=== PATIENT | female | born 1955 | race Asian ===

== ENCOUNTER → 2024-10-23 15:01 | Outpatient (REF) | payer MEDICARE, MEDICAID, SELFPAY ==
--- NOTE | 2024-10-23 15:14 | CA_ITS ---
Transthoracic Echocardiogram Patient (Last, First, Middle): Shreya Christian, Gender: Female Date of : 1955 Age: 69 Procedure Date: 10/23/2024 Procedure Type: Transthoracic Echocardiogram Location: OP Height: 144.78 cm Weight: 59.88 kg BSA: 1.51 m2 Heart Rate: bpm BP: 106 / 70 mmHg Windows Vmware Administrator: TO Referring MD: Vangie Perales Configuration Engineer: Zenon Lara MD Symptoms: I48.91 AFIB WITHOUR RVR Study Quality: Adequate ECG Rhythm: Atrial Fibrillation Conclusions: - 1. Normal LV ejection fraction 55-60% 2. Moderately dilated left atrium 3. Calcific aortic and mitral valve changes noted with mild mitral regurgitation 4. Normal RV systolic pressure 5. No pericardial effusion Findings Left Ventricle Normal left ventricular size, thickness, and systolic function. The visually estimated ejection fraction is between 55-60%. Diastolic function is indeterminate on the basis of available data. Right Ventricle Normal right ventricular cavity size and systolic function. Atria The left atrium is moderately dilated. There is no evidence of interatrial shunt. The right atrium is mildly dilated. Aortic Valve There is mild calcification of the aortic valve. There is no aortic valve stenosis. There is no aortic valve regurgitation. Mitral Valve There is mild anterior and posterior mitral leaflet thickening. There is mild mitral annular calcification. There is mild mitral valve regurgitation. There is no mitral valve stenosis. Pulmonic Valve The pulmonic valve was not well visualized. Tricuspid Valve Likely normal tricuspid valve structure and function. There is mild tricuspid valve regurgitation. The right ventricular systolic pressure is normal. The right ventricular systolic pressure is 20 mmHg. Normal right atrial pressure. There is no evidence of pulmonary hypertension. Great Vessels All visible segments of the aorta are normal in size. The pulmonary artery was not well visualized. There is no dilatation of the ascending aorta measuring 3.40 cm. Venous The inferior vena cava is normal in size and collapses greater than 50% with inspiration. Pericardium/Pleural There is no evidence of pericardial effusion. Prior Study Comparison No prior study available for comparison. Measurements 2D Linear Measurements IVSd: 0.95 0.6-0.9/0.6-1.0 cm LVIDd: 3.67 3.9-5.3/4.2-5.9 cm LVIDd Index: 2.43 2.4-3.2/2.2-3.1 cm/m2 LVIDs: 2.26 2.0-3.6 cm LVPWd: 0.86 0.7-1.1 cm LA Diam: 4.20 2.7-3.8/3.0-4.0 cm LAIDs Index: 2.78 1.5-2.3 cm/m2 LV Mass: 120.21 67-162/88-224 g LV Mass Index: 79.61 43-95/49-115 g/m2 LVOT Diam: 1.80 3.0+(-)1.3 cm 2D Systolic Function EF 4C: 57.80 >55% EF 2C: 59.40 >55% EF BiP: 57.20 >55% Mitral Valve MV Pk E: 0.72 MV Decel Time: 167.00 E'Lateral: 12.10 E'Medial: 7.22 E/E' Med: 9.90 E/E' Lat: 5.90 PHT: 49.00 MVA PHT: 4.49 Decel Meigs: 4.29 Aortic Valve AoV Pk Andrew: 1.53 AoV Mn Andrew: 0.97 AoV VTI: 0.30 AoV Pk Grad: 9.00 Aov Mn Grad: 4.00 DEMARCUS Cont.VTI: 1.53 LVOT LVOT Pk Andrew: 0.88 LVOT Mn Andrew: 0.59 LVOT VTI: 0.18 LVOT Pk Grad: 3.00 LVOT Mn Grad: 2.00 LVOT Diam: 1.80 LVOT Area: 2.54 Diastolic Function MV Pk E: 0.72 E'Medial: 7.22 E/E' Med: 9.90 E' Laterial: 12.10 E/E' Lat: 5.90 Right Ventricle TAPSE (mm): 15.10 TVS' Andrew: 9.21 Tricuspid Valve TR Pk Andrew: 2.06 TR Pk Grad: 17.00 RA Press: 3.00 RVSP: 20.00 Great Vessels Aorta Sinus of Valsalva: 2.57 2.0-3.5 cm Ao Asc: 3.40 2.1-3.4 cm Ao Arch: 2.60 Updated in Other Vendor System with Status of Final Zenon Lara MD electronically signed on 10/23/2024 5:20:23 PM with status of Final
--- OUTSIDE RECORDS SUMMARY | 2024-10-23 16:11 | XMS_ITS | Continuity of Care Document ---
Author Organization [facility], , [facility] [place] Address [address] [place] [address] [place] [address] Care Team Providers Care Hydrocrane Operator Name Role Phone OG MAXWELL Primary Care Provider Assessment Encounter Date Assessment Date Assessment LastModified by Organization Details LastModified Time 10/23/2024 10/23/2024 Attestation: Greater than 30 minutes was dedicated to the preparation of this clinical note, including review of medical records, patient interaction, and analysis of relevant data After a discussion of treatment options, which included consideration of best practices and patient preferences, the following treatment plan and objectives were adopted [email or web address] Not available 10/23/2024 10:25:40 Plan of Treatment Reminders Order Date Submit Date Provider Last Modified By Organization Details Last Modified Time Details Appointments Same Day Appt, 30 2024 09:30A M OG MAXWELL DNP Not available Not available Not available LAB Follow-Up 2024 10:40A M [facility] Not available Not available Not available LAB Follow-Up 2024 12:00P M [facility] Not available Not available Not available Wellness Visit 2024 02:30P M OG MAXWELL DNP Not available Not available Not available Lab TSH, serum or plasma 2024 025 [facility], [address] [place] [address], [address], 10/23/2024 10:19:15 T4, free, serum 2024 025 [facility], [address] [place], [address], 10/23/2024 16:07:28 fecal occult blood, immunoass ay, stool - Lab- Create annual order through QM-IFOBT order set. 2024 025 [email or web address] [facility], [address] [place] [address], [address], 10/23/2024 10:19:11 CBC 2024 025 [facility], [address] [place] [address], [address], 10/23/2024 12:15:54 BMP, serum or plasma 2024 025 [facility], [address] [place] [address], [address], 10/23/2024 10:19:14 Referral cardiolog ist referral - New afib without RVR, please eval 2024 025 [email or web address] [facility], [facility], [place], [address], 10/23/2024 11:53:11 Procedures None recorded. Surgeries None recorded. Imaging electroca rdiogram 2024 025 [email or web address] [facility], [address] [place] [address], [address], 10/23/2024 11:11:41 US, echocardi ogram - Afib without RVR 2024 025 [email or web address] [facility], [address] [place], [address], 10/23/2024 13:59:21 Medication Orders Eliquis 5 mg tablet 2024 025 [facility], [address] [place], [address], 10/23/2024 10:06:50 Patient TargetsNo targets recorded. Patient InstructionsNo instructions recorded. Reason for Referral Catheterization Laboratory Technician Referral for At rial fibrillation New afib without RVR, please eval Referring Physician: Og Maxwell, Family Medicine, Encounter Date: 10/23/2024 Results Created Date Observation Date Name Description Value Unit Range Abnormal Flag Note LastModifiedBy Organization Detail LastModifiedTime 10/23/1910/23/2024 elect rocar diogr am No observ ation record ed. [address], [place], [address], 10/23/2024 10:22:39 10/23/19 elect rocar diogr am No observ ation record ed. [email or web address] Not Available 2024 11:01:44 10/23/19 25 10/23/2024 elect rocar diogr am No observ ation record ed. BARCODE Not Available 2024 12:09:09 10/23/19 25 10/23/2024 elect rocar diogr am No observ ation record ed. BARCODE Not Available 2024 12:11:01 Result Notes None recorded. Problems Name Problem SNOMED Code Status Onset Date Resolution Date Notes Provider Name and Address Organization Details Recorded Time Benign essential hypertensio n 5171528 Active Mina Orantes MD [address] [place], [place] [address], [address], [facility] 6 13:57:39 Atheroscler osis of aorta 91909739 Active Laurie valleoj MD [address] [place], [place] [address], [address], [facility] 3 15:44:25 Anemia 470381407 Completed 201607/26/2019 MARQUES Espinoza [address] [place], [place] [address] [place], [address], [facility] 9 13:49:05 History of anemia 785159778 Completed 201807/20/2020 Laurie vallejo MD [address] [place], [place] [address] [place], [address], [facility] 0 15:50:41 Chronic anemia 110985568 Active 2020 Laurie vallejo MD [address] [place] [address] [place], [address], [facility] 1 12:42:08 Hypothyroid ism 60259624 Active 2021 Laurie vallejo MD [address] [place] [address] [place], [address], [facility] 2 13:12:02 Urinary incontinenc e 025113526 Active 2023 Laurie vallejo MD [address] [place] [address] [place], [address], [facility] 4 15:11:02 Problem Notes None recorded. Procedures Surgical History Date Name Laterality Status Provider Name and Address Organization Details Recorded Time 02/09/20 19 32977: Manual Therapy completed Nakul Sin, PT, DPT, CSCS [address] [place] [address], [address], [facility] 02/08/2019 12:21:51 02/09/20 19 05888: Ultrasound (1:1) completed Nakul Sin, PT, DPT, CSCS [address] [place] [address], [address], [facility] 02/08/2019 11:52:37 02/09/20 19 Neuromuscular re-education completed Nakul Sin, PT, DPT, CSCS [address] [place] [address], [address], [facility] 02/08/2019 12:21:52 02/02/20 19 96287: Manual Therapy completed Nakul Sin, PT, DPT, CSCS [address] [place] [address], [address], [facility] 02/01/2019 12:27:52 02/02/20 19 28546: Ultrasound (1:1) completed Nakul Sin, PT, DPT, CSCS [address] [place] [address], [address], [facility] 02/01/2019 12:28:03 01/26/20 19 Physical Activity Counselling completed Nakul Sin, PT, DPT, [address], [address], [facility] 01/25/2019 11:51:30 01/26/20 09357: PT Darren, Moderate Complexity completed Nakul Sin PT, DPT, CSC[facility] [address] [place] [address], [address], [facility] 01/25/2019 12:30:52 01/08/20 US Guided Knee Joint Injection completed Mina Orantes MD [address] [place] [address], [address], [facility] 01/07/2019 15:42:17 01/05/20 43557: Therapeutic Exercise completed Nakul Sin PT, DPT, [address], [address], [facility] 01/04/2019 12:27:04 01/05/20 64007: Manual Therapy completed Nakul Sin PT, DPT, [address], [address], [facility] 01/04/2019 12:26:55 01/05/20 17391: Ultrasound (1:1) completed Nakul Sin, PT, DPT, [address], [address], [facility] 01/04/2019 12:26:51 12/29/19 77577: Manual Therapy completed Nakul Sin PT, DPT, [address], [address], [facility] 12/28/2018 12:30:25 12/29/19 39529: Therapeutic Activities - Direct 1:1 completed Nakul Sin, PT, DPT, CSCS [address] [place] [address], [address], [facility] 12/28/2018 12:30:31 12/21/19 65913: Manual Therapy completed Nakul Sin, PT, DPT, [address], [address], [facility] 12/20/2018 12:46:05 12/21/19 25486: Therapeutic Activities - Direct 1:1 completed Nakul Sin, PT, DPT, CSC[facility] [address] [place] [address], [address], [facility] 12/20/2018 12:46:31 12/15/19 19 99782: Manual Therapy completed Nakul Sin, PT, DPT, CSCS [address] [place] [address], [address], [facility] 12/14/2018 11:49:54 12/15/19 19 Neuromuscular re-education completed Nakul Sin, PT, DPT, CSC[facility] [address] [place], [address], [facility] 12/14/2018 13:46:02 12/08/19 19 58507: Therapeutic Exercise completed Nakul Sin, PT, DPT, CSCS [address] [place] [address], [address], [facility] 12/07/2018 12:38:26 12/08/19 19 43657: Manual Therapy completed Nakul Sin, PT, DPT, CSCS [address] [place] [address], [address], [facility] 12/07/2018 12:38:09 12/01/19 19 00035: Manual Therapy completed Nakul Sin, PT, DPT, CSCS [address] [place] [address], [address], [facility] 11/30/2018 12:37:17 12/01/19 19 17127: Ultrasound (1:1) completed Nakul Sin, PT, DPT, CSCS [address] [place] [address], [address], [facility] 11/30/2018 11:50:13 12/01/19 19 73865: Therapeutic Activities - Direct 1:1 completed Nakul Sin, PT, DPT, CSCS [address] [place] [address], [address], [facility] 11/30/2018 13:14:39 11/23/19 19 42319: Manual Therapy completed Nakul Sin, PT, DPT, CSCS [address] [place] [address], [address], [facility] 11/22/2018 15:22:45 11/23/19 19 86286: Ultrasound (1:1) completed Nakul Sin, PT, DPT, CSCS [address] [place] [address], [address], [facility] 11/22/2018 15:18:21 11/17/19 19 62680: Manual Therapy completed Nakul Sin, PT, DPT, CSCS [address] [place] [address], [address], [facility] 11/16/2018 11:08:12 11/17/19 19 48655: Ultrasound (1:1) completed Nakul Sin, PT, DPT, [address], [address], [facility] 11/16/2018 11:08:03 11/17/19 19 Neuromuscular re-education completed Nakul Sin, PT, DPT, [address], [address], [facility] 11/16/2018 11:08:15 11/05/19 19 Physical Activity Counselling completed Nakul Sin, PT, DPT, [address], [address], [facility] 11/05/2018 11:19:01 11/05/19 19 69996: PT Eval, Moderate Complexity completed Nakul Sin, PT, DPT, [address], [address], [facility] 11/05/2018 11:45:14 07/25/20 18 POC Urinalysis Testing completed Duane Aguayo CMA [facility] 07/25/2018 16:27:44 Imaging Results Imaging Date Name Status LastModified by Organization Details LastModified Time 10/23/2024 electrocardiogram completed [address], [address], 10/23/2024 10:22:39 Procedure Notes None recorded. Medical Equipment None Reported. Allergies Allergen ID Allergen Name Allergen Category Reaction Reaction Severity Criticality Documentation Date Start Date Code Code System Note Provider Name and Address Organization Details Recorded Time 765022 lisinopri l medicatio n Not available Not available Not available 04/15/2015 59058 RxNorm Cough ing Honey Thee [facility] 8 15:08:16 Medications Name Sig Start Date Stop Date Status Note LastModified by Organization Details LastModified Time losartan 50 mg tablet TAKE 2 TABLETS BY MOUTH ONCE DAILY active Not Available Not Available No t Available celecoxib 200 mg capsule TAKE 1 CAPSULE BY MOUTH ONCE DAILY WITH SUPPER FOR 14 DAYS 01/29 completed pt sttaes finished this med 01/29/21L C Not Available Not Available Not Available amoxicill in 500 mg capsule TAKE 1 CAPSULE BY MOUTH EVERY 8 HOURS FOR 10 DAYS active Not Available Not Available No t Available prednison e 10 mg tablet 1 tablet daily with food or as directed . 05/10 completed Not Available Not Available Not Available cetirizin e 10 mg tablet Take 1 tablet every day by oral route for 30 days. 2023 active Not Available Not Available Not Avai lable azithromy maritza 250 mg tablet TAKE 2 TABLETS (500 MG) BY ORAL ROUTE ONCE DAILY FOR 1 DAY THEN 1 TABLET (250 MG) BY ORAL ROUTE ONCE DAILY FOR 4 DAYS 08/26 completed Not Available Not Available Not Available Lidocaine Viscous 2 % mucosal solution TAKE 15 ML BY MOUTH EVERY 3 HOURS 07/20 completed PRN Not Available Not Available Not Available Claritin 10 mg tablet Take 1 tablet every day by oral route for 7 days. 09/16 completed not taken 09/16/22tt Not Available Not Available Not Available prednison e 20 mg tablet TAKE 1 TABLET BY MOUTH TWICE DAILY WITH MEALS FOR 10 DAYS 08/09 completed Not Available Not Available Not Available prednison e 5 mg tablet TAKE 12 TABLETS BY MOUTH TODAY, 11 TABLETS TOMORROW AND 1 TABLET LESS EACH DAY active Not Available Not Available No t Available amlodipin e 2.5 mg tablet Take 1 tablet by mouth once daily active Not Available Not Available No t Available melatonin 3 mg tablet Take 1 tablet by oral route. 12/22 completed Not Available Not Available Not Available ciproflox acin 250 mg tablet TAKE 1 TABLET BY MOUTH TWICE DAILY FOR 3 DAYS 12/21 completed Not Available Not Available Not Available valacyclo vir 500 mg tablet TAKE 2 TABLETS BY MOUTH TWICE DAILY FOR 10 DAYS 07/20 completed Not Available Not Available Not Available aspirin 81 mg tablet,de layed release TAKE 1 TABLET BY MOUTH ONCE DAILY 10/23 completed Not Available Not Available Not Available triamcino lone acetonide 0.1 % topical cream APPLY A THIN LAYER TO THE AFFECTED AREA(S) BY TOPICAL ROUTE 2 TIMES PER DAY 09/16 completed not using 09/16/22 Not Available Not Available Not Available levothyro xine 25 mcg tablet Take 1 tablet every day by oral route. 2021 active Not Available Not Available Not Avai lable ketorolac 0.5 % eye drops INSTILL 1 DROP INTO RIGHT EYE THREE TIMES DAILY FOR 3 WEEKS FOLLOWIN G SURGERY 09/16 completed not using 09/16/22 Not Available Not Available Not Available cephalexi n 500 mg capsule TAKE 1 CAPSULE BY MOUTH EVERY 12 HOURS FOR 7 DAYS 09/21 completed Not Available Not Available Not Available oseltamiv ir 75 mg capsule TAKE 1 CAPSULE BY MOUTH TWICE DAILY FOR 5 DAYS 03/12 completed Not Available Not Available Not Available losartan 25 mg tablet Take 1 tablet every day by oral route for 90 days. 11/09 completed Not Available Not Available Not Available ibuprofen 400 mg tablet 1 tab 2-3 times a day as needed for pain. take with food 07/20 completed PRN Not Available Not Available Not Available hydrochlo rothiazid e 12.5 mg capsule Take 1 capsule by mouth once daily active Not Available Not Available No t Available omeprazol e 20 mg capsule,d elayed release take 1 cap po qam on an empty stomach with water 30 mins before eating 2014 active Not Available Not Available Not Avai lable Pepcid 20 mg tablet Take 1 tablet every day by oral route for 7 days. 09/16 completed not taken 09/16/22 Not Available Not Available Not Available celecoxib 100 mg capsule TAKE 1 CAPSULE BY MOUTH TWICE DAILY WITH MEALS FOR 14 DAYS 05/10 completed Not Available Not Available Not Available losartan 100 mg tablet Take 1 tablet by mouth once daily 02/01 completed Not Available Not Available Not Available fluticaso ne propionat e 50 mcg/actua tion nasal spray,[place] 1 spray every day by intranas al route. active Not Available Not Available No t Available Pneumovax -23 25 mcg/0.5 mL injection syringe PHARMACI ST ADMINIST ERED IMMUNIZA TION ADMINIST ERED AT TIME OF DISPENSI NG 12/21 completed Not Available Not Available Not Available azithromy maritza 500 mg tablet active Not Available Not Available No t Available nitrofura ntoin monohydra te/macroc rystals 100 mg capsule TAKE 1 CAPSULE BY MOUTH EVERY 12 HOURS FOR 7 DAYS 07/20 completed Not Available Not Available Not Available chlorhexi dine gluconate 0.12 % mouthwash RINSE WITH 15 ML BY MOUTH TWICE A DAY FOR 12 DAYS 07/20 completed not taking Not Available Not Available Not Available lysine 09/16 completed otc prn 01/29/21L C. not taken 09/16/22tt Not Available Not Available Not Available multivita min active Not Available Not Available Not Available diclofena c 1 % topical gel APPLY 2 GRAMS TO THE AFFECTED AREA(S) BY TOPICAL ROUTE 4 TIMES DAILY 2022 active Not Available Not Available Not Avai lable Eliquis 5 mg tablet Take 1 tablet twice a day by oral route. active Not Available Not Available No t Available BinaxNOW COVID-19 Ag Self Test kit Use as Directed on the Package 10/23 completed Not Available Not Available Not Available Vitals Date Recorded Body height Body mass index (BMI) Body weight Heart rate Oxygen saturation Oxygen saturation in Arterial blood by Pulse oximetry Systolic blood pressure Diastolic blood pressure Provider Name and Address Organization Details Last Updated DateTime 5 144.78 cm 28.6 kg/m2 06107.1 9 g 77 /min 100 % 100 % 116 mm[Hg] 64 mm[Hg] Janice Cuevas MA [facility] 09:46:00 Social History Question Answer Notes LastModified by Organizat ion Details LastModified Time Tobacco Smoking Status Never Smoker 10/23/24 KAYLYN Leiva [facility] 10/23/2024 09:36:59 What Is Your Level Of Alcohol Consumption? None [email or web address] Information not available 02/01/2022 Do You Wear A Helmet When Biking? Yes Information not available 11/16/2015 What Is Your Level Of Caffeine Consumption? Occasional Tea [email or web address] Information not available 02/01/2022 How Much Tobacco Do You Chew? None Information not available 11/16/2015 Are You Currently Employed? No [email or web address] Information not available 11/23/2015 What Type Of Diet Are You Following? REGULAR [email or web address] Information not available 10/01/2014 Do You Or Have You Ever Used E-cigarettes Or Vape? Never Used Electronic Cigarettes [email or web address] Information not available 02/01/2022 Education Less Than 8th Grade No Formal Schooling Information not available 09/16/2022 What Is The Highest Grade Or Level Of School You Have Completed Or The Highest Degree You Have Received? [id number] [email or web address] Information not available 02/01/2022 What Is Your Occupation? Unemployed [employer] [facility] [email or web address] Information not available 01/18/2017 Have There Been Any Changes To Your Family Or Social Situation? No [email or web address] Information not available 02/01/2022 How Many Days In The Past Year Have You Had A Heavy Drinking Consumption (4+ Female, 5+ Male)? 0 [email or web address] Information not available 10/01/2014 Are There Any Guns Present In Your Home? No Information not available 11/16/2015 Do You Use Insect Repellent Routinely? Yes Information not available 02/01/2022 Live Alone Or With Others? With Others [email or web address] Daughter's Family In Daughter's House Information not available 03/09/2023 Patient Has Health Care Proxy Signed And In Chart Yes Daughter- Rosette Cordero [email or web address] Information not available 03/10/2023 CCM Consent Discussion 03/12/2024 [email or web address] Information not available 03/13/2024 Marital Status Came Here Late 2012 From [facility] Information not available 03/09/2023 Mosquito Repellent Used Routinely No Information not available 09/16/2022 What Was The Date Of Your Most Recent Tobacco Screening? 10/23/2024 [email or web address] Information not available 10/23/2024 How Many Children Do You Have? 6 Daughters [email or web address] Information not available 10/01/2014 What Is Your Relationship Status? Male Spouse Information not available 02/01/2022 Do You Use Your Seat Belt Or Car Seat Routinely? Yes [email or web address] Information not available 02/01/2022 Seat Belts Used Routinely Yes Information not available 09/16/2022 Smoke Alarm In Home Yes Information not available 09/16/2022 Do You Have Smoke And Carbon Monoxide Detectors In Your Home? Yes [email or web address] Information not available 02/01/2022 Are You Passively Exposed To Smoke? No [email or web address] Information not available 02/01/2022 Do You Or Have You Ever Used Smokeless Tobacco? Never Used Smokeless Tobacco [email or web address] Information not available 02/01/2022 How Much Tobacco Do You Smoke? No [email or web address] Information not available 02/01/2022 General Stress Level Low Information not available 09/16/2022 Do You Use Sunscreen Routinely? Yes Information not available 11/16/2015 How Many Years Have You Smoked Tobacco? 0 [email or web address] Information not available 08/11/2020 Sex: Female Functional Status Question Answer Note LastModified by Organizat ion Details LastModified Time What is your exercise level? Occasional walking daily x 5-10 minutes Information not available 02/01/2022 Mental Status None recorded. Family History Nothing Reported Notes:brother -healthy, pare nts- when she was young Medical History No medical history recorded. Gynecological HistoryNo gynecological history recorded. Obstetrics History GPAL:G 0 P 0 0 0 0 Immunizations Vaccine Type Date Status Note Provider Nam e and Address Organization Details Recorded Time Influenza, split virus, quadrivalent, PF 5 completed Not Available [facility] 09/28/2019 02:19:21 Td (adult), 5 Lf tetanus toxoid, preservative free, adsorbed 5 completed Not Available [facility] 09/28/2019 02:19:45 zoster live 6 completed Not Available [facility] 09/28/2019 02:20:17 Influenza, split virus, quadrivalent, PF 6 completed Not Available [facility] 09/28/2019 02:20:16 Influenza, split virus, quadrivalent, PF 7 completed Not Available [facility] 09/28/2019 02:22:08 Influenza, split virus, quadrivalent, PF 9 completed Not Available [facility] 09/28/2019 02:31:12 Influenza, high-dose, quadrivalent, PF 0 completed Roxy Cisneros [place] null, [facility] 07/11/2020 12:32:10 Pneumococcal conjugate PCV 13 1 completed Duane Aguayo [facility] null, [facility] 01/29/2021 11:20:16 COVID-19, mRNA, LNP-S, PF, 100 mcg/0.5mL dose or 50 mcg/0.25mL dose 1 completed Marian Button null, [facility] 09/16/2022 14:04:06 Influenza, high-dose, quadrivalent, PF 2 completed RAFAT WILSON PA-C [address] [place] [address], [address], [facility] 07/18/2022 15:12:33 COVID-19, mRNA, LNP-S, PF, 100 mcg/0.5mL dose or 50 mcg/0.25mL dose 1 completed Marian Button null, [facility] 09/16/2022 14:04:07 COVID-19, mRNA, LNP-S, PF, 100 mcg/0.5mL dose or 50 mcg/0.25mL dose 1 completed Marian Button null, [facility] 09/16/2022 14:04:06 Influenza, split virus, quadrivalent, preservative 1 completed Marian Button null, [facility] 09/16/2022 14:04:06 pneumococcal polysaccharide PPV23 0 completed Marian Button null, [facility] 09/16/2022 14:04:06 COVID-19, mRNA, LNP-S, PF, 100 mcg/0.5mL dose or 50 mcg/0.25mL dose 2 completed Marian Button null, [facility] 09/16/2022 14:04:06 Influenza, high-dose, quadrivalent, PF 3 completed Nilmari, RMA Toribio null, [facility] 06/04/2023 15:47:53 RSV, recombinant, protein subunit RSVpreF, adjuvant reconstituted, 0.5 mL, PF 3 completed Nilmari, RMA Toribio null, [facility] 06/04/2023 15:48:23 COVID-19, mRNA, LNP-S, PF, 50 mcg/0.5 mL 3 completed Nilmari, RMA Toribio null, [facility] 06/27/2023 14:38:15 Influenza, high-dose, trivalent, PF 4 completed Nilmari, RMA Toribio null, [facility] 07/04/2024 07:58:35 zoster recombinant 4 completed Nilmari, RMA Toribio null, [facility] 07/04/2024 07:59:05 Past Encounters Encounter ID Performer Location Encounter Start Date Encounter Closed Date Diagnosis/Indication Diagnosis SNOMED-CT Code Diagnosis ICD10 Code Diagnosis Note [id number] OG MAXWELL DNP , [facility] [address] [place] [address] 10/23/2024 09:30:50 10/23/2024 11:11:41 Palpitations 91583169 R00.2 Atrial fibrillation 4943 6004 I48.91 Rate controlled atrial fibrillati on is likely due to dehydratio n and stress from diarrhea, with hx chronic anemia possibly contributi ng. Aspirin 81 mg daily is ineffectiv e for thromboemb olism prevention , so Eliquis 5 mg BID is chosen for anticoagul ation after discussion w/ pt and family. The necessity of anticoagul ation and clot risk was discussed based on CHADVASc score of 3. Holter monitor assessment is planned. Order a comprehens tabitha metabolic panel for electrolyt es, CBC to check for worsening anemia and refer to cardiology for an echocardio gram. Recommend PO intake (fluids and food) and rest once patient returns home. We discussed to monitor for worsening s/s and to seek immediate care if they develop. Screening for malignant neoplasm of colon [id number] Z12.11 You were given a stool kit today for Colorectal Cancer screening. Please review the instructio ns and return the kit to our office within 7 days. The kits so check the date before submitting the sample. Contact our office with any questions or concerns. Benign ess ential hypertension [id number] I10 BP 116/64, at goal. Continue current meds. Health Concerns Section Related Observation LastModified by Organization Detai ls LastModified Time None Recorded Concern Status LastModified by Organization Details LastModified Time None Recorded Payers Encounter Date Sequence Insurance Name Policy Number Policy Bradley Covered Member ID Bradley Member ID Guarantor Name 10/23/2024 1 [place] [employer] Shreya Gino [id number] Shreya Gino 10/23/2024 2 [place] [facility] Shreya Gino [id number] Shreya Gino Notes Date Note Type Note Provider Name and Address Organization Details Recorded Time 10/23/2024 text/html 69 year old german martin accompanied by her HCP/dtr presents for eval of afib. Pt was at [facility] for endoscopy at which point they performed a EKG. Reading showed 70 bpm w/ afib rhythm. Pt reports she has not eaten since breakfast yesterday morning as she was fasting for her colonoscopy. Reports the prep resulted in loose stools and it interfered with her ability to sleep. Currently she feels a band like headache and slight lightheadness. No palpitations, no dizziness, no chest pain, no SOB, no chest tightness. Pt is currently on 81 mg aspirin daily, HCTZ 12.5 mg cap daily, losartan 50 mg 2 tabs daily and amlodipine 2.5 mg one tab daily. OG MAXWELL, AYDIN [address] [place] [address], [id number], [facility] [place] 10/23/2024 10:39:22 OBGyn Episode No OBEpisode recorded.
--- OUTSIDE RECORDS SUMMARY | 2024-10-23 16:11 | XMS_ITS | Data Portability ---
Author Organization [facility], , [facility] Address [address] [place] [address] Care Team Providers Care Analysis Engineer Name Role Phone ALISSA OG Primary Care Provider Assessment Encounter Date Assessment Date Assessment LastModified by Organization Details LastModified Time 07/06/2023 07/06/2023 After a discussion of treatment and medication options, which included consideration of the best practices in medicine, a medical plan was provided. The patient's opinions and concerns were included in this treatment plan and goal. [email or web address] Not available 07/06/2023 15:24:01 03/12/2024 03/12/2024 We completed your Medicare Wellness exam today. This was an opportunity to assess your overall well being including your ability to care for yourself, your mobility, memory, mental health, as well as your safety. With advancing age, it is important to assign someone in your life as your Health Care Proxy (HCP). This person should know what is important to you and what your wishes are for medical procedures if you cannot communicate your wishes yourself (severe illness, unconsciousness ). We discussed having a completed Health Care Proxy form today. This is in place. Vision and Hearing are senses that are critically important as we age. When impaired, they can contribute to memory loss, falls, and make it harder to drive, talk to family and friends, and engage in the world. Please get your vision checked yearly and your hearing checked when you start to notice hearing loss. We discussed approaches to lowering your risk of heart disease and stroke . Your blood pressure is at goal. Your cholesterol is at goal. We discussed cancer screening you may need as well as vaccines to prevent infections. Colon Cancer : Your risk of colon cancer is average. Due for colorectal screenin. If you are not planning to have a colonoscopy please screen with stool cards yearly. Breast Cancer : Breast Cancer Screening (mammography). Next mammogram due: 2023. Cervical Cancer Screening (pap test). Next pap due: not needed. Influenza Vaccine : Flu shot yearly. Tetanus Vaccine : Every 10 years. Due: 2024. The following vaccines are available from your pharmacy: Pneumonia Vaccine : PCV20/13: once after age 65. Shingles Vaccine : 2 shots after age 50. Covid Vaccine : Make sure you have received the most up to date covid vaccine. Your personal health goal for the year is: stay active. [email or web address] Not available 03/12/2024 15:28:20 Plan of Treatment Reminders Order Date Submit Date Provider Last Modified By Organization Details Last Modified Time Details Appointments Same Day Appt, 30 2024 09:30A M OG MAXWELL DNP Not available Not available Not available LAB Follow -Up 2024 12:00P M [facility] Lab Not available Not available Not available [facility] Visit 2024 02:30P M OG MAXWELL DNP Not available Not available Not available Lab cultur e, urine 2022 023 [facility], [address] [place] [address], [id number], 07/08/2023 14:18:35 urinal ysis, dipsti ck 2022 023 [email or web address] [facility], [address] [place] [address], [id number], 07/06/2023 17:15:54 rapid flu (A+B) 2023 024 [facility], [address] [place] [address], [address], 09/21/2023 10:08:07 CBC 2023 024 [facility], [address] [place] [address], 180[address], 09/21/2023 12:57:54 TSH, serum or plasma 2023 024 [facility], [address] [place] [address], [id number], 09/22/2023 10:47:37 T4, free, serum 2023 024 [facility], [address] [place] [address], 11307, 09/22/2023 10:22:05 BMP, serum or plasma 2023 024 [facility], [address] [place] [address], 00605, 09/22/2023 12:21:32 CBC 2023 024 [facility], [address] [place] [address], 34870, 08/19/2024 14:33:15 BMP, serum or plasma 2023 024 [facility], [address] [place] [address], 56025, 08/20/2024 12:28:24 lipid panel, serum 2023 024 [facility], [address] [place] [address], [address]14, 08/20/2024 12:28:25 TSH, serum or plasma 2023 024 [facility], [address] [place] [address], 66326, 08/22/2024 16:25:03 T4, free, serum 2023 024 [facility], [address] [place] [address], 42055, 08/22/2024 15:53:20 CBC [email or web address] [address] [place] [address], [address], 08/27/2024 08:57:02 BMP, serum or plasma 2023 025 [facility], [address] [place] [address], 757[address], 08/27/2024 08:57:02 TSH, serum or plasma 2023 025 [facility], [address] [place] [address], 99061, 08/27/2024 08:57:02 T4, free, serum 2023 025 [facility], [address] [place] [address], [address], 08/27/2024 08:57:02 Referral orthop edic surgeo n referr al 2023 024 [email or web address] [facility], [address] [place] [address], [address], 03/18/2024 15:27:58 otolar yngolo gist referr mar ye 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 Please evalua te. Thank you 2023 024 [email or web address] [facility], [address], [place], [address], 08/02/2024 12:31:53 Procedures colono scopy proced ure (PROC) [email or web address] [place] [address] Gastroenterol ogy, [address] [place], [address], 08/27/2024 11:10:13 Surgeries None record ed. Imaging MAMMO, screen ing, tomosy nthesi s, bilate ral - 2nd Look Consul t/Diag Mammo/ US Breast /Guide d Asp/Br east Bx/Cli p Placem ent, as clinic kip waller. 2023 024 [facility]), [address], [place], [address], 04/01/2024 18:17:17 XR, chest 2023 024 [facility] [address], [place], [address], 07/31/2024 16:27:53 Medication Orders cephal exin 500 mg capsul e 2022 023 [email or web address] [facility], [address] [place] [address], [address], 09/21/2023 09:40:04 Tamifl u 75 mg capsul e 2023 024 [facility], [address] [place] [address], [address], 03/12/2024 15:08:33 flutic asone propio sae 50 mcg/ac tuatio n nasal spray, suspen alfred 2023 024 [facility], [address] [place], [address], 07/31/2024 15:19:52 cetiri zine 10 mg tablet 2023 024 [facility], [address] [place] [address], [address], 07/31/2024 15:19:52 azithr omycin 250 mg tablet 2023 024 [facility], [address] [place] [address], [address], 08/26/2024 17:30:26 Patient TargetsNo targets recorded. Patient Instructions Encounter Date Encounter Id Patient Instructions Last Modified By Organization Details Last Modified Time 03/12/2024 [id number] advance directives: care instructions [email or web address] Not available 03/12/2024 15:30:18 preventing falls: care instructions [email or web address] Not available 03/12/2024 15:30:18 hearing loss: care instructions [email or web address] Not available 03/12/2024 15:30:18 well visit, over 65: care instructions [email or web address] Not available 03/12/2024 15:30:18 CCM: The provider and patient discussed the Chronic Care Management program, including the services provided, and any fees associated with them. Not available 03/12/2024 10:51:14 Reason for Referral Orthopedic Surgeon Referral for Degenerative joint disease involving multiple joints Referring Physician: [facility], Encounter Date: 03/12/2024 Extrusion Engineer Referral fo r Erythema of skin of nose Patient has recurrent erythema of nose and external throat with URI symptoms. Please evaluate. Thank you Referring Physician: Og [facility], Encounter Date: 07/31/2024 Results Created Date Observation Date Name Description Value Unit Range Abnormal Flag Note LastModifiedBy Organization Detail LastModifiedTime 07/06/2007/06/2023 POC UA glu UA NEGATI VE Not Available [facility] [address] [place] [address], [address], 07/06/2023 14:46:52 07/06/2007/06/2023 POC UA clarity UA CLEAR Not Available [address], [address], 07/06/2023 14:46:52 07/06/2007/06/2023 POC UA uro UA 1.0000 Not Available [facility] [address] [place] [address], [address], 07/06/2023 14:46:52 07/06/2007/06/2023 POC UA ket UA NEGATI VE Not Available [address], [address], 07/06/2023 14:46:52 07/06/2007/06/2023 POC UA pro UA >=300. 0000 abnormal Not Available [address], [address], 07/06/2023 14:46:52 07/06/2007/06/2023 POC UA nit UA NEGATI VE Not Available [facility] [address] [place] [address], [address], 07/06/2023 14:46:52 07/06/2007/06/2023 POC UA frances UA LARGE abnormal Not Available [facility] [address] [place] [address], [address], 07/06/2023 14:46:52 07/06/2007/06/2023 POC UA pH UA 7.5000 Not Available [facility] [address] [place] [address], [address], 07/06/2023 14:46:52 07/06/2007/06/2023 POC UA SG UA 1.0200 Not Available [facility] [address] [place] [address], 94[address], 07/06/2023 14:46:52 07/06/2007/06/2023 POC UA color UA YELLOW Not Available [facility] [address] [place] [address], [address], 07/06/2023 14:46:52 07/06/2007/06/2023 POC UA blo UA LARGE abnormal Not Available [facility] [address] [place] [address], 98[address], 07/06/2023 14:46:52 07/06/2007/06/2023 POC UA thomas UA NEGATI VE Not Available [facility] [address] [place] [address], 828[address], 07/06/2023 14:46:52 07/06/2007/08/2023 CULTU RE, URINE , ROUTI NE culture, urine, routine abnormal CULTU RE, URINE , ROUTI NE Micro Numbe r: [id number] Test Statu s: Final Speci men Sourc e: Urine Speci men Quali ty: Adequ ate Resul t: 1,000 -9,00 0 CFU/M L of Group B Strep tococ cus isola sridhar Beta- hemol ytic strep tococ ci are predi ctabl y susce ptibl e to Penic illin and other beta- lacta ms. Theresece ptibi lity testi ng not routi edwige perfo rmed. Pleas e conta ct the labor atory withi n 3 days if susce ptibi lity testi ng is nafisa ed. Comme nt: Eryth romyc in and clind amyci n are not recom guilherme d for treat ment of urina ry tract infec tions , but clind amyci n may be usefu l for treat ment of recto vagin al colon izati on or infec tion. COMME NT: Addit ional non-p redom inati ng organ ism(s ) isola sridhar. These organ isms, commo nly found on exter nal and inter nal genit moon, are consi dered colon izers . No furth er testi ng perfo rmed. Not Available [facility] [address], [place], [address], 07/08/2023 14:18:35 09/21/19 24 09/21/2023 POC FLU flu A POC NEGATI VE Not Available [facility] [address] [place] [address], 12[address], 09/21/2023 10:08:07 09/21/19 24 09/21/2023 POC FLU flu B POC POSITI VE positive Not Available [facility] [address] [place] [address], 24543, 09/21/2023 10:08:07 09/21/19 24 09/21/2023 CBC WBC 6.17 K/? ? ?L 3.98-1 0.04 Not Available [address], [address], 09/21/2023 12:57:54 09/21/19 24 09/21/2023 CBC RBC 3.40 M/? ? ?L 3.93-5 .22 low Not Available [address], [address], 09/21/2023 12:57:54 09/21/19 24 09/21/2023 CBC HGB 10.5 g/dL 11.2-1 5.7 low Not Available [address], [address], 09/21/2023 12:57:54 09/21/19 24 09/21/2023 CBC HCT 31.2 % 34.1-4 4.9 low Not Available [address], [address], 09/21/2023 12:57:54 09/21/19 24 09/21/2023 CBC MCV 91.8 fL 79.4-9 4.8 Not Available [address], [address], 09/21/2023 12:57:54 09/21/19 24 09/21/2023 CBC MCH 30.9 pg 25.6-3 2.2 Not Available [address], [address]758, 09/21/2023 12:57:54 09/21/19 24 09/21/2023 CBC MCHC 33.7 g/dL 32.2-3 5.5 Not Available [address], [address], 09/21/2023 12:57:54 09/21/19 24 09/21/2023 CBC plt 231 K/? ? ?L 182-36 9 Not Available [address], [address], 09/21/2023 12:57:54 09/21/19 24 09/21/2023 CBC MPV 10.3 fL 9.4-12 .3 Not Available [address], 9[address], 09/21/2023 12:57:54 09/21/19 24 09/21/2023 CBC neut% 55.6 % 34.0-7 1.1 Not Available [address], [address], 09/21/2023 12:57:54 09/21/19 24 09/21/2023 CBC neut# 3.43 1.56-6 .13 Not Available [address], 4[address], 09/21/2023 12:57:54 09/21/19 24 09/21/2023 CBC lymph % 20.1 % 19.3-5 1.7 Not Available [address], [address], 09/21/2023 12:57:54 09/21/19 24 09/21/2023 CBC lymph # 1.24 K/? ? ?L 1.18-3 .74 Not Available [address], 10805, 09/21/2023 12:57:54 09/21/19 24 09/21/2023 CBC mono% 12.6 % 4.7-12 .5 high Not Available [address], 25[address], 09/21/2023 12:57:54 09/21/19 24 09/21/2023 CBC mono# 0.78 0.24-0 .56 high Not Available [address], [address], 09/21/2023 12:57:54 09/21/19 24 09/21/2023 CBC eo% 10.4 % 0.7-5. 8 high Not Available [address], [address], 09/21/2023 12:57:54 09/21/19 24 09/21/2023 CBC eo# 0.64 0.04-0 .36 high Not Available [address], [address], 09/21/2023 12:57:54 01/11/09/21/2023 CBC baso% 1.1 % 0.1-1. 2 Not Available [address], [address], 09/21/2023 12:57:54 09/21/19 24 09/21/2023 CBC baso# 0.07 0.00-0 .08 Not Available [address], 15607, 09/21/2023 12:57:54 09/21/19 24 09/21/2023 CBC RDW-CV 13.4 % 11.7-1 4.4 Not Available [address], [address]52, 09/21/2023 12:57:54 09/21/19 24 09/21/2023 CBC Ig% 0.200 % 0.000- 1.500 Ig % >0.5 Indic ates possi ble Left Shift Not Available [address], [address], 09/21/2023 12:57:54 09/21/19 24 09/21/2023 CBC Ig# 0.010 0.000- 0.093 Not Available [address], [address], 09/21/2023 12:57:54 09/21/19 24 09/21/2023 CBC NRBC% 0.0 % 0.0-0. 2 Not Available [address], [address], 09/21/2023 12:57:54 09/21/19 24 09/21/2023 CBC NRBC# 0.000 0.000- 0.012 Not Available [address], [address], 09/21/2023 12:57:54 09/21/19 24 09/22/2023 FREE T4 free T4 0.90 NG/dL 0.75-1 .54 Not Available [address], [address], 09/22/2023 10:22:05 09/21/19 24 09/22/2023 TSH TSH 4.33 uIU/m L 0.50-6 .00 The Ameri can Colle ge of Endoc rinol ogy and Ameri can Thyro id Assoc iatio n recom mend goal TSH value s betwe en 0.4-4 .0 mIU/m L. Not Available [address], [address], 09/22/2023 10:47:37 09/21/19 24 09/22/2023 BASIC METAB OLIC PANEL glucose 80 mg/dL 70-100 Not Available [address], 57[address], 09/22/2023 12:21:32 09/21/19 24 09/22/2023 BASIC METAB OLIC PANEL BUN 14 mg/dL 7-18 Not Available [address], [address]96, 09/22/2023 12:21:32 09/21/19 24 09/22/2023 BASIC METAB OLIC PANEL creatinine 0.7 mg/dL 0.8-1. 3 low Not Available [address], [address], 09/22/2023 12:21:32 09/21/19 24 09/22/2023 BASIC METAB OLIC PANEL B/C 20.0 ratio Not Available [address], [address], 09/22/2023 12:21:32 09/21/19 24 09/22/2023 BASIC METAB OLIC PANEL GFR >=60ML /MIN mL/mi n normal >=60m L/min - Deborah l or midly reduc ed <60mL /min- Decre ased kidne y funct ion <15mL /min - Kidne y failu re Mireles y [facility] al Group calcu lates estim ated Glome rular Filtr ation Rate (eGFR ) using the Chron ic Kidne y Disea se Epide miolo gy Colla borat ion (CKD- EPI) Equat ion (Abiele r et. al 2020) as recom guilherme d by the Oliver tang . eGFR is based on age, serum creat inine , and sex. CKD-E PI does not calcu late eGFR by race, does not apply to child braydon (age <18 years ), and shoul d not be used in pregn shannon. Not Available [address], [address], 09/22/2023 12:21:32 09/21/19 24 09/22/2023 BASIC METAB OLIC PANEL sodium 139 mmol/ L 136-14 5 Not Available [address], [address], 09/22/2023 12:21:32 09/21/19 24 09/22/2023 BASIC METAB OLIC PANEL potassium 3.8 mmol/ L 3.5-5. 1 Not Available [address], [address], 09/22/2023 12:21:32 09/21/19 24 09/22/2023 BASIC METAB OLIC PANEL chloride 101 mmol/ L 96-107 Not Available [address], [address]56, 09/22/2023 12:21:32 09/21/19 24 09/22/2023 BASIC METAB OLIC PANEL anion gap 11.0 5.0-15 .0 Not Available [address], [address]15, 09/22/2023 12:21:32 09/21/19 24 09/22/2023 BASIC METAB OLIC PANEL CO2 27 mmol/ L 21-32 Not Available [address], 80672, 09/22/2023 12:21:32 09/21/19 24 09/22/2023 BASIC METAB OLIC PANEL calcium 8.9 mg/dL 8.5-10 .3 Not Available [address], [address], 09/22/2023 12:21:32 08/19/20 24 08/19/2024 CBC WBC 4.16 K/? ? ?L 3.98-1 0.04 Not Available [address], [address]120, 08/19/2024 14:33:15 08/19/20 24 08/19/2024 CBC RBC 3.12 M/? ? ?L 3.93-5 .22 low Not Available [address], [address], 08/19/2024 14:33:15 08/19/2008/19/2024 CBC HGB 10.0 g/dL 11.2-1 5.7 low Not Available [address], 8[address], 08/19/2024 14:33:15 08/19/20 24 08/19/2024 CBC HCT 29.4 % 34.1-4 4.9 low Not Available [address], [address], 08/19/2024 14:33:15 08/19/20 24 08/19/2024 CBC MCV 94.2 fL 79.4-9 4.8 Not Available [address], [address]604, 08/19/2024 14:33:15 08/19/20 24 08/19/2024 CBC MCH 32.1 pg 25.6-3 2.2 Not Available [address], [address]69, 08/19/2024 14:33:15 08/19/20 24 08/19/2024 CBC MCHC 34.0 g/dL 32.2-3 5.5 Not Available [address], [address], 08/19/2024 14:33:15 08/19/20 24 08/19/2024 CBC plt 211 K/? ? ?L 182-36 9 Not Available [address], [address], 08/19/2024 14:33:15 08/19/20 24 08/19/2024 CBC MPV 10.6 fL 9.4-12 .3 Not Available [address], [address], 08/19/2024 14:33:15 08/19/20 24 08/19/2024 CBC neut% 27.7 % 34.0-7 1.1 low SREV= Slide revie wed by [facility]. Not Available [address], [address], 08/19/2024 14:33:15 08/19/20 24 08/19/2024 CBC neut# 1.15 1.56-6 .13 low Not Available [address], [address], 08/19/2024 14:33:15 08/19/20 24 08/19/2024 CBC lymph % 52.4 % 19.3-5 1.7 high Not Available [address], [address]20, 08/19/2024 14:33:15 08/19/20 24 08/19/2024 CBC lymph # 2.18 K/? ? ?L 1.18-3 .74 Not Available [address], [address], 08/19/2024 14:33:15 08/19/20 24 08/19/2024 CBC mono% 9.1 % 4.7-12 .5 Not Available [address], [address], 08/19/2024 14:33:15 08/19/20 24 08/19/2024 CBC mono# 0.38 0.24-0 .56 Not Available [address], [address], 08/19/2024 14:33:15 08/19/20 24 08/19/2024 CBC eo% 9.6 % 0.7-5. 8 high Not Available [address], 9[address], 08/19/2024 14:33:15 08/19/20 24 08/19/2024 CBC eo# 0.40 0.04-0 .36 high Not Available [address], 35708, 08/19/2024 14:33:15 08/19/20 24 08/19/2024 CBC baso% 1.2 % 0.1-1. 2 Not Available [address], [address]9997, 08/19/2024 14:33:15 08/19/20 24 08/19/2024 CBC baso# 0.05 0.00-0 .08 Not Available [address], [address], 08/19/2024 14:33:15 08/19/20 24 08/19/2024 CBC RDW-CV 13.8 % 11.7-1 4.4 Not Available [address], [address], 08/19/2024 14:33:15 08/19/20 24 08/19/2024 CBC Ig% 0.000 % 0.000- 1.500 Ig % >0.5 Indic ates possi ble Left Shift Not Available [address], [address]69, 08/19/2024 14:33:15 08/19/20 24 08/19/2024 CBC Ig# 0.000 0.000- 0.093 Not Available [address], [address], 08/19/2024 14:33:15 08/19/20 24 08/19/2024 CBC NRBC% 0.0 % 0.0-0. 2 Not Available [address], [address], 08/19/2024 14:33:15 08/19/20 24 08/19/2024 CBC NRBC# 0.000 0.000- 0.012 Not Available [address], [address], 08/19/2024 14:33:15 08/19/20 24 08/20/2024 BASIC METAB OLIC PANEL glucose 77 mg/dL 70-100 Not Available [address], [address], 08/20/2024 12:28:24 08/19/20 24 08/20/2024 BASIC METAB OLIC PANEL BUN 20 mg/dL 7-18 high Not Available [address], [address], 08/20/2024 12:28:24 08/19/20 24 08/20/2024 BASIC METAB OLIC PANEL creatinine 0.7 mg/dL 0.8-1. 3 low Not Available [address], [address], 08/20/2024 12:28:24 08/19/20 24 08/20/2024 BASIC METAB OLIC PANEL B/C 28.6 ratio Not Available [address], [address], 08/20/2024 12:28:24 08/19/20 24 08/20/2024 BASIC METAB OLIC PANEL GFR >=60ML /MIN mL/mi n normal >=60m L/min - Deborah l or midly reduc ed <60mL /min- Decre ased kidne y funct ion <15mL /min - Kidne y failu re [facility] y [employer] al [employer] calcu lates estim ated Glome rular Filtr ation Rate (eGFR ) using the Chron ic Kidne y Disea se Epide miolo gy Colla borat ion (CKD- EPI) Equat ion (Estela r et. al 2020) as recom guilherme d by the Oliver tang . eGFR is based on age, serum creat inine , and sex. CKD-E PI does not calcu late eGFR by race, does not apply to child braydon (age <18 years ), and shoul d not be used in pregn shannon. Not Available [address], [address], 08/20/2024 12:28:24 08/19/20 24 08/20/2024 BASIC METAB OLIC PANEL sodium 143 mmol/ L 136-14 5 Not Available [address], [address], 08/20/2024 12:28:24 08/19/20 24 08/20/2024 BASIC METAB OLIC PANEL potassium 3.9 mmol/ L 3.5-5. 1 Not Available [address], [address], 08/20/2024 12:28:24 08/19/20 24 08/20/2024 BASIC METAB OLIC PANEL chloride 105 mmol/ L 96-107 Not Available [address], 15[address], 08/20/2024 12:28:24 08/19/20 24 08/20/2024 BASIC METAB OLIC PANEL anion gap 11.6 5.0-15 .0 Not Available [address], [address], 08/20/2024 12:28:24 08/19/20 24 08/20/2024 BASIC METAB OLIC PANEL CO2 26 mmol/ L 21-32 Not Available [address], [address], 08/20/2024 12:28:24 08/19/20 24 08/20/2024 BASIC METAB OLIC PANEL calcium 9.1 mg/dL 8.5-10 .3 Not Available [address], [address], 08/20/2024 12:28:24 08/19/20 24 08/20/2024 LIPID PANEL cholesterol 172 mg/dL <200 mg/dl Nafisa able 200-2 39 mg/dl Borde rline High >240 mg/dl High Not Available [address], [address], 08/20/2024 12:28:25 08/19/20 24 08/20/2024 LIPID PANEL triglyceride s 60 mg/dL <150 mg/dL Deborah l 150-1 99 mg/dL Borde rline High 200-4 99 mg/dL High >500 mg/dL Very High Not Available [address], [address], 08/20/2024 12:28:25 08/19/20 24 08/20/2024 LIPID PANEL direct HDL 71 mg/dL <40 mg/dl - Major Risk for CHD >60 mg/dl - Negat tabitha Risk for CHD Not Available [address], [address], 08/20/2024 12:28:25 08/19/2008/20/2024 LDL - CALCU LATED LDL - calculated 89 RISK CATEG ORY LDL GOAL _ CHD or CHD Risk Equiv alent s <100 mg/dl (10-y ear risk >20%) 2+ Risk Facto rs <130 mg/dl (10-y ear risk <= 20%) 0-1 Risk Facto r? <160 mg/dl ? Almos t all peopl e with 0-1 risk facto r have a 10 year risk <10%, thus 10 year risk asses ment in peopl e with 0-1 risk facto r is not neckamar adelia. Not Available [address], [address], 08/20/2024 12:28:26 08/19/20 24 08/22/2024 FREE T4 free T4 0.90 NG/dL 0.75-1 .54 Not Available [address], [address], 08/22/2024 15:53:20 08/19/20 24 08/22/2024 TSH TSH 4.30 uIU/m L 0.50-6 .00 The Ameri can Colle ge of Endoc rinol ogy and Ameri can Thyro id Assoc iatio n recom mend goal TSH value s betwe en 0.4-4 .0 mIU/m L. Not Available [address], [address], 08/22/2024 16:25:03 04/01/20 24 04/01/2024 MAMMO , scree jessica, tomos ynthe sis, bilat eral MAMMO, SCREEN , RENATE, BILAT: 024. BI-RAD S: 1 CLINIC AL: 68-yea r old Female for Bilate ral Screen ing Mammog leslye. [facility] lifeti me risk of 2.4%. No person al or first- degree family histor y of breast cancer . PRIOR EXAMS: Multip le prior studie s back throug h 2015. MAMMOG ELIEL TECHNI QUE: 3D mammog eliel (tomos ynthes is) and 2D mammog eliel (C-vie w) images are genera sridhar. Images review ed with a CAD system . DENSIT Y B. There are scatte red areas of fibrog landul ar densit y. MAMMOG ELIEL FINDIN GS Bilate ral: No suspic ious mass, asymme try, microc alcifi cation , or other abnorm ality seen. CONCLU SIONNo eviden ce of malign shannon. RECOMM ENDATI ONS Bilate ralAnn ual screen ing mammog eliel. ADMINI STRATI VE: A lay summar y was mailed to your patien cassi angel the result s and recomm endati ons for follow -up. OVERAL L ASSESS MENT CATEGO RY BI-RAD S-1: Negati ve. The [employer] recomm ends annual screen ing mammog eliel beginn ing at age 40 for women with averag e risk of breast cancer . ELECTR ONICAL LY SIGNED : Giancarlo al Huy vigil M.D. on 2023 at 06:16: 59 PM Shaun alvarado Physic kaylie: Giancarlo Son ms [facility] [place] (Imaging) [address] [place], [address], 04/01/2024 21:55:43 07/31/20 24 07/31/2024 XR, chest CLINIC AL HISTOR Y: Cough. Short of breath TECHNI QUE: Fronta l view and latera l view of the chest obtain ed. COMPAR MOISÉS: March 12, 2021 FINDIN GS: The heart is normal in size and config uratio n.Ther e is no hilar or medias tinal enlarg ement. There is no focal lung consol idatio n or infilt rate. The bony thorax is intact . IMPRES ALFRED: No acute diseas e. Shaun alvarado Physic kaylie: [facility] (Imaging) [address] [place], [address], 07/31/2024 20:23:19 Result Notes None recorded. Problems Name Problem SNOMED Code Status Onset Date Resolution Date Notes Provider Name and Address Organization Details Recorded Time Benign essential hypertensio n 8206495 Active Mina Orantes MD [address] [place] [address] [place], [address], [facility] 6 13:57:39 Atheroscler osis of aorta 49520052 Active Laurie vallejo MD [address] [place] [address] [place], [address], [facility] 3 15:44:25 Anemia 775790513 Completed 201607/26/2019 MARQUES Espinoza [address] [place] [address] [place], [address], [facility] 9 13:49:05 History of anemia 870496741 Completed 201807/20/2020 Laurie vallejo MD [address] [place] [address] [place], [address], [facility] 0 15:50:41 Chronic anemia 805723647 Active 2020 Laurie vallejo MD [address] [place] [address] [place], [address], [facility] 1 12:42:08 Hypothyroid ism 03341388 Active 2021 Laurie vallejo MD [address] [place] [address] [place], [address], [facility] 2 13:12:02 Urinary incontinenc e 923824411 Active 2023 Laurie vallejo MD [address] [place] [address] [place], [address], [facility] 4 15:11:02 Problem Notes None recorded. Procedures Surgical History Date Name Laterality Status Provider Name and Address Organization Details Recorded Time 02/09/20 19 24398: Manual Therapy completed Nakul Sin, PT, DPT, CSCS [address] [place] [address], [address], [facility] 02/08/2019 12:21:51 02/09/20 19 19562: Ultrasound (1:1) completed Nakul Sin, PT, DPT, CSCS [address] [place] [address], [address], [facility] 02/08/2019 11:52:37 02/09/20 19 Neuromuscular re-education completed Nakul Sin, PT, DPT, CSCS [address] [place] [address], [address], [facility] 02/08/2019 12:21:52 02/02/20 19 72253: Manual Therapy completed Nakul Sin PT, DPT, CSCS [address] [place] [address], [address], [facility] 02/01/2019 12:27:52 02/02/20 19 48376: Ultrasound (1:1) completed Nakul Sni PT, DPT, CSCS [address] [place] [address], [address], [facility] 02/01/2019 12:28:03 01/26/20 Physical Activity Counselling completed Nakul Sin, PT, DPT, CSCS [address] [place], [address], [facility] 01/25/2019 11:51:30 01/26/20 87276: PT Darren, Moderate Complexity completed Nakul Sin, PT, DPT, CSCS [address] [place], [address], [facility] 01/25/2019 12:30:52 01/08/20 US Guided Knee Joint Injection completed Mina Orantes MD [address] [place] [address], [address], [facility] 01/07/2019 15:42:17 01/05/20 28366: Therapeutic Exercise completed Nakul Sin PT, DPT, CSCS [address] [place] [address], [address], [facility] 01/04/2019 12:27:04 01/05/20 06432: Manual Therapy completed Nakul Sin PT, DPT, CSCS [address] [place] [address], [address], [facility] 01/04/2019 12:26:55 01/05/20 12579: Ultrasound (1:1) completed Nakul Sin, PT, DPT, CSCS [address] [place] [address], [address], [facility] 01/04/2019 12:26:51 12/29/19 18022: Manual Therapy completed Nakul Sin, PT, DPT, CSCS [address] [place], [address], [facility] 12/28/2018 12:30:25 12/29/19 74291: Therapeutic Activities - Direct 1:1 completed Nakul Sin, PT, DPT, CSCS [address] [place] [address], [address], [facility] 12/28/2018 12:30:31 12/21/19 19 30146: Manual Therapy completed Nakul Sin, PT, DPT, CSCS [address] [place], [address], [facility] 12/20/2018 12:46:05 12/21/19 19 91873: Therapeutic Activities - Direct 1:1 completed Nakul Sin, PT, DPT, CSCS [address] [place] [address], [address], [facility] 12/20/2018 12:46:31 12/15/19 19 82586: Manual Therapy completed Nakul Sin, PT, DPT, CSCS [address] [place] [address], [address], [facility] 12/14/2018 11:49:54 12/15/19 19 Neuromuscular re-education completed Nakul Sin, PT, DPT, CSCS [address] [place] [address], [address], [facility] 12/14/2018 13:46:02 12/08/19 19 83991: Therapeutic Exercise completed Nakul Sin, PT, DPT, CSCS [address] [place] [address], [address], [facility] 12/07/2018 12:38:26 12/08/19 19 74084: Manual Therapy completed Nakul Sin, PT, DPT, CSCS [address] [place] [address], [address], [facility] 12/07/2018 12:38:09 12/01/19 19 14116: Manual Therapy completed Nakul Sin, PT, DPT, CSCS [address] [place] [address], [address], [facility] 11/30/2018 12:37:17 12/01/19 19 81277: Ultrasound (1:1) completed Nakul Sin, PT, DPT, CSCS [address] [place] [address], [address], [facility] 11/30/2018 11:50:13 12/01/19 19 88329: Therapeutic Activities - Direct 1:1 completed Nakul Sin, PT, DPT, [address], [address], [facility] 11/30/2018 13:14:39 11/23/19 19 57421: Manual Therapy completed Nakul Sin PT, DPT, [address], [address], [facility] 11/22/2018 15:22:45 11/23/19 19 63428: Ultrasound (1:1) completed Nakul Sin PT, DPT, [address], [address], [facility] 11/22/2018 15:18:21 11/17/19 19 23196: Manual Therapy completed Nakul Sin PT, DPT, [address], [address], [facility] 11/16/2018 11:08:12 11/17/19 19 82573: Ultrasound (1:1) completed Nakul Sin PT, DPT, [address], [address], [facility] 11/16/2018 11:08:03 11/17/19 19 Neuromuscular re-education completed Nakul Sin PT, DPT, [address], [address], [facility] 11/16/2018 11:08:15 11/05/19 19 Physical Activity Counselling completed Nakul Sin PT, DPT, [address], [address] [place] [address] 11/05/2018 11:19:01 11/05/19 19 55207: PT Eval, Moderate Complexity completed Nakul Sin PT, DPT, [address], [address] [place] [address] 11/05/2018 11:45:14 07/25/20 18 POC Urinalysis Testing completed Duane Aguayo CMA [facility] 07/25/2018 16:27:44 Imaging Results Imaging Date Name Status LastModified by Organ [facility] Details LastModified Time 04/01/2024 MAMMO, screening, tomosynthesis, bilateral completed [facility] ([facility]) [address], [place], [address], 04/01/2024 21:55:43 07/31/2024 XR, chest completed [facility] ([facility]) [address] [place], [address], 07/31/2024 20:23:19 Procedure Notes None recorded. Medical Equipment None Reported. Allergies Allergen ID Allergen Name Allergen Category Reaction Reaction Severity Criticality Documentation Date Start Date Code Code System Note Provider Name and Address Organization Details Recorded Time 227894 lisinopri l medicatio n Not available Not available Not available 04/15/2015 74226 RxNorm Cough ing Honey Thee veliz [facility] 8 15:08:16 Medications Name Sig Start Date [...] C Not Available Not Available Not Available prednison e 10 mg tablet 1 [...] TAKE 1 TABLET BY MOUTH ONCE DAILY active Not Available Not Available No t Available triamcino lone acetonide 0.1 % topical [...] 09/16/22tt Not Available Not Available Not Available celecoxib 100 mg capsule TAKE 1 CAPSULE BY MOUTH TWICE DAILY WITH MEALS FOR 14 DAYS 05/10 completed Not Available Not Available Not Available losartan 100 mg tablet Take 1 tablet by mouth once daily 02/01 completed Not Available Not Available Not Available fluticaso ne propionat e 50 mcg/actua tion nasal spray,therese pension Star 1 spray every day by intranas al [...] Not Available Not Available Not Avai lable BinaxNOW COVID-19 Ag Self Test kit Use as Directed on the Package active Not Available Not Available No t Available Vitals Date Recorded Body height Body mass index (BMI) Body weight Heart rate Oxygen saturation Oxygen saturation in Arterial blood by Pulse oximetry Systolic blood pressure Diastolic blood pressure Provider Name and Address Organization Details Last Updated DateTime 3 144.78 cm 29 kg/m2 84993.3 8 g 95 /min 100 % 100 % 110 mm[Hg] 70 mm[Hg] Nilmari, RMA Toribio [facility] 3 14:41:09 Date Recorded Body height Body mass index (BMI) Body weight Oxygen saturation Oxygen saturation in Arterial blood by Pulse oximetry Heart rate Systolic blood pressure Diastolic blood pressure Provider Name and Address Organization Details Last Updated DateTime 4 144.78 cm 29.2 kg/m2 26663.9 7 g 98 % 98 % 71 /min 110 mm[Hg] 60 mm[Hg] DOMENIC Hughes [facility] 4 09:44:40 Date Recorded Body height Body mass index (BMI) Body weight Heart rate Oxygen saturation Oxygen saturation in Arterial blood by Pulse oximetry Systolic blood pressure Diastolic blood pressure Provider Name and Address Organization Details Last Updated DateTime 4 144.78 cm 29.2 kg/m2 28461.9 7 g 70 /min 99 % 99 % 120 mm[Hg] 70 mm[Hg] DOMENIC Hughes [facility] 4 15:12:20 Date Recorded Body height Body mass index (BMI) Body weight Heart rate Oxygen saturation Oxygen saturation in Arterial blood by Pulse oximetry Body temperature Systolic blood pressure Diastolic blood pressure Provider Name and Address Organization Details Last Updated DateTime 4 144.78 cm 29.2 kg/m2 38863.9 7 g 88 /min 99 % 99 % 98.2 [degF] 105 mm[Hg] 62 mm[Hg] Rika Kasper [facility] 4 14:47:14 Date Recorded Body height Body mass index (BMI) Body weight Heart rate Oxygen saturation Oxygen saturation in Arterial blood by Pulse oximetry Systolic blood pressure Diastolic blood pressure Provider Name and Address Organization Details Last Updated DateTime 4 144.78 cm 28.3 kg/m2 17479.6 g 79 /min 99 % 99 % 100 mm[Hg] 60 mm[Hg] DOMENIC Hughes [facility] 4 08:42:56 Social History Question Answer Notes LastModified by Organizat ion Details LastModified Time Tobacco Smoking Status Never Smoker DOMENIC Hughes [facility] 02/01/2022 14:12:53 What Is Your Level Of Alcohol Consumption? None [email or web address] Information not available 02/01/2022 Do You Wear A Helmet When Biking? Yes Information not available 11/16/2015 What Is Your Level Of Caffeine Consumption? Occasional Tea [email or web address] Information not available 02/01/2022 How Much Tobacco Do You Chew? None Information not available 11/16/2015 Are You Currently Employed? No [email or web address] Information not available 11/23/2015 What Type Of Diet Are You Following? REGULAR [email or web address] Information not available 10/01/2014 Do You Or Have You Ever Used E-cigarettes Or Vape? Never Used Electronic Cigarettes [email or web address] Information not available 02/01/2022 Education Less Than 8th Grade No Formal Schooling Information not available 09/16/2022 What Is The Highest Grade Or Level Of School You Have Completed Or The Highest Degree You Have Received? 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 No [email or web address] Information not available 02/01/2022 How Many Days In The Past Year Have You Had A Heavy Drinking Consumption (4+ Female, 5+ Male)? 0 [email or web address] Information not available 10/01/2014 Are There Any Guns Present In Your Home? No Information not available 11/16/2015 Do You Use Insect Repellent Routinely? Yes [email or web address] Information not available 02/01/2022 Live Alone Or With Others? With Others [email or web address] Daughter's Family In Daughter's House Information not available 03/09/2023 Patient Has Health Care Proxy Signed And In Chart Yes Daughter- Rosette Cordero [email or web address] Information not available 03/10/2023 CCM Consent Discussion 03/12/2024 [email or web address] Information not available 03/13/2024 Marital Status Came Here Late 2012 From [facility] [employer] Information not available 03/09/2023 Mosquito Repellent Used Routinely No Information not available 09/16/2022 What Was The Date Of Your Most Recent Tobacco Screening? 08/27/2024 [email or web address] Information not available 08/27/2024 How Many Children Do You Have? 6 Daughters [email or web address] Information not available 10/01/2014 What Is Your Relationship Status? Male Spouse Information not available 02/01/2022 Do You Use Your Seat Belt Or Car Seat Routinely? Yes [email or web address] Information not available 02/01/2022 Seat Belts Used Routinely Yes Information not available 09/16/2022 Smoke Alarm In Home Yes Information not available 09/16/2022 Do You Have Smoke And Carbon Monoxide Detectors In Your Home? Yes [email or web address] Information not available 02/01/2022 Are You Passively Exposed To Smoke? No [email or web address] Information not available 02/01/2022 Do You Or Have You Ever Used Smokeless Tobacco? Never Used Smokeless Tobacco [email or web address] Information not available 02/01/2022 How Much Tobacco Do You Smoke? No [email or web address] Information not available 02/01/2022 General Stress Level [...] virus, quadrivalent, PF 5 completed Not Available [facility] 09/28/2019 02:19:21 Td (adult), 5 Lf tetanus toxoid, preservative free, adsorbed 5 completed Not Available [facility] 09/28/2019 02:19:45 zoster live 6 completed Not Available [facility] 09/28/2019 02:20:17 Influenza, split virus, quadrivalent, PF 6 completed Not Available [facility] 09/28/2019 02:20:16 Influenza, split virus, quadrivalent, PF 7 completed Not Available [facility] 09/28/2019 02:22:08 Influenza, split virus, quadrivalent, PF 9 completed Not Available [facility] 09/28/2019 02:31:12 Influenza, high-dose, quadrivalent, PF 0 completed Roxy Cisneros MA null, [facility] 07/11/2020 12:32:10 Pneumococcal conjugate PCV 13 1 completed Duane Aguayo [facility] null, [facility] 01/29/2021 11:20:16 COVID-19, mRNA, LNP-S, PF, 100 mcg/0.5mL dose or 50 mcg/0.25mL dose 1 completed Marian Button null, [facility] 09/16/2022 14:04:06 Influenza, high-dose, quadrivalent, PF 2 completed RAFAT WILSON PA-C [address] [place] [address], [address], [facility] 07/18/2022 15:12:33 COVID-19, mRNA, LNP-S, PF, 100 mcg/0.5mL dose or 50 mcg/0.25mL dose 1 completed Marian Button null, [facility] 09/16/2022 14:04:07 COVID-19, mRNA, LNP-S, PF, 100 mcg/0.5mL dose or 50 mcg/0.25mL dose 1 completed Marian Button null, [facility] 09/16/2022 14:04:06 Influenza, split virus, quadrivalent, preservative 1 completed Marian Button null, [facility] 09/16/2022 14:04:06 pneumococcal polysaccharide PPV23 0 completed Marian Button null, [facility] 09/16/2022 14:04:06 COVID-19, mRNA, LNP-S, PF, 100 mcg/0.5mL dose or 50 mcg/0.25mL dose 2 completed Marian Button null, [facility] 09/16/2022 14:04:06 Influenza, high-dose, quadrivalent, PF 3 completed Nilmari, RMA Toribio null, [facility] 06/04/2023 15:47:53 RSV, recombinant, protein subunit RSVpreF, adjuvant reconstituted, 0.5 mL, PF 3 completed Nilmari, RMA Toribio null, [facility] 06/04/2023 15:48:23 COVID-19, mRNA, LNP-S, PF, 50 mcg/0.5 mL 3 completed Nilmari, RMA Toribio null, [facility] 06/27/2023 14:38:15 Influenza, high-dose, trivalent, PF 4 completed Nilmari, RMA Toribio null, [facility] 07/04/2024 07:58:35 zoster recombinant 4 completed [facility] 07:59:05 Past Encounters Encounter ID Performer Location Encounter Start Date Encounter Closed Date Diagnosis/Indication Diagnosis SNOMED-CT Code Diagnosis ICD10 Code Diagnosis Note [id number] Sylvia Cooney , [facility] [place], OFFICE [address] [place] [address] 10/01/2014 13:54:52 10/01/2014 14:59:36 Adult health examination 394129868 see Risk Assessment and Lifestyle Change Counseling section above colo and mammo up to date pap unclear- daughter will check to see if she had a pap -- if not, she will call for a pap Influenza vaccine needed 7280139112 106 Shoulder pain 48177601 s he prefers not to see PT. she has handouts on PT exercises to do at home. she has some ROM limitation . Benign ess ential hypertension 7081871 lipids and labs up to date 04/24. Continue current medication . Gastritis 9562490 has br eath test follow up pending after recent treatment for h. pylori. dietary precaution s reviewed. will restart a PPI for further treatment. only had PPI treatment for 10 days [id number] [facility], OFFICE [address] [place] [address] 11/26/2014 10:24:47 11/26/2014 11:09:41 Gynecologic examination 09672436 possibly her first pap today. Hip pain 01440065 she wi ll consider PT after x-ray. she will stick with tylenol for now but might consider nsaids for improved relief. Screening for malignant neoplasm of cervix 828416894 [id number] [facility], OFFICE [address] [place] [address] 01/05/2015 11:41:10 01/05/2015 12:42:08 Pre-surgery evaluation 137186277 Pt is an appropriat e candidate for proposed procedure. EKG and labs will be faxed. Bradycardia 96176080 a l ook back through her previous records reveals this is a stable finding Systolic e jection sound 63069307 no previous documentat ion. will explore further with echo. likely associated with longstandi ng HTN. not a harsh murmur or with red flag characteri stics. Benign ess ential hypertension 7069880 well controlled on current meds. she is on herbals but cannot tell me what--and was advised to DC those at least 5 days prior to surgery. [id number] [facility], OFFICE [address] [place] [address] 04/03/2015 15:05:29 04/06/2015 09:13:40 Benign essential hypertension 1400171 Blood pressure at goal Today is an outlier. she stopped her herbal which she questions might contribute . ? pain as contributo r. will follow needs lipid panel done. Administra tion of diphtheria and tetanus vaccine 05327922 Hip pain 43912955 she wi ll consider PT after x-ray. she will stick with tylenol for now but might consider nsaids for improved relief. Atheroscle rosis of aorta 39934629 needs lipid panel done. order in [id number] Louise Ervin PA-C [facility], OFFICE [address] [place] [address] 11/16/2015 10:23:44 11/16/2015 11:28:34 Adult health examination 822862940 Z00.00 see Risk Assessment and Lifestyle Change Counseling section above Benign ess ential hypertension 9112020 I10 Blood pressure at goal Active or passive immunization 471594015 Z23 Varicella vaccination 68 146218 Z23 Screening for disorder 726332169 Z11.59 Screening mammography 24 888679 Z12.31 Hip pain 32367058 M25.55 9 x-ray left hip. has imaged right. both hips are painful. affecting her ability to mabulate. using nsaids and tylenol for pain. will refer to physical medicine and PT Gastritis 4212248 K29.70 she is not interested in medicine. she has had treatment for h pylori. [id number] Bereket Ortiz [facility], [facility] [place] [address] [place] [id number] 11/23/2015 13:24:29 11/24/2015 13:19:41 Backache 596111313 M54.9 Shreya is a 60-year-ol d female with left back pain most probably along her posterior iliac crest that is worse with movement and has been present for a number of years. At this time I see no evidence of intra-claritza cular hip pathology or trochanter ic bursitis or tendinitis as the cause of her pain. It appears to be intermitte nt and at times present in both sides and I feel most likely consistent with a muscular strain of her low back. I have advised that she can use NSAID medication as needed for discomfort which she does say works well. I also advised that she start physical therapy concentrat ing on improving her hip and core strength which will hopefully decrease her pain. She will plan to follow up in 8 weeks for reevaluati on. [id number] Karen Zarate NP , [facility] [place], OFFICE [address] [place] [address] 04/08/2016 09:25:32 04/08/2016 09:45:10 Contact dermatitis caused by urushiol from [facility] mynor 313546577 L25.5 PI rash on face, armsmild outbreak but given face involvemen t will tx with prednsione 40 mg 12 day taperGiven triamcinol one cream toodiscuss ed how transmitti ng and expected course of rash Benign ess ential hypertension 1883493 I10 Bp just a bit elevated todayhas been taking some (vidal) ARB from [facility].will switch to losartan 25 mgwill have neices (nurses) check her bp to make sure stay <140/90. [id number] SALVADOR Love, [facility] [place], OFFICE [address] [place] [address] 01/18/2017 13:54:11 01/18/2017 14:43:50 Benign essential hypertension 0558593 I10 Blood pressure at goal Continue meds Adult heal th examination 071054198 Z00.00 Exam done Atheroscle rosis of aorta 90540618 I70.0 noted incidental ly on echo Screening mammography 24 023179 Z12.31 Anemia 575098084 D64.9 check labs [id number] SALVADOR Love, [facility] [place], OFFICE [address] [place] [address] 07/24/2017 10:28:06 07/24/2017 11:15:13 Benign essential hypertension 8617867 I10 Blood pressure at goal Blood pressure NOT at goal. Active or passive immunization 023196109 Z23 Headache 09689912 R51 Exposure t o Hepatitis B virus 952158495 Z20.5 Family members w/ hep B. Check vaccinatio n status and core antigen. [id number] RAYMOND Childs, [facility] [place], OFFICE [address] [place] [address] 10/04/2017 16:54:28 10/04/2017 17:43:37 Benign essential hypertension 6371528 I10 Anemia 210737029 D64.9 Sleep disorder 81491401 G47.9 [id number] SALVADOR Love, [facility] [place], OFFICE [address] [place] [address] 10/19/2017 15:43:34 10/19/2017 16:17:28 Benign essential hypertension 4314625 I10 Still elevated on her ARB. Doesn't remember the 50mg she was on in the past. Will increase dose 25 to 50 and fu 3 wks, [id number] SALVADOR Love, [facility] [place], OFFICE [address] [place] [address] 11/09/2017 14:55:57 11/09/2017 15:32:06 Benign essential hypertension 7432178 I10 Still elevated on her losarten 50. Will increase again an fu next month. With rapid increase, will check US to r/o RANDY [id number] SALVADOR Love, [facility] [place], OFFICE [address] [place] [address] 11/30/2017 15:58:51 11/30/2017 16:33:00 Benign essential hypertension 1712981 I10 Not at goal (150 systollic for her pmh) with mostly 150s-160s at home. Would need a dift med if we chose to tx more aggressive ly. [place] [address]. Fu 2 mos and bring BP cuff with them to calibrate. If needs another med, consider low dose chlorthala done [id number] Nate Cabrera PA-C , [facility] [place], OFFICE [address] [place] [address] 01/22/2018 15:06:26 01/22/2018 16:14:20 Adult health examination 406946455 Z00.00 Exam done. Depression screening 171 459722 Z13.89 depression screening tool administer ed, entered into emr, scored and discussed, time greater than 7.5 minutes Benign ess ential hypertension 4760357 I10 Blood pressure at goal. Continue meds. Seems labile at home Screening mammography 24 337431 Z12.31 Atheroscle rosis of aorta 30493139 I70.0 noted incidental ly on echo Anemia 124035584 D64.9 stable [id number] Damon Guerra MD , [facility] [place], OFFICE [address] [place] [address] 07/25/2018 16:01:29 07/25/2018 16:34:07 Benign essential hypertension 0369404 I10 Blood pressure NOT at goal. Based on JNC 8 guidelines , BP should be below 140/90 for age 65 and younger. BP is elevated today. Added low dose HCTZ. Advised Pt to return in 1 week with PCP for BP check. All questions were addressed. Pt understand s and agrees with treatment plan Increased frequency of urination [id number] R35.0 Informed Pt that there is no urinary tract infection. Urinary frequency is most likely incontinen kendra (urgency). Educated Pt on kegel exercises. Pt repeated back to Provider on how to do kegel exercise. Will follow-up with Pt in 1 week. All questions were addressed. Pt understand s and agrees with treatment plan [id number] Damon Guerra MD , [facility] [place], OFFICE [address] [place] [address] 08/01/2018 14:55:12 08/01/2018 15:25:03 Benign essential hypertension 7943006 I10 Blood pressure at goalBased on JNC 8 guidelines , BP should be below 140/90 for age 65 and younger. BP is controlled today. Continue with HCTZ. Will follow-up with Pt in 3 months. All questions were addressed. Pt understand s and agrees with treatment plan [id number] Damon Guerra MD , [facility] [place], OFFICE [address] [place] [address] 10/25/2018 13:40:05 10/25/2018 17:40:51 Benign essential hypertension 8879478 I10 Blood pressure at goalBased on JNC 8 guidelines , BP should be below 140/90 for age 65 and younger. BP is controlled today. Continue with medication . Will follow-up with Pt in January for annual wellness visit. Provided Pt and her son in law a list of losartan recall from [employer]. Informed Pt that to contact the pharmacy if Pt's losartan at home matches the list from FDA. All questions were addressed. Pt understand s and agrees with treatment plan Shoulder joint pain 2679 69578 M25.512 Left shoulder pain most likely due to tendonitis /muscle strain since pain with neer's impingemen t and postive infraspina tus amy. Advised Pt to take ibuprofen as needed, apply ice to area of discomfort , and to take muscle relaxant as needed. Pt agreed to physical therapy. A referral is sent. All questions were addressed. Pt understand s and agrees with treatment plan [id number] Nakul Sin, PT, DPT, [facility], [address] [place] [address] 11/05/2018 11:17:49 11/05/2018 11:54:39 Shoulder pain 59937527 M25.512 M25.511 Pt is a 63 y.o female who reports to PT with ? L>R shoulder pain that appears mechanical in nature most consistent with impingemen t syndrome. Contributi ng to this is poor posturing combined with weakness of scapular/p ostural stabilizat ion muscles leading to poor scapulohum eral dynamics. Patient requires skilled physical therapy in order to safely and effectivel y progress their rehabilita tion to gain maximal functional outcome with as much symptom resolution as possible. 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 Treatment to Include: therapeuti c exercises/ activities , neuromuscu lar re-educati on, HEP prescripti on, modalities PRN, edema massage, manual therapy, ROM, patient education. [id number] Nakul Sin, PT, DPT, [facility], [address] [address] 11/16/2018 10:17:46 11/16/2018 11:29:03 Shoulder pain 94557310 M25.512 M25.511 Pt tolerated initiation of manual techniques well and with no increased c/o pain. Pt did require frequent cues to relax as pt with tendency to pushing shoulder forward in response to my posterior mobilizati ons. Otherwise, mobility did appear to improve minimallly . Subjective ly, pt noted feeling looser at end of visit. Pt requires tactile cues as she is not able to speak Albanian to correctly assume posture with exercises but able to complete pain-free. Continue PT per POC [id number] Nakul Sin, PT, DPT, [facility], [address] [address] 11/22/2018 15:17:38 11/22/2018 16:00:43 Shoulder pain 11204840 M25.512 M25.511 Pt continues to tolerate manual techniques well and with no increased c/o pain. Pt demonstrat es increased soft tissue density at upper trap but this resolved with manual techniques with GH mobility improving slowly. At end of visit, pt demonstrat es 90% of pain-free movement with mild shoulder hiking at end range.Cont inue PT per POC [id number] Nakul Sin, PT, DPT, [facility], [address] [address] 11/30/2018 11:43:41 11/30/2018 13:40:32 Shoulder pain 85251758 M25.512 M25.511 Pt continues to tolerate combo of manual techniques and US well and pain-free that by end of visit, pt demonstrat ed full and equal BUE AROM only noting discomfort at end range. Pt with mild shoulder hiking, but minimal. Pt understood concepts discussed, though, seems skeptical in her capacity to make these changes.WI ll re-assess at next visit. [id number] Nakul Sin, PT, DPT, [facility] Physical Therapy, [address] [address] 12/07/2018 11:41:29 12/07/2018 13:42:30 Shoulder pain 76601134 M25.512 M25.511 Discontinu ed US today to assess if with change. Otherwise, pt tolerated manual techniques well demonstrat ing improved passive mobility of GH joint and with full PROM. Actively, pt still with significan t shoulder hiking and limitation s with less 15 degrees. Pt with correct demonstrat ion of therex pain-freeC ontinue PT per POC [id number] Nakul Sin, PT, DPT, [facility] Physical Therapy, [address] [address] 12/14/2018 11:47:32 12/14/2018 14:13:04 Shoulder pain 30375257 M25.512 M25.511 Pt continues to have mild soft tissue restrictio ns at bilateral L>R upper trap, but, with significan t improvemen t of GH mobility. Passively pt with WNL of ROM, actively, able to achieve 120. Pt required cues for proper posture with RTC specific areas, but then able to complete on own pain-free. Continue PT per POC [id number] MARQUES Espinoza , [facility] [place], [address] [place] [address] 12/17/2018 14:45:07 12/17/2018 15:19:13 Chronic low back pain 365327454 M54.5 back pain most likely due to muscle strain since discomfort with lateral rotation to the right. Pt decline oral medication today and agreed to physical therapy A referral is sent. Advised Pt to take ibuprofen as needed, apply ice to area of discomfort . All questions were addressed. Pt understand s and agrees with treatment plan Pain in left knee 607971 0287 37675 M25.562 Informed Pt that right knee and left knee pain is most likely due to osteoarthr itis. Discussed options of voltaren gel, knee injection, and physical therapy. However, Pt reports she would like to get X-ray first before deciding. All questions were addressed. Pt understand s and agrees with treatment plan Pain in right knee 24410 30142 20941 M25.561 Informed Pt that right knee and left knee pain is most likely due to osteoarthr itis. Discussed options of voltaren gel, knee injection, and physical therapy. However, Pt reports she would like to get X-ray first before deciding. All questions were addressed. Pt understand s and agrees with treatment plan Shoulder pain 68871279 M 25.512 Discussed option of corticoste riod injection for pain since Pt reports no relief for physical therapy for her shoulder pain. Pt agreed. A referral is sent to sports medicine. All questions were addressed. Pt understand s and agrees with treatment plan Insomnia 889304279 G47.0 0 Discussed options of melatonin for the insomnia. Pt agreed. All questions were addressed. Pt understand s and agrees with treatment plan [id number] Nakul Sin, PT, DPT, [facility], [address] [address] 12/20/2018 12:15:55 12/20/2018 13:48:21 Shoulder pain 23544866 M25.512 M25.511 GH mobility nearing WNL and equal bilaterall y with PROM at 165 flexion, 145 abduction and full IR/ER. Actively, pt able to achieve the same with min discomfort at end range.Cont inue PT per POC, after appointmen t with sports medicine [id number] Mina Orantes MD Sports Medicine, [address] [address] 12/24/2018 14:25:31 12/24/2018 15:30:49 Shoulder pain 67571662 M25.512 Nettie is a 63-year-ol d female with left shoulder pain which I feel is likely secondary to impingemen t syndrome and rotator cuff tendinosis . It was somewhat difficult to reproduce her pain today in the office but clinically in exam she does not have evidence of a larger or full-thick ness rotator cuff tear or significan t biceps labral pathology. She has had some improvemen t with physical therapy and I did advise continuing this at this time. They do not also did asked that she obtain x-rays after the office visit to evaluate for any bony pathology contributi ng to her discomfort . She will plan a follow-up with me in 8 weeks for reevaluati on. [id number] Nakul Sin, PT, DPT, [facility], [address] [address] 12/28/2018 11:49:12 12/28/2018 12:32:57 Shoulder pain 09926900 M25.512 M25.511 At this point, pt with WFL of shoulder AROM bilaterall y and GH mobility WNL. Pt feels confident with ongoing management of HEP and will take better note of ongoing aggravatin g factors.Ot herwise, our plan will be to initiate treatment for R hip/knee pain. [id number] Nakul Sin, PT, DPT, [facility], [address] [address] 01/04/2019 11:16:43 01/04/2019 13:30:03 Shoulder pain 70661703 M25.512 M25.511 Pt with mild swelling at inferior angle of patella on the R which resolved moderately with manual techniques /ultrasoun d. Pt noted feeling favorable to all manual techniques . Pt did require cues for proper coordinati on/sequenc ing of initiation of hip/knee stabilizat ion exercises, but otherwise pt completed well and pain-free. Regarding pt's increase in R shoulder pain, it was also explained to pt that given the chronicity of her pain, there will always be management and maintenanc e that will have to occur. Pt with follow up with Dr Orantes, otherwise willContin ue PT per POC in 3 weeks secondary to provider vacation. Pain in right knee 54458 09000 36223 M25.561 Pain in left knee 074913 1305 77347 M25.534 [id number] Mina Orantes MD Sports Medicine, [address] [address] 01/07/2019 14:32:16 01/08/2019 07:53:30 Knee pain 75722305 M25.561 Shreya is a 63-year-ol d female with right knee pain secondary to osteoarthr itis as seen on her recent x-rays. I reviewed this diagnosis with her and her daughter today in the office as well as discussing treatment options. We discussed physical therapy, NSAID use, injection therapy, and surgery. I did give her a referral to physical therapy and she will call to set up an appointmen t. Due to her ongoing discomfort the decision was made to perform a right knee joint corticoste roid injection under ultrasound guidance. She tolerated this well without complicati on. I did advise that she ice and rest over the next week and gradually resume normal activities . She can start her physical therapy in 7-10 days. She will plan a follow-up with me as needed for further care. [id number] Nakul Sin, PT, DPT, [facility], [address] [address] 01/25/2019 11:50:07 01/25/2019 12:56:01 Pain in right knee [id number] 05466 M25.561 Pain in left knee 268813 7711 06206 M25.492 [id number] MARQUES Espinoza , [facility] [place], OFF[address] [facility] [place] [address] 01/25/2019 15:13:24 01/25/2019 16:06:18 Adult health examination 132398421 Z00.00 see Risk Assessment and Lifestyle Change Counseling section above. Will follow-up with Pt PRN or in 1 year for annual wellness visit. All questions were addressed. Pt understand s and agrees with treatment plan Depression screening 171 639828 Z13.89 depression screening tool administer ed, entered into emr, scored and discussed, time greater than 7.5 minutes Screening for malignant neoplasm of cervix 767037873 Z12.4 Superficia l ecchymosis 298201747 R58 superficia l ecchymosis noted on the right side of the abdomen. Pt reports she had this rash since she was 13yo. A referral is sent to dermatolog y for further evaluation and treatment. Pt denies any pruritus with the rash. Atheroscle rosis of aorta 08411220 I70.0 noted incidental ly on echo. BP is well controlled and Pt denies any abdominal pain Anemia 990897797 D64.9 Based on 11/08/18 CBC, Pt is not anemic Benign ess ential hypertension 9512085 I10 Blood pressure at goal [id number] Nakul Sin, PT, DPT, [facility], [address] [address] 02/01/2019 11:48:37 02/01/2019 12:34:53 Pain in right knee 5159396391 05889 M25.561 Pain in left knee 949010 1299 19102 M25.694 [id number] Nakul Sin, PT, DPT, [facility], [address] [address] 02/08/2019 11:48:19 02/08/2019 13:22:12 Pain in right knee 4092531604 24638 M25.561 Pain in left knee 906903 8724 94226 M25.921 [id number] Nakul Sin, PT, DPT, [facility], [address] [address] 02/13/2019 11:51:36 02/13/2019 12:49:02 Pain in right knee 7090485536 35538 M25.561 Pain in left knee 773780 5583 19417 M25.814 [id number] Nakul Sin PT, DPT, [facility], [address] [address] 02/22/2019 12:54:00 02/22/2019 13:48:56 Pain in right knee 3387347261 45438 M25.561 Pain in left knee 578464 9063 60438 M25.379 [id number] Nakul Sin, PT, DPT, [facility], [address] [address] 03/22/2019 13:19:25 03/22/2019 14:24:27 Pain in right knee 2518051709 67517 M25.561 Pain in left knee 534278 1473 18270 M25.677 [id number] Nakul Sin, PT, DPT, [facility], [address] [address] 04/26/2019 13:16:26 04/26/2019 14:01:27 Pain in right knee 7087053326 21293 M25.561 Pain in left knee 874057 6238 19102 M25.723 [id number] Nakul Sin, PT, DPT, [facility], [address] [address] 05/24/2019 13:22:33 05/24/2019 15:46:47 Pain in right knee 5316410158 29957 M25.561 Pain in left knee 347652 7981 85546 M25.254 [id number] Nakul Sin, PT, DPT, [facility], [address] [address] 07/19/2019 13:19:59 07/19/2019 13:55:56 Pain in right knee 6233908771 42977 M25.561 Pain in left knee 156204 1689 98698 M25.862 [id number] MARQUES Espinoza , [facility] [place], [address] [place] [address] 07/26/2019 13:30:14 07/26/2019 14:05:43 Active or passive immunization 671060243 Z23 Benign ess ential hypertension 9868569 I10 Blood pressure at goal. Pt will follow-up with new provider in January for routine annual wellness visit. All questions were addressed. Pt understand s and agrees with treatment plan Shoulder pain 68778809 M 25.512 Pt reports physical therapy really helped her shoulder and knee pain and would like a referral to continue with physical therapy. A referral is sent. All questions were addressed. Pt understand s and agrees with treatment plan Pain in right knee 27638 55209 19701 M25.561 Pt reports physical therapy really helped her shoulder and knee pain and would like a referral to continue with physical therapy. A referral is sent. All questions were addressed. Pt understand s and agrees with treatment plan Pain in left knee 261276 3768 24612 M25.562 Pt reports physical therapy really helped her shoulder and knee pain and would like a referral to continue with physical therapy. A referral is sent. All questions were addressed. Pt understand s and agrees with treatment plan [id number] Stacie Chavez, OD [facility], [address] [address] 09/05/2019 13:19:16 09/05/2019 16:37:30 Presbyopia 64191028 H52.4 Bilateral cataracts 9572 2004 H26.9 Pterygium 06927023 H11.0 09 Pigmented skin lesion of uncertain nature 064003703 L81.9 palpebral conjunctiv a at lower lid OD [id number] Bob Saravia MD , [facility] [place], OFFICE [address] [place] [address] 10/21/2019 11:52:22 10/21/2019 16:18:49 Aphthous ulcer of mouth 554892007 K12.0 experienci ng pain tyical for mucosal oral ulcersther e is one tyical ulcer top of palate on left abutting the pharyngeal pillar.thi s she noted through cabinetmaker apprentice is the most painful areapatche s of marked erythema over right palate w/o overt ulceration are present. I explained that this is common viral ,often untreatabl e , but self limited, from one of many viruses that affect the mouthwill rx valtrex in hopes of efficacy , but i explained efficacy is hit or miss.Rx topicals as well [id number] Kaylee Bowden , [facility], [address] [place] [address] 12/21/2019 12:15:13 12/21/2019 13:33:06 Urinary tract infectious disease 85483194 N39.0 Mostly dysuria, some frequency. Plan as below. [id number] Roxy Cisneros MA , [facility] [place], OFFICE [address] [place] [address] 07/11/2020 08:56:27 07/11/2020 12:32:57 Active or passive immunization 327124530 Z23 [id number] Laurie Archibald . , [facility] [place], OFFICE [address] [place] [address] 07/20/2020 15:06:47 07/22/2020 12:09:57 Atherosclerosis of aorta 75289280 I70.0 Found on imaging. Patient is advised to start aspirin 81 mg daily. 10 year cardiovasc ular risk has not warranted statin therapy. check US to rule out AAA. Benign ess ential hypertension 7074938 I10 Patient control below 130/80. Continue same. Urinary tr act infectious disease 90458397 N39.0 Starting with symptoms of UTI again. Will empiricall y treat with Cipro. Postmenopausal state 764 76662 Z78.0 She is 64 screen for osteoporos is. Screening for malignant neoplasm of breast 466755875 Z12.39 Active or passive immunization 125339966 Z23 Multiple joint pain 3567 8005 M25.50 Uses Voltaren gel. I advised patient to not use ibuprofen since we are putting her on aspirin. [id number] Laurie Archibald . MD SHIN, [facility] [place], OFFICE [address] [place] [address] 12/22/2020 09:40:38 12/24/2020 10:42:21 Atherosclerosis of aorta 33736687 I70.0 Found on imaging. continue aspirin 81 mg daily. 10 year cardiovasc ular risk has not warranted statin therapy. Pain of le ft hip joint 0601298418 16682 M25.552 ? SI joint dysfunctio n vs left hip lathology. will try celebrex not to interfere with am asa, check Xray, declined PT today. has follow up in January. Benign ess ential hypertension 9778780 I10 Patient control below 130/80 mostly, did not take her med today yet.. Continue same. [id number] Laurie Archibadl . , [facility] [place], OFFICE [address] [place] [address] 01/18/2021 15:18:45 01/19/2021 19:36:52 Benign essential hypertension 2038124 I10 Patient control below 130/80 mostly, elevated today. will bring in for nurse visit to check BP. May need to add low dose amlodipine . Atheroscle rosis of aorta 13771215 I70.0 Found on imaging. continue aspirin 81 mg daily. 10 year cardiovasc ular risk has not warranted statin therapy. Adult heal th examination 992977750 Z00.00 USPSTF guidelines reviewed and discussed with patient. Will mail her a health proxy form to fill out. colonoscop y 2013. mammo UTD. No Pap indicated. schedule nurse visit for Pneumovax. Counseling 311083290 Z71 .9 including cardiovasc ular risk reduction counseling , on asa. Depression screening 171 509594 Z13.31 depression screening tool administer ed, entered into emr, scored and discussed, time greater than 7.5 minutes, negative screen. Screening for alcohol abuse 922889388 Z13.39 negative screening. Intolerant of cold 26607 000 R68.89 rule out hypothyroi d. Multiple joint pain 3567 8005 M25.50 .Has started seeing a chiropract or. check labs to check for gout and Lyme as well as inflammato ry arthritis. Aphthous u lcer of mouth 661865349 K12.0 Try OTC Lysine. Advance di rective discussed with patient 364230312 Z71.89 counseled, will mail health proxy form to fill out. [id number] Laurie Archibald . MD SHIN, [facility] [place], [address] [place] [address] 01/29/2021 09:13:54 01/29/2021 10:36:18 Low back pain 227529197 M54.5 ? SI joint dysfunctio n, appears to may have some left knee issues too. Just had labs done for rheumatolo gic disease. Hip and pelvic Xray normal in December. No heavy lifting. topical heat. Active or passive immunization 078909786 Z23 pneumococc al vaccine due. Benign ess ential hypertension 0816042 I10 Patient control below 130/80 , at target, continue same meds. [id number] Laurie Archibald . MD SH[place], [facility] [place], OFFICE [address] [place] [address] 05/10/2021 16:43:26 05/10/2021 17:43:29 Contact dermatitis caused by urushiol from [employer] poison mynor 547031716 L25.5 Consistent with contact dermatitis from poison mynor. Patient to avoid the plant when gardening. Use gloves and long sleeve shirts when gardening. May use over-the-c ounter anti-itch cream topically, may use cold compresses or rubbing with an ice cube when itchy. Will give a course of prednisone . Left side sciatica 25331 20101 80742 M54.32 Had an epidural injection from [facility], no relief, pain down left leg with numbness, no change with chiropract or and exercises. gait is off balanced, using a cane now. needs handicappe d eric ( daughter to get form for us to complete). will get MRI to see if needs surgical interventi on. Takes Tylenol, may take ibuprofen but wait 2 hours after taking aspirin. [id number] ALISTAIR CHACON DPT Physical Therapy, [facility] [address] [place] [address] 07/08/2021 11:00:40 07/08/2021 12:14:13 Radicular pain 62288841 M54.10 Chronic low back pain 27 8249601 M54.50 [id number] ALISTAIR CHACON DPT Physical Therapy, [address] [place] [address] 08/04/2021 11:37:46 08/04/2021 12:29:59 Radicular pain 15763729 M54.10 Chronic low back pain 27 0907818 M54.50 [id number] Laurie Archibald . MD SHIN, [facility] [place], OFFICE [address] [place] [address] 08/10/2021 11:55:31 08/10/2021 12:44:54 Essential hypertension 03451861 I10 at target below 130/80, continue same. Atheroscle rosis of aorta 39017061 I70.0 Found on imaging. continue aspirin 81 mg daily. 10 year cardiovasc ular risk has not warranted statin therapy. LDL has been below 100 without statin. Shoulder pain 26974775 M 25.519 BL shoulder pain, will refer to PT. Aortic eje ction murmur 915379651 R01.1 echo in 2014 showed aortic sclerosis, recheck echo to make sure stenosis has not developed. Chronic anemia 455867400 D64.9 no deficienci es, H/H stable. [id number] ALISTAIR CHACON DPT Physical Therapy, [address] [address] 08/11/2021 16:26:32 08/12/2021 14:21:19 Pain of right knee joint 1306653089 22810 M25.561 Pain of le ft knee joint 7004072590 04018 M25.176 [id number] Chikis SH[place], [facility] [place], OFF[address] [place] [address] 02/01/2022 14:05:14 02/01/2022 14:53:36 Adult health examination 284104727 Z00.00 USPSTF guidelines reviewed and discussed with patient. health care proxy in place colonoscop y 2013. mammo ordered No Pap indicated. will let us know date of second Covid booster shot, also look into Shingrix. Counseling 870494844 Z71 .9 including cardiovasc ular risk reduction counseling , LDL below 100 without statin, is on aspirin already. Depression screening 171 046102 Z13.31 depression screening tool administer ed, entered into emr, scored and discussed, time greater than 7.5 minutes, negative screening Screening for alcohol abuse 551965924 Z13.39 negative screening. Essential hypertension 91073308 I10 at target below 130/80, continue same. Screening for malignant neoplasm of breast [id number] Z12.39 order mammo Intolerant of cold 32356 000 R68.89 rule out hypothyroi d. Chronic anemia 146842931 D64.9 no deficienci es, H/H stable. Aortic eje ction murmur 461773855 R01.1 echo in 2014 showed aortic sclerosis, recheck echo to make sure stenosis has not developed. Atheroscle rosis of aorta 32431389 I70.0 Found on imaging. continue aspirin 81 mg daily. 10 year cardiovasc ular risk has not warranted statin therapy. LDL has been below 100 without statin. Chronic low back pain 27 1679064 M54.50 diclofenac not helping much. may OTC ibuprofen sparingly if has pain, increase exercise. Obesity 921474681 E66.9 counseled today to increase exercise and cut back on portions and simple carbs, weight up 11 pounds in 1 year. [id number] Sil Bains MD , [facility], [address] [place] [address] 03/12/2022 15:37:14 03/15/2022 09:17:26 Pruritic rash 61254404 L28.2 facial rash, she says it feels like poison mynor but hsa been nowhere near garden.sug gested pepcid 20 mg and claritin 10 mg instead of benadryl for safety. try cool cloths on the face.start cream, not BELOW eyebrows or ABOVE cheekbones (keep it AWAY fro the eye and eyelids) if not improved have her seen, we are open in [facility] from 9-12 tomorrow and Monday. [id number] RAFAT WILSON PA-C FP, [facility] [place], [address]ICE [address] [place] [address] 07/13/2022 10:34:56 07/13/2022 13:57:28 Pre-surgery evaluation 117400183 Z01.818 R eye cataract surgery 07/28/22Pt denies new exertional symptomsPE w/ murmur- will attempt to complete echo prior to surgeryPt is low risk for low risk procedure. There is no contraindi cation to proceed. Chronic anemia 800923367 D64.9 H/H has been stable, will update CBC today Aortic eje ction murmur 891878837 R01.1 Audible on examStates unaware of previous echo apt.Pt case to referrals to reschedule Benign ess ential hypertension 1442697 I10 BP at goal, c/t same Right uppe r quadrant pain 177864839 R10.11 x3 months, intermitte nt, no injuryNo specific PE finding today or correlatio n to position or food intakeWill monitor Active or passive immunization 019902332 Z23 [id number] Laurie Archibald . , [facility] [place], OFFICE [address] [place] [address] 08/01/2022 11:54:02 08/01/2022 13:43:34 Essential hypertension 08737686 I10 at target below 130/80, continue same. Chronic anemia 240298736 D64.9 no deficienci es, H/H stable. Atheroscle rosis of aorta 75012176 I70.0 Found on imaging. continue aspirin 81 mg daily. 10 year cardiovasc ular risk has not warranted statin therapy. LDL has been below 100 without statin. Aortic garry ve regurgitation 33895074 I35.1 Recent echo showed mild aortic valve regurgitat ion. Consider echocardio gram in 3 years.No symptoms. Mitral garry ve regurgitation 85106906 I34.0 Moderate mitral valve regurgitat ion on recent echo. Consider echocardio gram in 3 years. No symptoms. Tricuspid valve regurgitation 503397626 I07.1 Moderate tricuspid valve regurgitat ion on recent echo. Consider echocardio gram in 3 years. No symptoms. Chronic low back pain 27 7115326 M54.50 had MRI last June ( 2020) with multilevel joint disease, then saw PS&S and states had a shot which did not help, massage therapy once a month helps. Wears an SI support belt. advised to do home exercises daily. Pain of bi lateral knee regions 2279275883 39478 M25.561 uses a cane, disabled placard form completed as well as attestatio n for emergency aid given medical conditions .Check x-rays and refer to orthopedic s for considerat ion of steroid and or hyaluronic acid injections . Hypothyroidism 22146528 E03.9 Euthyroid on replacemen t therapy. Continue same. Check labs before next visit. [id number] Ольга Ga MD , [facility] [place], OFFICE [address] [place] [address] 08/24/2022 16:26:23 08/25/2022 09:31:47 Acute upper respiratory infection 34344104 J06.9 Wet cough x few days, well-appea ring on exam.Suppo rtive care discussed. Can continue to use robitussin as needed for cough. [id number] Damon Guerra MD , [facility] [place], OFFICE [address] [place] [address] 08/29/2022 14:48:41 08/29/2022 15:19:50 Benign essential hypertension 1428862 I10 Disorder o f rotator cuff 189276982 M75.80 [id number] Damon Guerra MD , [facility] [place], [address]ICE [address] [place] [address] 09/16/2022 14:03:53 09/16/2022 14:38:04 Benign essential hypertension 0888147 I10 Pain of ri ght shoulder joint [id number] 2144480 M25.150 [id number] Kip Moore DPT Physical Therapy, [address] [address] 10/06/2022 14:03:49 10/11/2022 14:24:51 Strain of rotator cuff of shoulder 186740590 S46.011D Shoulder pain 07321656 M 25.063 [id number] Kip Moore DPT Physical Therapy, [address] [address] 10/12/2022 15:43:59 10/12/2022 16:25:45 Strain of rotator cuff of shoulder 476258832 S46.011D Shoulder pain 79267178 M 25.664 [id number] Laurie Archibald . , [facility] [place], [address] [place] [address] 10/18/2022 14:35:04 10/18/2022 15:23:57 Benign essential hypertension 3861080 I10 BP improved after adding amlodipine , continue all BP meds. Rib pain 331116495 R07.8 1 hurts when she moves a certain way, no change with food to raise concern about biliay colic, pain is reproduced on palpation of ribs. fell in August when she missed a step in a parking lot in [place] and hurt her right shoulder, went to ER, told no fracture but told had tissue tear . Likely rib contusion since her fall.advis ed to use heat, has THC cream she has, diclofenac gel. Atheroscle rosis of aorta 43124613 I70.0 Found on imaging. continue aspirin 81 mg daily. 10 year cardiovasc ular risk has not warranted statin therapy. LDL has been below 100 without statin. [id number] Kip Moore, JEFF Physical Therapy, [facility] [place] [address] [place] [address] 10/19/2022 14:32:21 10/21/2022 10:04:38 Strain of rotator cuff of shoulder 900590556 S46.011D Shoulder pain 75421418 M 25.641 [id number] Laurie Archibald . MD [place], [facility] [place], [address] [place] [address] 03/09/2023 14:42:27 03/09/2023 17:08:04 Adult health examination 327141863 Z00.00 USPSTF guidelines reviewed and discussed with patient. health care proxy given to fill out. colonoscop y 2013. redo 10 Y mammo ordered No Pap indicated. look into Shingrix.C V counseling done. Depression screening 171 534095 Z13.31 depression screening tool administer ed, negative screen Screening for alcohol abuse 014466510 Z13.39 Alcohol use screening tool administer ed, negative screen Advance di rective discussed with patient 493064475 Z71.89 Advanced Care Planning1. Advanced care planning was discussed for {{less than* more than}} 15 minutes. 2. Participan ts included {{patient patient and family* pa tient's family pat ient's surrogate} } and they were given an opportunit y to decline discussion . 3. Health Care Proxy {{was* was not}} discussed. 4. Patient {{has has not*}} completed Health Care Proxy form. {{It was* It was not}} given to take home. Minimal co gnitive impairment 151364426 R41.89 short term memory problem, that along with low/no education and not writing or reading in her own language/T ibetan and no schooling makes it difficult for her to take a [facility] p exam. Does won ADLs. uses a cane when going for walks. no behavioral issues, short term memory problems. will monitor. form completed for patient not to take the exam but she understand s [employer] . Benign ess ential hypertension 2574847 I10 at target below 130/80, continue same. Chronic anemia 778682080 D64.9 worsening, no B12, folate or iron def, SPEP normal. liver US fatty liver, ESR 23, refer to heme. Hypothyroidism 38561181 E03.9 Euthyroid on replacemen t therapy. Continue same. Atheroscle rosis of aorta 63204660 I70.0 Found on imaging. continue aspirin 81 mg daily. 10 year cardiovasc ular risk has not warranted statin therapy. LDL has been below 100 without statin. no iron deficiency anemia, if FOB negative may continue aspirin. [id number] Ольга Ga MD , [facility] [place], OFFICE [address] [place] [address] 07/06/2023 14:27:43 07/06/2023 16:25:01 Dysuria 73186816 R30.0 Patient with urinary symptoms.H istory and exam and urinalysis consistent with UTI.Will send urine for culture.Di scussed supportive and preventive measures.P atient instructed to follow up if not better or with new symptoms. Acute urin brittny tract infection 463546578 N39.0 After a discussion of treatment and medication options, which included considerluc mcgowan of the best practices in medicine, a medical plan was provided. The patient's opinions and concerns were included in this treatment plan and goal. - 67 y/o female presents with 3 days of urinary burning, frequency and urgency along with blood in her urine. UA today showed large trace of blood and leuks, will send culture and treat empiricall y at this time with board spectrum coverage considertrey alvarado sx of back discomfort and chills. I would also like a repeat urine in 2 weeks. Kidney fxn reviewed. Vitals stable today, temp 98.9, HR 95. Pt directed to return if symptoms no not improve after 24-36 hours of antimicrob ial therapy. [id number] Laurie Archibald . MD [place], [facility] [place], [address] [place] [address] 09/21/2023 09:23:34 09/21/2023 17:16:55 Benign essential hypertension 7791966 I10 at target below 130/80, continue same. Chronic anemia 632891906 D64.9 nl B12, folate or iron def, SPEP normal. liver US fatty liver, saw hematologi st [facility], no definite etiology. Hypothyroidism 92806168 E03.9 Euthyroid on replacemen t therapy. Continue same. Atheroscle rosis of aorta 73598040 I70.0 Found on imaging. continue aspirin 81 mg daily. 10 year cardiovasc ular risk has not warranted statin therapy. LDL has been below 100 without statin. Cough 30972272 R05.9 grand kids with flu, will check for it, lungs clear. no ST or fever. rapid flu positive for flu B, will treat with tamiflu. Influenza caused by Influenza B virus 68475102 J10.1 as above, sx since yesterday, will treat. Urge incon tinence of urine 63263627 N39.41 does not want meds, will give RX for incontinen ce pads and chucks for night time. Chronic low back pain 27 1340121 M54.50 had MRI last June ( 2020) with multilevel joint disease, then saw PS&S and states had a shot which did not help, massage therapy once a month helps. Wears an SI support belt. needs shower chair, grab bar for toilet, protection pad for tub, grab bar for shower. [id number] Laurie Archibald . MD [place], [facility] [place], OFFICE [address] [place] [address] 03/12/2024 15:02:36 03/12/2024 15:39:35 Adult health examination 596778816 Z00.00 USPSTF guidelines reviewed and discussed with patient. health care proxy in place. colonoscop y 2013. redo 10 Y mammo ordered No Pap indicated. look into Shingrix.C V counseling done. is on aspirin, no statin, LDL below 100. Depression screening 171 566192 Z13.31 depression screening tool administer ed, neg Screening for alcohol abuse 002233749 Z13.39 Alcohol use screening tool administer ed, neg Minimal co gnitive impairment 211128730 R41.89 short term memory problem, that along with low/no education and not writing or reading in her own language/T ibetan and no schooling. Does own ADLs. uses a cane when going for walks. no behavioral issues, short term memory problems. will monitor. Benign ess ential hypertension 0494390 I10 at target below 130/80, continue same. Chronic anemia 583591323 D64.9 no B12, folate or iron deficiency , SPEP normal. liver US fatty liver, ESR 23. monitor. Hypothyroidism 51518705 E03.9 Euthyroid on replacemen t therapy. Continue same. Atheroscle rosis of aorta 35462140 I70.0 Found on imaging. continue aspirin 81 mg daily. 10 year cardiovasc ular risk has not warranted statin therapy. LDL has been below 100 without statin. no iron deficiency anemia, FOB negative. continue aspirin. Screening mammography 24 987825 Z12.31 order mammo. Degenerati ve joint disease involving multiple joints 435823676 M15.9 has had in her knees and for her back. to take Tylenol 500 mg, 2 tabs twice a day, do home exercises. if see orthopedic s again, ? surgery, which joint first. [id number] Bob Saravia MD , [facility] [place], [address] [place] [address] 07/31/2024 14:35:49 08/02/2024 07:12:10 Cough 86412714 R05.9 Presents with a 5-day history of productive cough, body aches, fever, and shortness of breath. Negative COVID-19 test this morning. Physical exam reveals fine crackles in the left lower lung field. Likely bacterial pneumonia. Azithromyc in chosen for its efficacy against common pathogens like Streptococ cus pneumoniae .- Order chest x-ray- Prescribe azithromyc in 500 mg PO on day 1, then 250 mg PO daily for 4 days- Instruct to wear a mask to prevent transmissi on-Practic e hand hygiene- Advise to monitor symptoms and report any worsening Erythema o f skin of nose 198995145 L53.9 Recurrent erythema + itching of the nose and external anterior neck area with URIs and colds Patient and family interested in referral to ENT which will be made. No current symptoms, but history suggests involvemen t of inappropri ate histamine release . Discussed use of Flonase and cetirizine to manage symptoms. Benefits include reduced inflammati on and itching. Patient and family in agreement with plan- Refer to ENT- Prescribe Flonase nasal spray, instruct to aim away from the nasal septum- Prescribe cetirizine 10 mg PO daily when needed- Advise to use over-the-c ounter options if insurance does not cover medication s Benign ess ential hypertension 0418513 I10 Currently has hypertensi on and did not take blood pressure medication today. Blood pressure WNL today at the office. Discussed importance of regular medication adherence to prevent complicati ons. Advised to avoid ibuprofen. - Advise to continue taking blood pressure medication regularly - Instruct to avoid ibuprofen and use acetaminop hen for pain management [id number] Laurie Archibald . MD [place], [facility] [place], [address] [place] [address] 08/27/2024 08:33:05 08/27/2024 09:44:09 Benign essential hypertension 9378714 I10 at target below 130/80, continue same. LDL at target below 100. Hypothyroidism 13989366 E03.9 Euthyroid on replacemen t therapy. Continue same. Chronic anemia 104756758 D64.9 no B12, folate or iron deficiency , SPEP normal. liver US fatty liver, ESR 23. monitor. ? anemia of chronic disease. Atheroscle rosis of aorta 02595756 I70.0 Found on imaging. continue aspirin 81 mg daily. 10 year cardiovasc ular risk has not warranted statin therapy. LDL has been below 100 without statin. no iron deficiency anemia, FOB negative. continue aspirin. Screening for malignant neoplasm of colon 367917944 Z12.11 will do FIT kit for this year and refer for colonoscop y which likely take a few months to schedule. Health Concerns Section Related Observation LastModified by Organization Detai ls LastModified Time None Recorded Concern Status LastModified by Organization Details LastModified Time None Recorded Advance Directives Directive None Recorded Payers Encounter Date Sequence Insurance Name Policy Number Policy Bradley Covered Member ID Bradley Member ID Guarantor Name 07/06/2023 2 [place] [facility] [id number] [facility] 09/21/2023 2 [place] [facility] Shreya Gino [id number] Shreya Gino 03/12/2024 1 [place] [employer] Shreya Gino [id number] Shreya Gino 07/31/2024 1 [place] [employer] Shreya Gino [id number] Shreya Gino 08/27/2024 1 [place] [employer] Shreya Gino [id number] Shreya Gino 08/27/2024 2 [place] [facility] Shreya Gino [id number] Shreya Gino Notes Date Note Type Note Provider Name and Address Organization Details Recorded Time 3 text/html Urinary FrequencyReported bypatient.SymptomsSymptom s began 3 days ago;Urinary frequency;Burning;Chills; Back pain Desiree presents today for pain with urination and frequency, started three days ago; see blood in urine, feels chills, unsure about fever. Took tylenol yesterday. Presents with daughter today. 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, labs did not show a cause. anemia is better as of late June.Her with daughter who translate. Constitutional; no feverENT; no GOTTLIEB, no dizziness, itchy under her nose x 1 month, using vaselineCardiac; no CP, no NORMAN, no palpitations, no orthopneaPulmonary; no shortness of breath, has a cough x 2 days ( 2 grand kids have the flu), no wheezingGI; no abdominal pain, No N/V, no bloody stoolsUrinary; No hematuria, no dysuria, has urge incontinence, some times she does not get to the bathroom in time, wears incontinence pads, uses 3 a day, at times she wets the bedMusculoskeletal; no myalgia, low back pain with walking, can only stand for so long then back hurtsNo weakness or numbness Laurieridge Archibald. [address] [place] [address], [phone], [facility] [place] 09/21/2023 10:21:37 4 text/html Risk Assessment and Lifestyle Change Counseling (Medicare)Reported bypatient.Coronary Artery Disease Risk Assessment:No Family history of coronary artery disease; No personal history of diabetes; No history of peripheral vascular disease, AAA, or carotid disease; No personal history of coronary artery disease Breast Cancer Risk Assessment:No family history of breast cancer; No history of breast cancer or dcis Colon Cancer Risk Assessment:No family history of pre cancerous colon polyps or cancer Lung Cancer Risk Assessment:Never smoked Fracture Risk Assessment:No unexplained fracture; wobbles when walking, uses a cane Cognitive/Behavioral Risk Assessment:No personal history of mental illness; No family history of mental illness; Do you or anyone else have concerns about your memory? yes; BMI reviewed normal ; Reviewed depression screening less than 7.5 minutes; misplaces things at times ( puts something somewhere and cannot recall where she put it. Safety Risk Assessment:Has grab bars in bathroom; Has rails on steps; No falls; No evidence of abuse/neglect; Do you feel safe in your current relationship?YES; Have you ever been a victim of physical/emotional/sexual abuse?NO Functional Status:Patient does not have trouble hearing the television or radio when others do not.; Patient does not have to strain or struggle to hear/understand conversations; Patient does not need help with preparing meals, transportation, shopping, taking medicine, managing finances, or other activities of daily living.; Patient does not have visual loss that interferes with daily activities; Does not live alone; Patient was not unsteady and did not take longer than 30 seconds during the timed get up and go test.; Patient reports no falls in the past 6 months.; daughter drives, cooks and cleans, daughter applied for [employer] for them. Diet:Counseled about appropriate portion size; Counseled about eating a diet low in trans and saturated fats and high in fiber, fruits and vegetables Exercise counseling:Discussed the importance of daily physical activity Safety:Counseled about home safety including use of smoke detectors, CO detectors, keeping home water temperature less than 120; Counseled about use of seat belts; Counseled about fall risk from throw rugs and the need for hand rails on steps and in bathSocial DeterminantsReported bypatient.Living situationsteady place to live Living situation...do you have problems with the following:none of the above In the past 12 months, have you worried your food would run out before you had money to buy more?never true Within the past 12 months, the food just didn't last and you didn't have money to get more.never true Has lack of transportation kept you from medical appointments, meetings, work, etc?no In the past 12 months has the [employer], [employer] or [employer] threatened to shut off services?no How hard is it for you to pay the very basics like food, house, medical care and housing?not hard at all Patient with history of hypertension, anemia, atherosclerosis of aorta, hypothyroidism and aortic valve murmur for wellness exam.Her with daughter who translate.Constitutional; no fever or night sweats, wt stableENT; no GOTTLIEB, no dizzinessCardiac; no CP, no NORMAN, no palpitations, no orthopneaPulmonary; no shortness of breath, no cough, no wheezingGI; no abdominal pain, No N/V, no bloody stoolsUrinary; No hematuria,no dysuriaMusculoskeletal; no myalgia, knees, shoulders and hips hurt at times, recent low back pain with walkingNo weakness or numbnessNo rash Laurie Archibald. [address] [place] [address], [phone], [facility] [place] 03/12/2024 15:38:52 4 text/html 68 year old female patient accompanied by daughter presents with cough, body aches, and shortness of breath. The patient has been experiencing a cough for five days, which is accompanied by a crackles on the left side noted last night by her daughter upon auscultation. The cough has not improved, and she feels worse with whole body aches. Cough has been productive with greenish/yellowish sputum. Patient reports getting short of breath more easily and also reports feeling feverish. No chest pain or palpitations. No dizziness, no light headedness, no LOC. A COVID test performed at home this morning was negative. She has been taking Tylenol for pain relief but has not taken her regular blood pressure medication. Bob Saravia MD [address] [place], [phone], [facility] [place] 08/01/2024 16:41:18 text/html Patient with history of hypertension, anemia, atherosclerosis of aorta, hypothyroidism and aortic valve murmur for medical management.Her with daughter who translate.Constitutional; no fever or night sweatsENT; occasional GOTTLIEB and dizzinessCardiac; no CP, no NORMAN, no palpitations, no orthopneaPulmonary; no shortness of breath, no cough, no wheezingGI; no abdominal pain, No N/V, no bloody stoolsUrinary; No hematuria,no dysuriaMusculoskeletal; no myalgia, knees, shoulders and hips hurt at time, worse when it is cold Recent labs, hemoglobin 10.0, hematocrit 29.4 with normal MCV, T4 0.9, TSH 4.30, LDL 89, BMP normal Laurie Shoushtari. [address] [place], [phone], [facility] [place] 08/27/2024 09:04:22 OBGyn Episode No OBEpisode recorded.
--- OUTSIDE RECORDS SUMMARY | 2024-10-23 16:11 | XMS_ITS | Encounter Summary ---
Author Organization [employer] Address [address] [facility] [address] [place] [address] Care Team Providers Care Letter Of Credit Clerk Name Role Phone Unavailable Primary Care Provider Unavailabl e Encounter Details Date Type Department Care Team (Latest Contact Info) Description 02/11/2019 Abstract C CONVERSIONS Dental, Provider, DDS Social History Tobacco Use Types Packs/Day Years Used Date Smoking Tobacco: Never Assessed Comments Unknown Sex and Gender Information Value Date Recorded Sex Assigned at Female 07/11/2022 10:26 AM EDT Legal Sex Female 10:26 AM EDT Gender Identity Female 07/11/2022 10:26 AM EDT Sexual Orientation Choose not to disclose 2021 10:26 AM EDT documented as of this encounter Plan of Treatment Upcoming Encounters Date Type Department Care Team (Late st Contact Info) Description 10/31/2024 10:00 AM EST Office Visit [facility] [address] [place] [address] Mally Fisher DDS [address] [place] [address] 11/07/2024 10:00 AM EST Office Visit [facility] [address] [place] [address] Mally Fisher DDS [address] [place] [address] documented as of this encounter Visit Diagnoses Not on filedocumented in this encounter
--- OUTSIDE RECORDS SUMMARY | 2024-10-23 16:11 | XMS_ITS | Encounter Summary ---
Author Organization [employer] Address [address] [facility] [address] [place] [address] Care Team Providers Care Reimbursement Manager Name Role Phone Unavailable Primary Care Provider Unavailabl e Reason for Visit * Reason Comments Dental Exam Encounter Details Date Type Department Care Team (Late st Contact Info) Description 10/03/2024 3:30 PM EST Office Visit [facility] [address] [place] [address] Tegan Florence LLD [address] [place] [address] Dental abscess (Primary Dx) Social History Tobacco Use Types Packs/Day Years Used Date Smoking Tobacco: Never Passive Smoke Exposure: Never Smokeless Tobacco: Never Tobacco Cessation:Counseling Given: Not Answered Alcohol Use Standard Drinks/Week Comments Never 0 (1 standard drink = 0.6 oz pur e alcohol) Comments Unknown Sex and Gender Information Value Date Recorded Sex Assigned at Female 07/11/2022 10:26 AM EDT Legal Sex Female 10:26 AM EDT Gender Identity Female 07/11/2022 10:26 AM EDT Sexual Orientation Choose not to disclose 2021 10:26 AM EDT documented as of this encounter Progress Notes * MARY Brown - 10/03/2024 3:30 PM EST Adult patient present with pain LL/ LR RMH: NSF OCS: negative Radiographs taken: 2 PA Digital Xrays checked by RS Findings:# 28 horizontal fracture from M to D Percussion +, 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 SRO after approval Dr Tegan Florence documented in this encounter Plan of Treatment Upcoming Encounters Date Type Department Care Team (Late st Contact Info) Description 10/31/2024 10:00 AM EST Office Visit [facility] [address] [place] [phone] Mally Fisher DDS [address] [place] [phone] 11/07/2024 10:00 AM EST Office Visit [facility] [address] [place] [address] Mally Fisher DDS [address] [place] [phone] Scheduled Orders Name Type Priority Associated Diagnoses Orde r Schedule 28 28 EXTRACTION, ERUPTED TOOTH OR EXPOSED ROOT (ELEVATION AND/OR FORCEPS REMOVAL) Dental Routine 1 Occurrences s tarting 10/03/2024 documented as of this encounter Procedures Procedure Name Priority Date/Time Associated Diagnosis Comments LIMITED ORAL EVALUATION - PROBLEM FOCUSED Routine 10/03/2024 3:30 PM EST INTRAORAL - PERIAPICAL FIRST RADIOGRAPHIC IMAGE Routine 10/03/2024 3:30 PM EST INTRAORAL - PERIAPICAL EACH ADDITIONAL RADIOGRAPHIC IMAGE Routine 10/03/2024 3:30 PM EST ADJUNCTIVE GENERAL SERVICES - PROFESSIONAL VISITS - CASE PRESENTATION, SUBSEQUENT TO DETAILED AND EXTENSIVE TREATMENT PLANNING Routine 10/03/2024 3:30 PM EST documented in this encounter Visit Diagnoses Diagnosis Dental abscess- Primary Periapical abscess without sinus documented in this encounter
--- OUTSIDE RECORDS SUMMARY | 2024-10-23 16:11 | XMS_ITS | Clinical Summary ---
Author Organization [employer] Address [address] [facility] [address] [place] [address] Care Team Providers Care Business Support Liaison Name Role Phone Unavailable Primary Care Provider Unavailabl e Allergies Active Allergy Reactions Criticality Noted Date Comments Lisinopril Cough 04/07/2014 Other Reaction(s): Not available Medications aspirin 81 MG EC tablet Take 1 tablet by mouth Once per day. 03/31/2023 Active losartan (Cozaar) 50 MG tablet TAKE 2 TABLETS BY MOUTH ONCE DAILY 02/27/2023 Active hydroCHLOROthia zide (Microzide) 12.5 MG capsule Take 1 capsule by mouth Once per day. 02/20/2023 Active amLODIPine (Norvasc) 2.5 MG tablet Take 1 tablet by mouth Once per day. 03/12/2023 Active amoxicillin (Amoxil) 500 MG capsuleIndicati ons:Dental abscess Take 1 capsule (500 mg) by mouth every 8 (eight) hours for 10 days. 30 capsule 10/03/2024 10/13/19 25 Encounters Date Type Department Care Team Description 10/03/2024 3:30 PM EST Office Visit [facility] [address] [place] [address] Tegan Florence LLD Dental abscess (Primary Dx) from Last 3 Months Social History Tobacco Use Types Packs/Day Years [...] not to disclose 2021 10:26 AM EDT Plan of Treatment Upcoming Encounters Date Type Department Care Team (Late st Contact Info) Description 10/31/2024 10:00 AM EST Office Visit [facility] [address] [place] [address] Mally Fisher DDS [address] [place] [address] 11/07/2024 10:00 AM EST Office Visit [facility] [address] [place] [address] Mally Fisher DDS [address] [place] [address] Health Maintenance Due Date Last Done Comments CT Colonography 1954 Colonoscopy 1954 Colorectal Cancer Screening 1954 Depression Screening 1954 FIT DNA/Cologuard 1954 FIT 1954 FOBT 1954 Lipid Panel 1954 SDOH Screening 1954 Sigmoidoscopy 1954 Alcohol/Substance Use Screening 1966 Hepatitis C Screening 1972 Mammogram 1994 DTaP/Tdap/Td Vaccines (1 - Tdap) 04/04/2015 04/03/2015 Dental Prophylaxis 08/14/2019 02/11/2019, 0 01/15/2018, 06/15/2017, Additional history exists Dental Oral Exam 10/03/2019 04/01/2019, 11/2017, 01/15/2018, Additional history exists Dental X-Ray: Bitewings 04/02/2020 04/01/20 19, 01/15/2018, 12/12/2016, Additional history exists Dental X-Ray: Full Mouth 01/16/2021 01/15/2018, 06/11 COVID-19 Vaccine ( season) 2024 06/27/2023, 09/30/2022, 12/23/2021, Additional history exists Zoster Vaccines (3 of 3) 08/28/2024 07/03/2024, 03/0 03/2016 Tobacco Screening 10/03/2025 10/03/2024 RSV Patients and Patients Aged 60 years or older (1 - 1-dose 75+ series) 2029 Pneumococcal Vaccine: 50+ Years Completed 01/29/2021, 07/31/2020 Influenza Vaccine Completed 07/03/2024, , 07/13/2022, Additional history exists HIB Vaccines Aged Out No longer eligi ble based on patient's age to complete this topic HPV Vaccines Aged Out No longer eligi ble based on patient's age to complete this topic Hepatitis A Vaccines Aged Out No long er eligible based on patient's age to complete this topic Hepatitis B Vaccines Aged Out No long er eligible based on patient's age to complete this topic IPV Vaccines Aged Out No longer eligi ble based on patient's age to complete this topic Meningococcal Vaccine Aged Out No shena scott eligible based on patient's age to complete this topic RSV under 20 months Aged Out No longe r eligible based on patient's age to complete this topic Rotavirus Vaccines Aged Out No longer eligible based on patient's age to complete this topic Procedures Procedure Name Priority Date/Time Associated Diagnosis Comments ADJUNCTIVE GENERAL SERVICES - PROFESSIONAL VISITS - CASE PRESENTATION, SUBSEQUENT TO DETAILED AND EXTENSIVE TREATMENT PLANNING Routine 10/03/2024 3:30 PM EST INTRAORAL - PERIAPICAL EACH ADDITIONAL RADIOGRAPHIC IMAGE Routine 10/03/2024 3:30 PM EST INTRAORAL - PERIAPICAL FIRST RADIOGRAPHIC IMAGE Routine 10/03/2024 3:30 PM EST LIMITED ORAL EVALUATION - PROBLEM FOCUSED Routine 10/03/2024 3:30 PM EST BITEWINGS - 4 RADIOGRAPHIC IMAGES Routine 04/01/2019 12:00 AM EDT PERIODIC ORAL EVALUATION - ESTABLISHED PATIENT Routine 04/01/2019 12:00 AM EDT PROPHYLAXIS - ADULT Routine 02/11/2019 1 2:00 AM EDT DIAGNOSTIC - DIAGNOSTIC IMAGING - INTRAORAL - COMPREHENSIVE SERIES OF RADIOGRAPHIC IMAGES Routine 01/15/2018 12:00 AM EDT from Last 3 Months or Most Recently Relevant [place] [address] [facility] [address] [place] [address] [place] [address] [place] [address] [place] [address] [place] [id number] [place] [address]
== END ==
LOC: HO.CARD 15:01
DX: I48.91 Unspecified atrial fibrillation (principal)
CPT/HCPCS: 93306

== ENCOUNTER → 2024-10-23 15:14 | Outpatient (BNV) | payer MEDICARE, MEDICAID, SELFPAY | PROVIDERS: Visit Provider Internal Medicine Cardiovascular Disease | DX: I48.91 Unspecified atrial fibrillation (principal); I51.7 Cardiomegaly; I35.8 Other nonrheumatic aortic valve disorders; I36.1 Nonrheumatic tricuspid (valve) insufficiency | CPT/HCPCS: 93306 ==

== ENCOUNTER → 2024-10-25 14:02 | Outpatient (BNVA) | payer SELFPAY | PROVIDERS: PCP Internal Medicine; Visit Provider Internal Medicine Cardiovascular Disease | DX: I48.19 Other persistent atrial fibrillation (principal); I10 Essential (primary) hypertension | CPT/HCPCS: 93005; 99202 ==

== ENCOUNTER → 2024-10-25 14:52 | Outpatient (REF) | payer MEDICARE, MEDICAID, SELFPAY ==
--- OUTSIDE RECORDS SUMMARY | 2024-10-25 14:55 | XMS_ITS | Data Portability ---
Author Organization [facility], [facility] Address [address] [place] [address] Care Team Providers Care Living Specialist Name Role Phone PATRICK MAXWELLDayan Primary Care Provider Assessment Encounter Date Assessment Date Assessment LastModified by Organization Details LastModified Time 03/12/2024 03/12/2024 We completed your Medicare Wellness [...] cannot communicate your wishes yourself (severe illness, unconsciousness) . We discussed having a completed Health Care [...] goal for the year is: stay active. [email or web address] Not available 03/12/2024 15:28:20 10/23/2024 10/23/2024 Attestation: Greater than 30 minutes [...] Organization Details Last Modified Time Details Appointments LAB Follow- Up 2024 12:00P M [facility] Lab Not available Not available Not available Wellnes s Visit 30 2024 02:30P M OG MAXWELL DNP Not available Not available Not available Lab TSH, serum or plasma [address] [facility], [address] [place] [address], [id number], 10/23/2024 16:33:57 T4, free, serum [address] [facility], [address] [place] [address], 134[address], 10/23/2024 16:07:28 fecal occult blood, immunoa ssay, stool - Lab- Create annual order through QM-IFOB T order set. [email or web address] [facility], [address] [place] [address], [id number], 10/23/2024 10:19:[address] [facility], [address] [place] [address], [id number], 10/23/2024 12:15:54 BMP, serum or plasma [address] [facility], [address] [place] [address], 92387, 10/24/2024 15:13:12 CBC 2023 025 [facility], [address] [place] [address], [address], 08/27/2024 08:57:02 BMP, serum or plasma 2023 025 [facility], [address] [place] [address], 70840, 08/27/2024 08:57:02 TSH, serum or plasma 2023 025 [facility], [address] [place] [address], 66447, 08/27/2024 08:57:02 T4, free, serum 2023 025 [facility], [address] [place] [address], 06304, 08/27/2024 08:57:[address] [facility], [address] [place] [address], 57305, 08/19/2024 14:33:15 BMP, serum or plasma [address] [facility], [address] [place] [address], 450[address], 08/20/2024 12:28:24 lipid panel, serum [address] [facility], [address] [place] [address], 44279, 08/20/2024 12:28:25 TSH, serum or plasma [address] [facility], [address] [place] [address], 90538, 08/22/2024 16:25:03 T4, free, serum [address] [facility], [address] [place] [address], 37[address], 08/22/2024 15:53:20 rapid flu (A+B) [address] [facility], [address] [place] [address], 91873, 09/21/2023 10:08:[address] [facility], [address] [place] [address], 30259, 09/21/2023 12:57:54 TSH, serum or plasma [address] [facility], [address] [place] [address], 71432, 09/22/2023 10:47:37 T4, free, serum [address] [facility], [address] [place] [address], 93911, 09/22/2023 10:22:05 BMP, serum or plasma [address] [facility], [address] [place] [address], 88873, 09/22/2023 12:21:32 Referral cardiol ogist referra l - New afib without RVR, please eval 2024 025 [email or web address] [facility], [address], [place], [address], 10/23/2024 11:53:[address] referra l - Patient has recurre nt erythem a of nose and externa l throat with URI symptom s. Please evaluat e. Thank you 2023 024 [email or web address] [facility], [address] [place] [address], [place], [address], 08/02/2024 12:31:53 orthope dic surgeon referra l 2023 024 [email or web address] [facility], [address], [place], [address], 03/18/2024 15:27:58 Procedures holter monitor placeme nt (PROC) 2024 025 [facility], [address] [place], [address], 10/24/2024 12:19:01 colonos copy procedu re (PROC) [email or web address] [place] [address] Gastroenterol ogy, [address] [place], [address], 08/27/2024 11:10:13 Surgeries None recorde d. Imaging electro cardiog leslye 2024 025 [email or web address] [facility], [address] [place], [address], 10/23/2024 11:11:41 US, echocar diogram - Afib without RVR 2024 025 [email or web address] [facility], [address] [place], [address], 10/24/2024 13:00:38 XR, chest [address] [facility] (Imaging), [address], [place], [address], 07/31/2024 16:27:53 MAMMO, screeni ng, tomosyn thesis, bilater al - 2nd Look Consult /Diag Mammo/U S Breast/ Guided Asp/Fatemeh ast Bx/Clip Placeme nt, as clinica lly indicat ed. [address] [facility]), [address], [place], [address], 04/01/2024 18:17:17 Medication Orders Eliquis 5 mg tablet 2024 025 [facility], [address] [place] [address], [address], 10/23/2024 10:06:50 flutica sone propion ate 50 mcg/act uation nasal spray,s uspensi on 2023 024 [facility], [address] [place] [address], [address], 07/31/2024 15:19:52 cetiriz ine 10 mg tablet 2023 024 [facility], [address] [place] [address], [address], 07/31/2024 15:19:52 azithro mycin 250 mg tablet 2023 024 [facility], [address] [place] [address], [address], 08/26/2024 17:30:26 Tamiflu 75 mg capsule 2023 024 [facility], [address] [place] [address], [address], 03/12/2024 15:08:33 Patient TargetsNo targets recorded. Patient Instructions Encounter Date Encounter Id Patient Instructions Last Modified By Organization Details Last Modified Time 03/12/2024 [id number] advance directives: care instructions [email or web address] Not available 03/12/2024 15:30:18 preventing falls: care instructions [email or web address] Not available 03/12/2024 15:30:18 hearing loss: care instructions [email or web address] Not available 03/12/2024 15:30:18 well visit, over 65: care instructions [email or web address] Not available 03/12/2024 15:30:18 CCM: The provider and patient discussed the Chronic Care Management program, including the services provided, and any fees associated with them. [email or web address] Not available 03/12/2024 10:51:14 Reason for Referral Orthopedic Surgeon Referral for Degenerative joint disease involving multiple joints Referring Physician: [facility], Encounter Date: 03/12/2024 Facilities Custodian Referral fo r Erythema of skin of nose Patient has recurrent erythema of nose and external throat with URI symptoms. Please evaluate. Thank you Referring Physician: Og Maxwell [facility], Encounter Date: 07/31/2024 Inhalation Therapy Aide Referral for At rial fibrillation New afib without RVR, please eval Referring Physician: Og Maxwell [facility], Encounter Date: 10/23/2024 Results Created Date Observation Date Name Description Value Unit Range Abnormal Flag Note LastModifiedBy Organization Detail LastModifiedTime 09/21/19 24 09/21/2023 POC FLU flu A POC NEGATI VE Not Available [facility] [address] [place] [address], [address], 09/21/2023 10:08:07 09/21/19 24 09/21/2023 POC FLU flu B POC POSITI VE positive Not Available [facility] [address] [place] [address], [address], 09/21/2023 10:08:07 09/21/19 24 09/21/2023 CBC WBC 6.17 K/? ? ?L 3.98-1 0.04 Not Available [address], [address], 09/21/2023 12:57:54 09/21/1909/21/2023 CBC RBC 3.40 M/? ? ?L 3.93-5 .22 low Not Available [address], [address], 09/21/2023 12:57:54 09/21/1909/21/2023 CBC HGB 10.5 g/dL 11.2-1 5.7 low Not Available [address], 345[address], 09/21/2023 12:57:54 09/21/19 24 09/21/2023 CBC HCT 31.2 % 34.1-4 4.9 low Not Available [address], 9[address], 09/21/2023 12:57:54 09/21/19 24 09/21/2023 CBC MCV 91.8 fL 79.4-9 4.8 Not Available [address], [address]27, 09/21/2023 12:57:54 09/21/19 24 09/21/2023 CBC MCH 30.9 pg 25.6-3 2.2 Not Available [address], 36556, 09/21/2023 12:57:54 09/21/19 24 09/21/2023 CBC MCHC 33.7 g/dL 32.2-3 5.5 Not Available [address], 739[address], 09/21/2023 12:57:54 09/21/19 24 09/21/2023 CBC plt 231 K/? ? ?L 182-36 9 Not Available [address], 87205, 09/21/2023 12:57:54 09/21/19 24 09/21/2023 CBC MPV 10.3 fL 9.4-12 .3 Not Available [address], 84352, 09/21/2023 12:57:54 09/21/19 24 09/21/2023 CBC neut% 55.6 % 34.0-7 1.1 Not Available [address], 77690, 09/21/2023 12:57:54 09/21/19 24 09/21/2023 CBC neut# 3.43 1.56-6 .13 Not Available [address], 92472, 09/21/2023 12:57:54 09/21/19 24 09/21/2023 CBC lymph % 20.1 % 19.3-5 1.7 Not Available [address], 47945, 09/21/2023 12:57:54 09/21/19 24 09/21/2023 CBC lymph # 1.24 K/? ? ?L 1.18-3 .74 Not Available [address], 00346, 09/21/2023 12:57:54 09/21/19 24 09/21/2023 CBC mono% 12.6 % 4.7-12 .5 high Not Available [address], 83999, 09/21/2023 12:57:54 09/21/19 24 09/21/2023 CBC mono# 0.78 0.24-0 .56 high Not Available [address], [address]29, 09/21/2023 12:57:54 09/21/19 24 09/21/2023 CBC eo% 10.4 % 0.7-5. 8 high Not Available [address], 94358, 09/21/2023 12:57:54 09/21/19 24 09/21/2023 CBC eo# 0.64 0.04-0 .36 high Not Available [address], 72843, 09/21/2023 12:57:54 09/21/19 24 09/21/2023 CBC baso% 1.1 % 0.1-1. 2 Not Available [address], 77530, 09/21/2023 12:57:54 09/21/19 24 09/21/2023 CBC baso# 0.07 0.00-0 .08 Not Available [address], 53709, 09/21/2023 12:57:54 09/21/19 24 09/21/2023 CBC RDW-CV 13.4 % 11.7-1 4.4 Not Available [address], 65758, 09/21/2023 12:57:54 09/21/19 24 09/21/2023 CBC Ig% 0.200 % 0.000- 1.500 Ig % >0.5 Indic ates possi ble Left Shift Not Available [address], 64794, 09/21/2023 12:57:54 09/21/19 24 09/21/2023 CBC Ig# 0.010 0.000- 0.093 Not Available [address], 72718, 09/21/2023 12:57:54 09/21/19 24 09/21/2023 CBC NRBC% 0.0 % 0.0-0. 2 Not Available [address], 97374, 09/21/2023 12:57:54 09/21/19 24 09/21/2023 CBC NRBC# 0.000 0.000- 0.012 Not Available [address], 75165, 09/21/2023 12:57:54 09/21/19 24 09/22/2023 FREE T4 free T4 0.90 NG/dL 0.75-1 .54 Not Available [address], 14286, 09/22/2023 10:22:05 09/21/19 24 09/22/2023 TSH TSH 4.33 uIU/m L 0.50-6 .00 The [facility] Endoc rinol ogy and [facility] Thyro id Assoc iatio n recom mend goal TSH value s betwe en 0.4-4 .0 mIU/m L. Not Available [address], [address], 09/22/2023 10:47:37 09/21/19 24 09/22/2023 BASIC METAB OLIC PANEL glucose 80 mg/dL 70-100 Not Available [address], 90288, 09/22/2023 12:21:32 09/21/19 24 09/22/2023 BASIC METAB OLIC PANEL BUN 14 mg/dL 7-18 Not Available [address], 21278, 09/22/2023 12:21:32 09/21/19 24 09/22/2023 BASIC METAB OLIC PANEL creatinine 0.7 mg/dL 0.8-1. 3 low Not Available [address], 46810, 09/22/2023 12:21:32 09/21/19 24 09/22/2023 BASIC METAB OLIC PANEL B/C 20.0 ratio Not Available [address], 40746, 09/22/2023 12:21:32 09/21/19 24 09/22/2023 BASIC METAB [...] borat ion (CKD- EPI) Equat ion (Estela diamond et. al 2020) as recom guilherme d by the Natio nal Kidne y Found ation . eGFR is based on age, serum creat inine , and sex. CKD-E PI does not calcu late eGFR by race, does not apply to child braydon (age <18 years ), and shoul d not be used in pregn shannon. Not Available [address], [address], 09/22/2023 12:21:32 09/21/19 24 09/22/2023 BASIC METAB OLIC PANEL sodium 139 mmol/ L 136-14 5 Not Available [address], 16375, 09/22/2023 12:21:32 09/21/19 24 09/22/2023 BASIC METAB OLIC PANEL potassium 3.8 mmol/ L 3.5-5. 1 Not Available [address], 77457, 09/22/2023 12:21:32 09/21/19 24 09/22/2023 BASIC METAB OLIC PANEL chloride 101 mmol/ L 96-107 Not Available [address], 21162, 09/22/2023 12:21:32 09/21/19 24 09/22/2023 BASIC METAB OLIC PANEL anion gap 11.0 5.0-15 .0 Not Available [address], 34777, 09/22/2023 12:21:32 09/21/19 24 09/22/2023 BASIC METAB OLIC PANEL CO2 27 mmol/ L 21-32 Not Available [address], 16408, 09/22/2023 12:21:32 09/21/19 24 09/22/2023 BASIC METAB OLIC PANEL calcium 8.9 mg/dL 8.5-10 .3 Not Available [address], 70855, 09/22/2023 12:21:32 08/19/20 24 08/19/2024 CBC WBC 4.16 K/? ? ?L 3.98-1 0.04 Not Available [address], [address]18, 08/19/2024 14:33:15 08/19/20 24 08/19/2024 CBC RBC 3.12 M/? ? ?L 3.93-5 .22 low Not Available [address], 67455, 08/19/2024 14:33:15 08/19/20 24 08/19/2024 CBC HGB 10.0 g/dL 11.2-1 5.7 low Not Available [address], 92132, 08/19/2024 14:33:15 08/19/20 24 08/19/2024 CBC HCT 29.4 % 34.1-4 4.9 low Not Available [address], 28151, 08/19/2024 14:33:15 08/19/20 24 08/19/2024 CBC MCV 94.2 fL 79.4-9 4.8 Not Available [address], 15247, 08/19/2024 14:33:15 08/19/20 24 08/19/2024 CBC MCH 32.1 pg 25.6-3 2.2 Not Available [address], [address]40, 08/19/2024 14:33:15 08/19/20 24 08/19/2024 CBC MCHC 34.0 g/dL 32.2-3 5.5 Not Available [address], 13659, 08/19/2024 14:33:15 08/19/20 24 08/19/2024 CBC plt 211 K/? ? ?L 182-36 9 Not Available [address], 40350, 08/19/2024 14:33:15 08/19/20 24 08/19/2024 CBC MPV 10.6 fL 9.4-12 .3 Not Available [address], 02638, 08/19/2024 14:33:15 08/19/20 24 08/19/2024 CBC neut% 27.7 % 34.0-7 1.1 low SREV= Slide revie wed by techn [facility]. Not Available [address], [address], 08/19/2024 14:33:15 08/19/20 24 08/19/2024 CBC neut# 1.15 1.56-6 .13 low Not Available [address], 23822, 08/19/2024 14:33:15 08/19/20 24 08/19/2024 CBC lymph % 52.4 % 19.3-5 1.7 high Not Available [address], 48[address], 08/19/2024 14:33:15 08/19/20 24 08/19/2024 CBC lymph # 2.18 K/? ? ?L 1.18-3 .74 Not Available [address], 20[address], 08/19/2024 14:33:15 08/19/20 24 08/19/2024 CBC mono% 9.1 % 4.7-12 .5 Not Available [address], 85983, 08/19/2024 14:33:15 08/19/20 24 08/19/2024 CBC mono# 0.38 0.24-0 .56 Not Available [address], 70415, 08/19/2024 14:33:15 08/19/20 24 08/19/2024 CBC eo% 9.6 % 0.7-5. 8 high Not Available [address], 25048, 08/19/2024 14:33:15 08/19/20 24 08/19/2024 CBC eo# 0.40 0.04-0 .36 high Not Available [address], 19670, 08/19/2024 14:33:15 08/19/20 24 08/19/2024 CBC baso% 1.2 % 0.1-1. 2 Not Available [address], 59561, 08/19/2024 14:33:15 08/19/20 24 08/19/2024 CBC baso# 0.05 0.00-0 .08 Not Available [address], 03594, 08/19/2024 14:33:15 08/19/20 24 08/19/2024 CBC RDW-CV 13.8 % 11.7-1 4.4 Not Available [address], 06858, 08/19/2024 14:33:15 08/19/20 24 08/19/2024 CBC Ig% 0.000 % 0.000- 1.500 Ig % >0.5 Indic ates possi ble Left Shift Not Available [address], [address], 08/19/2024 14:33:15 08/19/20 24 08/19/2024 CBC Ig# 0.000 0.000- 0.093 Not Available [address], 67005, 08/19/2024 14:33:15 08/19/20 24 08/19/2024 CBC NRBC% 0.0 % 0.0-0. 2 Not Available [address], 76756, 08/19/2024 14:33:15 08/19/20 24 08/19/2024 CBC NRBC# 0.000 0.000- 0.012 Not Available [address], 98808, 08/19/2024 14:33:15 08/19/20 24 08/20/2024 BASIC METAB OLIC PANEL glucose 77 mg/dL 70-100 Not Available [address], 14125, 08/20/2024 12:28:24 08/19/20 24 08/20/2024 BASIC METAB OLIC PANEL BUN 20 mg/dL 7-18 high Not Available [address], [address]60, 08/20/2024 12:28:24 08/19/20 24 08/20/2024 BASIC METAB OLIC PANEL creatinine 0.7 mg/dL 0.8-1. 3 low Not Available [address], 966[address], 08/20/2024 12:28:24 08/19/20 24 08/20/2024 BASIC METAB OLIC PANEL B/C 28.6 ratio Not Available [address], [address]35, 08/20/2024 12:28:24 08/19/20 24 08/20/2024 BASIC METAB [...] borat ion (CKD- EPI) Equat ion (Estela diamond et. al 2020) as recom guilherme d by the Natio nal Kidne y Found ation . eGFR is based on age, serum creat inine , and sex. CKD-E PI does not calcu late eGFR by race, does not apply to child braydon (age <18 years ), and shoul d not be used in pregn shannon. Not Available [address], [address], 08/20/2024 12:28:24 08/19/20 24 08/20/2024 BASIC METAB OLIC PANEL sodium 143 mmol/ L 136-14 5 Not Available [address], 09018, 08/20/2024 12:28:24 08/19/20 24 08/20/2024 BASIC METAB OLIC PANEL potassium 3.9 mmol/ L 3.5-5. 1 Not Available [address], 87194, 08/20/2024 12:28:24 08/19/20 24 08/20/2024 BASIC METAB OLIC PANEL chloride 105 mmol/ L 96-107 Not Available [address], 65[address], 08/20/2024 12:28:24 08/19/20 24 08/20/2024 BASIC METAB OLIC PANEL anion gap 11.6 5.0-15 .0 Not Available [address], 59406, 08/20/2024 12:28:24 08/19/20 24 08/20/2024 BASIC METAB OLIC PANEL CO2 26 mmol/ L 21-32 Not Available [address], 88961, 08/20/2024 12:28:24 08/19/2008/20/2024 BASIC METAB OLIC PANEL calcium 9.1 mg/dL 8.5-10 .3 Not Available [address], 99496, 08/20/2024 12:28:24 08/19/2008/20/2024 LIPID PANEL cholesterol 172 mg/dL <200 mg/dl Nafisa able 200-2 39 mg/dl Borde rline High >240 mg/dl High Not Available [address], 36634, 08/20/2024 12:28:25 08/19/20 24 08/20/2024 LIPID PANEL triglyceride s 60 mg/dL <150 mg/dL Deborah l 150-1 99 mg/dL Borde rline High 200-4 99 mg/dL High >500 mg/dL Very High Not Available [address], 10807, 08/20/2024 12:28:25 08/19/20 24 08/20/2024 LIPID PANEL direct HDL 71 mg/dL <40 mg/dl - Major Risk for CHD >60 mg/dl - Negat tabitha Risk for CHD Not Available [address], [address], 08/20/2024 12:28:25 08/19/20 24 08/20/2024 LDL - CALCU LATED LDL - calculated [...] with 0-1 risk facto r is not neces adelia. Not Available [address], [address]39, 08/20/2024 12:28:26 08/19/20 24 08/22/2024 FREE T4 free T4 0.90 NG/dL 0.75-1 .54 Not Available [address], 14[address], 08/22/2024 15:53:20 08/19/20 24 08/22/2024 TSH TSH 4.30 uIU/m L 0.50-6 .00 The [facility] End[facility] rinol o[facility] and [facility] Thyro id Assoc iatio n recom mend goal TSH value s raywe en 0.4-4 .0 mIU/m L. Not Available [address], 07[address], 08/22/2024 16:25:03 10/23/1910/23/2024 CBC WBC 4.74 K/? ? ?L 3.98-1 0.04 Not Available [address], [address], 10/23/2024 12:15:54 10/23/1910/23/2024 CBC RBC 3.28 M/? ? ?L 3.93-5 .22 low Not Available [address], 50[address], 10/23/2024 12:15:54 10/23/1910/23/2024 CBC HGB 10.4 g/dL 11.2-1 5.7 low Not Available [address], 26919, 10/23/2024 12:15:54 10/23/1910/23/2024 CBC HCT 30.5 % 34.1-4 4.9 low Not Available [address], 00841, 10/23/2024 12:15:54 10/23/1910/23/2024 CBC MCV 93.0 fL 79.4-9 4.8 Not Available [address], [address]188, 10/23/2024 12:15:54 10/23/1910/23/2024 CBC MCH 31.7 pg 25.6-3 2.2 Not Available [address], 56528, 10/23/2024 12:15:54 10/23/19 25 10/23/2024 CBC MCHC 34.1 g/dL 32.2-3 5.5 Not Available [address], 06455, 10/23/2024 12:15:54 10/23/19 25 10/23/2024 CBC plt 212 K/? ? ?L 182-36 9 Not Available [address], 24041, 10/23/2024 12:15:54 10/23/19 25 10/23/2024 CBC MPV 10.5 fL 9.4-12 .3 Not Available [address], 55658, 10/23/2024 12:15:54 10/23/19 25 10/23/2024 CBC neut% 43.2 % 34.0-7 1.1 Not Available [address], 68326, 10/23/2024 12:15:54 10/23/19 25 10/23/2024 CBC neut# 2.05 1.56-6 .13 Not Available [address], 31923, 10/23/2024 12:15:54 10/23/19 25 10/23/2024 CBC lymph % 40.7 % 19.3-5 1.7 Not Available [address], 43708, 10/23/2024 12:15:54 10/23/19 25 10/23/2024 CBC lymph # 1.93 K/? ? ?L 1.18-3 .74 Not Available [address], 02585, 10/23/2024 12:15:54 10/23/19 25 10/23/2024 CBC mono% 10.8 % 4.7-12 .5 Not Available [address], 65466, 10/23/2024 12:15:54 10/23/19 25 10/23/2024 CBC mono# 0.51 0.24-0 .56 Not Available [address], 90341, 10/23/2024 12:15:54 10/23/19 25 10/23/2024 CBC eo% 3.8 % 0.7-5. 8 Not Available [address], 70538, 10/23/2024 12:15:54 10/23/19 25 10/23/2024 CBC eo# 0.18 0.04-0 .36 Not Available [address], 89674, 10/23/2024 12:15:54 10/23/1910/23/2024 CBC baso% 1.3 % 0.1-1. 2 high Not Available [address], 24581, 10/23/2024 12:15:54 10/23/1910/23/2024 CBC baso# 0.06 0.00-0 .08 Not Available [address], 82750, 10/23/2024 12:15:54 10/23/1910/23/2024 CBC RDW-CV 12.8 % 11.7-1 4.4 Not Available [address], [address]156, 10/23/2024 12:15:54 10/23/1910/23/2024 CBC Ig% 0.200 % 0.000- 1.500 Ig % >0.5 Indic ates possi ble Left Shift Not Available [address], 18[address], 10/23/2024 12:15:54 10/23/19 10/23/2024 CBC Ig# 0.010 0.000- 0.093 Not Available [address], 12764, 10/23/2024 12:15:54 10/23/1910/23/2024 CBC NRBC% 0.0 % 0.0-0. 2 Not Available [address], 87519, 10/23/2024 12:15:54 10/23/1910/23/2024 CBC NRBC# 0.000 0.000- 0.012 Not Available [address], 62045, 10/23/2024 12:15:54 10/23/1910/24/2024 BASIC METAB OLIC PANEL glucose 90 mg/dL 70-100 Not Available [address], 32314, 10/24/2024 15:13:12 10/23/1910/24/2024 BASIC METAB OLIC PANEL BUN 9 mg/dL 7-18 Not Available [address], 58271, 10/24/2024 15:13:12 10/23/1910/24/2024 BASIC METAB OLIC PANEL creatinine 0.7 mg/dL 0.8-1. 3 low Not Available [address], 54050, 10/24/2024 15:13:12 10/23/1910/24/2024 BASIC METAB OLIC PANEL B/C 12.9 ratio Not Available [address], 10948, 10/24/2024 15:13:12 10/23/1910/24/2024 BASIC METAB OLIC PANEL GFR >=60ML /MIN [...] borat ion (CKD- EPI) Equat ion (Estela diamond et. al 2020) as recom guilherme d by the Natio nal Kidne y Found ation . eGFR is based on age, serum creat inine , and sex. CKD-E PI does not calcu late eGFR by race, does not apply to child braydon (age <18 years ), and shoul d not be used in pregn shannon. Not Available [address], 31131, 10/24/2024 15:13:12 10/23/19 25 10/24/2024 BASIC METAB OLIC PANEL sodium 136 mmol/ L 136-14 5 Not Available [address], [address], 10/24/2024 15:13:12 10/23/19 25 10/24/2024 BASIC METAB OLIC PANEL potassium 3.4 mmol/ L 3.5-5. 1 low Not Available [address], [address], 10/24/2024 15:13:12 10/23/19 25 10/24/2024 BASIC METAB OLIC PANEL chloride 98 mmol/ L 96-107 Not Available [address], [address], 10/24/2024 15:13:12 10/23/19 25 10/24/2024 BASIC METAB OLIC PANEL anion gap 12.6 5.0-15 .0 Not Available [address], [address], 10/24/2024 15:13:12 10/23/19 25 10/24/2024 BASIC METAB OLIC PANEL CO2 25 mmol/ L 21-32 Not Available [address], [address], 10/24/2024 15:13:12 10/23/19 25 10/24/2024 BASIC METAB OLIC PANEL calcium 9.4 mg/dL 8.5-10 .3 Not Available [facility] [address] [facility], [place], [address], 10/24/2024 15:13:12 04/01/20 24 04/01/2024 MAMMO , scree jessica, tomos ynthe sis, bilat eral MAMMO, SCREEN , RENATE, BILAT: 024. BI-RAD S: 1 CLINIC AL: 68-yea r old Female for Bilate ral Screen ing Mammog leslye. Blanquita Sharp lifeti me risk of 2.4%. No person [...] . ELECTR ONICAL LY SIGNED : Giancarlo Son ms, M.D. on 2023 at 06:16: 59 PM Shaun alvarado Physic kaylie: Giancarlo Son ms [facility] (Imaging) [address], [place], [address], 04/01/2024 21:55:43 07/31/20 24 07/31/2024 XR, chest [...] The bony thorax is intact . IMPRES CARLOS: No acute diseas e. Readin g Physic kaylie: Cristian Mao [facility] (Imaging) [address], [place], [address], 07/31/2024 20:23:19 10/23/19 25 10/23/2024 elect rocar diogr am No observ ation record ed. [address], [place], [address], 10/23/2024 10:22:39 10/23/19 25 elect rocar diogr am No observ ation [...] Details Recorded Time Benign essential hypertensio n [id number] Active Mina Orantes MD [address] [place], [place] [address] [place], [address], [facility] 6 13:57:39 Atheroscler osis of aorta [id number] Active Laurie vallejo MD 82 [address] [place], [place] [address] [place], [address], [facility] 3 15:44:25 Anemia 300533637 Completed 201607/26/2019 MARQUES Espinoza [address] [facility] [place] [address], [facility] 9 13:49:05 History of anemia 749241101 Completed 201807/20/2020 Laurie vallejo MD [address] [place], [place] [address] [place], [address], [facility] 0 15:50:41 Chronic anemia 816994479 Active 2020 Laurie vallejo MD [address] [place], [place] [address] [place], [address], [facility] 1 12:42:08 Hypothyroid ism 07673768 Active 2021 Laurie vallejo MD [address] [place], [place] [address] [place], [address], [facility] 2 13:12:02 Urinary incontinenc e 377458054 Active 2023 Laurie vallejo MD [address] [place], [place] [address] [place], [address], [facility] 4 15:11:02 Problem Notes None recorded. Procedures Surgical History Date Name Laterality Status Provider Name and Address Organization Details Recorded Time 02/09/20 19 15728: Manual Therapy completed Nakul Sin, PT, DPT, [address], [address], [facility] 02/08/2019 12:21:51 02/09/20 19 04706: Ultrasound (1:1) completed Nakul Sin PT, DPT, CSCS [address] [place] [address], [address], [facility] 02/08/2019 11:52:37 02/09/20 19 Neuromuscular re-education completed Nakul Sin PT, DPT, CSCS [address] [place] [address], [address], [facility] 02/08/2019 12:21:52 02/02/20 19 27655: Manual Therapy completed Nakul Sin PT, DPT, CSCS [address] [place] [address], [address], [facility] 02/01/2019 12:27:52 02/02/20 19 25958: Ultrasound (1:1) completed Nakul Sin, PT, DPT, CSCS [address] [place] [address], [address], [facility] 02/01/2019 12:28:03 01/26/20 19 Physical Activity Counselling completed Nakul Sin, PT, DPT, CSCS [address] [place] [address], [address], [facility] 01/25/2019 11:51:30 01/26/20 19 94559: PT Darren, Moderate Complexity completed Nakul Sin PT, DPT, [address], [address], [facility] 01/25/2019 12:30:52 01/08/20 19 US Guided Knee Joint Injection completed Mina Orantes MD [address] [place] [address], [address], [facility] 01/07/2019 15:42:17 01/05/20 19 30917: Therapeutic Exercise completed Nakul Sin PT, DPT, [address], [address], [facility] 01/04/2019 12:27:04 01/05/20 19 38807: Manual Therapy completed Nakul Sin PT, DPT, CSCS [address] [place] [address], [address], [facility] 01/04/2019 12:26:55 01/05/20 19 09187: Ultrasound (1:1) completed Nakul Sin PT, DPT, CSCS [address] [place] [address], [address], [facility] 01/04/2019 12:26:51 12/29/19 19 28014: Manual Therapy completed Nakul Sin, PT, DPT, CSCS [address] [place] [address], [address], [facility] 12/28/2018 12:30:25 12/29/19 19 39097: Therapeutic Activities - Direct 1:1 completed Nakul Sin, PT, DPT, CSCS [address] [place], [address], [facility] 12/28/2018 12:30:31 12/21/19 19 63949: Manual Therapy completed Nakul Sin, PT, DPT, CSCS [address] [place], [address], [facility] 12/20/2018 12:46:05 12/21/19 19 98371: Therapeutic Activities - Direct 1:1 completed Nakul Sin, PT, DPT, CSCS [address] [place], [address], [facility] 12/20/2018 12:46:31 12/15/19 19 33353: Manual Therapy completed Nakul Sin, PT, DPT, CSCS [address] [place] [address], [address], [facility] 12/14/2018 11:49:54 12/15/19 19 Neuromuscular re-education completed Nakul Sin, PT, DPT, CSCS [address] [place] [address], [address], [facility] 12/14/2018 13:46:02 12/08/19 19 30131: Therapeutic Exercise completed Nakul Sin, PT, DPT, CSCS [address] [place] [address], [address], [facility] 12/07/2018 12:38:26 12/08/19 19 92137: Manual Therapy completed Nakul Sin, PT, DPT, CSCS [address] [place], [address], [facility] 12/07/2018 12:38:09 12/01/19 19 11674: Manual Therapy completed Nakul Sin, PT, DPT, CSCS [address] [place], [address], [facility] 11/30/2018 12:37:17 12/01/19 19 83301: Ultrasound (1:1) completed Nakul Sin, PT, DPT, CSCS [address] [place] [address], [address], [facility] 11/30/2018 11:50:13 12/01/19 19 50766: Therapeutic Activities - Direct 1:1 completed Nakul Sin, PT, DPT, CSCS [address] [place] [address], [address], [facility] 11/30/2018 13:14:39 11/23/19 19 88283: Manual Therapy completed Nakul Sin, PT, DPT, CSCS [address] [place] [address], [address], [facility] 11/22/2018 15:22:45 11/23/19 19 57857: Ultrasound (1:1) completed Nakul Sin PT, DPT, [address], [address], [facility] 11/22/2018 15:18:21 11/17/19 19 40596: Manual Therapy completed Nakul Sin, PT, DPT, CSCS [address] [place] [address], [address], [facility] 11/16/2018 11:08:12 11/17/19 19 30598: Ultrasound (1:1) completed Nakul Sin, PT, DPT, [address], [address], [facility] 11/16/2018 11:08:03 11/17/19 19 Neuromuscular re-education completed Nakul Sin PT, DPT, CSCS [address] [place] [address], [address], [facility] 11/16/2018 11:08:15 11/05/19 19 Physical Activity Counselling completed Nakul Sin PT, DPT, [address], [address], [facility] 11/05/2018 11:19:01 11/05/19 19 44998: PT Eval, Moderate Complexity completed Nakul Sin PT, DPT, [address], [address], [facility] 11/05/2018 11:45:14 07/25/20 18 POC Urinalysis Testing completed Duane Aguayo CMA [facility] 07/25/2018 16:27:44 Imaging Results Imaging Date Name Status LastModified by Organization Details LastModified Time 04/01/2024 MAMMO, screening, tomosynthesis, bilateral completed [facility] (Imaging) [address], [place], [address], 04/01/2024 21:55:43 07/31/2024 XR, chest completed [facility] (Imaging) [address], [place], [address], 07/31/2024 20:23:19 10/23/[address] [facility] [address] [place], [address], 10/23/2024 10:22:39 10/23/2024 electrocardiogram completed [email or web address] Informa tion not available 10/23/2024 11:01:44 10/23/2024 electrocardiogram completed BARCODE Informa tion not available 10/23/2024 12:09:09 10/23/2024 electrocardiogram completed [facility]CODE Informa tion not available 10/23/2024 12:11:01 Procedure Notes None recorded. Medical Equipment None Reported. Allergies Allergen ID Allergen Name Allergen Category Reaction Reaction Severity Criticality Documentation Date Start Date Code Code System Note Provider Name and Address Organization Details Recorded Time 546719 lisinopri l medicatio n Not available Not available Not available 04/15/2015 89491 RxNorm Cough ing Honey Thee veliz [facility] 8 15:08:16 Medications Name Sig Start Date [...] 09/16/22 Not Available Not Available Not Available prednison [...] Not Available Not Available No t Available potassium chloride ER 10 mEq tablet,ex tended release Take 1 tablet twice a day by oral route with meal(s) for 5 days. 2024 active Not Available Not Available Not Avai lable melatonin 3 mg tablet Take 1 tablet [...] FOLLOWIN G SURGERY 09/16 completed not using 09/16/22tt Not Available Not Available Not Available cephalexi [...] e 50 mcg/actua tion nasal spray,lakia pension Sloan 1 spray every day by intranas al [...] Updated DateTime 4 144.78 cm 29.2 kg/m2 58933.9 7 g 98 % 98 % 71 /min 110 mm[Hg] 60 mm[Hg] Saul Ej [facility] 4 09:44:40 Date Recorded Body height Body mass index (BMI) Body weight Heart rate Oxygen saturation Oxygen saturation in Arterial blood by Pulse oximetry Systolic blood pressure Diastolic blood pressure Provider Name and Address Organization Details Last Updated DateTime 4 144.78 cm 29.2 kg/m2 42880.9 7 g 70 /min 99 % 99 % 120 mm[Hg] 70 mm[Hg] Saul Ej [facility] 4 15:12:20 Date Recorded Body height Body mass index (BMI) Body weight Heart rate Oxygen saturation Oxygen saturation in Arterial blood by Pulse oximetry Body temperature Systolic blood pressure Diastolic blood pressure Provider Name and Address Organization Details Last Updated DateTime 4 144.78 cm 29.2 kg/m2 18111.9 7 g 88 /min 99 % 99 % 98.2 [degF] 105 mm[Hg] 62 mm[Hg] Rika Kasper MA [facility] 4 14:47:14 Date Recorded Body height Body mass index (BMI) Body weight Heart rate Oxygen saturation Oxygen saturation in Arterial blood by Pulse oximetry Systolic blood pressure Diastolic blood pressure Provider Name and Address Organization Details Last Updated DateTime 4 144.78 cm 28.3 kg/m2 01310.6 g 79 /min 99 % 99 % 100 mm[Hg] 60 mm[Hg] DOMENIC Hughes [facility] 4 08:42:56 Date Recorded Body height Body mass index (BMI) Body weight Heart rate Oxygen saturation Oxygen saturation in Arterial blood by Pulse oximetry Systolic blood pressure Diastolic blood pressure Provider Name and Address Organization Details Last Updated DateTime 5 144.78 cm 28.6 kg/m2 08961.1 9 g 77 /min 100 % 100 % 116 mm[Hg] 64 mm[Hg] Janice MasonKAYLYN [facility] 5 09:46:00 Social History Question Answer Notes LastModified by Organizat ion Details LastModified Time Tobacco Smoking Status Never Smoker 10/23/24mm Janice Mason [facility] 10/23/2024 09:36:59 What Is Your Level Of Alcohol Consumption? None [email or web address] Information not available 02/01/2022 Do You Wear A Helmet When Biking? Yes Information not available 11/16/2015 What Is Your Level Of Caffeine Consumption? Occasional Tea [email or web address] Information not available 02/01/2022 How Much Tobacco Do You Chew? None Information not available 11/16/2015 Are You Currently Employed? No [email or web address] Information not available 11/23/2015 What Type Of Diet Are You Following? REGULAR [email or web address] Information not available 10/01/2014 Do You Or Have You Ever Used E-cigarettes Or Vape? Never Used Electronic Cigarettes Information not available 02/01/2022 Education Less Than 8th Grade No Formal Schooling Information not available 09/16/2022 What Is The Highest Grade Or Level Of School You Have Completed Or The Highest Degree You Have Received? 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 No [email or web address] Information not available 02/01/2022 How Many Days In The Past Year Have You Had A Heavy Drinking Consumption (4+ Female, 5+ Male)? 0 [email or web address] Information not available 10/01/2014 Are There Any Guns Present In Your Home? No Information not available 11/16/2015 Do You Use Insect Repellent Routinely? Yes [email or web address] Information not available 02/01/2022 Live Alone Or With Others? With Others /[email or web address] Daughter's Family In Daughter's House Information not available 03/09/2023 Patient Has Health Care Proxy Signed And In Chart Yes Daughter- Rosette Cordero [email or web address] Information not available 03/10/2023 CCM Consent Discussion 03/12/2024 [email or web address] Information not available 03/13/2024 Marital Status Came Here Late 2012 From [facility] Information not available 03/09/2023 Mosquito Repellent Used Routinely No Information not available 09/16/2022 What Was The Date Of Your Most Recent Tobacco Screening? 10/23/2024 [email or web address] Information not available 10/23/2024 How Many Children Do You Have? 6 Daughters [email or web address] Information not available 10/01/2014 What Is Your Relationship Status? Male Spouse Information not available 02/01/2022 Do You Use Your Seat Belt Or Car Seat Routinely? Yes [email or web address] Information not available 02/01/2022 Seat Belts Used Routinely Yes Information not available 09/16/2022 Smoke Alarm In Home Yes Information not available 09/16/2022 Do You Have Smoke And Carbon Monoxide Detectors In Your Home? Yes [email or web address] Information not available 02/01/2022 Are You Passively Exposed To Smoke? No [email or web address] Information not available 02/01/2022 Do You Or Have You Ever Used Smokeless Tobacco? Never Used Smokeless Tobacco Information not available 02/01/2022 How Much Tobacco Do You Smoke? No [email or web address] Information not available 02/01/2022 General Stress Level [...] virus, quadrivalent, PF 5 completed Not Available [facility] 09/28/2019 02:19:21 Td (adult), 5 Lf tetanus toxoid, preservative free, adsorbed 5 completed Not Available [facility] 09/28/2019 02:19:45 zoster live 6 completed Not Available [facility] 09/28/2019 02:20:17 Influenza, split virus, quadrivalent, PF 6 completed Not Available [facility] 09/28/2019 02:20:16 Influenza, split virus, quadrivalent, PF 7 completed Not Available [facility] 09/28/2019 02:22:08 Influenza, split virus, quadrivalent, PF 9 completed Not Available [facility] 09/28/2019 02:31:12 Influenza, high-dose, quadrivalent, PF 0 [facility] 12:32:10 Pneumococcal conjugate PCV 13 1 [facility] 01/29/2021 11:20:16 COVID-19, mRNA, LNP-S, PF, 100 mcg/0.5mL dose or 50 mcg/0.25mL dose 1 completed [facility] 09/16/2022 14:04:06 Influenza, high-dose, quadrivalent, PF 2 completed RAFAT WILSON PA-C [address] [place] [address], [address], [facility] 07/18/2022 15:12:33 COVID-19, mRNA, LNP-S, PF, 100 mcg/0.5mL dose or 50 mcg/0.25mL dose 1 completed Marian Button null, [facility] 09/16/2022 14:04:07 COVID-19, mRNA, LNP-S, PF, 100 mcg/0.5mL dose or 50 mcg/0.25mL dose 1 completed Marian Button null, [facility] 09/16/2022 14:04:06 Influenza, split virus, quadrivalent, preservative 1 completed Marian Button null, [facility] 09/16/2022 14:04:06 pneumococcal polysaccharide PPV23 0 completed Marian Button null, [facility] 09/16/2022 14:04:06 COVID-19, mRNA, LNP-S, PF, 100 mcg/0.5mL dose or 50 mcg/0.25mL dose 2 completed Marian Button null, [facility] 09/16/2022 14:04:06 Influenza, high-dose, quadrivalent, PF 3 completed Nilmari, RMA Toribio null, [facility] 06/04/2023 15:47:53 RSV, recombinant, protein subunit RSVpreF, adjuvant reconstituted, 0.5 mL, PF 3 completed Nilmari, RMA Toribio null, [facility] 06/04/2023 15:48:23 COVID-19, mRNA, LNP-S, PF, 50 mcg/0.5 mL 3 completed Nilmari, RMA Toribio null, [facility] 06/27/2023 14:38:15 Influenza, high-dose, trivalent, PF 4 completed Nilmari, RMA Toribio null, [facility] 07/04/2024 07:58:35 zoster recombinant 4 completed DOMENIC [facility] 07/04/2024 07:59:05 Past Encounters Encounter ID Performer Location Encounter Start Date Encounter Closed Date Diagnosis/Indication Diagnosis SNOMED-CT Code Diagnosis ICD10 Code Diagnosis Note [id number] Sylvia Cooney [facility], OFFICE [address] [place] [address] 10/01/2014 13:54:52 10/01/2014 14:59:36 Adult health examination 569351495 see Risk Assessment and Lifestyle Change Counseling section above colo and mammo up to date pap unclear- daughter will check to see if she had a pap -- if not, she will call for a pap Influenza vaccine needed 3328018694 106 Shoulder pain 64640947 s he prefers not to see PT. she has handouts on PT exercises to do at home. she has some ROM limitation . Benign ess ential hypertension 3073718 lipids and labs up to date 04/24. Continue current medication . Gastritis 0525966 has br eath test follow up pending after recent treatment for h. pylori. dietary precaution s reviewed. will restart a PPI for further treatment. only had PPI treatment for 10 days [id number] [facility], OFFICE [address] [place] [address] 11/26/2014 10:24:47 11/26/2014 11:09:41 Gynecologic examination 64072807 possibly her first pap today. Hip pain 04796457 she wi ll consider PT after x-ray. she will stick with tylenol for now but might consider nsaids for improved relief. Screening for malignant neoplasm of cervix 949261687 [id number] [facility], OFFICE [address] [place] [address] 01/05/2015 11:41:10 01/05/2015 12:42:08 Pre-surgery evaluation 314029205 Pt is an appropriat e candidate for proposed procedure. EKG and labs will be faxed. Bradycardia 52212468 a l ook back through her previous records reveals this is a stable finding Systolic e jection sound 75273411 no previous documentat ion. will explore further with echo. likely associated with longstandi ng HTN. not a harsh murmur or with red flag characteri stics. Benign ess ential hypertension 2120371 well controlled on current meds. she is on herbals but cannot tell me what--and was advised to DC those at least 5 days prior to surgery. [id number] , [facility], OFFICE [address] [place] [address] 04/03/2015 15:05:29 04/06/2015 09:13:40 Benign essential hypertension 0892923 Blood pressure at goal Today is an outlier. she stopped her herbal which she questions might contribute . ? pain as contributo r. will follow needs lipid panel done. Administra tion of diphtheria and tetanus vaccine 75115689 Hip pain 75995940 she wi ll consider PT after x-ray. she will stick with tylenol for now but might consider nsaids for improved relief. Atheroscle rosis of aorta 18669627 needs lipid panel done. order in [id number] Louise Ervin PA-C , [facility], OFFICE [address] [place] [address] 11/16/2015 10:23:44 11/16/2015 11:28:34 Adult health examination 566613925 Z00.00 see Risk Assessment and Lifestyle Change Counseling section above Benign ess ential hypertension 0445364 I10 Blood pressure at goal Active or passive immunization 053330937 Z23 Varicella vaccination 68 217994 Z23 Screening for disorder 295973032 Z11.59 Screening mammography 24 899866 Z12.31 Hip pain 78304009 M25.55 9 x-ray left hip. has imaged right. both hips are painful. affecting her ability to mabulate. using nsaids and tylenol for pain. will refer to physical medicine and PT Gastritis 1380651 K29.70 she is not interested in medicine. she has had treatment for h pylori. [id number] [facility], [facility] [address] [place] [address] 11/23/2015 13:24:29 11/24/2015 13:19:41 Backache 519454851 M54.9 Shreya is a 60-year-ol d female [...] up in 8 weeks for reevaluati on. [id number] Karen Zarate NP , [facility], OFFICE [address] [place] [address] 04/08/2016 09:25:32 04/08/2016 09:45:10 Contact dermatitis caused by urushiol from [facility] mynor 429352206 L25.5 PI rash on face, armsmild outbreak but given face involvemen t will tx with prednsione 40 mg 12 day taperGiven triamcinol one cream toodiscuss ed how transmitti ng and expected course of rash Benign ess ential hypertension 5398892 I10 Bp just a bit elevated todayhas been taking some (vidal) ARB from [facility].will switch to losartan 25 mgwill have leticia (nurses) check her bp to make sure stay <140/90. [id number] SALVADRO Love, [facility], OFFICE [address] [place] [address] 01/18/2017 13:54:11 01/18/2017 14:43:50 Benign essential hypertension 7730203 I10 Blood pressure at goal Continue meds Adult heal th examination 078553785 Z00.00 Exam done Atheroscle rosis of aorta 92430228 I70.0 noted incidental ly on echo Screening mammography 24 921895 Z12.31 Anemia 347961251 D64.9 check labs [id number] SALVADOR Love, [facility], OFFICE [address] [place] [address] 07/24/2017 10:28:06 07/24/2017 11:15:13 Benign essential hypertension 6533111 I10 Blood pressure at goal Blood pressure NOT at goal. Active or passive immunization 120085836 Z23 Headache 49262809 R51 Exposure t o Hepatitis B virus 709828542 Z20.5 Family members w/ hep B. Check vaccinatio n status and core antigen. [id number] Riya Hastings NP , [facility], OFFICE [address] [place] [address] 10/04/2017 16:54:28 10/04/2017 17:43:37 Benign essential hypertension 9993610 I10 Anemia 931693977 D64.9 Sleep disorder 53959423 G47.9 [id number] SALVADOR Love, [facility], OFFICE [address] [place] [address] 10/19/2017 15:43:34 10/19/2017 16:17:28 Benign essential hypertension 2364829 I10 Still elevated on her ARB. Doesn't remember the 50mg she was on in the past. Will increase dose 25 to 50 and fu 3 wks, [id number] SALVADOR Love, [facility], OFFICE [address] [place] [address] 11/09/2017 14:55:57 11/09/2017 15:32:06 Benign essential hypertension 8869902 I10 Still elevated on her losarten 50. Will increase again an fu next month. With rapid increase, will check US to r/o RANDY [id number] SALVADOR Love, [facility], OFFICE [address] [place], [place] [address] 11/30/2017 15:58:51 11/30/2017 16:33:00 Benign essential hypertension 3257144 I10 Not at goal (150 systollic for her pmh) with mostly 150s-160s at home. Would need a dift med if we chose to tx more aggressive ly. Will continue home monitoring at [facility] 100. Fu 2 mos and bring BP cuff with them to calibrate. If needs another med, consider low dose chlorthala done [id number] SALVADOR Love, [facility], OFFICE [address] [place] [address] 01/22/2018 15:06:26 01/22/2018 16:14:20 Adult health examination 508082713 Z00.00 Exam done. Depression screening 171 223110 Z13.89 depression screening tool administer ed, entered into emr, scored and discussed, time greater than 7.5 minutes Benign ess ential hypertension 3939697 I10 Blood pressure at goal. Continue meds. Seems labile at home Screening mammography 24 124959 Z12.31 Atheroscle rosis of aorta 82124381 I70.0 noted incidental ly on echo Anemia 294737401 D64.9 stable [id number] Damon Guerra MD , [facility], OFFICE [address] [place] [address] 07/25/2018 16:01:29 07/25/2018 16:34:07 Benign essential hypertension 1952045 I10 Blood pressure NOT at goal. Based on JNC 8 guidelines , BP should be below 140/90 for age 65 and younger. BP is elevated today. Added low dose HCTZ. Advised Pt to return in 1 week with PCP for BP check. All questions were addressed. Pt understand s and agrees with treatment plan Increased frequency of urination 541032029 R35.0 Informed Pt that there is no urinary tract infection. Urinary frequency is most likely incontinen kendra (urgency). Educated Pt on kegel exercises. Pt repeated back to Provider on how to do kegel exercise. Will follow-up with Pt in 1 week. All questions were addressed. Pt understand s and agrees with treatment plan [id number] Damon Guerra MD , [facility], OFFICE [address] [place] [address] 08/01/2018 14:55:12 08/01/2018 15:25:03 Benign essential hypertension 8823516 I10 Blood pressure at goalBased on JNC 8 guidelines , BP should be below 140/90 for age 65 and younger. BP is controlled today. Continue with HCTZ. Will follow-up with Pt in 3 months. All questions were addressed. Pt understand s and agrees with treatment plan [id number] Damon Guerra MD , [facility] [place], OFFICE [address] [place] [address] 10/25/2018 13:40:05 10/25/2018 17:40:51 Benign essential hypertension 6445593 I10 Blood pressure at goalBased on JNC 8 guidelines , BP should be below 140/90 for age 65 and younger. BP is controlled today. Continue with medication . Will follow-up with Pt in January for annual wellness visit. Provided Pt and her son in law a list of losartan recall from FDA. Informed Pt that to contact the pharmacy if Pt's losartan at home matches the list from FDA. All questions were addressed. Pt understand s and agrees with treatment plan Shoulder joint pain 2679 42623 M25.512 Left shoulder pain most likely due [...] understand s and agrees with treatment plan [id number] Nakul Sin, PT, DPT, [facility] Physical Therapy, [address] [address] 11/05/2018 11:17:49 11/05/2018 11:54:39 Shoulder pain 23667802 M25.512 M25.511 Pt is a 63 y.o [...] edema massage, manual therapy, ROM, patient education. [id number] Nakul Sin, PT, DPT, [facility] Physical Therapy, [address] [address] 11/16/2018 10:17:46 11/16/2018 11:29:03 Shoulder pain 73863136 M25.512 M25.511 Pt tolerated initiation of manual [...] as she is not able to speak Upper Sorbian to correctly assume posture with exercises but able to complete pain-free. Continue PT per POC [id number] Nakul Sin, PT, DPT, [facility] Physical [facility], [address] [address] 11/22/2018 15:17:38 11/22/2018 16:00:43 Shoulder pain 15686139 M25.512 M25.511 Pt continues to tolerate manual techniques well and with no increased c/o pain. Pt demonstrat es increased soft tissue density at upper trap but this resolved with manual techniques with GH mobility improving slowly. At end of visit, pt demonstrat es 90% of pain-free movement with mild shoulder hiking at end range.Cont inue PT per POC [id number] Nakul Sin PT, DPT, [facility] Physical [facility], [address] [address] 11/30/2018 11:43:41 11/30/2018 13:40:32 Shoulder pain 19863673 M25.512 M25.511 Pt continues to tolerate combo of manual techniques and US well and pain-free that by end of visit, pt demonstrat ed full and equal BUE AROM only noting discomfort at end range. Pt with mild shoulder hiking, but minimal. Pt understood concepts discussed, though, seems skeptical in her capacity to make these changes.WI ll re-assess at next visit. [id number] Nakul Sin, PT, DPT, [facility], [address] [address] 12/07/2018 11:41:29 12/07/2018 13:42:30 Shoulder pain 29863465 M25.512 M25.511 Discontinu ed US today to assess if with change. Otherwise, pt tolerated manual techniques well demonstrat ing improved passive mobility of GH joint and with full PROM. Actively, pt still with significan t shoulder hiking and limitation s with less 15 degrees. Pt with correct demonstrat ion of therex pain-freeC ontinue PT per POC [id number] Nakul Sin, PT, DPT, [facility], [address] [address] 12/14/2018 11:47:32 12/14/2018 14:13:04 Shoulder pain 71429761 M25.512 M25.511 Pt continues to have mild soft tissue restrictio ns at bilateral L>R upper trap, but, with significan t improvemen t of GH mobility. Passively pt with WNL of ROM, actively, able to achieve 120. Pt required cues for proper posture with RTC specific areas, but then able to complete on own pain-free. Continue PT per POC [id number] MARQUES Espinoza , [facility] [place], OFFICE [address] [place] [address] 12/17/2018 14:45:07 12/17/2018 15:19:13 Chronic low back pain 493318312 M54.5 back pain most likely due to muscle strain since discomfort with lateral rotation to the right. Pt decline oral medication today and agreed to physical therapy A referral is sent. Advised Pt to take ibuprofen as needed, apply ice to area of discomfort . All questions were addressed. Pt understand s and agrees with treatment plan Pain in left knee 415588 9078 20919 M25.562 Informed Pt that right knee and left knee pain is most likely due to osteoarthr itis. Discussed options of voltaren gel, knee injection, and physical therapy. However, Pt reports she would like to get X-ray first before deciding. All questions were addressed. Pt understand s and agrees with treatment plan Pain in right knee 31639 81007 14896 M25.561 Informed Pt that right knee and left knee pain is most likely due to osteoarthr itis. Discussed options of voltaren gel, knee injection, and physical therapy. However, Pt reports she would like to get X-ray first before deciding. All questions were addressed. Pt understand s and agrees with treatment plan Shoulder pain 14440938 M 25.512 Discussed option of corticoste riod injection for pain since Pt reports no relief for physical therapy for her shoulder pain. Pt agreed. A referral is sent to sports medicine. All questions were addressed. Pt understand s and agrees with treatment plan Insomnia 529901415 G47.0 0 Discussed options of melatonin for the insomnia. Pt agreed. All questions were addressed. Pt understand s and agrees with treatment plan [id number] Nakul Sin, PT, DPT, [facility], [address] [address] 12/20/2018 12:15:55 12/20/2018 13:48:21 Shoulder pain 72483712 M25.512 M25.511 GH mobility nearing WNL and equal bilaterall y with PROM at 165 flexion, 145 abduction and full IR/ER. Actively, pt able to achieve the same with min discomfort at end range.Cont inue PT per POC, after appointmen t with sports medicine [id number] Mina Orantes MD Sports Medicine, [address] [address] 12/24/2018 14:25:31 12/24/2018 15:30:49 Shoulder pain 46190607 M25.512 Nettie is a 63-year-ol d female [...] me in 8 weeks for reevaluati on. [id number] Nakul Sin, PT, DPT, [facility] Physical Therapy, [address] [address] 12/28/2018 11:49:12 12/28/2018 12:32:57 Shoulder pain 64535306 M25.512 M25.511 At this point, pt with WFL of shoulder AROM bilaterall y and GH mobility WNL. Pt feels confident with ongoing management of HEP and will take better note of ongoing aggravatin g factors.Ot herwise, our plan will be to initiate treatment for R hip/knee pain. [id number] Nakul Sin, PT, DPT, [facility] Physical Therapy, [address] [address] 01/04/2019 11:16:43 01/04/2019 13:30:03 Shoulder pain 25223210 M25.512 M25.511 Pt with mild swelling at [...] to provider vacation. Pain in right knee 08965 88762 08300 M25.561 Pain in left knee 721457 4735 92398 M25.486 [id number] Mina Orantes MD Sports Medicine, [address] [address] 01/07/2019 14:32:16 01/08/2019 07:53:30 Knee pain 12739937 M25.561 Shreya is a 63-year-ol d female [...] with me as needed for further care. [id number] Nakul Sin, PT, DPT, [facility], [address] [address] 01/25/2019 11:50:07 01/25/2019 12:56:01 Pain in right knee 1934458985 72168 M25.561 Pain in left knee 603304 9889 61539 M25.428 [id number] MARQUES Espinoza , [facility] [place], OFFICE [address] [place] [address] 01/25/2019 15:13:24 01/25/2019 16:06:18 Adult health examination 919476145 Z00.00 see Risk Assessment and Lifestyle Change Counseling section above. Will follow-up with Pt PRN or in 1 year for annual wellness visit. All questions were addressed. Pt understand s and agrees with treatment plan Depression screening 171 441821 Z13.89 depression screening tool administer ed, entered into emr, scored and discussed, time greater than 7.5 minutes Screening for malignant neoplasm of cervix 598213070 Z12.4 Superficia l ecchymosis 022854423 R58 superficia l ecchymosis noted on the right side of the abdomen. Pt reports she had this rash since she was 13yo. A referral is sent to dermatolog y for further evaluation and treatment. Pt denies any pruritus with the rash. Atheroscle rosis of aorta 73526070 I70.0 noted incidental ly on echo. BP is well controlled and Pt denies any abdominal pain Anemia 006582282 D64.9 Based on 11/08/18 CBC, Pt is not anemic Benign ess ential hypertension 9142703 I10 Blood pressure at goal [id number] Nakul Sin, PT, DPT, [facility] Physical [facility], [address] [address] 02/01/2019 11:48:37 02/01/2019 12:34:53 Pain in right knee 1540387308 72341 M25.561 Pain in left knee 208963 2879 31931 M25.946 [id number] Nakul Sin PT, DPT, [facility], [address] [address] 02/08/2019 11:48:19 02/08/2019 13:22:12 Pain in right knee 1463078531 20489 M25.561 Pain in left knee 730147 7962 78149 M25.681 [id number] Nakul Sin, PT, DPT, [facility], [address] [address] 02/13/2019 11:51:36 02/13/2019 12:49:02 Pain in right knee 3346986545 36202 M25.561 Pain in left knee 515149 9576 23645 M25.555 [id number] Nakul Sin, PT, DPT, [facility], [address] [place] [address] 02/22/2019 12:54:00 02/22/2019 13:48:56 Pain in right knee 5170576701 17216 M25.561 Pain in left knee 593445 8335 40940 M25.834 [id number] Nakul Sin PT, DPT, [facility], [address] [place] [address] 03/22/2019 13:19:25 03/22/2019 14:24:27 Pain in right knee 3165423808 24110 M25.561 Pain in left knee 533362 6144 95183 M25.412 [id number] Nakul Sin PT, DPT, [facility], [address] [place] [address] 04/26/2019 13:16:26 04/26/2019 14:01:27 Pain in right knee 7934521987 43000 M25.561 Pain in left knee 246342 9813 81717 M25.010 [id number] Nakul Sin PT, DPT, [facility], [address] [place] [address] 05/24/2019 13:22:33 05/24/2019 15:46:47 Pain in right knee 8935111962 30271 M25.561 Pain in left knee 027529 4242 41352 M25.951 [id number] Nakul Sin PT, DPT, [facility], [address] [place] [address] 07/19/2019 13:19:59 07/19/2019 13:55:56 Pain in right knee 8785139999 00335 M25.561 Pain in left knee 956909 7248 83667 M25.389 [id number] MARQUES Espinoza , [facility] [place], OFFICE [address] [place] [address] [place] [address] 07/26/2019 13:30:14 07/26/2019 14:05:43 Active or passive immunization 083846025 Z23 Benign ess ential hypertension 0034133 I10 Blood pressure at goal. Pt will follow-up with new provider in January for routine annual wellness visit. All questions were addressed. Pt understand s and agrees with treatment plan Shoulder pain 51028640 M 25.512 Pt reports physical therapy really helped her shoulder and knee pain and would like a referral to continue with physical therapy. A referral is sent. All questions were addressed. Pt understand s and agrees with treatment plan Pain in right knee 34060 90476 08965 M25.561 Pt reports physical therapy really helped her shoulder and knee pain and would like a referral to continue with physical therapy. A referral is sent. All questions were addressed. Pt understand s and agrees with treatment plan Pain in left knee 317858 2492 47125 M25.562 Pt reports physical therapy really helped her shoulder and knee pain and would like a referral to continue with physical therapy. A referral is sent. All questions were addressed. Pt understand s and agrees with treatment plan [id number] Stacie Chavez, OD [facility], [address] [address] 09/05/2019 13:19:16 09/05/2019 16:37:30 Presbyopia 70899315 H52.4 Bilateral cataracts 9572 2004 H26.9 Pterygium 18082779 H11.0 09 Pigmented skin lesion of uncertain nature 686120890 L81.9 palpebral conjunctiv a at lower lid OD [id number] Bob Saravia MD , [facility], [address] [place] [address] 10/21/2019 11:52:22 10/21/2019 16:18:49 Aphthous ulcer of mouth 884834768 K12.0 experienci ng pain tyical for mucosal oral ulcersther e is one tyical ulcer top of palate on left abutting the pharyngeal pillar.thi s she noted through hang gliding instructor is the most painful areapatche s of marked erythema over right palate w/o overt ulceration are present. I explained that this is common viral ,often untreatabl e , but self limited, from one of many viruses that affect the mouthwill rx valtrex in hopes of efficacy , but i explained efficacy is hit or miss.Rx topicals as well [id number] Kaylee Bowden , [facility], [address] [place] [address] 12/21/2019 12:15:13 12/21/2019 13:33:06 Urinary tract infectious disease 59305120 N39.0 Mostly dysuria, some frequency. Plan as below. [id number] Roxy Cisneros MA , [facility], OFFICE [address] [place] [address] 07/11/2020 08:56:27 07/11/2020 12:32:57 Active or passive immunization 825585760 Z23 [id number] Laurie Archibald . MD SHIN, [facility], OFFICE [address] [place] [address] 07/20/2020 15:06:47 07/22/2020 12:09:57 Atherosclerosis of aorta 58141064 I70.0 Found on imaging. Patient is advised to start aspirin 81 mg daily. 10 year cardiovasc ular risk has not warranted statin therapy. check US to rule out AAA. Benign ess ential hypertension 2388673 I10 Patient control below 130/80. Continue same. Urinary tr act infectious disease 25160853 N39.0 Starting with symptoms of UTI again. Will empiricall y treat with Cipro. Postmenopausal state 764 82646 Z78.0 She is 64 screen for osteoporos is. Screening for malignant neoplasm of breast 106575386 Z12.39 Active or passive immunization 736254941 Z23 Multiple joint pain 3567 8005 M25.50 Uses Voltaren gel. I advised patient to not use ibuprofen since we are putting her on aspirin. [id number] Laurie Archibald . MD SHIN, [facility], OFFICE [address] [place] [address] 12/22/2020 09:40:38 12/24/2020 10:42:21 Atherosclerosis of aorta 23801183 I70.0 Found on imaging. continue aspirin 81 mg daily. 10 year cardiovasc ular risk has not warranted statin therapy. Pain of le ft hip joint 8929779132 46191 M25.552 ? SI joint dysfunctio n vs left hip lathology. will try celebrex not to interfere with am asa, check Xray, declined PT today. has follow up in January. Benign ess ential hypertension 1402951 I10 Patient control below 130/80 mostly, did not take her med today yet.. Continue same. [id number] Laurie Archibald . MD SHIN, [facility], OFFICE [address] [place] [address] 01/18/2021 15:18:45 01/19/2021 19:36:52 Benign essential hypertension 0125170 I10 Patient control below 130/80 mostly, elevated today. will bring in for nurse visit to check BP. May need to add low dose amlodipine . Atheroscle rosis of aorta 41825721 I70.0 Found on imaging. continue aspirin 81 mg daily. 10 year cardiovasc ular risk has not warranted statin therapy. Adult heal th examination 107292242 Z00.00 USPSTF guidelines reviewed and discussed with patient. Will mail her a health proxy form to fill out. colonoscop y 2013. mammo UTD. No Pap indicated. schedule nurse visit for Pneumovax. Counseling 474316530 Z71 .9 including cardiovasc ular risk reduction counseling , on asa. Depression screening 171 321873 Z13.31 depression screening tool administer ed, entered into emr, scored and discussed, time greater than 7.5 minutes, negative screen. Screening for alcohol abuse 780079756 Z13.39 negative screening. Intolerant of cold 96076 000 R68.89 rule out hypothyroi d. Multiple joint pain 3567 8005 M25.50 .Has started seeing a chiropract or. check labs to check for gout and Lyme as well as inflammato ry arthritis. Aphthous u lcer of mouth 213477814 K12.0 Try OTC Lysine. Advance di rective discussed with patient 494849675 Z71.89 counseled, will mail health proxy form to fill out. [id number] Laurie Archibald . , [facility], OFFICE [address] [place] [address] 01/29/2021 09:13:54 01/29/2021 10:36:18 Low back pain 114393661 M54.5 ? SI joint dysfunctio n, appears to may have some left knee issues too. Just had labs done for rheumatolo gic disease. Hip and pelvic Xray normal in December. No heavy lifting. topical heat. Active or passive immunization 494525566 Z23 pneumococc al vaccine due. Benign ess ential hypertension 0439488 I10 Patient control below 130/80 , at target, continue same meds. [id number] Laurie Archibald . MD SHIN, [facility], OFFICE [address] [place] [address] 05/10/2021 16:43:26 05/10/2021 17:43:29 Contact dermatitis caused by urushiol from [place] poison mynor 082684510 L25.5 Consistent with contact dermatitis from poison mynor. Patient to avoid the plant when gardening. Use gloves and long sleeve shirts when gardening. May use over-the-c ounter anti-itch cream topically, may use cold compresses or rubbing with an ice cube when itchy. Will give a course of prednisone . Left side sciatica 19682 84596 30546 M54.32 Had an epidural injection from [facility], [...] but wait 2 hours after taking aspirin. [id number] ALISTAIR CHACON DPT Physical Therapy, [address] [address] 07/08/2021 11:00:40 07/08/2021 12:14:13 Radicular pain 54684705 M54.10 Chronic low back pain 27 2199957 M54.50 [id number] ALISTAIR CHACON DPT Physical Therapy, [address] [address] 08/04/2021 11:37:46 08/04/2021 12:29:59 Radicular pain 73107655 M54.10 Chronic low back pain 27 8186839 M54.50 [id number] Laurie Archibald . MD SHIN, [facility], OFFICE [address] [place] [address] [place] [address] 08/10/2021 11:55:31 08/10/2021 12:44:54 Essential hypertension 45033283 I10 at target below 130/80, continue same. Atheroscle rosis of aorta 26720359 I70.0 Found on imaging. continue aspirin 81 mg daily. 10 year cardiovasc ular risk has not warranted statin therapy. LDL has been below 100 without statin. Shoulder pain 31885088 M 25.519 BL shoulder pain, will refer to PT. Aortic eje ction murmur 595601490 R01.1 echo in 2015 showed aortic sclerosis, recheck echo to make sure stenosis has not developed. Chronic anemia 784689777 D64.9 no deficienci es, H/H stable. [id number] ALISTAIR CHACON, DPT Physical Therapy, [facility] [address] [place] [address] 08/11/2021 16:26:32 08/12/2021 14:21:19 Pain of right knee joint 9584466246 35499 M25.561 Pain of le ft knee joint 4575485793 71362 M25.612 [id number] Chikis Mccarthy FP, [facility], OFFICE [address] [place] [address] 02/01/2022 14:05:14 02/01/2022 14:53:36 Adult health examination 385428992 Z00.00 USPSTF guidelines reviewed and discussed with patient. health care proxy in place colonoscop y 2013. mammo ordered No Pap indicated. will let us know date of second Covid booster shot, also look into Shingrix. Counseling 640569849 Z71 .9 including cardiovasc ular risk reduction counseling , LDL below 100 without statin, is on aspirin already. Depression screening 171 910302 Z13.31 depression screening tool administer ed, entered into emr, scored and discussed, time greater than 7.5 minutes, negative screening Screening for alcohol abuse 237243026 Z13.39 negative screening. Essential hypertension 42184474 I10 at target below 130/80, continue same. Screening for malignant neoplasm of breast 558932455 Z12.39 order mammo Intolerant of cold 46649 000 R68.89 rule out hypothyroi d. Chronic anemia 759626024 D64.9 no deficienci es, H/H stable. Aortic eje ction murmur 185323825 R01.1 echo in 2015 showed aortic sclerosis, recheck echo to make sure stenosis has not developed. Atheroscle rosis of aorta 92585523 I70.0 Found on imaging. continue aspirin 81 mg daily. 10 year cardiovasc ular risk has not warranted statin therapy. LDL has been below 100 without statin. Chronic low back pain 27 8824435 M54.50 diclofenac not helping much. may OTC ibuprofen sparingly if has pain, increase exercise. Obesity 589835654 E66.9 counseled today to increase exercise and cut back on portions and simple carbs, weight up 11 pounds in 1 year. [id number] Sil Bains MD , [facility], [address] [place] [address] 03/12/2022 15:37:14 03/15/2022 09:17:26 Pruritic rash 15726775 L28.2 facial rash, she says it feels like poison mynor but hsa been nowhere near garden.sug gested pepcid 20 mg and claritin 10 mg instead of benadryl for safety. try cool cloths on the face.start cream, not BELOW eyebrows or ABOVE cheekbones (keep it AWAY fro the eye and eyelids) if not improved have her seen, we are open in [facility] from - tomorrow and Monday. [id number] RAFAT WILSON PA-C , [facility], OFF[address] [place] [address] 07/13/2022 10:34:56 07/13/2022 13:57:28 Pre-surgery evaluation 948439448 Z01.818 R eye cataract surgery 07/28/22Pt denies new exertional symptomsPE w/ murmur- will attempt to complete echo prior to surgeryPt is low risk for low risk procedure. There is no contraindi cation to proceed. Chronic anemia 365212186 D64.9 H/H has been stable, will update CBC today Aortic eje ction murmur 826863741 R01.1 Audible on examStates unaware of previous echo apt.Pt case to referrals to reschedule Benign ess ential hypertension 9416917 I10 BP at goal, c/t same Right uppe r quadrant pain 420246036 R10.11 x3 months, intermitte nt, no injuryNo specific PE finding today or correlatio n to position or food intakeWill monitor Active or passive immunization 936609552 Z23 [id number] Laurie Archibald . , [facility], OFF[address] [place] [address] 08/01/2022 11:54:02 08/01/2022 13:43:34 Essential hypertension 07392716 I10 at target below 130/80, continue same. Chronic anemia 201609751 D64.9 no deficienci es, H/H stable. Atheroscle rosis of aorta 55904216 I70.0 Found on imaging. continue aspirin 81 mg daily. 10 year cardiovasc ular risk has not warranted statin therapy. LDL has been below 100 without statin. Aortic garry ve regurgitation 30110433 I35.1 Recent echo showed mild aortic valve regurgitat ion. Consider echocardio gram in 3 years.No symptoms. Mitral garry ve regurgitation 23866520 I34.0 Moderate mitral valve regurgitat ion on recent echo. Consider echocardio gram in 3 years. No symptoms. Tricuspid valve regurgitation 900189457 I07.1 Moderate tricuspid valve regurgitat ion on recent echo. Consider echocardio gram in 3 years. No symptoms. Chronic low back pain 27 2398596 M54.50 had MRI last June ( 2020) with multilevel joint disease, then saw [facility] and states had a shot which did not help, massage therapy once a month helps. Wears an SI support belt. advised to do home exercises daily. Pain of bi lateral knee regions 7095999610 97767 M25.561 uses a cane, disabled placard form completed as well as attestatio n for emergency aid given medical conditions .Check x-rays and refer to orthopedic s for considerat ion of steroid and or hyaluronic acid injections . Hypothyroidism 17321097 E03.9 Euthyroid on replacemen t therapy. Continue same. Check labs before next visit. [id number] Ольга Ga MD , [facility], OFFICE [address] [place] [address] 08/24/2022 16:26:23 08/25/2022 09:31:47 Acute upper respiratory infection 40778226 J06.9 Wet cough x few days, well-appea ring on exam.Suppo rtive care discussed. Can continue to use robitussin as needed for cough. [id number] Damon Guerra MD , [facility], [address] [place] [address] 08/29/2022 14:48:41 08/29/2022 15:19:50 Benign essential hypertension 9024227 I10 Disorder o f rotator cuff 457202277 M75.80 [id number] Damon Guerra MD , [facility], OFF[address] [place] [address] 09/16/2022 14:03:53 09/16/2022 14:38:04 Benign essential hypertension 6835109 I10 Pain of ri ght shoulder joint 0464108149 6032602 M25.579 [id number] Kip Moore DPT Physical Therapy, [address] [place] [address] 10/06/2022 14:03:49 10/11/2022 14:24:51 Strain of rotator cuff of shoulder 486521545 S46.011D Shoulder pain 79414475 M 25.479 [id number] Kip Moore DPT Physical Therapy, [address] [address] 10/12/2022 15:43:59 10/12/2022 16:25:45 Strain of rotator cuff of shoulder 726913423 S46.011D Shoulder pain 77946923 M 25.651 [id number] Laurie Archibald . , [facility], OFFICE [address] [place] [address] 10/18/2022 14:35:04 10/18/2022 15:23:57 Benign essential hypertension 4669767 I10 BP improved after adding amlodipine , continue all BP meds. Rib pain 146061537 R07.8 1 hurts when she moves a [...] has, diclofenac gel. Atheroscle rosis of aorta 06728511 I70.0 Found on imaging. continue aspirin 81 mg daily. 10 year cardiovasc ular risk has not warranted statin therapy. LDL has been below 100 without statin. [id number] Kip Moore DPT Physical Therapy, [address] [place] [address] 10/19/2022 14:32:21 10/21/2022 10:04:38 Strain of rotator cuff of shoulder [id number] S46.011D Shoulder pain [id number] M 25.608 [id number] Laurie SHIN, [facility], OFFICE [address] [place], [place] [address] 03/09/2023 14:42:27 03/09/2023 17:08:04 Adult health examination [id number] Z00.00 USPSTF guidelines reviewed and discussed with patient. health care proxy given to fill out. colonoscop y 2013. redo 10 Y mammo ordered No Pap indicated. look into Shingrix.C V counseling done. Depression screening 171 182748 Z13.31 depression screening tool administer ed, negative screen Screening for alcohol abuse [id number] Z13.39 Alcohol use screening tool administer ed, negative screen Advance di rective discussed with patient 290215428 Z71.89 Advanced Care Planning1. Advanced care planning [...] to take home. 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 Does won ADLs. uses a cane when going for walks. no behavioral issues, short term memory problems. will monitor. form completed for patient not to take the exam but she understand s [employer] . Benign ess ential hypertension 9188545 I10 at target below 130/80, continue same. Chronic anemia 745812145 D64.9 worsening, no B12, folate or iron def, SPEP normal. liver US fatty liver, ESR 23, refer to heme. Hypothyroidism 81550789 E03.9 Euthyroid on replacemen t therapy. Continue same. Atheroscle rosis of aorta 86827687 I70.0 Found on imaging. continue aspirin 81 mg daily. 10 year cardiovasc ular risk has not warranted statin therapy. LDL has been below 100 without statin. no iron deficiency anemia, if FOB negative may continue aspirin. [id number] Ольга Ga MD , [facility], OFFICE [address] [place] [address] 07/06/2023 14:27:43 07/06/2023 16:25:01 Dysuria 34733542 R30.0 Patient with urinary symptoms.H istory and exam and urinalysis consistent with UTI.Will send urine for culture.Di scussed supportive and preventive measures.P atient instructed to follow up if not better or with new symptoms. Acute urin brittny tract infection 911225743 N39.0 After a discussion of treatment and medication options, which included considerat ion of the best practices in medicine, a [...] at this time with board spectrum coverage considerin g sx of back discomfort and chills. I would also like a repeat urine in 2 weeks. Kidney fxn reviewed. Vitals stable today, temp 98.9, HR 95. Pt directed to return if symptoms no not improve after 24-36 hours of antimicrob ial therapy. [id number] Laurie Archibald . , [facility], OFFICE [address] [place] [address] 09/21/2023 09:23:34 09/21/2023 17:16:55 Benign essential hypertension 7691423 I10 at target below 130/80, continue same. Chronic anemia 936101930 D64.9 nl B12, folate or iron def, SPEP normal. liver US fatty liver, saw hematologi st a [facility], no definite etiology. Hypothyroidism 97411899 E03.9 Euthyroid on replacemen t therapy. Continue same. Atheroscle rosis of aorta 83151216 I70.0 Found on imaging. continue aspirin 81 mg daily. 10 year cardiovasc ular risk has not warranted statin therapy. LDL has been below 100 without statin. Cough 70065947 R05.9 grand kids with flu, will check for it, lungs clear. no ST or fever. rapid flu positive for flu B, will treat with tamiflu. Influenza caused by Influenza B virus 57762243 J10.1 as above, sx since yesterday, will treat. Urge incon tinence of urine 57050539 N39.41 does not want meds, will give RX for incontinen ce pads and chucks for night time. Chronic low back pain 27 2727394 M54.50 had MRI last June ( 2020) with multilevel joint disease, then saw PS&S and states had a shot which did not help, massage therapy once a month helps. Wears an SI support belt. needs shower chair, grab bar for toilet, protection pad for tub, grab bar for shower. [id number] Laurie Archibald . MD SHIN, [facility], OFFICE [address] [place] [address] 03/12/2024 15:02:36 03/12/2024 15:39:35 Adult health examination 218003173 Z00.00 USPSTF guidelines reviewed and discussed with patient. health care proxy in place. colonoscop y 2013. redo 10 Y mammo ordered No Pap indicated. look into Shingrix.C V counseling done. is on aspirin, no statin, LDL below 100. Depression screening 171 543033 Z13.31 depression screening tool administer ed, neg Screening for alcohol abuse 336385151 Z13.39 Alcohol use screening tool administer ed, neg Minimal co gnitive impairment 900455360 R41.89 short term memory problem, that along with low/no education and not writing or reading in her own language/T ibetan and no schooling. Does own ADLs. uses a cane when going for walks. no behavioral issues, short term memory problems. will monitor. Benign ess ential hypertension 7697320 I10 at target below 130/80, continue same. Chronic anemia 235581996 D64.9 no B12, folate or iron deficiency , SPEP normal. liver US fatty liver, ESR 23. monitor. Hypothyroidism 85022967 E03.9 Euthyroid on replacemen t therapy. Continue same. Atheroscle rosis of aorta 49445884 I70.0 Found on imaging. continue aspirin 81 mg daily. 10 year cardiovasc ular risk has not warranted statin therapy. LDL has been below 100 without statin. no iron deficiency anemia, FOB negative. continue aspirin. Screening mammography 24 627171 Z12.31 order mammo. Degenerati ve joint disease involving multiple joints 355377016 M15.9 has had in her knees and for her back. to take Tylenol 500 mg, 2 tabs twice a day, do home exercises. if see orthopedic s again, ? surgery, which joint first. [id number] Bob Saravia MD , [facility], OFFICE [address] [place] [address] 07/31/2024 14:35:49 08/02/2024 07:12:10 Cough 39247018 R05.9 Presents with a 5-day history of [...] worsening Erythema o f skin of nose 782322558 L53.9 Recurrent erythema + itching of the [...] cover medication s Benign ess ential hypertension 5044661 I10 Currently has hypertensi on and did not take blood pressure medication today. Blood pressure WNL today at the office. Discussed importance of regular medication adherence to prevent complicati ons. Advised to avoid ibuprofen. - Advise to continue taking blood pressure medication regularly - Instruct to avoid ibuprofen and use acetaminop hen for pain management [id number] Laurie Archibald . , [facility], OFFICE [address] [place] [address] 08/27/2024 08:33:05 08/27/2024 09:44:09 Benign essential hypertension 2424172 I10 at target below 130/80, continue same. LDL at target below 100. Hypothyroidism 33201328 E03.9 Euthyroid on replacemen t therapy. Continue same. Chronic anemia 280568709 D64.9 no B12, folate or iron deficiency , SPEP normal. liver US fatty liver, ESR 23. monitor. ? anemia of chronic disease. Atheroscle rosis of aorta 09085905 I70.0 Found on imaging. continue aspirin 81 mg daily. 10 year cardiovasc ular risk has not warranted statin therapy. LDL has been below 100 without statin. no iron deficiency anemia, FOB negative. continue aspirin. Screening for malignant neoplasm of colon 339720440 Z12.11 will do FIT kit for this year and refer for colonoscop y which likely take a few months to schedule. [id number] , [facility], OFFICE [address] [place] [address] 10/23/2024 09:30:50 10/23/2024 11:11:41 Palpitations 16846575 R00.2 Atrial fibrillation 4943 6004 I48.91 Rate [...] develop. Screening for malignant neoplasm of colon 685812595 Z12.11 You were given a stool kit today for Colorectal Cancer screening. Please review the instructio ns and return the kit to our office within 7 days. The kits so check the date before submitting the sample. Contact our office with any questions or concerns. Benign ess ential hypertension 0501037 I10 BP 116/64, at goal. Continue current meds. Health Concerns Section Related Observation LastModified by Organization Detai ls LastModified Time None Recorded Concern Status LastModified by Organization Details LastModified Time None Recorded Advance Directives Directive None Recorded Payers Encounter Date Sequence Insurance Name Policy Number Policy Bradley Covered Member ID Bradley Member ID Guarantor Name 09/21/2023 2 [place] Shreya Gino [id number] Shreya Gino 03/12/2024 1 [place] [employer] Shreya Gino [id number] Shreya Gino 07/31/2024 1 [place] Shreya Gino [id number] Shreya Gino 08/27/2024 1 [place] Shreya Gino [id number] Shreya Gino 08/27/2024 2 [place] Shreya Gino [id number] Shreya Gino 10/23/2024 1 [place] Shreya Gino [id number] Shreya Gino 10/23/2024 2 [place] Shreya Gino [id number] Shreya Gino Notes Date Note Type Note Provider Name and Address Organization Details Recorded Time 4 text/html Patient with history of hypertension, anemia, atherosclerosis of aorta, hypothyroidism and aortic valve murmur for medical management.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 anemia [...] long then back hurtsNo weakness or numbness Laurie Shoushtari. [address] [place] [address], [phone], 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 Diet:Counseled about appropriate portion size; [...] In the past 12 months has the [employer], gas, [employer] or water [employer] threatened to shut off services?no How hard [...] walkingNo weakness or numbnessNo rash Laurie Archibald. [address] [place] [address], [phone], [facility] 03/12/2024 15:38:52 4 text/html 68 year old [...] blood pressure medication. Bob Saravia MD [address] [place], [address], [facility] 08/01/2024 16:41:18 4 text/html Patient with history of hypertension, [...] LDL 89, BMP normal Laurie Shoushtari. [address] [place], [address], [facility] 08/27/2024 09:04:22 5 text/html 69 year old female accompanied by her HCP/dtr presents for eval of afib. Pt was at [facility] for endoscopy at which point they [...] amlodipine 2.5 mg one tab daily. OG MAXWELL DNP [address] [place], [address], [facility] 10/24/2024 10:58:11 OBGyn Episode No OBEpisode recorded.
--- OUTSIDE RECORDS SUMMARY | 2024-10-25 14:55 | XMS_ITS | Clinical Summary ---
Author Organization [employer] Address [address] [facility] [address] [place] [address] Care Team Providers Care Lead Based Paint Technician Name Role Phone Unavailable Primary Care Provider [...] 10/03/2024 3:30 PM EST Office Visit [facility] [address] [place] [address] Tegan Flroence LLD Dental abscess (Primary Dx) from Last [...] Description 10/31/2024 10:00 AM EST Office Visit [facility] [address] [place] [address] Mally Fisher DDS [address] [place] [address] 11/07/2024 10:00 AM EST Office Visit [facility] [address] [place] [address] Mally Fisher DDS [address] [place] [address] Health Maintenance Due Date Last Done Comments [...] Procedure Name Priority Date/Time Associated Diagnosis Comments CASE PRESENTATION, DETAILED AND EXTENSIVE TREATMENT PLANNING Routine 10/03/2024 [...] ADULT Routine 02/11/2019 1 2:00 AM EDT INTRAORAL - COMPLETE SERIES OF RADIOGRAPHIC IMAGES Routine 01/15/2018 12:00 AM EDT from Last 3 Months or Most Recently Relevant to [place] [address] D[facility] [place] [address] [place] [address] [place] [address] [place] [address] [place] [address] [place] [address]
--- OUTSIDE RECORDS SUMMARY | 2024-10-25 14:55 | XMS_ITS | Encounter Summary ---
Author Organization [employer] Address [address] [facility] [address] [place] [address] Care Team Providers Care Targeteer Name Role Phone Unavailable Primary Care Provider [...] Description 10/31/2024 10:00 AM EST Office Visit [facility] [address] [place] [address] Mally Fisher DDS [address] [place] [address] 11/07/2024 10:00 AM EST Office Visit [facility] [address] [place] [address] Mally Fisher DDS [address] [place] [address] documented as of this encounter Visit Diagnoses Not on filedocumented in this encounter
--- OUTSIDE RECORDS SUMMARY | 2024-10-25 14:55 | XMS_ITS | Continuity of Care Document ---
Author Organization [facility], , [facility], OFFICE Address [address] [place] [address] TANIAPaulie KAYLYN [address] Care Team Providers Care Enrollment Management Vice President Name Role Phone OG MAXWELL Primary Care Provider [phone] Assessment Encounter Date Assessment Date Assessment LastModified [...] Details Last Modified Time Details Appointments LAB Follow-Up 2024 12:00P M [facility] Lab Not available Not available Not available Wellness Visit 30 2024 02:30P M OG MAXWELL DNP Not available Not available Not available Lab TSH, serum or plasma 2024 025 [facility], [address] [place] [address], [id number], 10/23/2024 16:33:57 T4, free, serum 2024 025 [facility], [address] [place] [address], [address], 10/23/2024 16:07:28 fecal occult blood, immunoass ay, stool - Lab- Create annual order through QM-IFOBT order set. 2024 025 [facility], [address] [place] [address] [place], [id number], 10/23/2024 10:19:11 CBC 2024 025 [facility], [address] [place] [address], [id number], 10/23/2024 12:15:54 BMP, serum or plasma 2024 025 [facility], [address] [place] [address], [address], 10/24/2024 15:13:12 Referral cardiolog ist referral - New afib without RVR, please eval [email or web address], [facility], [place], [address], 10/23/2024 11:53:11 Procedures holter monitor placement (PROC) 2024 025 [facility], [address] [place] [address], [id number], 10/24/2024 12:19:01 Surgeries None recorded. Imaging electroca rdiogram 2024 025 [email or web address] [facility], [address] [place] [address], [address], 10/23/2024 11:11:41 US, echocardi ogram - Afib without RVR 2024 025 [email or web address] [facility] Scheduling, [address] [place], [address], 10/24/2024 13:00:38 Medication Orders Eliquis 5 mg tablet 2024 025 [facility], [address] [place], [address], 10/23/2024 10:06:50 Patient TargetsNo targets recorded. Patient InstructionsNo instructions recorded. Reason for Referral Disability Representative Referral for At rial fibrillation New afib without RVR, please eval Referring Physician: Og Maxwell, Family Medicine, Encounter Date: 10/23/2024 Results Created Date Observation Date Name Description Value Unit Range Abnormal Flag Note LastModifiedBy Organization Detail LastModifiedTime 10/23/1910/23/2024 elect rocar diogr am No observ ation record ed. [address], [place], [address], 10/23/2024 10:22:39 10/23/19 elect rocar diogr am [...] Details Recorded Time Benign essential hypertensio n 7183325 Active Mina Orantes MD [address] [place], [place] [address] [place], [address], [facility] 6 13:57:39 Atheroscler osis of aorta 62969172 Active Laurie vallejo MD [address] [place], [place] [address] [place], [address], [facility] 3 15:44:25 Anemia 750866188 Completed 201607/26/2019 MARQUES Espinoza [address] [place], [place] [address] [place], [address], [facility] 9 13:49:05 History of anemia 876672504 Completed 201807/20/2020 Laurie vallejo MD [address] [place], [place] [address] [place], [address], [facility] 0 15:50:41 Chronic anemia 055862151 Active 2020 Laurie vallejo MD [address] [place], [address], [facility] 1 12:42:08 Hypothyroid ism 55351038 Active 2021 Laurie vallejo MD [address] [place], [address], [facility] 2 13:12:02 Urinary incontinenc e 978324601 Active 2023 Laurie vallejo MD [address] [place], [address], [facility] 4 15:11:02 Problem Notes None recorded. Procedures Surgical History Date Name Laterality Status Provider Name and Address Organization Details Recorded Time 02/09/20 19 84942: Manual Therapy completed Nakul Sin, PT, DPT, CSCS [address] [place] [address], [phone], [facility] 02/08/2019 12:21:51 02/09/20 19 80719: Ultrasound (1:1) completed Nakul Sin, PT, DPT, CSCS [address] [place] [address], [address], [facility] 02/08/2019 11:52:37 02/09/20 19 Neuromuscular re-education completed Nakul Sin, PT, DPT, CSCS [address] [place] [address], [address], [facility] 02/08/2019 12:21:52 02/02/20 19 61502: Manual Therapy completed Nakul Sin, PT, DPT, CSCS [address] [place] [address], [address], [facility] 02/01/2019 12:27:52 02/02/20 19 61846: Ultrasound (1:1) completed Nakul Sin, PT, DPT, CSCS [address] [place] [address], [address], [facility] 02/01/2019 12:28:03 01/26/20 19 Physical Activity Counselling completed Nakul Sin, PT, DPT, CSCS [address] [place] [address], [address], [facility] 01/25/2019 11:51:30 01/26/20 61173: PT Darren, Moderate Complexity completed Nakul Sin, PT, DPT, CSCS [address] [place] [address], [address], [facility] 01/25/2019 12:30:52 01/08/20 US Guided Knee Joint Injection completed Mina Orantes MD [address] [place] [address], [phone], [facility] 01/07/2019 15:42:17 01/05/20 84721: Therapeutic Exercise completed Nakul Sin PT, DPT, CSCS [address] [place] [address], [address], [facility] 01/04/2019 12:27:04 01/05/20 87498: Manual Therapy completed Nakul Sin PT, DPT, CSCS [address] [place] [address], [address], [facility] 01/04/2019 12:26:55 01/05/20 30837: Ultrasound (1:1) completed Nakul Sin PT, DPT, CSCS [address] [place] [address], [address], [facility] 01/04/2019 12:26:51 12/29/19 55956: Manual Therapy completed Nakul Sin, PT, DPT, CSCS [address] [place] [address], [address], [facility] 12/28/2018 12:30:25 12/29/19 08085: Therapeutic Activities - Direct 1:1 completed Nakul Sin PT, DPT, CSCS [address] [place] [address], [address], [facility] 12/28/2018 12:30:31 12/21/19 19 11289: Manual Therapy completed Nakul Sin, PT, DPT, CSCS [address] [place] [address], [address], [facility] 12/20/2018 12:46:05 12/21/19 19 84492: Therapeutic Activities - Direct 1:1 completed Nakul Sin, PT, DPT, CSCS [address] [place] [address], [address], [facility] 12/20/2018 12:46:31 12/15/19 19 40555: Manual Therapy completed Nakul Sin, PT, DPT, CSCS [address] [place] [address], [address], [facility] 12/14/2018 11:49:54 12/15/19 19 Neuromuscular re-education completed Nakul Sin, PT, DPT, CSCS [address] [place], [address], [facility] 12/14/2018 13:46:02 12/08/19 19 92522: Therapeutic Exercise completed Nakul Sin, PT, DPT, CSCS [address] [place] [address], [address], [facility] 12/07/2018 12:38:26 12/08/19 19 26263: Manual Therapy completed Nakul Sin, PT, DPT, CSCS [address] [place] [address], [address], [facility] 12/07/2018 12:38:09 12/01/19 19 89633: Manual Therapy completed Nakul Sin, PT, DPT, CSCS [address] [place] [address], [address], [facility] 11/30/2018 12:37:17 12/01/19 19 99286: Ultrasound (1:1) completed Nakul Sin, PT, DPT, CSCS [address] [place], [address], [facility] 11/30/2018 11:50:13 12/01/19 19 02470: Therapeutic Activities - Direct 1:1 completed Nakul Sin, PT, DPT, CSCS [address] [place] [address], [address], [facility] 11/30/2018 13:14:39 11/23/19 19 74645: Manual Therapy completed Nakul Sin PT, DPT, CSCS [address] [place] [address], [address], [facility] 11/22/2018 15:22:45 11/23/19 19 66731: Ultrasound (1:1) completed Nakul Sin, PT, DPT, CSCS [address] [place] [address], [address], [facility] 11/22/2018 15:18:21 11/17/19 19 46623: Manual Therapy completed Nakul Sin, PT, DPT, CSCS [address] [place] [address], [address], [facility] 11/16/2018 11:08:12 11/17/19 19 48787: Ultrasound (1:1) completed Nakul Sin, PT, DPT, CSCS [address] [place] [address], [address], [facility] 11/16/2018 11:08:03 11/17/19 19 Neuromuscular re-education completed Nakul Sin, PT, DPT, CSCS [address] [place] [address], [address], [facility] 11/16/2018 11:08:15 11/05/19 19 Physical Activity Counselling completed Nakul Sin, PT, DPT, CSCS [address] [place] [address], [address], [facility] 11/05/2018 11:19:01 11/05/19 19 01749: PT Eval, Moderate Complexity completed Nakul Sin, PT, DPT, CSCS [address] [place] [address], [address], [facility] 11/05/2018 11:45:14 07/25/20 18 POC Urinalysis Testing completed Duane Aguayo CMA [facility] 07/25/2018 16:27:44 Imaging Results Imaging Date Name Status LastModified by Organization Details LastModified Time 10/23/2024 electrocardiogram completed [address], [address], 10/23/2024 10:22:39 Procedure Notes None recorded. Medical Equipment None Reported. Allergies Allergen ID Allergen Name Allergen Category Reaction Reaction Severity Criticality Documentation Date Start Date Code Code System Note Provider Name and Address Organization Details Recorded Time 565412 lisinopri l medicatio n Not available Not available Not available 04/15/2015 36363 RxNorm Cough ing Honey Thee [facility] 8 15:08:16 Medications Name Sig Start [...] e 50 mcg/actua tion nasal spray,lakia pension [place] 1 spray every day by intranas al [...] Updated DateTime 5 144.78 cm 28.6 kg/m2 08805.1 9 g 77 /min 100 % 100 % 116 mm[Hg] 64 mm[Hg] [facility] 09:46:00 Social History Question Answer Notes LastModified by Organizat ion Details LastModified Time Tobacco Smoking Status Never Smoker 10/23/24mm KAYLYN Leiva MA [facility] 10/23/2024 09:36:59 What Is Your Level Of Alcohol Consumption? None [email or web address] Information not available 02/01/2022 Do You Wear A Helmet When Biking? Yes Information not available 11/16/2015 What Is Your Level Of Caffeine Consumption? Occasional Tea [email or web address] Information not available 02/01/2022 How Much Tobacco Do You Chew? None Information not available 11/16/2015 Are You Currently Employed? No [email or web address] Information not available 11/23/2015 What Type Of Diet Are You Following? REGULAR Information not available 10/01/2014 Do You Or Have You Ever Used E-cigarettes Or Vape? Never Used Electronic Cigarettes [email or web address] Information not available 02/01/2022 Education Less Than 8th Grade No Formal Schooling Information not available 09/16/2022 What Is The Highest Grade Or Level Of School You Have Completed Or The Highest Degree You Have Received? [id number] Information not available 02/01/2022 What Is Your Occupation? Unemployed [employer] A [employer] In [employer] [email or web address] Information not available 01/18/2017 Have There Been Any Changes To Your Family Or Social Situation? No [email or web address] Information not available 02/01/2022 How Many Days In The Past Year Have You Had A Heavy Drinking Consumption (4+ Female, 5+ Male)? 0 [email or web address] Information not available 10/01/2014 Are There Any [...] Marital Status Came Here Late 2012 From [employer] Information not available 03/09/2023 Mosquito Repellent Used Routinely No Information not available 09/16/2022 What Was The Date Of Your Most Recent Tobacco Screening? 10/23/2024 [email or web address] Information not available 10/23/2024 How Many Children Do You Have? 6 Daughters [email or web address] Information not available 10/01/2014 What Is Your Relationship Status? Male Spouse Information not available 02/01/2022 Do You Use Your Seat Belt Or Car Seat Routinely? Yes [email or web address] Information not available 02/01/2022 Seat Belts Used Routinely Yes Information not available 09/16/2022 Smoke Alarm In Home Yes Information not available 09/16/2022 Do You Have Smoke And Carbon Monoxide Detectors In Your Home? Yes [email or web address] Information not available 02/01/2022 Are You Passively Exposed To Smoke? No [email or web address] Information not available 02/01/2022 Do You Or Have You Ever Used Smokeless Tobacco? Never Used Smokeless Tobacco [email or web address] Information not available 02/01/2022 How Much Tobacco Do You Smoke? No [email or web address] Information not available 02/01/2022 General Stress Level Low Information not available 09/16/2022 Do You Use Sunscreen Routinely? Yes Information not available 11/16/2015 How Many Years Have You Smoked Tobacco? 0 Information not available 08/11/2020 Sex: Female Functional Status Question Answer Note LastModified by Organizat ion Details LastModified Time What is your exercise level? Occasional walking daily x 5-10 minutes [email or web address] Information not available 02/01/2022 Mental Status None [...] virus, quadrivalent, PF 5 completed Not Available [facility]/28[facility] 02:19:21 Td (adult), 5 Lf tetanus toxoid, preservative free, adsorbed 5 completed Not Available [facility] 09/28/2019 02:19:45 zoster live 6 completed Not Available [facility] 09/28/2019 02:20:17 Influenza, split virus, quadrivalent, PF 6 completed Not Available [facility] 09/28/2019 02:20:16 Influenza, split virus, quadrivalent, PF 7 completed Not Available [facility] 09/28/2019 02:22:08 Influenza, split virus, quadrivalent, PF 9 completed Not Available [facility] 09/28/2019 02:31:12 Influenza, high-dose, quadrivalent, PF 0 completed Roxy Cisneros MA null, [facility] 07/11/2020 12:32:10 Pneumococcal conjugate PCV 13 1 completed Duane Aguayo CMA null, [facility] 01/29/2021 11:20:16 COVID-19, mRNA, LNP-S, PF, 100 mcg/0.5mL dose or 50 mcg/0.25mL dose 1 completed Marian Button null, [facility] 09/16/2022 14:04:06 Influenza, high-dose, quadrivalent, PF 2 completed RAFAT WILSON PA-C [address] [place] [address], [phone], [facility] 07/18/2022 15:12:33 COVID-19, mRNA, LNP-S, PF, 100 mcg/0.5mL dose or 50 mcg/0.25mL dose 1 completed Marian Button null, [facility] 09/16/2022 14:04:07 COVID-19, mRNA, LNP-S, PF, 100 mcg/0.5mL dose or 50 mcg/0.25mL dose 1 completed Marian Button null, [facility] 09/16/2022 14:04:06 Influenza, split virus, quadrivalent, preservative 1 completed Marian Button null, [facility] 09/16/2022 14:04:06 pneumococcal polysaccharide PPV23 0 completed Marian Button null, [facility] 09/16/2022 14:04:06 COVID-19, mRNA, LNP-S, PF, 100 mcg/0.5mL dose or 50 mcg/0.25mL dose 2 completed Marian Button null, [facility] 09/16/2022 14:04:06 Influenza, high-dose, quadrivalent, PF 3 completed Nilmari, RMA Toribio null, [facility] 06/04/2023 15:47:53 RSV, recombinant, protein subunit RSVpreF, adjuvant reconstituted, 0.5 mL, PF 3 completed Nilmari, RMA Toribio null, [facility] 06/04/2023 15:48:23 COVID-19, mRNA, LNP-S, PF, 50 mcg/0.5 mL 3 completed Nilmari, RMA Toribio null, [facility] 06/27/2023 14:38:15 Influenza, high-dose, trivalent, PF 4 completed Nilmari, RMA Toribio null, [facility] 07/04/2024 07:58:35 zoster recombinant 4 completed Nilmari, RMA Toribio null, [facility] 07/04/2024 07:59:05 Past Encounters Encounter ID Performer Location Encounter Start Date Encounter Closed Date Diagnosis/Indication Diagnosis SNOMED-CT Code Diagnosis ICD10 Code Diagnosis Note [id number] , [facility], OFFICE [address] [place] [address] 10/23/2024 09:30:50 10/23/2024 11:11:41 Palpitations 38270482 R00.2 Atrial fibrillation 4943 6004 I48.91 Rate [...] develop. Screening for malignant neoplasm of colon 671887807 Z12.11 You were given a stool kit today for Colorectal Cancer screening. Please review the instructio ns and return the kit to our office within 7 days. The kits so check the date before submitting the sample. Contact our office with any questions or concerns. Benign ess ential hypertension 1513102 I10 BP 116/64, at goal. Continue current meds. Health Concerns Section Related Observation LastModified by Organization Detai ls LastModified Time None Recorded Concern Status LastModified by Organization Details LastModified Time None Recorded Payers Encounter Date Sequence Insurance Name Policy Number Policy Bradley Covered Member ID Bradley Member ID Guarantor Name 10/23/2024 1 [place]IC[place] B-[place]: [employer] Shreya Gino [id number] Shreya Gino 10/23/2024 2 [place] [facility] Shreya Gino [id number] Shreya Gino Notes Date Note Type Note Provider Name and Address Organization Details Recorded Time 10/23/2024 text/html 69 year old german martin accompanied by her HCP/dtr presents for eval of afib. Pt was at [facility] for endoscopy at which point they performed [...] mg one tab daily. OG MAXWELL, AYDIN [address] [place] [address], [place], [address], [facility] 10/24/2024 10:58:11 OBGyn Episode No OBEpisode recorded.
--- OUTSIDE RECORDS SUMMARY | 2024-10-25 14:55 | XMS_ITS | Encounter Summary ---
Author Organization [employer] Address [address] [facility] [address] [place] [address] Care Team Providers Care Digital Composer Name Role Phone Unavailable Primary Care Provider Unavailabl e Reason for Visit * Reason Comments Dental Exam Encounter Details Date Type Department Care Team (Late st Contact Info) Description 10/03/2024 3:30 PM EST Office Visit [facility] [address] [place] [address] Tegan Florence LLD [address] [place] [address] Dental abscess (Primary Dx) Social History Tobacco [...] Description 10/31/2024 10:00 AM EST Office Visit [facility] [address] [place] [address] Mally Fisher DDS [address] [place] [address] 11/07/2024 10:00 AM EST Office Visit [place] [facility] [address] [place] [address] Mally Fisher DDS [address] [place] [address] Scheduled Orders Name Type Priority Associated Diagnoses [...] RADIOGRAPHIC IMAGE Routine 10/03/2024 3:30 PM EST CASE PRESENTATION, DETAILED AND EXTENSIVE TREATMENT PLANNING Routine 10/03/2024 3:30 PM EST documented in this encounter Visit Diagnoses Diagnosis Dental abscess- Primary Periapical abscess without sinus documented in this encounter
== END ==
LOC: HO.CARD 14:52
DX: R00.2 Palpitations (principal)
CPT/HCPCS: 93242

== ENCOUNTER → 2024-10-25 14:59 | Outpatient (BNV) | payer MEDICARE, MEDICAID, SELFPAY | PROVIDERS: Visit Provider Internal Medicine | DX: I48.91 Unspecified atrial fibrillation (principal) | CPT/HCPCS: 93244 ==

== ENCOUNTER 2024-12-04 12:11 | Day surgery (SDC) | payer MEDICARE, MEDICAID, SELFPAY ==
--- NOTE | 2024-12-04 12:35 | HO.ANESPROP2 ---
[facility] Active Problems Active Problems: All Active Problems Persistent atrial fibrillation (Acute) HTN (hypertension) (Acute) Past Medical History Medical History (Updated 12/04/24 @ 12:21 by Beth Alexandra, RN) Anemia Afib Arthritis HTN (hypertension) Family History Family history of problems with anesthesia: No Surgical History Surgical History (Updated 12/04/24 @ 12:21 by Beth Alexandra RN) Hx of bilateral cataract extraction History of Problems with Anesthesia: No Social History Social History (System 11/19/24 @ 08:43 by Alem Kauffman) Alcohol intake: never Patient Tobacco Use Status: Never used Tobacco Use of substances other than those prescribed or required for medical reasons: No Are you DNR?: No Advance Directives: No Advance Directives Information Provided: Yes Meds Allergies Allergy/AdvReac Type Severity Reaction Status Date / Time No Known Allergies Allergy Verified 12/04/24 12:22 Active Medications: Current Medications Naloxone HCl (Naloxone Hcl 0.4 Mg/Ml Vial) 0.04 mg IVPUSH Q5M PRN PRN Reason: Excessive sedation or RR < 8 Naloxone HCl (Naloxone Hcl 0.4 Mg/Ml Vial) 0.04 mg IVPUSH Q5M PRN PRN Reason: Excessive sedation or RR < 8 Home Medications ?Medication ?Instructions ?Recorded ?Confirmed ?Last Taken ?Type apixaban 5 mg tablet (Eliquis) 5 mg PO BID 10/25/24 12/04/24 Unknown History losartan 100 mg tablet 100 mg PO DAILY 10/25/24 12/04/24 Unknown History Exam Airway Mallampati Class: II (missing a couple, nothing loose) TM Dist: >3cm Neck ROM: Full Heart: irreg Lungs: cta Assessment and Plan Assessment Anesthesia Assessment: Anesthesia Plan Discussed and Chart Reviewed Final Anesthetic Review Family History of Problems with Anesthesia: No History of Problems with Anesthesia: No NPO: Yes ASA Class: II Final Preanesthetic Review: No Changes in Pt Med Stat, Meds/Allgs Chart Reviewed and Consent Obtained/Reviewed Patient Risk: Low Procedure Risk: Low Anesthetic Plan Anesthetic Plan: MAC: Disposition: Standard PACU
[2024-12-04 12:39] VITALS: BP 108/60; PULSE 65; RESP 15; TEMP 36.4; O2SAT 99; BMI 28.4
[2024-12-04] MEDS: Lactated Ringers 1,000 ML 50 ML IVCONT (12:49)
--- NOTE | 2024-12-04 12:49 | MHC.SHP ---
Pre-Procedural Eval Section A - 24 Hr Update-Section A only Date of Service: 12/04/24 The patient is an INPATIENT: No Changes since office visit: Yes Cold of Flu in the past 2 weeks, Yes Changes in Medication and Yes Patient answered all questions; No New Medical Problems The patient has been examined within 24 hours of the surgical procedure. The History & Physical has been completed within 30 days and I have reviewed it.: Yes Section B - Complete if H&P > 30 days Chief Complaint: Unspecified atrial flutter Allergies: Allergies Allergy/AdvReac Type Severity Reaction Status Date / Time No Known Allergies Allergy Verified 12/04/24 12:22 Plan I have reviewed the history and physical and performed a pertinent physical examination on my patient. No changes have occurred unless specified. Time Spent With Patient Time: Total time managing care of this patient today ____ minutes.
--- NOTE | 2024-12-04 13:25 | ECG_ITS ---
Test Reason : POST CARDIOVERSION Blood Pressure : */* mmHG Vent. Rate : 47 BPM Atrial Rate : 47 BPM P-R Int : 202 ms QRS Dur : 90 ms QT Int : 542 ms P-R-T Axes : 95 42 51 degrees QTcB Int : 479 ms Sinus bradycardia Otherwise normal ECG No previous ECGs available Referred By: Zenon Lara Electronically Signed By: ZENON LARA MD
[2024-12-04 13:28] VITALS: BP 95/64; PULSE 47; RESP 14; TEMP 36.1; O2SAT 96
--- NOTE | 2024-12-04 13:29 | HO.CARDIVERS ---
Cardioversion Procedure Note Cardioversion Date of Procedure: 12/04/2024 Ordering Provider: Chance Lara Performing Provider: Chance Lara Indication for Procedure: Persistent new onset atrial fibrillation Pre-Op Diagnosis: Same Post-Op Diagnosis: Normal sinus rhythm Performed with Transesophageal Echo: No Consent: Verbal and Written consent was obtained from the patient before starting and after confirming oral anticoagulation antiarrhythmic use. The patient was made aware of the risk of synchronized cardioversion including alternatives and benefits Procedure: After consent obtained, cardioversion pads were attached in anteroposterior configuration and the patient was sedated by the anesthesia team. Once adequate sedation achieved, patient was delivered 200 joules of biphasic synchronized energy in anteroposterior configuration Complications: None Impression: Successful conversion Recommendations: 1. Continue full oral anticoagulation as well as Multaq 2. 12 lead EKG 3. Follow up in the clinic after Holter
[2024-12-04 13:33] VITALS: BP 92/50; PULSE 47; RESP 17; O2SAT 97
[2024-12-04 13:38] VITALS: BP 92/50; PULSE 47; RESP 16; O2SAT 97
[2024-12-04 13:43] VITALS: BP 95/55; PULSE 48; RESP 16; O2SAT 98
[2024-12-04 14:01] VITALS: BP 105/57; PULSE 52; RESP 16; TEMP 36.2; O2SAT 100
== END 2024-12-04 14:38 | disposition home or self-care (01) ==
PROVIDERS: Visit Provider Internal Medicine Cardiovascular Disease
PROC: 5A2204Z Restoration of Cardiac Rhythm, Single (ICD-10-PCS; principal; 2024-12-04 13:00)
DX: I48.19 Other persistent atrial fibrillation (principal); Z79.01 Long term (current) use of anticoagulants; I10 Essential (primary) hypertension; Z79.899 Other long term (current) drug therapy
CPT/HCPCS: 92960; 93005; J2003; J2704

== ENCOUNTER → 2024-12-04 12:11 | Outpatient (BNV) | payer MEDICARE, MEDICAID, SELFPAY | PROVIDERS: Visit Provider Internal Medicine Cardiovascular Disease | DX: I48.91 Unspecified atrial fibrillation (principal); R00.1 Bradycardia, unspecified | CPT/HCPCS: 92960; 93010 ==

== ENCOUNTER → 2024-12-24 10:08 | Outpatient (REF) | payer MEDICARE, MEDICAID, SELFPAY ==
--- NOTE | 2024-12-24 10:11 | CA_ITS ---
Transthoracic Echocardiogram Limited Patient (Last, First, Middle): Shreya Christian, Gender: Female Date of : 1955 Age: 69 Procedure Date: 12/24/2024 Procedure Type: Transthoracic Echocardiogram Limited Location: OP Height: 147.32 cm Weight: 61.24 kg BSA: 1.54 m2 Heart Rate: bpm BP: 118 / 60 mmHg Referring MD: Shaw Noble NP Miscellaneous Machine Operator: Zenon Lara MD Symptoms: I48.19 - Other persistent atrial fibrillation Study Quality: Good ECG Rhythm: Sinus Conclusions: - Normal LV ejection fraction of 65-70% with restrictive filling pattern Findings Left Ventricle Normal left ventricular size, thickness, and systolic function. The visually estimated ejection fraction is between 65-70%. Spectral Doppler is indicative of a restrictive filling pattern. Elevated left ventricular end diastolic pressure. E/E prime ratio is between 8 and 15 consistent with indeterminate filling pressures. Prior Study Comparison Changes noted compared to prior study dated: 10/23/2024. LV ejection fraction is higher. Restrictive LV filling pattern noted Measurements 2D Linear Measurements IVSd: 0.96 0.6-0.9/0.6-1.0 cm LVIDd: 4.55 3.9-5.3/4.2-5.9 cm LVIDd Index: 2.95 2.4-3.2/2.2-3.1 cm/m2 LVIDs: 2.75 2.0-3.6 cm LVPWd: 0.95 0.7-1.1 cm LV Mass: 182.54 67-162/88-224 g LV Mass Index: 118.53 43-95/49-115 g/m2 2D Systolic Function EF 4C: 65.80 >55% EF 2C: 64.90 >55% EF BiP: 66.70 >55% Mitral Valve MV Pk E: 1.10 MV PK A: 0.48 MV Decel Time: 163.00 E/A: 2.30 E'Lateral: 11.70 E'Medial: 7.72 E/E' Med: 14.20 E/E' Lat: 9.40 PHT: 48.00 MVA PHT: 4.58 Decel Howard: 6.75 Diastolic Function MV Pk E: 1.10 MV Pk A: 0.48 E/A: 2.30 E'Medial: 7.72 E/E' Med: 14.20 E' Laterial: 11.70 E/E' Lat: 9.40 Updated in Other Vendor System with Status of Final Zenon Lara MD electronically signed on 12/24/2024 12:32:29 PM with status of Final
--- OUTSIDE RECORDS SUMMARY | 2024-12-24 11:56 | XMS_ITS | Data Portability ---
Author Organization [facility], , [facility] Address [address] [place] [address] Care Team Providers Care System Dispatcher Name Role Phone OG MAXWELL Primary Care [...] were adopted ppijar Not available 10/23/2024 10:25:40 12/13/2024 12/13/2024 Attestation: Greater than 30 minutes was dedicated to the preparation of this clinical note, including review of medical records, patient interaction, and analysis of relevant data ppijar Not available 12/13/2024 11:28:29 Plan of Treatment Reminders Order Date Submit Date Provider Last Modified By Organization Details Last Modified Time Details Appointments LAB Follow-Up 2024 12:00P M [facility] Not available Not available Not available Wellness Visit 30 2024 09:30A M OG MAXWELL DNP Not available Not available Not available Lab CBC 2024 025 [email or web address] [facility], [address] [place] [address], [id number], 10/30/2024 14:06:52 TSH, serum or plasma 2024 025 CAMRON [facility], [address] [place] [address], [id number], 10/23/2024 16:33:57 T4, free, serum 2024 025 [facility], [address] [place] [address], [id number], 10/23/2024 16:07:28 fecal occult blood, immunoass ay, stool - Lab- Create annual order through [id number] order set. 2024 025 [email or web address] [facility], [address] [place] [address], [id number], 10/23/2024 10:19:11 CBC 2024 025 [facility], [address] [place] [address], [id number], 10/23/2024 12:15:54 BMP, serum or plasma 2024 025 [facility], [address] [place] [address], [id number], 10/24/2024 15:13:12 Referral cardiolog ist referral - New afib without RVR, please eval [email or web address] [facility] , [address] [place] [address] Dr, [facility], [place], [address], 10/23/2024 11:53:11 otolaryng ologist referral - Patient has recurrent erythema of nose and external throat with URI symptoms. Please evaluate. Thank you 2023 024 [email or web address] [facility], [address], [place], [address], 08/02/2024 12:31:53 Procedures holter monitor placement (PROC) 2024 025 [facility], [address] [place], [address], 11/12/2024 08:38:29 colonosco py procedure (PROC) 2023 024 [email or web address] [facility], [address], [place], [address], 08/27/2024 11:10:13 Surgeries None recorded. Imaging US, spleen 2024 025 [facility] ([facility]), [address], [place], [address], 12/17/2024 13:07:19 XR, ribs, unilatera l [address] (Imaging), [address], [place], [address], 12/13/2024 16:33:39 electroca rdiogram [address], [address] [place], [address], 12/13/2024 16:33:39 electroca rdiogram 2024 025 [email or web address] [facility], [address] [place], [address], 10/23/2024 11:11:41 US, echocardi ogram - Afib without RVR 2024 025 [email or web address] [facility], [address], [place], [address], 11/07/2024 11:39:43 XR, chest 2023 024 [facility]), [address], [place], [address], 07/31/2024 16:27:53 Medication Orders naproxen 500 mg tablet 2024 025 [facility], [address] [place], [address], 12/13/2024 11:05:13 lidocaine 5 % topical patch 2024 025 [facility], [address] [place], [address], 12/13/2024 11:05:12 Eliquis 5 mg tablet 2024 025 [facility], [address] [place] [address], [address], 10/23/2024 10:06:50 fluticaso ne propionat e 50 mcg/actua tion nasal spray,lakia pension [email or web address], [address] [place], [address], 07/31/2024 15:19:52 cetirizin e 10 mg tablet 2023 025 [facility], [address] [place] [address], [address], 12/13/2024 10:22:48 azithromy maritza 250 mg tablet 2023 024 [facility], [address] [place] [address], [address], 08/26/2024 17:30:26 Patient TargetsNo targets recorded. Patient InstructionsNo instructions recorded. 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 Please evaluate. Thank you Referring Physician: Og Maxwell [facility], Encounter Date: 07/31/2024 Play Leader Referral for At rial fibrillation New afib without RVR, please eval Referring Physician: Og Maxwell [facility], Encounter Date: 10/23/2024 Results Created Date Observation Date Name Description Value Unit Range Abnormal Flag Note LastModifiedBy Organization Detail LastModifiedTime 08/19/20 24 08/19/2024 CBC WBC 4.16 K/? ? ?L 3.98-1 0.04 Not Available [address], [place], [address], 08/19/2024 14:33:15 08/19/20 24 08/19/2024 CBC RBC 3.12 M/? ? ?L 3.93-5 .22 low Not Available [address], [address], 08/19/2024 14:33:15 08/19/20 24 08/19/2024 CBC HGB 10.0 g/dL 11.2-1 5.7 low Not Available [address], [address], 08/19/2024 14:33:15 08/19/20 24 08/19/2024 CBC HCT 29.4 % 34.1-4 4.9 low Not Available [address], [address], 08/19/2024 14:33:15 08/19/20 24 08/19/2024 CBC MCV 94.2 fL 79.4-9 4.8 Not Available [address], [address], 08/19/2024 14:33:15 08/19/20 24 08/19/2024 CBC MCH 32.1 pg 25.6-3 2.2 Not Available [address], [address], 08/19/2024 14:33:15 08/19/20 24 08/19/2024 CBC MCHC 34.0 g/dL 32.2-3 5.5 Not Available [address], [address], 08/19/2024 14:33:15 08/19/20 24 08/19/2024 CBC plt 211 K/? ? ?L 182-36 9 Not Available [address], [address], 08/19/2024 14:33:15 08/19/20 24 08/19/2024 CBC MPV 10.6 fL 9.4-12 .3 Not Available [address], [address], 08/19/2024 14:33:15 08/19/20 24 08/19/2024 CBC neut% 27.7 % 34.0-7 1.1 low SREV= Slide revie wed by yelena michelle. Not Available [address], [address], 08/19/2024 14:33:15 08/19/20 24 08/19/2024 CBC neut# 1.15 1.56-6 .13 low Not Available [address], [address], 08/19/2024 14:33:15 08/19/20 24 08/19/2024 CBC lymph % 52.4 % 19.3-5 1.7 high Not Available [address], [address], 08/19/2024 14:33:15 08/19/20 24 08/19/2024 CBC lymph # 2.18 K/? ? ?L 1.18-3 .74 Not Available [address], [address], 08/19/2024 14:33:15 08/19/20 24 08/19/2024 CBC mono% 9.1 % 4.7-12 .5 Not Available [address], [address], 08/19/2024 14:33:15 08/19/20 24 08/19/2024 CBC mono# 0.38 0.24-0 .56 Not Available [address], [address], 08/19/2024 14:33:15 08/19/20 24 08/19/2024 CBC eo% 9.6 % 0.7-5. 8 high Not Available [address], [address], 08/19/2024 14:33:15 08/19/20 24 08/19/2024 CBC eo# 0.40 0.04-0 .36 high Not Available [address], [address], 08/19/2024 14:33:15 08/19/20 24 08/19/2024 CBC baso% 1.2 % 0.1-1. 2 Not Available [address], [address], 08/19/2024 14:33:15 08/19/20 24 08/19/2024 CBC baso# 0.05 0.00-0 .08 Not Available [address], [address], 08/19/2024 14:33:15 08/19/20 24 08/19/2024 CBC RDW-CV 13.8 % 11.7-1 4.4 Not Available [address], [address], 08/19/2024 14:33:15 08/19/20 24 08/19/2024 CBC Ig% 0.000 % 0.000- 1.500 Ig % >0.5 Indic ates possi ble Left Shift Not Available [address], [address], 08/19/2024 14:33:15 08/19/20 24 08/19/2024 CBC Ig# 0.000 0.000- 0.093 Not Available [address], [address], 08/19/2024 14:33:15 08/19/20 24 08/19/2024 CBC NRBC% 0.0 % 0.0-0. 2 Not Available [address], [address], 08/19/2024 14:33:15 08/19/20 24 08/19/2024 CBC NRBC# 0.000 0.000- 0.012 Not Available [address], [address], 08/19/2024 14:33:15 08/19/20 24 08/20/2024 BASIC METAB OLIC PANEL glucose 77 mg/dL 70-100 Not Available [address], [address], 08/20/2024 12:28:24 08/19/20 24 08/20/2024 BASIC METAB OLIC PANEL BUN 20 mg/dL 7-18 high Not Available [address], [address], 08/20/2024 12:28:24 08/19/2008/20/2024 BASIC METAB OLIC PANEL creatinine 0.7 mg/dL 0.8-1. 3 low Not Available [address], [address], 08/20/2024 12:28:24 08/19/20 24 08/20/2024 BASIC METAB OLIC PANEL B/C 28.6 ratio Not Available [address], [address], 08/20/2024 12:28:24 08/19/2008/20/2024 BASIC METAB OLIC PANEL GFR >=60ML /MIN [...] be used in pregn shannon. Not Available [address], [address], 08/20/2024 12:28:24 08/19/2008/20/2024 BASIC METAB OLIC PANEL sodium 143 mmol/ L 136-14 5 Not Available [address], [address], 08/20/2024 12:28:24 08/19/2008/20/2024 BASIC METAB OLIC PANEL potassium 3.9 mmol/ L 3.5-5. 1 Not Available [address], [address], 08/20/2024 12:28:24 08/19/2008/20/2024 BASIC METAB OLIC PANEL chloride 105 mmol/ L 96-107 Not Available [address], [address], 08/20/2024 12:28:24 08/19/20 24 08/20/2024 BASIC METAB OLIC PANEL anion gap 11.6 5.0-15 .0 Not Available [address], [address], 08/20/2024 12:28:24 08/19/20 24 08/20/2024 BASIC METAB OLIC PANEL CO2 26 mmol/ L 21-32 Not Available [address], [address], 08/20/2024 12:28:24 08/19/2008/20/2024 BASIC METAB OLIC PANEL calcium 9.1 mg/dL 8.5-10 .3 Not Available [address], [address], 08/20/2024 12:28:24 08/19/2008/20/2024 LIPID PANEL cholesterol 172 mg/dL <200 mg/dl Nafisa able 200-2 39 mg/dl Borde rline High >240 mg/dl High Not Available [address], [address], 08/20/2024 12:28:25 08/19/20 24 08/20/2024 LIPID PANEL triglyceride s 60 mg/dL <150 mg/dL Deborah l 150-1 99 mg/dL Borde rline High 200-4 99 mg/dL High >500 mg/dL Very High Not Available [address], [address], 08/20/2024 12:28:25 08/19/20 24 08/20/2024 LIPID PANEL direct HDL 71 mg/dL <40 mg/dl - Major Risk for CHD >60 mg/dl - Negat tabitha Risk for CHD Not Available [address], [address], 08/20/2024 12:28:25 08/19/20 24 08/20/2024 LDL - [...] r is not neces adelia. Not Available [address], [address], 08/20/2024 12:28:26 08/19/20 24 08/22/2024 FREE T4 free T4 0.90 NG/dL 0.75-1 .54 Not Available [address], [address], 08/22/2024 15:53:20 08/19/20 24 08/22/2024 TSH TSH 4.30 uIU/m L 0.50-6 .00 The Ameri can Colle ge of Endoc rinol ogy and Ameri can Thyro id Assoc iatio n recom mend goal TSH value s lion en 0.4-4 .0 mIU/m L. Not Available [address], [address], 08/22/2024 16:25:03 10/23/1910/23/2024 CBC WBC 4.74 K/? ? ?L 3.98-1 0.04 Not Available [address], [address], 10/23/2024 12:15:54 10/23/1910/23/2024 CBC RBC 3.28 M/? ? ?L 3.93-5 .22 low Not Available [address], [address], 10/23/2024 12:15:54 10/23/1910/23/2024 CBC HGB 10.4 g/dL 11.2-1 5.7 low Not Available [address], [address], 10/23/2024 12:15:54 10/23/1910/23/2024 CBC HCT 30.5 % 34.1-4 4.9 low Not Available [address], [address], 10/23/2024 12:15:54 10/23/1910/23/2024 CBC MCV 93.0 fL 79.4-9 4.8 Not Available [address], [address], 10/23/2024 12:15:54 10/23/1910/23/2024 CBC MCH 31.7 pg 25.6-3 2.2 Not Available [address], [address], 10/23/2024 12:15:54 10/23/1910/23/2024 CBC MCHC 34.1 g/dL 32.2-3 5.5 Not Available [address], [address], 10/23/2024 12:15:54 10/23/19 25 10/23/2024 CBC plt 212 K/? ? ?L 182-36 9 Not Available [address], [address], 10/23/2024 12:15:54 10/23/19 25 10/23/2024 CBC MPV 10.5 fL 9.4-12 .3 Not Available [address], [address], 10/23/2024 12:15:54 10/23/1910/23/2024 CBC neut% 43.2 % 34.0-7 1.1 Not Available [address], [address], 10/23/2024 12:15:54 10/23/1910/23/2024 CBC neut# 2.05 1.56-6 .13 Not Available [address], [address], 10/23/2024 12:15:54 10/23/1910/23/2024 CBC lymph % 40.7 % 19.3-5 1.7 Not Available [address], [address], 10/23/2024 12:15:54 10/23/1910/23/2024 CBC lymph # 1.93 K/? ? ?L 1.18-3 .74 Not Available [address], [address], 10/23/2024 12:15:54 10/23/19 25 10/23/2024 CBC mono% 10.8 % 4.7-12 .5 Not Available [address], [address], 10/23/2024 12:15:54 10/23/19 25 10/23/2024 CBC mono# 0.51 0.24-0 .56 Not Available [address], [address], 10/23/2024 12:15:54 10/23/19 25 10/23/2024 CBC eo% 3.8 % 0.7-5. 8 Not Available [address], [address], 10/23/2024 12:15:54 10/23/19 25 10/23/2024 CBC eo# 0.18 0.04-0 .36 Not Available [address], [address], 10/23/2024 12:15:54 10/23/19 25 10/23/2024 CBC baso% 1.3 % 0.1-1. 2 high Not Available [address], [address], 10/23/2024 12:15:54 10/23/19 25 10/23/2024 CBC baso# 0.06 0.00-0 .08 Not Available [address], [address], 10/23/2024 12:15:54 10/23/19 25 10/23/2024 CBC RDW-CV 12.8 % 11.7-1 4.4 Not Available [address], [address], 10/23/2024 12:15:54 10/23/19 25 10/23/2024 CBC Ig% 0.200 % 0.000- 1.500 Ig % >0.5 Indic ates possi ble Left Shift Not Available [address], [address], 10/23/2024 12:15:54 10/23/19 25 10/23/2024 CBC Ig# 0.010 0.000- 0.093 Not Available [address], [address], 10/23/2024 12:15:54 10/23/19 25 10/23/2024 CBC NRBC% 0.0 % 0.0-0. 2 Not Available [address], [address], 10/23/2024 12:15:54 10/23/19 25 10/23/2024 CBC NRBC# 0.000 0.000- 0.012 Not Available [address], [address], 10/23/2024 12:15:54 10/23/1910/23/2024 FREE T4 free T4 0.99 NG/dL 0.75-1 .54 Not Available [address], [address], 10/23/2024 16:07:28 10/23/19 25 10/23/2024 TSH TSH 4.91 uIU/m L 0.50-6 .00 The Ameri can Colle ge of Endoc rinol ogy and Ameri can Thyro id Assoc iatio n recom mend goal TSH value s betwe en 0.4-4 .0 mIU/m L. Not Available [address], [address], 10/23/2024 16:33:57 10/23/19 25 10/24/2024 BASIC METAB OLIC PANEL glucose 90 mg/dL 70-100 Not Available [address], [address], 10/24/2024 15:13:12 10/23/19 25 10/24/2024 BASIC METAB OLIC PANEL BUN 9 mg/dL 7-18 Not Available [address], [address], 10/24/2024 15:13:12 10/23/19 25 10/24/2024 BASIC METAB OLIC PANEL creatinine 0.7 mg/dL 0.8-1. 3 low Not Available [address], [address], 10/24/2024 15:13:12 10/23/19 25 10/24/2024 BASIC METAB OLIC PANEL B/C 12.9 ratio Not Available [address], [address], 10/24/2024 15:13:12 10/23/19 25 10/24/2024 BASIC METAB OLIC PANEL GFR >=60ML /MIN [...] be used in pregn shannon. Not Available [address], [address], 10/24/2024 15:13:12 10/23/19 25 10/24/2024 BASIC METAB OLIC PANEL sodium 136 mmol/ L 136-14 5 Not Available [address], [address], 10/24/2024 15:13:12 10/23/19 25 10/24/2024 BASIC METAB OLIC PANEL potassium 3.4 mmol/ L 3.5-5. 1 low Not Available [address], [address], 10/24/2024 15:13:12 10/23/19 25 10/24/2024 BASIC METAB OLIC PANEL chloride 98 mmol/ L 96-107 Not Available [address], [address], 10/24/2024 15:13:12 10/23/1910/24/2024 BASIC METAB OLIC PANEL anion gap 12.6 5.0-15 .0 Not Available [address], [address], 10/24/2024 15:13:12 10/23/19 25 10/24/2024 BASIC METAB OLIC PANEL CO2 25 mmol/ L 21-32 Not Available [address], [address], 10/24/2024 15:13:12 10/23/19 25 10/24/2024 BASIC METAB OLIC PANEL calcium 9.4 mg/dL 8.5-10 .3 Not Available [address], [address], 10/24/2024 15:13:12 10/30/19 25 10/31/2024 BASIC METAB OLIC PANEL glucose 75 mg/dL 70-100 Not Available [address], [address], 10/31/2024 11:35:21 10/30/19 25 10/31/2024 BASIC METAB OLIC PANEL BUN 21 mg/dL 7-18 high Not Available [address], [address], 10/31/2024 11:35:21 10/30/19 25 10/31/2024 BASIC METAB OLIC PANEL creatinine 0.8 mg/dL 0.8-1. 3 Not Available [address], [address], 10/31/2024 11:35:21 10/30/19 25 10/31/2024 BASIC METAB OLIC PANEL B/C 26.3 ratio Not Available [address], [address], 10/31/2024 11:35:21 10/30/19 25 10/31/2024 BASIC METAB OLIC PANEL GFR >=60ML /MIN [...] Colla borat ion (CKD- EPI) Equat ion (Inke r et. al 2020) as recom guilherme d by the Natio nal [facility] ation . eGFR is based on age, serum creat inine , and sex. CKD-E PI does not calcu late eGFR by race, does not apply to child braydon (age <18 years ), and shoul d not be used in pregn shannon. Not Available [address], [address], 10/31/2024 11:35:21 10/30/19 25 10/31/2024 BASIC METAB OLIC PANEL sodium 139 mmol/ L 136-14 5 Not Available [address], [address], 10/31/2024 11:35:21 10/30/19 25 10/31/2024 BASIC METAB OLIC PANEL potassium 4.7 mmol/ L 3.5-5. 1 Not Available [address], [address], 10/31/2024 11:35:21 10/30/19 25 10/31/2024 BASIC METAB OLIC PANEL chloride 104 mmol/ L 96-107 Not Available [address], [address], 10/31/2024 11:35:21 10/30/19 25 10/31/2024 BASIC METAB OLIC PANEL anion gap 9.9 5.0-15 .0 Not Available [address], [address], 10/31/2024 11:35:21 10/30/19 25 10/31/2024 BASIC METAB OLIC PANEL CO2 25 mmol/ L 21-32 Not Available [address], [address], 10/31/2024 11:35:21 10/30/19 25 10/31/2024 BASIC METAB OLIC PANEL calcium 9.1 mg/dL 8.5-10 .3 Not Available [address], [address], 10/31/2024 11:35:21 07/31/20 24 07/31/2024 XR, chest CLINIC AL [...] e. Readin g Physic kaylie: Cristian Mao [facility]) [address], [place], [address], 07/31/2024 20:23:19 10/23/19 25 10/23/2024 elect rocar diogr am No observ ation record ed. [address], [address], 10/23/2024 10:22:39 10/23/19 elect rocar diogr am No observ ation record ed. [email or web address] Not Available 2024 11:01:44 10/23/19 25 10/23/2024 elect rocar diogr am No observ ation record ed. BARCODE Not Available 2024 12:09:09 10/23/19 25 10/23/2024 elect rocar diogr am No observ ation record ed. BARCODE Not Available 2024 12:11:01 12/14/19 25 12/18/2024 elect david adkinsgr am No observ ation record ed. [address], [place], [address], 12/18/2024 10:31:51 12/14/19 elect rocar diogr am No observ ation record ed. CAMRON Not Available 2024 12:25:31 12/14/19 25 12/13/2024 XR, ribs, unila teral CLINIC AL HISTOR Y: Left rib pain. TECHNI QUE: At least 3 views of the left ribs are obtain ed. COMPAR MOISÉS: None. FINDIN GS: No fractu re or soft tissue abnorm ality of the ribs is seen. The lungs and pleura l spaces are clear. IMPRES CARLOS: No acute or focal bony abnorm ality. Shaun alvarado Physic kaylie: Giancarlo Son ms [facility]) [address], [place], [address], 12/17/2024 12:25:31 12/18/19 25 12/17/2024 US, splee n CLINIC AL HISTOR Y: Left upper quadra nt pain.. TECHNI QUE: 2D sonogr aphy of the left upper quadra nt perfor med. COMPAR MOISÉS: None FINDIN GS: The left kidney measur es 8 x 4.3 cm. There are no solid masses stones or hydron ephros is. The spleen is not visual ized. No abnorm alitie s are seen in the left upper quadra nt. IMPRES CARLOS: Unrema rkable left upper quadra nt ultras ound. Readin christiano Physic kaylie: Cristian Mao [facility] ([facility]) [address] [place], [address], 12/17/2024 17:00:51 Result Notes None recorded. Problems Name Problem SNOMED Code Status Onset Date Resolution Date Notes Provider Name and Address Organization Details Recorded Time Benign essential hypertensio n 0897241 Active Mina Orantes MD [address] [place] [address], [place], [address], [facility] 6 13:57:39 Atheroscler osis of aorta 27021041 Active Laurie Noe vallejo MD [address] [place], [place] [address] [place], [address], [facility] 3 15:44:25 Anemia 613836880 Completed 201607/26/2019 MARQUES Espinoza [address] [place], [place] [address] [place], [address], [facility] 9 13:49:05 History of anemia 825849938 Completed 201807/20/2020 Laruie vallejo MD [address] [place], [place] [address] [place], [address], [facility] 0 15:50:41 Chronic anemia 201091079 Active 2020 Laurie vallejo MD [address] [place], [place] [address] [place], [address], [facility] 1 12:42:08 Hypothyroid ism 50259561 Active 2021 Laurie vallejo MD [address] [place], [place] [address] [place], [address], [facility] 2 13:12:02 Urinary incontinenc e 326196729 Active 2023 Laurie vallejo MD [address] [place], [place] [address] [place], [address], [facility] 4 15:11:02 Atrial fibrillatio n 27258230 Active 2024 OG MAXWELL DNP [address] [place], [place] [address] [place], [address], [facility] 5 13:59:34 Problem Notes None recorded. Procedures Surgical History Date Name Laterality Status Provider Name and Address Organization Details Recorded Time 02/09/20 28467: Manual Therapy completed Nakul Sin, PT, DPT, [address], [address], [facility] 02/08/2019 12:21:51 02/09/20 29098: Ultrasound (1:1) completed Nakul Sin, PT, DPT, CSC[facility] [address] [place] [address], [address], [facility] 02/08/2019 11:52:37 02/09/20 19 Neuromuscular re-education completed Nakul Sin, PT, DPT, CSCS [address] [place] [address], [address], [facility] 02/08/2019 12:21:52 02/02/20 19 [address]308: Manual Therapy completed Nakul Sin, PT, DPT, CSCS [address] [place] [address], [address], [facility] 02/01/2019 12:27:52 02/02/20 19 [address]79: Ultrasound (1:1) completed Nakul Sin, PT, DPT, [address], [address], [facility] 02/01/2019 12:28:03 01/26/20 19 Physical Activity Counselling completed Nakul Sin PT, DPT, [address], [address], [facility] 01/25/2019 11:51:30 01/26/20 19 81192: PT Vannessaal, Moderate Complexity completed Nakul Sin PT, DPT, CSC[facility] [address] [place] [address], [address], [facility] 01/25/2019 12:30:52 01/08/20 19 US Guided Knee Joint Injection completed Mina Orantes MD [address] [place] [address], [address], [facility] 01/07/2019 15:42:17 01/05/20 19 44039: Therapeutic Exercise completed Nakul Sin PT, DPT, [address], [address], [facility] 01/04/2019 12:27:04 01/05/20 19 33935: Manual Therapy completed Nakul Sin, PT, DPT, [address], [address], [facility] 01/04/2019 12:26:55 01/05/20 81729: Ultrasound (1:1) completed Nakul Sin, PT, DPT, [facility] [address] [place], [address], [facility] 01/04/2019 12:26:51 12/29/19 59454: Manual Therapy completed Nakul Sin, PT, DPT, [facility] [address] [place], [address], [facility] 12/28/2018 12:30:25 12/29/19 25484: Therapeutic Activities - Direct 1:1 completed Nakul Sin, PT, DPT, [facility] [address] [place], [address], [facility] 12/28/2018 12:30:31 12/21/19 98302: Manual Therapy completed Nakul Sin, PT, DPT, CSC[facility] [address] [place] [address], [address], [facility] 12/20/2018 12:46:05 12/21/19 23116: Therapeutic Activities - Direct 1:1 completed Nakul Sin, PT, DPT, CSCS [address] [place], [id number], [facility] 12/20/2018 12:46:31 12/15/19 [id number]: Manual Therapy completed Nakul Sin, PT, DPT, CSCS [address] [place] [address], [id number], [facility] 12/14/2018 11:49:54 12/15/19 Neuromuscular re-education completed Nakul Sin, PT, DPT, CSC[facility] [address] [place], [address], [facility] 12/14/2018 13:46:02 12/08/19 [id number]: Therapeutic Exercise completed Nakul Sin, PT, DPT, CSC[facility] [address] [place], [address], [facility] 12/07/2018 12:38:26 12/08/19 19 [id number]: Manual Therapy completed Nakul Sin, PT, DPT, CSC[facility] [address] [place] [address], [address], [facility] 12/07/2018 12:38:09 12/01/19 19 [id number]: Manual Therapy completed Nakul Sin, PT, DPT, CSC[facility] [address] [place] [address], [address], [facility] 11/30/2018 12:37:17 12/01/19 19 [id number]: Ultrasound (1:1) completed Nakul Sin, PT, DPT, CSC[facility] [address] [place] [address], [address], [facility] 11/30/2018 11:50:13 12/01/19 19 [id number]: Therapeutic Activities - Direct 1:1 completed Nakul Sin PT, DPT, [address], [address], [facility] 11/30/2018 13:14:39 11/23/19 19 10852: Manual Therapy completed Nakul Sin, PT, DPT, CSC[facility] [address] [place] [address], [address], [facility] 11/22/2018 15:22:45 11/23/19 19 [id number]: Ultrasound (1:1) completed Nakul Sin PT, DPT, [address], [address], [facility] 11/22/2018 15:18:21 11/17/19 19 [id number]: Manual Therapy completed Nakul Sin PT, DPT, [facility] [address] [place] [address], [address], [facility] 11/16/2018 11:08:12 11/17/19 19 35544: Ultrasound (1:1) completed Nakul Sin PT, DPT, [facility] [address] [place] [address], [address], [facility] 11/16/2018 11:08:03 11/17/19 19 Neuromuscular re-education completed Nakul Sin, PT, DPT, CSC[facility] [address] [place] [address], [address], [facility] 11/16/2018 11:08:15 11/05/19 19 Physical Activity Counselling completed Nakul Sin, PT, DPT, [facility] [address] [place] [address], [address], [facility] 11/05/2018 11:19:01 11/05/19 19 76357: PT Eval, Moderate Complexity completed Nakul Sin, PT, DPT, [facility] [address] [place], [place] [address], [phone], [facility] 11/05/2018 11:45:14 07/25/20 18 POC Urinalysis Testing completed Duane Aguayo CMA [facility] 07/25/2018 16:27:44 Imaging Results Imaging Date Name Status LastModified by Organization Details LastModified Time 07/31/2024 XR, chest completed [facility] (Imaging) [address] [place], [address], 07/31/2024 20:23:19 10/23/2024 electrocardiogram completed [address], [address], 10/23/2024 10:22:39 10/23/2024 electrocardiogram completed [email or web address] Informa tion not available 10/23/2024 11:01:44 10/23/2024 electrocardiogram completed BARCODE Informa tion not available 10/23/2024 12:09:09 10/23/2024 electrocardiogram completed BARCODE Informa tion not available 10/23/2024 12:11:01 12/18/2024 electrocardiogram completed [address], [address], 12/18/2024 10:31:51 12/13/2024 electrocardiogram completed [facility] Informa tion not available 12/17/2024 12:25:31 12/13/2024 XR, ribs, unilateral completed [facility] (Imaging) [address] [place], [address], 12/17/2024 12:25:31 12/17/2024 US, spleen active [facility] (Imaging) [address], [place], [address], 12/17/2024 17:00:51 Procedure Notes None recorded. Medical Equipment None Reported. Allergies Allergen ID Allergen Name Allergen Category Reaction Reaction Severity Criticality Documentation Date Start Date Code Code System Note Provider Name and Address Organization Details Recorded Time 225435 lisinopri l medicatio n Not available Not available Not available 04/15/2015 86446 RxNorm Cough ing [place] jose alfredo [place] - [facility] 8 15:08:16 Medications Name Sig Start Date Stop Date Status Note LastModified by Organization Details LastModified Time losartan 50 mg tablet TAKE 2 TABLETS BY MOUTH ONCE DAILY active Not Available Not Available No t Available celecoxib 200 mg capsule 1 capsule twice a day as needed by mouth with food for post operativ e pain 12/13 completed Not Available Not Available Not Available amoxicill in 500 mg capsule TAKE 1 CAPSULE BY MOUTH EVERY 8 HOURS FOR 10 DAYS 12/13 completed Not Available Not Available Not Available prednison e 10 mg tablet 1 tablet daily with food or as directed . 05/10 completed Not Available Not Available Not Available cetirizin e 10 mg tablet Take 1 tablet every day by oral route for 30 days. 12/13 completed Not Available Not Available Not Available azithromy maritza 250 mg tablet TAKE 2 TABLETS (500 MG) BY ORAL ROUTE ONCE DAILY FOR 1 DAY THEN 1 TABLET (250 MG) BY ORAL ROUTE ONCE DAILY FOR 4 DAYS 08/26 completed Not Available Not Available Not Available cefpodoxi me 100 mg tablet TAKE 2 TABLETS BY MOUTH TWICE DAILY FOR 7 DAYS active Not Available Not Available No t Available Lidocaine Viscous 2 % mucosal solution [...] t Available amlodipin e 2.5 mg tablet TAKE 1 TABLET BY MOUTH ONCE DAILY active Not Available Not Available No t Available potassium chloride ER 10 mEq tablet,ex tended release TAKE 1 TABLET BY MOUTH TWICE DAILY WITH MEALS FOR 5 DAYS 10/31 completed Not Available Not Available Not Available melatonin 3 mg tablet Take 1 [...] 1 tablet every day by oral route. 12/13 completed Not Available Not Available Not Available ketorolac 0.5 % eye drops INSTILL 1 [...] completed Not Available Not Available Not Available lidocaine 5 % topical patch APPLY 1 PATCH TOPICALL Y ONCE DAILY (MAY WEAR UP TO 12 HOURS) active Not Available Not Available No t Available losartan 25 mg tablet Take 1 tablet every day by oral route for 90 days. 11/09 completed Not Available Not Available Not Available ibuprofen 400 mg tablet 1 tab 2-3 times a day as needed for pain. take with food 07/20 completed PRN Not Available Not Available Not Available hydrochlo rothiazid e 12.5 mg capsule Take 1 capsule by mouth once daily 10/30 completed Not Available Not Available Not Available omeprazol e 20 mg capsule,d elayed release take 1 cap po qam on an empty stomach with water 30 mins before eating. Take this med 2 hours before other medicati ons 2024 active Not Available Not Available Not [...] e 50 mcg/actua tion nasal spray,l[place] pension [place] 1 spray every day by intranas al route. active Not Available Not Available No t Available naproxen 500 mg tablet TAKE 1 TABLET BY MOUTH TWICE DAILY WITH FOOD FOR PAIN RELIEF active Not Available Not Available No t Available Pneumovax -23 25 mcg/0.5 mL injection syringe [facility]ARMACI ST ADMINIST ERED IMMUNIZA TION ADMINIST ERED AT TIME OF DISPENSI NG 12/21 completed Not Available Not Available Not Available azithromy maritza 500 mg tablet active Not Available Not Available No t Available nitrofura ntoin monohydra te/macroc rystals 100 mg capsule Take 1 capsule every 12 hours by oral route for 7 days. 2024 active Not Available Not Available Not Avai lable chlorhexi dine gluconate 0.12 % mouthwash RINSE [...] AREA(S) BY TOPICAL ROUTE 4 TIMES DAILY 12/13 completed Not Available Not Available Not Available Multaq 400 mg tablet TAKE 1 TABLET BY MOUTH TWICE A DAY WITH FOOD START 11/12/202412/13 completed adverse reaction s Not Available Not Available Not Available Eliquis 5 mg tablet TAKE 1 TABLET BY MOUTH TWICE DAILY active Not Available Not Available No [...] Updated DateTime 4 144.78 cm 29.2 kg/m2 02180.9 7 g 88 /min 99 % 99 % 98.2 [degF] 105 mm[Hg] 62 mm[Hg] Rika Kasper [facility] 4 14:47:14 Date Recorded Body height Body mass index (BMI) Body weight Heart rate Oxygen saturation Oxygen saturation in Arterial blood by Pulse oximetry Systolic blood pressure Diastolic blood pressure Provider Name and Address Organization Details Last Updated DateTime 4 144.78 cm 28.3 kg/m2 15434.6 g 79 /min 99 % 99 % 100 mm[Hg] 60 mm[Hg] DOMENIC [facility] 4 08:42:56 Date Recorded Body height Body mass index (BMI) Body weight Heart rate Oxygen saturation Oxygen saturation in Arterial blood by Pulse oximetry Systolic blood pressure Diastolic blood pressure Provider Name and Address Organization Details Last Updated DateTime 5 144.78 cm 28.6 kg/m2 79547.1 9 g 77 /min 100 % 100 % 116 mm[Hg] 64 mm[Hg] Janice [facility] 5 09:46:00 Date Recorded Body height Body mass index (BMI) Body weight Heart rate Oxygen saturation Oxygen saturation in Arterial blood by Pulse oximetry Systolic blood pressure Diastolic blood pressure Provider Name and Address Organization Details Last Updated DateTime 5 144.78 cm 29.2 kg/m2 18767.9 7 g 68 /min 98 % 98 % 118 mm[Hg] 68 mm[Hg] DOMENIC Martines [facility] 5 13:45:03 Date Recorded Body height Body mass index (BMI) Body weight Heart rate Oxygen saturation Oxygen saturation in Arterial blood by Pulse oximetry Systolic blood pressure Diastolic blood pressure Provider Name and Address Organization Details Last Updated DateTime 5 144.78 cm 29.4 kg/m2 80102.5 6 g 48 /min 99 % 99 % 122 mm[Hg] 54 mm[Hg] Carolina Delaney MA [facility] 5 10:27:33 Social History Question Answer Notes LastModified by Organizat ion Details LastModified Time Tobacco Smoking Status Never Smoker 10/23/24mm 12/13/24 AW Carolina Delaney MA [facility] 12/13/2024 10:23:53 What Is Your Level Of Alcohol Consumption? None [email or web address] Information not available 02/01/2022 Do You Wear A Helmet When Biking? Yes Information not available 11/16/2015 What Is Your Level Of Caffeine Consumption? Occasional Tea [email or web address] Information not available 02/01/2022 How Much Tobacco Do You Chew? None Information not available 11/16/2015 Are You Currently Employed? No [email or web address] Information not available 11/23/2015 What Type Of Diet Are You Following? REGULAR [email or web address] Information not available 10/01/2014 Do You Or Have You Ever Used E-cigarettes Or Vape? Never Used Electronic Cigarettes [email or web address] Information not available 02/01/2022 Education Less Than 8th Grade No Formal Schooling Information not available 09/16/2022 What Is The Highest Grade Or Level Of School You Have Completed Or The Highest Degree You Have Received? DN00073-6 [email or web address] Information not available 02/01/2022 What Is Your Occupation? Unemployed [employer] A [employer] In [facility] [email or web address] Information not available 01/18/2017 Have There Been Any Changes To Your Family Or Social Situation? No [email or web address] Information not available 02/01/2022 How Many Days In The Past Year Have You Had A Heavy Drinking Consumption (4+ Female, 5+ Male)? 0 [email or web address] Information not available 10/01/2014 Are There Any Guns Present In Your Home? No Information not available 11/16/2015 Do You Use Insect Repellent Routinely? Yes [email or web address] Information not available 02/01/2022 Live Alone Or With Others? With Others [email or web address] Daughter's Family In Daughter's House Information not available 03/09/2023 Patient Has Health Care Proxy Signed And In Chart Yes Daughter- Rosette Cordero [email or web address] Information not available 03/10/2023 CCM Consent Discussion 03/12/2024 [email or web address] Information not available 03/13/2024 Marital Status Came Here Late 2012 From [facility] Information not available 03/09/2023 Mosquito Repellent Used Routinely No Information not available 09/16/2022 What Was The Date Of Your Most Recent Tobacco Screening? 12/13/2024 [email or web address] Information not available 12/13/2024 How Many Children Do You Have? 6 Daughters [email or web address] Information not available 10/01/2014 What Is Your Relationship Status? Male Spouse Information not available 02/01/2022 Do You Use Your Seat Belt Or Car Seat Routinely? Yes [email or web address] Information not available 02/01/2022 Seat Belts Used Routinely Yes Information not available 09/16/2022 Smoke Alarm In Home Yes Information not available 09/16/2022 Do You Have Smoke And Carbon Monoxide Detectors In Your Home? Yes [email or web address] Information not available 02/01/2022 Are You Passively Exposed To Smoke? No [email or web address] Information not available 02/01/2022 Do You Or Have You Ever Used Smokeless Tobacco? Never Used Smokeless Tobacco [email or web address] Information not available 02/01/2022 How Much Tobacco Do You Smoke? No [email or web address] Information not available 02/01/2022 General Stress Level Low Information not available 09/16/2022 Do You Use Sunscreen Routinely? Yes Information not available 11/16/2015 How Many Years Have You Smoked Tobacco? 0 [email or web address] Information not available 08/11/2020 Sex: Female Functional Status Question Answer Note LastModified by Organizat ion Details LastModified Time What is your exercise level? Occasional walking daily x 5-10 minutes Information not available 02/01/2022 Mental Status None recorded. Family History Nothing Reported Notes:brother -healthy, marcos nts- when she was young Medical History No medical history recorded. Gynecological HistoryNo gynecological history recorded. Obstetrics History GPAL:G 0 P 0 0 0 0 Immunizations Vaccine Type Date Status Note Provider Nam e and Address Organization Details Recorded Time Influenza, split virus, quadrivalent, PF 5 completed Not Available [facility] 09/28/2019 02:19:21 Td (adult), 5 Lf tetanus toxoid, preservative free, adsorbed 5 completed Not Available [facility] 09/28/2019 02:19:45 zoster live 6 completed Not Available [facility] 09/28/2019 02:20:17 Influenza, split virus, quadrivalent, PF 6 completed Not Available [facility] 09/28/2019 02:20:16 Influenza, split virus, quadrivalent, PF 7 completed Not Available [facility] 09/28/2019 02:22:08 Influenza, split virus, quadrivalent, PF 9 completed Not Available [facility] 09/28/2019 02:31:12 Influenza, high-dose, quadrivalent, PF 0 completed Roxy Cisneros MA null, [facility] 07/11/2020 12:32:10 Pneumococcal conjugate PCV 13 1 completed Duane Aguayo CMA [facility], [facility] 01/29/2021 11:20:16 COVID-19, mRNA, LNP-S, PF, 100 mcg/0.5mL dose or 50 mcg/0.25mL dose 1 completed Marian veliz, [facility] 09/16/2022 14:04:06 Influenza, high-dose, quadrivalent, PF 2 completed RAFAT WILSON PA-C [address] [place] [address], [phone], [facility] 07/18/2022 15:12:33 COVID-19, mRNA, LNP-S, PF, 100 mcg/0.5mL dose or 50 mcg/0.25mL dose 1 completed Marian veliz, [facility] 09/16/2022 14:04:07 COVID-19, mRNA, LNP-S, PF, 100 mcg/0.5mL dose or 50 mcg/0.25mL dose 1 completed Marian Button null, [facility] 09/16/2022 14:04:06 Influenza, split virus, quadrivalent, preservative 1 [facility] 14:04:06 pneumococcal polysaccharide PPV23 0 completed Marian Button null, [facility] 09/16/2022 14:04:06 COVID-19, mRNA, LNP-S, PF, 100 mcg/0.5mL dose or 50 mcg/0.25mL dose 2 completed Marian Button null, [facility] 09/16/2022 14:04:06 Influenza, high-dose, quadrivalent, PF 3 completed Nilmari, [facility]04[facility] 15:47:53 RSV, recombinant, protein subunit RSVpreF, adjuvant reconstituted, 0.5 mL, PF 3 completed Nil[facility], [facility]04[facility] 15:48:23 COVID-19, mRNA, LNP-S, PF, 50 mcg/0.5 mL 3 completed Nilmari, RMA Toribio null, [facility] 06/27/2023 14:38:15 Influenza, high-dose, trivalent, PF 4 completed Nilmari, RMA Toribio null, [facility] 07/04/2024 07:58:35 zoster recombinant 4 completed Nilmari, RMA Toribio null, [facility] 07/04/2024 07:59:05 Past Encounters Encounter ID Performer Location Encounter Start Date Encounter Closed Date Diagnosis/Indication Diagnosis SNOMED-CT Code Diagnosis ICD10 Code Diagnosis Note [id number] Sylvia SHIN, [facility] [address] [place] [address] 10/01/2014 13:54:52 10/01/2014 14:59:36 Adult health examination 778706684 see Risk Assessment and Lifestyle Change Counseling section above colo and mammo up to date pap unclear- daughter will check to see if she had a pap -- if not, she will call for a pap Influenza vaccine needed 1270616636 106 Shoulder pain 41172657 s he prefers not to see PT. she has handouts on PT exercises to do at home. she has some ROM limitation . Benign ess ential hypertension 8475789 lipids and labs up to date 04/24. Continue current medication . Gastritis 8067791 has br eath test follow up pending after recent treatment for h. pylori. dietary precaution s reviewed. will restart a PPI for further treatment. only had PPI treatment for 10 days [id number] [facility], OFFICE [address] [place] [address] 11/26/2014 10:24:47 11/26/2014 11:09:41 Gynecologic examination 24752954 possibly her first pap today. Hip pain 58677448 she wi ll consider PT after x-ray. she will stick with tylenol for now but might consider nsaids for improved relief. Screening for malignant neoplasm of cervix 680472155 [id number] [facility], OFFICE [address] [place] [address] 01/05/2015 11:41:10 01/05/2015 12:42:08 Pre-surgery evaluation 080338367 Pt is an appropriat e candidate for proposed procedure. EKG and labs will be faxed. Bradycardia 95842959 a l ook back through her previous records reveals this is a stable finding Systolic e jection sound 31416061 no previous documentat ion. will explore further with echo. likely associated with longstandi ng HTN. not a harsh murmur or with red flag characteri stics. Benign ess ential hypertension 2065622 well controlled on current meds. she is on herbals but cannot tell me what--and was advised to DC those at least 5 days prior to surgery. [id number] [facility], OFFICE [address] [place] [address] 04/03/2015 15:05:29 04/06/2015 09:13:40 Benign essential hypertension 8456323 Blood pressure at goal Today is an outlier. she stopped her herbal which she questions might contribute . ? pain as contributo r. will follow needs lipid panel done. Administra tion of diphtheria and tetanus vaccine 85184016 Hip pain 88205521 she wi ll consider PT after x-ray. she will stick with tylenol for now but might consider nsaids for improved relief. Atheroscle rosis of aorta 42825464 needs lipid panel done. order in [id number] SALVADOR [employer], [facility]ICE [address] [place] [address] 11/16/2015 10:23:44 11/16/2015 11:28:34 Adult health examination 857698644 Z00.00 see Risk Assessment and Lifestyle Change Counseling section above Benign ess ential hypertension 3354079 I10 Blood pressure at goal Active or passive immunization 348590151 Z23 Varicella vaccination 68 866807 Z23 Screening for disorder 673586434 Z11.59 Screening mammography 24 744615 Z12.31 Hip pain 32784505 M25.55 9 x-ray left hip. has imaged right. both hips are painful. affecting her ability to mabulate. using nsaids and tylenol for pain. will refer to physical medicine and PT Gastritis 5928860 K29.70 she is not interested in medicine. she has had treatment for h pylori. [id number] [facility], [facility] [address] [place] [address] 11/23/2015 13:24:29 11/24/2015 13:19:41 Backache 731620916 M54.9 Shreya is a 60-year-ol d female [...] up in 8 weeks for reevaluati on. [id number] Karen Zarate NP , [facility]ICE [address] [place] [address] 04/08/2016 09:25:32 04/08/2016 09:45:10 Contact dermatitis caused by urushiol from [facility] mynor 163352733 L25.5 PI rash on face, armsmild outbreak but given face involvemen t will tx with prednsione 40 mg 12 day taperGiven triamcinol one cream toodiscuss ed how transmitti ng and expected course of rash Benign ess ential hypertension 0034647 I10 Bp just a bit elevated todayhas been taking some (vidal) ARB from [facility].will switch to losartan 25 mgwill have neices (nurses) check her bp to make sure stay <140/90. [id number] Nate Cabrera PA-C , [facility] OFFICE [address] [place] [address] 01/18/2017 13:54:11 01/18/2017 14:43:50 Benign essential hypertension 3767914 I10 Blood pressure at goal Continue meds Adult heal th examination 486014135 Z00.00 Exam done Atheroscle rosis of aorta 25528297 I70.0 noted incidental ly on echo Screening mammography 24 328771 Z12.31 Anemia 130040650 D64.9 check labs [id number] Nate Cabrera PA-C , [facility]ICE [address] [place] [address] 07/24/2017 10:28:06 07/24/2017 11:15:13 Benign essential hypertension 3831785 I10 Blood pressure at goal Blood pressure NOT at goal. Active or passive immunization 105434343 Z23 Headache 41673399 R51 Exposure t o Hepatitis B virus 886041392 Z20.5 Family members w/ hep B. Check vaccinatio n status and core antigen. [id number] Riya Hastings NP , [facility]ICE [address] [place] [address] 10/04/2017 16:54:28 10/04/2017 17:43:37 Benign essential hypertension 7135297 I10 Anemia 340723800 D64.9 Sleep disorder 93619340 G47.9 [id number] Nate Cabrera PA-C , [facility] OFFICE [address] [place] [address] 10/19/2017 15:43:34 10/19/2017 16:17:28 Benign essential hypertension 1051256 I10 Still elevated on her ARB. Doesn't remember the 50mg she was on in the past. Will increase dose 25 to 50 and fu 3 wks, [id number] Nate Cabrera PA-C , [facility] OFFICE [address] [place] [address] 11/09/2017 14:55:57 11/09/2017 15:32:06 Benign essential hypertension 1389090 I10 Still elevated on her losarten 50. Will increase again an fu next month. With rapid increase, will check US to r/o RANDY [id number] SALVADOR Love, [facility] OFFICE [address] [place] [address] 11/30/2017 15:58:51 11/30/2017 16:33:00 Benign essential hypertension 1551786 I10 Not at goal (150 systollic for her pmh) with mostly 150s-160s at home. Would need a dift med if we chose to tx more aggressive ly. Will continue home monitoring at [facility] 100. Fu 2 mos and bring BP cuff with them to calibrate. If needs another med, consider low dose chlorthala done [id number] SALVADOR Love, [facility] OFFICE [address] [place] [address] 01/22/2018 15:06:26 01/22/2018 16:14:20 Adult health examination 352409202 Z00.00 Exam done. Depression screening 171 922472 Z13.89 depression screening tool administer ed, entered into emr, scored and discussed, time greater than 7.5 minutes Benign ess ential hypertension 0287215 I10 Blood pressure at goal. Continue meds. Seems labile at home Screening mammography 24 435108 Z12.31 Atheroscle rosis of aorta 71421784 I70.0 noted incidental ly on echo Anemia 504805107 D64.9 stable [id number] Damon Guerra MD , [facility] OFFICE [address] [place] [address] 07/25/2018 16:01:29 07/25/2018 16:34:07 Benign essential hypertension 5562536 I10 Blood pressure NOT at goal. Based on JNC 8 guidelines , BP should be below 140/90 for age 65 and younger. BP is elevated today. Added low dose HCTZ. Advised Pt to return in 1 week with PCP for BP check. All questions were addressed. Pt understand s and agrees with treatment plan Increased frequency of urination 014461538 R35.0 Informed Pt that there is no urinary tract infection. Urinary frequency is most likely incontinen kendra (urgency). Educated Pt on kegel exercises. Pt repeated back to Provider on how to do kegel exercise. Will follow-up with Pt in 1 week. All questions were addressed. Pt understand s and agrees with treatment plan [id number] Damon Guerra MD , [facility] OFFICE [address] [place] [address] 08/01/2018 14:55:12 08/01/2018 15:25:03 Benign essential hypertension 0660181 I10 Blood pressure at goalBased on JNC 8 guidelines , BP should be below 140/90 for age 65 and younger. BP is controlled today. Continue with HCTZ. Will follow-up with Pt in 3 months. All questions were addressed. Pt understand s and agrees with treatment plan [id number] Damon Guerra MD , [facility], OFFICE [address] [place] [address] 10/25/2018 13:40:05 10/25/2018 17:40:51 Benign essential hypertension 9983565 I10 Blood pressure at goalBased on JNC [...] agrees with treatment plan Shoulder joint pain 3438 60300 M25.512 Left shoulder pain most likely due [...] understand s and agrees with treatment plan [id number] Nakul Sin, PT, DPT, CSCS Physical Therapy, [facility] [address] [place] [address] 11/05/2018 11:17:49 11/05/2018 11:54:39 Shoulder pain 15080246 M25.512 M25.511 Pt is a 63 y.o [...] edema massage, manual therapy, ROM, patient education. [id number] Nakul Sin, PT, DPT, CSCS Physical Therapy, [address] [address] 11/16/2018 10:17:46 11/16/2018 11:29:03 Shoulder pain 92571327 M25.512 M25.511 Pt tolerated initiation of manual [...] as she is not able to speak Kyrgyz to correctly assume posture with exercises but able to complete pain-free. Continue PT per POC [id number] Nakul Sin, PT, DPT, [facility] Physical Therapy, [address] [address] 11/22/2018 15:17:38 11/22/2018 16:00:43 Shoulder pain 79150326 M25.512 M25.511 Pt continues to tolerate manual techniques well and with no increased c/o pain. Pt demonstrat es increased soft tissue density at upper trap but this resolved with manual techniques with GH mobility improving slowly. At end of visit, pt demonstrat es 90% of pain-free movement with mild shoulder hiking at end range.Cont inue PT per POC [id number] Nakul Sin, PT, DPT, C[facility] Physical Therapy, [address] [address] 11/30/2018 11:43:41 11/30/2018 13:40:32 Shoulder pain 34289216 M25.512 M25.511 Pt continues to tolerate combo of manual techniques and US well and pain-free that by end of visit, pt demonstrat ed full and equal BUE AROM only noting discomfort at end range. Pt with mild shoulder hiking, but minimal. Pt understood concepts discussed, though, seems skeptical in her capacity to make these changes.WI ll re-assess at next visit. [id number] Nakul Sin, PT, DPT, CSC[facility] Physical Therapy, [address] [address] 12/07/2018 11:41:29 12/07/2018 13:42:30 Shoulder pain 63370948 M25.512 M25.511 Discontinu ed US today to assess if with change. Otherwise, pt tolerated manual techniques well demonstrat ing improved passive mobility of GH joint and with full PROM. Actively, pt still with significan t shoulder hiking and limitation s with less 15 degrees. Pt with correct demonstrat ion of therex pain-freeC ontinue PT per POC [id number] Nakul Sin, PT, DPT, CSCS Physical Therapy, [address] [address] 12/14/2018 11:47:32 12/14/2018 14:13:04 Shoulder pain 26529152 M25.512 M25.511 Pt continues to have mild soft tissue restrictio ns at bilateral L>R upper trap, but, with significan t improvemen t of GH mobility. Passively pt with WNL of ROM, actively, able to achieve 120. Pt required cues for proper posture with RTC specific areas, but then able to complete on own pain-free. Continue PT per POC [id number] MARQUES Espinoza , [facility] OFF[address] [place] [address] 12/17/2018 14:45:07 12/17/2018 15:19:13 Chronic low back pain 300003369 M54.5 back pain most likely due to muscle strain since discomfort with lateral rotation to the right. Pt decline oral medication today and agreed to physical therapy A referral is sent. Advised Pt to take ibuprofen as needed, apply ice to area of discomfort . All questions were addressed. Pt understand s and agrees with treatment plan Pain in left knee 574680 4515 67373 M25.562 Informed Pt that right knee and left knee pain is most likely due to osteoarthr itis. Discussed options of voltaren gel, knee injection, and physical therapy. However, Pt reports she would like to get X-ray first before deciding. All questions were addressed. Pt understand s and agrees with treatment plan Pain in right knee 09115 29224 16242 M25.561 Informed Pt that right knee and left knee pain is most likely due to osteoarthr itis. Discussed options of voltaren gel, knee injection, and physical therapy. However, Pt reports she would like to get X-ray first before deciding. All questions were addressed. Pt understand s and agrees with treatment plan Shoulder pain 18463451 M 25.512 Discussed option of corticoste riod injection for pain since Pt reports no relief for physical therapy for her shoulder pain. Pt agreed. A referral is sent to sports medicine. All questions were addressed. Pt understand s and agrees with treatment plan Insomnia 441740380 G47.0 0 Discussed options of melatonin for the insomnia. Pt agreed. All questions were addressed. Pt understand s and agrees with treatment plan [id number] Nakul Sin, PT, DPT, CSCS Physical Therapy, [address] [address] 12/20/2018 12:15:55 12/20/2018 13:48:21 Shoulder pain 96031218 M25.512 M25.511 GH mobility nearing WNL and equal bilaterall y with PROM at 165 flexion, 145 abduction and full IR/ER. Actively, pt able to achieve the same with min discomfort at end range.Cont inue PT per POC, after appointmen t with sports medicine [id number] Mina Orantes MD Sports Medicine, [address] [address] 12/24/2018 14:25:31 12/24/2018 15:30:49 Shoulder pain 38207216 M25.512 Nettie is a 63-year-ol d female [...] me in 8 weeks for reevaluati on. [id number] Nakul Sin, PT, DPT, CSCS Physical Therapy, [address] [address] 12/28/2018 11:49:12 12/28/2018 12:32:57 Shoulder pain 70792618 M25.512 M25.511 At this point, pt with WFL of shoulder AROM bilaterall y and GH mobility WNL. Pt feels confident with ongoing management of HEP and will take better note of ongoing aggravatin g factors.Ot herwise, our plan will be to initiate treatment for R hip/knee pain. [id number] Nakul Sin, PT, DPT, CSCS Physical Therapy, [address] [address] 01/04/2019 11:16:43 01/04/2019 13:30:03 Shoulder pain 30080355 M25.512 M25.511 Pt with mild swelling at [...] to provider vacation. Pain in right knee 29866 35654 54610 M25.561 Pain in left knee 023019 9567 82683 M25.879 [id number] Mina Orantes MD Sports Medicine, [address] [address] 01/07/2019 14:32:16 01/08/2019 07:53:30 Knee pain 12112149 M25.561 Shreya is a 63-year-ol d female [...] with me as needed for further care. [id number] Nakul Sni, PT, DPT, CSCS Physical Therapy, [address] [address] 01/25/2019 11:50:07 01/25/2019 12:56:01 Pain in right knee [id number] 85087 M25.561 Pain in left knee 607710 0211 43966 M25.568 [id number] MARQUES Espinoza , [facility], OFFICE [address] [place] [address] 01/25/2019 15:13:24 01/25/2019 16:06:18 Adult health examination 572113949 Z00.00 see Risk Assessment and Lifestyle Change Counseling section above. Will follow-up with Pt PRN or in 1 year for annual wellness visit. All questions were addressed. Pt understand s and agrees with treatment plan Depression screening 171 202616 Z13.89 depression screening tool administer ed, entered into emr, scored and discussed, time greater than 7.5 minutes Screening for malignant neoplasm of cervix 419407636 Z12.4 Superficia l ecchymosis 422544046 R58 superficia l ecchymosis noted on the right side of the abdomen. Pt reports she had this rash since she was 13yo. A referral is sent to dermatolog y for further evaluation and treatment. Pt denies any pruritus with the rash. Atheroscle rosis of aorta 25358331 I70.0 noted incidental ly on echo. BP is well controlled and Pt denies any abdominal pain Anemia 814824288 D64.9 Based on 11/08/18 CBC, Pt is not anemic Benign ess ential hypertension 0361363 I10 Blood pressure at goal [id number] Nakul Sin, PT, DPT, CSCS Physical Therapy, [address] [address] 02/01/2019 11:48:37 02/01/2019 12:34:53 Pain in right knee 3783462084 49200 M25.561 Pain in left knee 185071 1096 88112 M25.929 [id number] Nakul Sin PT, DPT, CSCS Physical Therapy, [address] [address] 02/08/2019 11:48:19 02/08/2019 13:22:12 Pain in right knee 4184888286 24396 M25.561 Pain in left knee 409268 2744 12559 M25.228 [id number] Nakul Sin PT, DPT, CSCS Physical Therapy, [address] [address] 02/13/2019 11:51:36 02/13/2019 12:49:02 Pain in right knee 7049945324 64814 M25.561 Pain in left knee 286073 3381 85347 M25.834 [id number] Nakul Sin, PT, DPT, CSCS Physical Therapy, [address] [address] 02/22/2019 12:54:00 02/22/2019 13:48:56 Pain in right knee 1512307226 83389 M25.561 Pain in left knee 157625 4334 05834 M25.238 [id number] Nakul Sin, PT, DPT, CSCS Physical Therapy, [address] [address] 03/22/2019 13:19:25 03/22/2019 14:24:27 Pain in right knee 3466898574 75575 M25.561 Pain in left knee 634180 8652 79474 M25.398 [id number] Nakul Sin, PT, DPT, CSCS Physical Therapy, [address] [address] 04/26/2019 13:16:26 04/26/2019 14:01:27 Pain in right knee 7372318075 75072 M25.561 Pain in left knee 845961 4277 12378 M25.647 [id number] Nakul Sin, PT, DPT, CSCS Physical Therapy, [address] [address] 05/24/2019 13:22:33 05/24/2019 15:46:47 Pain in right knee 0923029620 88427 M25.561 Pain in left knee 962585 2419 06271 M25.213 [id number] Nakul Sin PT, DPT, CSCS Physical Therapy, [address] [address] 07/19/2019 13:19:59 07/19/2019 13:55:56 Pain in right knee 0393964398 57889 M25.561 Pain in left knee 847667 6645 61239 M25.783 [id number] MARQUES Espinoza , [facility], OFFICE [address] [place] [address] 07/26/2019 13:30:14 07/26/2019 14:05:43 Active or passive immunization 048571799 Z23 Benign ess ential hypertension 5435584 I10 Blood pressure at goal. Pt will follow-up with new provider in January for routine annual wellness visit. All questions were addressed. Pt understand s and agrees with treatment plan Shoulder pain 13828123 M 25.512 Pt reports physical therapy really helped her shoulder and knee pain and would like a referral to continue with physical therapy. A referral is sent. All questions were addressed. Pt understand s and agrees with treatment plan Pain in right knee 40064 11751 91077 M25.561 Pt reports physical therapy really helped her shoulder and knee pain and would like a referral to continue with physical therapy. A referral is sent. All questions were addressed. Pt understand s and agrees with treatment plan Pain in left knee 756295 4638 40434 M25.562 Pt reports physical therapy really helped her shoulder and knee pain and would like a referral to continue with physical therapy. A referral is sent. All questions were addressed. Pt understand s and agrees with treatment plan [id number] Stacie Wills Scott, OD [facility], [facility] [address] [facility] [place] [address] 09/05/2019 13:19:16 09/05/2019 16:37:30 Presbyopia 64831844 H52.4 Bilateral cataracts 9572 2004 H26.9 Pterygium 55846424 H11.0 09 Pigmented skin lesion of uncertain nature 744936967 L81.9 palpebral conjunctiv a at lower lid OD [id number] Bob Saravia MD , [facility], OFF[address] [place] [address] 10/21/2019 11:52:22 10/21/2019 16:18:49 Aphthous ulcer of mouth 181290491 K12.0 experienci ng pain tyical for mucosal oral ulcersther e is one tyical ulcer top of palate on left abutting the pharyngeal pillar.thi s she noted through legend maker is the most painful areapatche s of marked erythema over right palate w/o overt ulceration are present. I explained that this is common viral ,often untreatabl e , but self limited, from one of many viruses that affect the mouthwill rx valtrex in hopes of efficacy , but i explained efficacy is hit or miss.Rx topicals as well [id number] Kaylee Bowden , [facility], [address] [place] [address] 12/21/2019 12:15:13 12/21/2019 13:33:06 Urinary tract infectious disease 34196980 N39.0 Mostly dysuria, some frequency. Plan as below. [id number] Roxy Cisneros MA , [facility], OFFICE [address] [place] [address] 07/11/2020 08:56:27 07/11/2020 12:32:57 Active or passive immunization 499335901 Z23 [id number] Laurie Archibald . MD SHIN, [facility], OFFICE [address] [place] [address] 07/20/2020 15:06:47 07/22/2020 12:09:57 Atherosclerosis of aorta 00469624 I70.0 Found on imaging. Patient is advised to start aspirin 81 mg daily. 10 year cardiovasc ular risk has not warranted statin therapy. check US to rule out AAA. Benign ess ential hypertension 4221342 I10 Patient control below 130/80. Continue same. Urinary tr act infectious disease 87468457 N39.0 Starting with symptoms of UTI again. Will empiricall y treat with Cipro. Postmenopausal state 764 11639 Z78.0 She is 64 screen for osteoporos is. Screening for malignant neoplasm of breast 160476670 Z12.39 Active or passive immunization 600566408 Z23 Multiple joint pain 3567 8005 M25.50 Uses Voltaren gel. I advised patient to not use ibuprofen since we are putting her on aspirin. [id number] Laurie Archibald . MD SHIN, [facility], OFFICE [address] [place] [address] 12/22/2020 09:40:38 12/24/2020 10:42:21 Atherosclerosis of aorta 25902532 I70.0 Found on imaging. continue aspirin 81 mg daily. 10 year cardiovasc ular risk has not warranted statin therapy. Pain of le ft hip joint 2130901839 08045 M25.552 ? SI joint dysfunctio n vs left hip lathology. will try celebrex not to interfere with am asa, check Xray, declined PT today. has follow up in January. Benign ess ential hypertension 2484025 I10 Patient control below 130/80 mostly, did not take her med today yet.. Continue same. [id number] Laurie Archibald . MD SHIN, [facility], OFFICE [address] [place] [address] 01/18/2021 15:18:45 01/19/2021 19:36:52 Benign essential hypertension 1606250 I10 Patient control below 130/80 mostly, elevated today. will bring in for nurse visit to check BP. May need to add low dose amlodipine . Atheroscle rosis of aorta 45202890 I70.0 Found on imaging. continue aspirin 81 mg daily. 10 year cardiovasc ular risk has not warranted statin therapy. Adult heal th examination 903732574 Z00.00 USPSTF guidelines reviewed and discussed with patient. Will mail her a health proxy form to fill out. colonoscop y 2013. mammo UTD. No Pap indicated. schedule nurse visit for Pneumovax. Counseling 855874339 Z71 .9 including cardiovasc ular risk reduction counseling , on asa. Depression screening 171 859355 Z13.31 depression screening tool administer ed, entered into emr, scored and discussed, time greater than 7.5 minutes, negative screen. Screening for alcohol abuse 415221311 Z13.39 negative screening. Intolerant of cold 79745 000 R68.89 rule out hypothyroi d. Multiple joint pain 3567 8005 M25.50 .Has started seeing a chiropract or. check labs to check for gout and Lyme as well as inflammato ry arthritis. Aphthous u lcer of mouth 931558585 K12.0 Try OTC Lysine. Advance di rective discussed with patient 816038765 Z71.89 counseled, will mail health proxy form to fill out. [id number] Laurie SHIN, [facility], OFFICE [address] [place] [address] 01/29/2021 09:13:54 01/29/2021 10:36:18 Low back pain 912198086 M54.5 ? SI joint dysfunctio n, appears to may have some left knee issues too. Just had labs done for rheumatolo gic disease. Hip and pelvic Xray normal in December. No heavy lifting. topical heat. Active or passive immunization 076838206 Z23 pneumococc al vaccine due. Benign ess ential hypertension 5071024 I10 Patient control below 130/80 , at target, continue same meds. [id number] Laurie SHIN, [facility], OFFICE [address] [place] [address] 05/10/2021 16:43:26 05/10/2021 17:43:29 Contact dermatitis caused by urushiol from [place] poison mynor 094427555 L25.5 Consistent with contact dermatitis from poison mynor. Patient to avoid the plant when gardening. Use gloves and long sleeve shirts when gardening. May use over-the-c ounter anti-itch cream topically, may use cold compresses or rubbing with an ice cube when itchy. Will give a course of prednisone . Left side sciatica 43457 20519 77659 M54.32 Had an epidural injection from [facility], no relief, pain down left leg with numbness, no change with chiropract or and exercises. gait is off balanced, using a cane now. needs handicappe goldy reyes ( daughter to get form for us to complete). will get MRI to see if needs surgical interventi on. Takes Tylenol, may take ibuprofen but wait 2 hours after taking aspirin. [id number] ALISTAIR CHACON DPT Physical Therapy, [address] [address] 07/08/2021 11:00:40 07/08/2021 12:14:13 Radicular pain 83315757 M54.10 Chronic low back pain 27 4586934 M54.50 [id number] ALISTAIR CHACON DPT Physical Therapy, [address] [address] 08/04/2021 11:37:46 08/04/2021 12:29:59 Radicular pain 27221333 M54.10 Chronic low back pain 27 9252678 M54.50 [id number] Laurie Archibald . , [facility], OFFICE [address] [place] [address] 08/10/2021 11:55:31 08/10/2021 12:44:54 Essential hypertension 85224388 I10 at target below 130/80, continue same. Atheroscle rosis of aorta 17551840 I70.0 Found on imaging. continue aspirin 81 mg daily. 10 year cardiovasc ular risk has not warranted statin therapy. LDL has been below 100 without statin. Shoulder pain 69236059 M 25.519 BL shoulder pain, will refer to PT. Aortic eje ction murmur 223190764 R01.1 echo in 2014 showed aortic sclerosis, recheck echo to make sure stenosis has not developed. Chronic anemia 512641382 D64.9 no deficienci es, H/H stable. [id number] ALISTAIR CHACON DPT Physical Therapy, [address] [address] 08/11/2021 16:26:32 08/12/2021 14:21:19 Pain of right knee joint 0838621494 84283 M25.561 Pain of le ft knee joint 3668943262 72691 M25.524 [id number] Chikisakilah Mccarthy , [facility], OFF[address] [place] [address] 02/01/2022 14:05:14 02/01/2022 14:53:36 Adult health examination 307626015 Z00.00 USPSTF guidelines reviewed and discussed with patient. health care proxy in place colonoscop y 2013. mammo ordered No Pap indicated. will let us know date of second Covid booster shot, also look into Shingrix. Counseling 914534390 Z71 .9 including cardiovasc ular risk reduction counseling , LDL below 100 without statin, is on aspirin already. Depression screening 171 502473 Z13.31 depression screening tool administer ed, entered into emr, scored and discussed, time greater than 7.5 minutes, negative screening Screening for alcohol abuse 156317068 Z13.39 negative screening. Essential hypertension 40775404 I10 at target below 130/80, continue same. Screening for malignant neoplasm of breast 737215024 Z12.39 order mammo Intolerant of cold 06254 000 R68.89 rule out hypothyroi d. Chronic anemia 850177356 D64.9 no deficienci es, H/H stable. Aortic eje ction murmur 522828929 R01.1 echo in 2014 showed aortic sclerosis, recheck echo to make sure stenosis has not developed. Atheroscle rosis of aorta 37424670 I70.0 Found on imaging. continue aspirin 81 mg daily. 10 year cardiovasc ular risk has not warranted statin therapy. LDL has been below 100 without statin. Chronic low back pain 27 7897666 M54.50 diclofenac not helping much. may OTC ibuprofen sparingly if has pain, increase exercise. Obesity 298284517 E66.9 counseled today to increase exercise and cut back on portions and simple carbs, weight up 11 pounds in 1 year. [id number] MD KIP Ann, [facility], [address] [place] [address] 03/12/2022 15:37:14 03/15/2022 09:17:26 Pruritic rash 45679138 L28.2 facial rash, she says it feels like poison mynor but hsa been nowhere near garden.sug gested pepcid 20 mg and claritin 10 mg instead of benadryl for safety. try cool cloths on the face.start cream, not BELOW eyebrows or ABOVE cheekbones (keep it AWAY fro the eye and eyelids) if not improved have her seen, we are open in [facility] from -12 tomorrow and Monday. [id number] RAFAT WILSON PA-C , [facility], [address] [place] [address] 07/13/2022 10:34:56 07/13/2022 13:57:28 Pre-surgery evaluation 585621563 Z01.818 R eye cataract surgery 07/28/22Pt denies new exertional symptomsPE w/ murmur- will attempt to complete echo prior to surgeryPt is low risk for low risk procedure. There is no contraindi cation to proceed. Chronic anemia 618677089 D64.9 H/H has been stable, will update CBC today Aortic eje ction murmur 642669921 R01.1 Audible on examStates unaware of previous echo apt.Pt case to referrals to reschedule Benign ess ential hypertension 7514382 I10 BP at goal, c/t same Right uppe r quadrant pain 772464866 R10.11 x3 months, intermitte nt, no injuryNo specific PE finding today or correlatio n to position or food intakeWill monitor Active or passive immunization 755349071 Z23 [id number] Laurie Archibald . MD SHIN, [facility], OFF[address] [place] [address] 08/01/2022 11:54:02 08/01/2022 13:43:34 Essential hypertension 84133426 I10 at target below 130/80, continue same. Chronic anemia 507596271 D64.9 no deficienci es, H/H stable. Atheroscle rosis of aorta 58924886 I70.0 Found on imaging. continue aspirin 81 mg daily. 10 year cardiovasc ular risk has not warranted statin therapy. LDL has been below 100 without statin. Aortic garry ve regurgitation 77143433 I35.1 Recent echo showed mild aortic valve regurgitat ion. Consider echocardio gram in 3 years.No symptoms. Mitral garry ve regurgitation 08946488 I34.0 Moderate mitral valve regurgitat ion on recent echo. Consider echocardio gram in 3 years. No symptoms. Tricuspid valve regurgitation 708865093 I07.1 Moderate tricuspid valve regurgitat ion on recent echo. Consider echocardio gram in 3 years. No symptoms. Chronic low back pain 27 1485718 M54.50 had MRI last June ( 2020) with multilevel joint disease, then saw [facility] and states had a shot which did not help, massage therapy once a month helps. Wears an SI support belt. advised to do home exercises daily. Pain of bi lateral knee regions 2357049013 03561 M25.561 uses a cane, disabled placard form completed as well as attestatio n for emergency aid given medical conditions .Check x-rays and refer to orthopedic s for considerat ion of steroid and or hyaluronic acid injections . Hypothyroidism 68479031 E03.9 Euthyroid on replacemen t therapy. Continue same. Check labs before next visit. [id number] Ольга Ga MD , [facility], OFF[address] [place] [address] 08/24/2022 16:26:23 08/25/2022 09:31:47 Acute upper respiratory infection 67864380 J06.9 Wet cough x few days, well-appea ring on exam.Suppo rtive care discussed. Can continue to use robitussin as needed for cough. [id number] Damon Guerra MD , [facility], OFFICE [address] [place] [address] 08/29/2022 14:48:41 08/29/2022 15:19:50 Benign essential hypertension 7395866 I10 Disorder o f rotator cuff 199767028 M75.80 [id number] Damon Guerra MD , [facility], OFFICE [address] [place] [address] 09/16/2022 14:03:53 09/16/2022 14:38:04 Benign essential hypertension 9934104 I10 Pain of ri ght shoulder joint 1393914415 2502986 M25.077 [id number] Kip Moore DPT Physical Therapy, [facility] [address] [place] [address] 10/06/2022 14:03:49 10/11/2022 14:24:51 Strain of rotator cuff of shoulder 451450493 S46.011D Shoulder pain 41054857 M 25.200 [id number] Kip Moore DPT Physical Therapy, [address] [address] 10/12/2022 15:43:59 10/12/2022 16:25:45 Strain of rotator cuff of shoulder 611798071 S46.011D Shoulder pain 94626300 M 25.308 [id number] Laurie Archibald . MD SHIN, [facility], OFFICE [address] [place] [address] 10/18/2022 14:35:04 10/18/2022 15:23:57 Benign essential hypertension 7009249 I10 BP improved after adding amlodipine , continue all BP meds. Rib pain 653448455 R07.8 1 hurts when she moves a [...] has, diclofenac gel. Atheroscle rosis of aorta 78049614 I70.0 Found on imaging. continue aspirin 81 mg daily. 10 year cardiovasc ular risk has not warranted statin therapy. LDL has been below 100 without statin. [id number] Kip Moore DPT Physical Therapy, [address] [address] 10/19/2022 14:32:21 10/21/2022 10:04:38 Strain of rotator cuff of shoulder 093693826 S46.011D Shoulder pain 37086680 M 25.536 [id number] Laurie SHIN, [facility], OFFICE [address] [place] [address] 03/09/2023 14:42:27 03/09/2023 17:08:04 Adult health examination 341950505 Z00.00 USPSTF guidelines reviewed and discussed with patient. health care proxy given to fill out. colonoscop y 2013. redo 9 Y mammo ordered No Pap indicated. look into Shingrix.C V counseling done. Depression screening 171 651950 Z13.31 depression screening tool administer ed, negative screen Screening for alcohol abuse 382731640 Z13.39 Alcohol use screening tool administer ed, negative screen Advance di rective discussed with patient 937620293 Z71.89 Advanced Care Planning1. Advanced care planning [...] to take home. 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 Does won ADLs. uses a cane when going for walks. no behavioral issues, short term memory problems. will monitor. form completed for patient not to take the exam but she understand s [employer] . Benign ess ential hypertension 8750467 I10 at target below 130/80, continue same. Chronic anemia 782311672 D64.9 worsening, no B12, folate or iron def, SPEP normal. liver US fatty liver, ESR 23, refer to heme. Hypothyroidism 57993438 E03.9 Euthyroid on replacemen t therapy. Continue same. Atheroscle rosis of aorta 85617526 I70.0 Found on imaging. continue aspirin 81 mg daily. 10 year cardiovasc ular risk has not warranted statin therapy. LDL has been below 100 without statin. no iron deficiency anemia, if FOB negative may continue aspirin. [id number] Ольга Ga MD , [facility], OFFICE [address] [place] [address] 07/06/2023 14:27:43 07/06/2023 16:25:01 Dysuria 45258707 R30.0 Patient with urinary symptoms.H istory and exam and urinalysis consistent with UTI.Will send urine for culture.Di scussed supportive and preventive measures.P atient instructed to follow up if not better or with new symptoms. Acute urin brittny tract infection [id number] N39.0 After a discussion of treatment and medication options, which included elsie mcgowan of the best practices in medicine, [...] after 24-36 hours of antimicrob ial therapy. [id number] Laurie Archibald . , [facility] [address] [place] [address] 09/21/2023 09:23:34 09/21/2023 17:16:55 Benign essential hypertension 9401401 I10 at target below 130/80, continue same. Chronic anemia 387007766 D64.9 nl B12, folate or iron def, SPEP normal. liver US fatty liver, saw hematologi st a [facility], no definite etiology. Hypothyroidism 29719843 E03.9 Euthyroid on replacemen t therapy. Continue same. Atheroscle rosis of aorta 36542788 I70.0 Found on imaging. continue aspirin 81 mg daily. 10 year cardiovasc ular risk has not warranted statin therapy. LDL has been below 100 without statin. Cough 47555064 R05.9 grand kids with flu, will check for it, lungs clear. no ST or fever. rapid flu positive for flu B, will treat with tamiflu. Influenza caused by Influenza B virus 15896338 J10.1 as above, sx since yesterday, will treat. Urge incon tinence of urine 25474030 N39.41 does not want meds, will give RX for incontinen ce pads and chucks for night time. Chronic low back pain 27 4612732 M54.50 had MRI last June ( 2020) with multilevel joint disease, then saw PS&S and states had a shot which did not help, massage therapy once a month helps. Wears an SI support belt. needs shower chair, grab bar for toilet, protection pad for tub, grab bar for shower. [id number] Laurie Barreto MD , [facility], [place]ICE [address] [place] [address] 03/12/2024 15:02:36 03/12/2024 15:39:35 Adult health examination 336714894 Z00.00 USPSTF guidelines reviewed and discussed with patient. health care proxy in place. colonoscop y 2013. redo 10 Y mammo ordered No Pap indicated. look into Shingrix.C V counseling done. is on aspirin, no statin, LDL below 100. Depression screening 171 230138 Z13.31 depression screening tool administer ed, neg Screening for alcohol abuse 376454075 Z13.39 Alcohol use screening tool administer ed, neg Minimal co gnitive impairment 451519324 R41.89 short term memory problem, that along with low/no education and not writing or reading in her own language/T ibetan and no schooling. Does own ADLs. uses a cane when going for walks. no behavioral issues, short term memory problems. will monitor. Benign ess ential hypertension 8546910 I10 at target below 130/80, continue same. Chronic anemia 792301425 D64.9 no B12, folate or iron deficiency , SPEP normal. liver US fatty liver, ESR 23. monitor. Hypothyroidism 78463055 E03.9 Euthyroid on replacemen t therapy. Continue same. Atheroscle rosis of aorta 57616209 I70.0 Found on imaging. continue aspirin 81 mg daily. 10 year cardiovasc ular risk has not warranted statin therapy. LDL has been below 100 without statin. no iron deficiency anemia, FOB negative. continue aspirin. Screening mammography 24 298858 Z12.31 order mammo. Degenerati ve joint disease involving multiple joints 963445764 M15.9 has had in her knees and for her back. to take Tylenol 500 mg, 2 tabs twice a day, do home exercises. if see orthopedic s again, ? surgery, which joint first. [id number] MD KIP Garcia, [facility], OFFICE [address] [place] [address] 07/31/2024 14:35:49 08/02/2024 07:12:10 Cough 27008313 R05.9 Presents with a 5-day history of [...] worsening Erythema o f skin of nose 953576924 L53.9 Recurrent erythema + itching of the [...] cover medication s Benign ess ential hypertension 7022370 I10 Currently has hypertensi on and did not take blood pressure medication today. Blood pressure WNL today at the office. Discussed importance of regular medication adherence to prevent complicati ons. Advised to avoid ibuprofen. - Advise to continue taking blood pressure medication regularly - Instruct to avoid ibuprofen and use acetaminop hen for pain management [id number] Laurie Archibald . MD SHIN, [facility], OFFICE [address] [place] [address] 08/27/2024 08:33:05 08/27/2024 09:44:09 Benign essential hypertension 0093748 I10 at target below 130/80, continue same. LDL at target below 100. Hypothyroidism 04098035 E03.9 Euthyroid on replacemen t therapy. Continue same. Chronic anemia 306320497 D64.9 no B12, folate or iron deficiency , SPEP normal. liver US fatty liver, ESR 23. monitor. ? anemia of chronic disease. Atheroscle rosis of aorta 98483373 I70.0 Found on imaging. continue aspirin 81 mg daily. 10 year cardiovasc ular risk has not warranted statin therapy. LDL has been below 100 without statin. no iron deficiency anemia, FOB negative. continue aspirin. Screening for malignant neoplasm of colon 104679727 Z12.11 will do FIT kit for this year and refer for colonoscop y which likely take a few months to schedule. [id number] [facility], OFFICE [address] [place] [address] 10/23/2024 09:30:50 10/23/2024 11:11:41 Palpitations 84921332 R00.2 Atrial fibrillation 4943 6004 I48.91 Rate [...] develop. Screening for malignant neoplasm of colon 078410661 Z12.11 You were given a stool kit today for Colorectal Cancer screening. Please review the instructio ns and return the kit to our office within 7 days. The kits so check the date before submitting the sample. Contact our office with any questions or concerns. Benign ess ential hypertension 8587826 I10 BP 116/64, at goal. Continue current meds. [id number] OG MAXWELL DNP [facility], OFFICE [address] [place] [address] 10/30/2024 13:34:51 10/30/2024 14:46:57 Pre-surgery evaluation 755783713 Z01.818 Pt having a tooth extraction on 10/31 and 11/07. Currently taking eliquis 5 mg BID for new dx of afib. Took morning dose today with afternoon dose pending. Advised patient and family to hold second dose for today and hold medication for tommorow. Can resume day after. Revised Cardiac Risk Index for Pre-Operat tabitha Risk 3.9 %risk of major cardiac event. Low risk. Hx of anesthesia with no adverse reaction. No family history of adverse reaction to anesthesia . Assessment :-any cardiovasc ular or pulmonary dysfunctio n-assessme nt of exercise ability ( 4 METs )-bleeding tendency: no hx of abnormal bleeding disorders. on anticoagul ants which will be held as above.-tob acco use: no tobacco use , no illciit substance use Assessment :-Pt determined to be at average cardiac risk for surgery given age and comorbidit ies-At this time would appear benefits outweigh risks for this low risk surgery-Pt to call with any changes in present status Plan:BBs - cont if already on them, if BB as a new med is needed, start = 1 day prior to surgerySta tins - don? t stop them, consider starting in at-risk patients zacarias before vascular surgACEis - continuing is ? r easonable? NSAIDs - stop 1 week prior to surgeryAnt icoagulant s - depends on indication and type of surgery/bl eed risk: plan as above -If you are a smoker, consider quitting. There is evidence that quitting four or more weeks prior to surgery improves pulmonary outcomes. Quitting less than 4 weeks prior to surgery does not worsen outcomes.- optimize medication s for chronic lung disease, diabetes-o ptimize CPAP use and settings for SAPNA Atrial fibrillation 4943 6004 I48.91 HR 68, rate controlled . Eliquis to be held as above for surgical procedure. Multaq to be started on november 12 per cardiology recommenda tions Benign ess ential hypertension 2221311 I10 BP 118/68, at goal. Continue current meds. HCTZ on hold until BMP recheck today. Hypokalemia 96331001 E87 .6 3.4 potassium. Most likely due to volume loss from colonoscop y prep. pt and family instructed to hold HCTZ for 3 days. replenishe d with KCL 10 meq PO BID X 5 days. Recheck labs today Chronic anemia 997192221 D64.9 H&H 10.4/30.5 on 10-23-24. No acute signs and symptoms of anemia. No red flag signs and symptoms of abnormal bleeds. Will continue to monitor [id number] OG MAXWELL DNP , [facility], OFFICE [address] [place], [place] [address] 12/13/2024 10:01:05 12/13/2024 16:33:39 Immunization due 353535314 Z23 shingles, advised receive at preferred pharmacy History of atrial fibrillation 337661887 Z86.79 S/p cardiovers ion approx week ago. EKG today with rate 53 and sinus bradycardi a. Unlikely cardiac cause for current symptoms Rib pain 023125930 R07.8 1 Musculoske letal chest pain likely from muscle strain or costochond ritis post-cardi oversion. Differenti al includes rib fracture. Will start naproxen in the setting of cardiac hx. xray to assess further. Can take acetaminop hen within daily recommende d doses in between naproxen doses for additional analgesia. Recommend icing affected area. Avoid activities that aggravate symptoms. Left upper quadrant pain 594263123 R10.12 Benign ess ential hypertension 6988658 I10 12/13/24: BP 122/54. Cont amlodipine 2.5 mg daily and losartan 50 mg daily. 10/30/24: BP 118/68, at goal. Continue current meds. HCTZ on hold until BMP recheck today. Health Concerns Section Related Observation LastModified by Organization Detai ls LastModified Time None Recorded Concern Status LastModified by Organization Details LastModified Time None Recorded Advance Directives Directive None Recorded Payers Encounter Date Sequence Insurance Name Policy Number Policy Bradley Covered Member ID Bradley Member ID Guarantor Name 07/31/2024 1 [place] [employer] Shreya Gino [id number] Shreya Gino 08/27/2024 1 [place] [employer] Shreya Gino [id number] Shreya Gino 08/27/2024 2 [place] [facility] Shreya Gino [id number] Shreya Gino 10/23/2024 1 [place] [employer] Shreya Gino [id number] Shreya Gino 10/23/2024 2 [place] Shreya Gino [id number] Shreya Gino 10/30/2024 1 [place] [employer] Shreya Gino [id number] Shreya Gino 10/30/2024 2 [place] [facility] Shreya Gino [id number] Shreya Gino 12/13/2024 1 [place] [facility] Shreya Gino [id number] Shreya Gino 12/13/2024 2 [place] [facility] Shreya Gino [id number] Shreya Gino Notes Date Note Type Note Provider Name and Address Organization Details Recorded Time 07/31/2024 text/html 68 year old german le patient accompanied by daughter presents with cough, [...] regular blood pressure medication. Bob Saravia MD [address] [place] [address], [phone], [facility] 08/01/2024 16:41:18 08/27/2024 text/html Patient with his tory of hypertension, anemia, atherosclerosis of aorta, hypothyroidism and aortic valve murmur for medical management.Her with daughter who translate.Constitutio nal; no fever or night sweatsENT; occasional GOTTLIEB and dizzinessCardiac; no CP, no NORMAN, no palpitations, no orthopneaPulmonary; no shortness of breath, no cough, no wheezingGI; no abdominal pain, No N/V, no bloody stoolsUrinary; No hematuria,no dysuriaMusculoskeleta l; no myalgia, knees, shoulders and hips hurt at time, worse when it is cold Recent labs, hemoglobin 10.0, hematocrit 29.4 with normal MCV, T4 0.9, TSH 4.30, LDL 89, BMP normal Laurie Shoushtari. [address] [place], [phone], [facility] 08/27/2024 09:04:22 10/23/2024 text/html 69 year old german martin accompanied by her HCP/dtr presents for eval of afib. Pt was at [facility] for endoscopy at which point they [...] mg one tab daily. OG MAXWELL DNP [address] [place] [address], [phone], [facility] 10/24/2024 10:58:11 10/30/2024 text/html 69 year old here with her daughter for pre op clearance Pt planning to have a tooth extractions on 10/31 and 11/07 w/ [facility]. Currently in no acute distress and offers no new medical complaints. Hx significant for HTN, recent afib and stable chronic anemia. OG MAXWELL DNP [address] [place] [address], [phone], [facility] 10/30/2024 14:07:50 12/13/2024 text/html 69 year old german martin here with daughter/HCP for same day visit S/p cardioversion approx week ago. She experiences pain in the left upper quadrant abd and lateral side at lower rib region, described as a swollen sensation. The pain intensifies when sleeping on the affected side and with neck extension upwards. No bruising is noted in the area. She has been taking Tylenol and recently used meloxicam, which she had from a previous knee pain issue, but neither medication has provided longstanding relief. She has also tried ibuprofen without success. She has a history of arthritis in her back and has previously used lidocaine patches for back pain. None available at home currently No difficulty breathing, urinary symptoms, diarrhea, vomiting, nausea, constipation, blood in the stool, or stool abnormalities. No unintetional weight loss or weight gain, no night sweats, fevers or chills OG MAXWELL DNP [address] [place] [address], [phone], [facility] 12/13/2024 11:34:40 OBGyn Episode No OBEpisode recorded.
--- OUTSIDE RECORDS SUMMARY | 2024-12-24 11:56 | XMS_ITS | Encounter Summary ---
Author Organization [employer] Address [address] [place] [address] Care Team Providers Care Adoption Worker Name Role Phone Unavailable Primary Care Provider Unavailabl e Encounter Details Date Type Department Care Team (Latest Contact Info) Description 02/11/2019 Abstract [facility] CONVERSIONS Dental, Provider, DDS Social History Tobacco [...] as of this encounter Plan of Treatment Not on file documented as of this encounter Visit Diagnoses Not on filedocumented in this encounter
--- OUTSIDE RECORDS SUMMARY | 2024-12-24 11:56 | XMS_ITS | Clinical Summary ---
Author Organization [employer] Address [address] [facility] [address] [place] [address] Care Team Providers Care Jalousies Installer Name Role Phone Unavailable Primary Care Provider [...] by mouth Once per day. 03/12/2023 Active Encounters Date Type Department Care Team Description 10/31/2024 10:00 AM EST Office Visit [facility] [address] [place] [address] Mally Fisher DDS 10/03/2024 3:30 PM EST Office Visit [facility] [address] [place] [address] Tegan Florence LLD Dental abscess (Primary Dx) [...] 2021 10:26 AM EDT Plan of Treatment Health Maintenance Due Date Last Done Comments CT Colonography 1954 Colonoscopy 1954 Colorectal Cancer Screening 1954 Depression Screening 1954 FIT DNA/Cologuard 1954 FIT 1954 FOBT 1954 Lipid Panel 1954 SDOH Screening 1954 Sigmoidoscopy 1954 Alcohol/Substance Use Screening 1966 Hepatitis C Screening 1972 DTaP/Tdap/Td Vaccines (1 - Tdap) 04/04/2015 04/03/2015 [...] 07/03/2024, 03/0 03/2016 Tobacco Screening 10/03/2025 10/03/2024 Mammogram 04/01/2026 04/01/2024 RSV Patients and Patients Aged 60 years [...] PRESENTATION, DETAILED AND EXTENSIVE TREATMENT PLANNING Routine 10/31/2024 10:00 AM EST 21 EXTRACTION, ERUPTED TOOTH OR EXPOSED ROOT (ELEVATION/FORCEPS REMOVAL) Routine 10/31/2024 10:00 AM EST 28 EXTRACTION, ERUPTED TOOTH OR EXPOSED ROOT (ELEVATION/FORCEPS REMOVAL) Routine 10/31/2024 10:00 AM EST CASE PRESENTATION, DETAILED AND EXTENSIVE TREATMENT [...] Most Recently Relevant to Health Maintenance Insurance [facility] MEDICAID STAND ADULT
--- OUTSIDE RECORDS SUMMARY | 2024-12-24 11:56 | XMS_ITS | Data Portability ---
Author Organization [place] - [facility], [facility] Address [address] [place] [address] Care Team Providers Care Twister Operator Name Role Phone OG MAXWELL Primary Care Provider Assessment Encounter Date Assessment Date Assessment LastModified by Organization Details LastModified Time 12/06/2024 12/06/2024 69 year old female with nasal congestion worse with upper respiratory infections which improves with Flonase. Encouraged crosshand technique for Flonase and advised her to use nasal saline several times daily for moisture. 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 Advised her to contact us if this enlarges. [email or web address] Not available 12/07/2024 14:42:00 Plan of Treatment Reminders Order Date Submit Date Provider Last Modified By Organization Details Last Modified Time Details Appointments None record ed. Lab None record ed. Referral None record ed. Procedures None record ed. Surgeries None record ed. Imaging None record ed. Medication Orders None record ed. Patient TargetsNo targets recorded. Patient InstructionsNo instructions recorded. Reason for Referral None Reported. Problems Name Problem SNOMED Code Status Onset Date Resolution Date Notes Provider Name and Address Organization Details Recorded Time Nasal congestion 51190519 Active 025 LISA ARANA PA-C [address] [facility] [facility], [place], [address], [place] - [facility] 5 14:27:10 Lesion of tongue 011682290 Active 025 LISA ARANA PA-C [address] [facility] [address], [place], [address], [facility] - [facility] 5 14:27:16 Deviated nasal septum 360578836 Active 025 LISA ARANA PA-C [address] [place] [address], [phone], [facility] - [facility] 5 14:28:11 Problem Notes None recorded. Medical Equipment None Reported. Allergies Allergen ID Allergen Name Allergen Category Reaction Reaction Severity Criticality Documentation Date Start Date Code Code System Note Provider Name and Address Organization Details Recorded Time 667698 lisinopri l medicatio n Not available Not available Not available 12/06/2024 57175 RxNorm Lisa veliz [place] - [facility] 5 13:54:28 Medications Name Sig Start Date Stop Date Status Note LastModified by Organization Details LastModified Time losartan 50 mg tablet TAKE 2 TABLETS BY MOUTH ONCE DAILY active Not Available Not Available No t Available amoxicillin 500 mg capsule TAKE 1 CAPSULE BY MOUTH EVERY 8 HOURS FOR 10 DAYS 12/06 completed Not Available Not Available Not Available cetirizine 10 mg tablet TAKE 1 TABLET BY MOUTH ONCE DAILY FOR 30 DAYS 12/06 completed Not Available Not Available Not Available azithromyci n 250 mg tablet TAKE 2 TABLETS BY MOUTH ON DAY 1, AND THEN TAKE 1 TABLET BY MOUTH ONCE A DAY ON DAY 2 THROUGH DAY 5 12/06 completed Not Available Not Available Not Available amlodipine 2.5 mg tablet TAKE 1 TABLET BY MOUTH ONCE DAILY active Not Available Not Available No t Available potassium chloride ER 10 mEq tablet,exte nded release TAKE 1 TABLET BY MOUTH TWICE DAILY WITH MEALS FOR 5 DAYS active Not Available Not Available No t Available aspirin 81 mg tablet,edwin yed release TAKE 1 TABLET BY MOUTH ONCE DAILY active Not Available Not Available No t Available hydrochloro thiazide 12.5 mg capsule TAKE 1 CAPSULE BY MOUTH ONCE DAILY 12/06 completed Not Available Not Available Not Available fluticasone propionate 50 mcg/actuati on nasal spray,suspe nsion USE 1 SPRAY(S) IN EACH NOSTRIL ONCE DAILY active Not Available Not Available No t Available Multaq 400 mg tablet TAKE 1 TABLET BY MOUTH TWICE A DAY WITH FOOD START 11/12/2024 active Not Available Not Available No t Available Eliquis 5 mg tablet TAKE 1 TABLET BY MOUTH TWICE DAILY active Not Available Not Available No t Available BinaxNOW COVID-19 Ag Self Test kit Use as Directed on the Package 12/06 completed Not Available Not Available Not Available Vitals Date Recorded Body height Body mass index (BMI) Body weight Provider Name and Address Organization Details Last Updated DateTime 12/06/2024 149.86 cm 28.3 kg/m2 72152.93 g Lisa Leandro ID - [facility] 12/06/2024 13:54:19 Social History None recorded. Functional Status None recorded. Mental Status None recorded. Family History Nothing Reported. Medical History Condition Response Anemia Y Hypertension Y Gynecological HistoryNo gynecological history recorded. Obstetrics History GPAL:G 0 P 0 0 0 0 Past Encounters Encounter ID Performer Location Encounter Start Date Encounter Closed Date Diagnosis/Indication Diagnosis SNOMED-CT Code Diagnosis ICD10 Code Diagnosis Note [id number] KEMI SANTOYO MD [facility] on [address] [place] [phone] 12/06/2024 13:17:54 12/06/2024 15:50:26 Nasal congestion 75938478 R09.81 Lesion of tongue 1101215 05 K14.9 Deviated nasal septum 12 3181267 J34.2 Health Concerns Section Related Observation LastModified by Organization Detai ls LastModified Time None Recorded Concern Status LastModified by Organization Details LastModified Time None Recorded Advance Directives Directive None Recorded Payers Encounter Date Sequence Insurance Name Policy Number Policy Bradley Covered Member ID Bradley Member ID Guarantor Name 12/06/2024 1 [place] [employer] Shreya Gino [id number] Shreya Gino 12/06/2024 2 [place] Shreya Gino [id number] [facility] Gino Notes Date Note Type Note Provider Name and Address Organization Details Recorded Time 12/06/2024 text/html 69 year old german martin presents with her daughter for evaluation. Daughter helps translate to Tibetan. Patient reports nasal congestion worse with upper respiratory infection. She also reports some redness of the nose and neck with upper respiratory infection. She has started to use Flonase which helps. She does have some itching at times. She also reports lesion at the right lateral tongue. She has had similar appearing lesions that come and go on both sides of the tongue. KEMI SANTOYO MD [address] [place] [address], [place], [phone], [facility] - [facility] 12/09/2024 12:38:39 OBGyn Episode No OBEpisode recorded.
[2024-12-24 12:02] LABS: Hemoglobin 9.3 g/dl (12.0-16.0); Mean Corpuscular HGB Conc 33.2 g/dl (31.0-35.0); Mean Corpuscular Hemoglobin 31.3 pg (27.0-33.0); Mean Corpuscular Volume 94.3 fL (80.0-98.0); Mean Platelet Volume 11.3 fL (9.4-12.3); Platelet Count 141 X10*3/uL (160-400); Red Blood Count 2.97 X10*6/uL (4.20-5.50); Red Cell Distribution Width 13.9 % (11.0-16.0); White Blood Count 4.1 X10*3/uL (4.8-10.8)
[2024-12-24 12:33] LABS: B Type Natriuretic Peptide 212 pg/mL (<100)
[2024-12-24 12:34] LABS: Anion Gap 9 (12-20); Blood Urea Nitrogen 21 mg/dL (9-16); Calcium 9.1 mg/dL (8.4-10.2); Carbon Dioxide 24 mmol/L (22-29); Chloride 109 mmol/L (96-108); Estimated Glomerular Filt Rate > 60; Glucose Random 97 mg/dL (60-115); Potassium 4.2 mmol/L (3.3-5.1); Sodium 138 mmol/L (135-145)
== END ==
LOC: HO.CARD 10:08
DX: I48.19 Other persistent atrial fibrillation (principal); I10 Essential (primary) hypertension
CPT/HCPCS: 36415; 80048; 83880; 85027; 93242; 93308

== ENCOUNTER → 2024-12-24 10:11 | Outpatient (BNV) | payer MEDICARE, MEDICAID, SELFPAY | PROVIDERS: Visit Provider Internal Medicine Cardiovascular Disease | DX: I48.19 Other persistent atrial fibrillation (principal); I51.89 Other ill-defined heart diseases | CPT/HCPCS: 93244; 93308; 93321 ==

== ENCOUNTER 2025-01-08 12:21 | Outpatient (AMB) | payer MEDICARE, MEDICAID, SELFPAY ==
--- NOTE | 2025-01-08 12:37 | A.OFFVIS_ITS ---
Vital Signs 01/08/25 12:38 Height 4 ft 9 in Weight 130 lb 1.164 oz BMI 28.1 BP 130/78 Blood Pressure Location Lt brachial Position Sitting Pulse 50 Intake Visit Reasons: s/p cvr/ holter Intake Note: Follow-up with ekg after holter and cvr feeling ok Farm Equipment Assembler Required: Yes Farm Equipment Assembler Services: Farm Equipment Assembler Offered & Declined Conservation Educator: Conservation Educator Present Accompanied by: Daughter Allergies No Known Allergies Allergy (Verified 12/04/24 12:22) Medication List - Last Reconciled 01/08/25 by Zenon Lara MD amlodipine 2.5 mg PO DAILY apixaban (Eliquis) 5 mg PO BID losartan 100 mg PO DAILY HPI Comments Details: Shreya comes for follow-up after her cardioversion. She was started on Multaq therapy which she did not tolerate had lot of nausea. She also had some leg swelling. Subsequently she had left upper quadrant discomfort which has been investigated and there has been no obvious etiology. Seems like the left upper quadrant discomfort is positional possibly musculoskeletal. She is currently on Multaq therapy. She has not notice much improvement in overall symptoms. She does not have anymore palpitations. She takes all her medication including blood thinners. No obvious bleeding issues or neurologic events. No orthopnea, PND, leg edema. No lightheadedness, syncope. History was obtained with help of daughter was able to interpret [facility] Medical History (Updated 01/08/25 @ 12:58 by Zenon Lara MD) Paroxysmal atrial fibrillation Persistent atrial fibrillation Anemia Afib Arthritis HTN (hypertension) Surgical History Hx of bilateral cataract extraction Social History Alcohol intake: never Patient Tobacco Use Status: Never used Tobacco Review of Systems Const Denies chills, Denies fatigue, Denies fever(s), Denies frequent falls, Denies weakness, Denies weight gain and Denies weight loss ENT Denies dizziness Card Denies chest pain, Denies leg edema, Denies lightheadedness, Denies palp itations, Denies dyspnea, Denies dyspnea on exertion, Denies orthopnea and Denies other (loss of consciousness) Resp Denies cough, Denies dyspnea and Denies dyspnea on exertion GI Denies hematochezia and Denies change in stool character Musc Denies abnormal gait, Denies muscle weakness, Denies numbness, Denies radiating pain into limb and Denies tingling Neuro Denies abnormal gait, Denies dizziness, Denies frequent falls, Denies numbness, Denies tingling and Denies weakness Endo Denies fatigue and Denies palpitations Physical Exam Vital Signs: Last Vital Signs Pulse 50 01/08/25 12:38 BP 130/78 01/08/25 12:38 BMI result Body Mass Index 28.1 Const General: cooperative, comfortable, no acute distress, well developed, alert and awake Nutritional Appearance: average body habitus and well nourished Orientation/consciousness: patient oriented x3 Limitations: no limitations HEENT Head: Yes normocephalic and Yes atraumatic Neck Neck: Yes trachea midline, Yes supple and Yes no JVD Resp Effort & Inspection: normal respiratory effort Auscultation: clear to auscultation bilaterally Cardio Jugular venous distension: no JVD Rate: bradycardic Rhythm: regular rhythm Heart sounds: S1 normal heart sound present, S2 normal heart sound present, no click, no gallops, no murmurs and no rubs GI Auscultation: normal bowel sounds Skin General skin exam: no rashes or lesions noted Neuro General: patient oriented x3 and no focal motor deficits Extrem General: Yes no clubbing, cyanosis or edema Psych Appearance: grossly normal Office Procedures EKG Details: EKG shows sinus bradycardia at 50 beats per minute [id number], Complete Assessment & Plan Assessment & Plan (1) Paroxysmal atrial fibrillation: Code(s): I48.0 - Paroxysmal atrial fibrillation Category: Medical Plan: Paroxysmal atrial fibrillation this elderly woman status post cardioversion, maintaining rhythm. She was not notice any significant improvement in his symptoms. This could be related to sinus bradycardia although she has no symptoms of palpitations. Minimal improvement in his symptoms at this point time. No signs or symptoms of heart failure at this point time. She could not tolerate antiarrhythmic drug therapy with Multaq probably related to bradycardia and also GI side effects. At this point time will hold off on antiarrhythmic drug therapy. Continue full oral anticoagulation, currently on Eliquis 5 mg b.i.d.. Semi annual renal function test should be pursued. Continue aggressive blood pressure control which is currently well optimized. She was encouraged to maintain activity level as tolerated. Avoidance of stimulants was discussed. Advised to call me with any new symptoms. (2) Sinus bradycardia: Code(s): R00.1 - Bradycardia, unspecified Category: Medical Plan: Sinus bradycardia noted status post cardioversion. Maybe part of tachy-moiz syndrome with underlying sinoatrial maia dysfunction. She was no other obvious symptoms at this point time. Will continue monitor clinically. Advised to call me with any symptoms of slow heart rate and/or lightheadedness or syncope. Daughter understands this very well. Avoid rate lowering medications. Will continue monitor clinically. Advised to call me with any new symptoms. Follow up in the clinic in 1 year's time, sooner p.r.n.. Thank you for allowing me to partake in her care Medications: Discontinued dronedarone (Multaq) must administer with a meal/food, start 11/12/24 Discontinued Reason: Patient Completed Course 400 mg PO BID 60 tabs 5RF Coding Level of Care Code Est Pt Level 4 (25845) Complex EM visit Add On G2211 Diagnoses Paroxysmal atrial fibrillation I48.0 Sinus bradycardia R00.1 CPT Codes EKG - CPT: [id number], Complete ([id number])
[2025-01-08 12:38] VITALS: BP 130/78; PULSE 50; BMI 28.1
--- OUTSIDE RECORDS SUMMARY | 2025-01-08 13:43 | XMS_ITS | Data Portability ---
Author Organization [facility], , [facility] Address [address] [place] [address] Care Team Providers Care Christian Counselor Name Role Phone OG MAXWELL Primary Care [...] Details Appointments LAB Follow-Up 2024 12:00P [place] [facility] [place] Not available Not available Not available Wellness Visit 30 2024 09:30A M OG MAXWELL DNP Not available Not available Not available Lab CBC 2024 025 [email or web address] [facility], [address] [place] [address], [address], 10/30/2024 14:06:52 TSH, serum or plasma 2024 025 CAMRON [facility], [address] [place] [address], [address], 10/23/2024 16:33:57 T4, free, serum 2024 025 [facility], [address] [place] [address], [address], 10/23/2024 16:07:28 fecal occult blood, immunoass ay, stool - Lab- Create annual order through QM-IFOBT order set. 2024 025 [email or web address] [facility], [address] [place] [address], [address], 10/23/2024 10:19:11 CBC 2024 025 [facility], [address] [place] [address], [address], 10/23/2024 12:15:54 BMP, serum or plasma 2024 025 [facility], [address] [place] [address], [address], 10/24/2024 15:13:12 Referral cardiolog ist referral - New afib without RVR, please eval [email or web address] [facility] , [address] [place] [address] Dr, [facility], [place], [address], 10/23/2024 11:53:11 otolaryng ologist referral - Patient has recurrent erythema of nose and external throat with URI symptoms. Please evaluate. Thank you 2023 024 [email or web address] [facility], [address], [place], [address], 08/02/2024 12:31:53 Procedures holter monitor placement (PROC) 2024 025 [facility], [address] [place], [address], 11/12/2024 08:38:29 colonosco py procedure (PROC) 2023 024 [email or web address] [facility], [address], [place], [address], 08/27/2024 11:10:13 Surgeries None recorded. Imaging US, spleen 2024 025 [facility] (Imaging), [address], [place], [address], 12/17/2024 13:07:19 XR, ribs, unilatera l [address] (Imaging), [address], [place], [address], 12/13/2024 16:33:39 electroca rdiogram [address], [address] [place], [address], 12/13/2024 16:33:39 electroca rdiogram 2024 025 [email or web address] [facility], [address] [place], [address], 10/23/2024 11:11:41 US, echocardi ogram - Afib without RVR 2024 025 [email or web address] [facility], [address], [place], [address], 11/07/2024 11:39:43 XR, chest 2023 024 [facility] (Imaging), [address], [place], [address], 07/31/2024 16:27:53 Medication Orders naproxen 500 mg tablet 2024 025 [facility], [address] [place], [address], 12/13/2024 11:05:13 lidocaine 5 % topical patch 2024 025 [facility], [address] [place], [address], 12/13/2024 11:05:12 Eliquis 5 mg tablet 2024 025 [facility], [address] [place] [address], [address], 10/23/2024 10:06:50 fluticaso ne propionat e 50 mcg/actua tion nasal spray,lakia pension 2023 024 [facility], [address] [place], [address], 07/31/2024 15:19:52 cetirizin e 10 mg tablet 2023 025 [facility], [address] [place] [address], [address], 12/13/2024 10:22:48 azithromy maritza 250 mg tablet 2023 024 [facility], [address] [place] [address], [address], 08/26/2024 17:30:26 Patient TargetsNo targets recorded. Patient InstructionsNo instructions recorded. Reason for Referral Manager Home Referral fo r Erythema of skin of nose Patient has recurrent erythema of nose and external throat with URI symptoms. Please evaluate. Thank you Referring Physician: Og Maxwell [facility], Encounter Date: 07/31/2024 Scissors Grinder Referral for At rial fibrillation New afib without RVR, please eval Referring Physician: Og Maxwell [facility], Encounter Date: 10/23/2024 Results Created Date Observation Date Name Description Value Unit Range Abnormal Flag Note LastModifiedBy Organization Detail LastModifiedTime 08/19/20 24 08/19/2024 CBC WBC 4.16 K/? ? ?L 3.98-1 0.04 Not Available [address], [place], [address], 08/19/2024 14:33:15 08/19/20 24 08/19/2024 CBC RBC 3.12 M/? ? ?L 3.93-5 .22 low Not Available [address], [address], 08/19/2024 14:33:15 08/19/20 24 08/19/2024 CBC HGB 10.0 g/dL 11.2-1 5.7 low Not Available [address], [address], 08/19/2024 14:33:15 08/19/20 24 08/19/2024 CBC HCT 29.4 % 34.1-4 4.9 low Not Available [address], [address], 08/19/2024 14:33:15 08/19/20 24 08/19/2024 CBC MCV 94.2 fL 79.4-9 4.8 Not Available [address], [address], 08/19/2024 14:33:15 08/19/20 24 08/19/2024 CBC MCH 32.1 pg 25.6-3 2.2 Not Available [address], [address], 08/19/2024 14:33:15 08/19/20 24 08/19/2024 CBC MCHC 34.0 g/dL 32.2-3 5.5 Not Available [address], [address], 08/19/2024 14:33:15 08/19/20 24 08/19/2024 CBC plt 211 K/? ? ?L 182-36 9 Not Available [address], [address], 08/19/2024 14:33:15 08/19/20 24 08/19/2024 CBC MPV 10.6 fL 9.4-12 .3 Not Available [address], [address], 08/19/2024 14:33:15 08/19/20 24 08/19/2024 CBC neut% 27.7 % 34.0-7 1.1 low SREV= Slide revie wed by yelena michelle. Not Available [address], [address], 08/19/2024 14:33:15 08/19/20 24 08/19/2024 CBC neut# 1.15 1.56-6 .13 low Not Available [address], [address], 08/19/2024 14:33:15 08/19/20 24 08/19/2024 CBC lymph % 52.4 % 19.3-5 1.7 high Not Available [address], [address], 08/19/2024 14:33:15 08/19/20 24 08/19/2024 CBC lymph # 2.18 K/? ? ?L 1.18-3 .74 Not Available [address], [address], 08/19/2024 14:33:15 08/19/20 24 08/19/2024 CBC mono% 9.1 % 4.7-12 .5 Not Available [address], [address], 08/19/2024 14:33:15 08/19/20 24 08/19/2024 CBC mono# 0.38 0.24-0 .56 Not Available [address], [address], 08/19/2024 14:33:15 08/19/20 24 08/19/2024 CBC eo% 9.6 % 0.7-5. 8 high Not Available [address], [address], 08/19/2024 14:33:15 08/19/20 24 08/19/2024 CBC eo# 0.40 0.04-0 .36 high Not Available [address], [address], 08/19/2024 14:33:15 08/19/20 24 08/19/2024 CBC baso% 1.2 % 0.1-1. 2 Not Available [address], [address], 08/19/2024 14:33:15 08/19/20 24 08/19/2024 CBC baso# 0.05 0.00-0 .08 Not Available [address], [address], 08/19/2024 14:33:15 08/19/20 24 08/19/2024 CBC RDW-CV 13.8 % 11.7-1 4.4 Not Available [address], [address], 08/19/2024 14:33:15 08/19/20 24 08/19/2024 CBC Ig% 0.000 % 0.000- 1.500 Ig % >0.5 Indic ates possi ble Left Shift Not Available [address], [address], 08/19/2024 14:33:15 08/19/20 24 08/19/2024 CBC Ig# 0.000 0.000- 0.093 Not Available [address], [address], 08/19/2024 14:33:15 08/19/20 24 08/19/2024 CBC NRBC% 0.0 % 0.0-0. 2 Not Available [address], [address], 08/19/2024 14:33:15 08/19/20 24 08/19/2024 CBC NRBC# 0.000 0.000- 0.012 Not Available [address], [address], 08/19/2024 14:33:15 08/19/20 24 08/20/2024 BASIC METAB OLIC PANEL glucose 77 mg/dL 70-100 Not Available [address], [address], 08/20/2024 12:28:24 08/19/20 24 08/20/2024 BASIC METAB OLIC PANEL BUN 20 mg/dL 7-18 high Not Available [address], [address], 08/20/2024 12:28:24 08/19/2008/20/2024 BASIC METAB OLIC PANEL creatinine 0.7 mg/dL 0.8-1. 3 low Not Available [address], [address], 08/20/2024 12:28:24 08/19/20 24 08/20/2024 BASIC METAB OLIC PANEL B/C 28.6 ratio Not Available [address], [address], 08/20/2024 12:28:24 08/19/2008/20/2024 BASIC METAB OLIC PANEL [...] be used in pregn shannon. Not Available [address], [address], 08/20/2024 12:28:24 08/19/2008/20/2024 BASIC METAB OLIC PANEL sodium 143 mmol/ L 136-14 5 Not Available [address], [address], 08/20/2024 12:28:24 08/19/2008/20/2024 BASIC METAB OLIC PANEL potassium 3.9 mmol/ L 3.5-5. 1 Not Available [address], [address], 08/20/2024 12:28:24 08/19/2008/20/2024 BASIC METAB OLIC PANEL chloride 105 mmol/ L 96-107 Not Available [address], [address], 08/20/2024 12:28:24 08/19/20 24 08/20/2024 BASIC METAB OLIC PANEL anion gap 11.6 5.0-15 .0 Not Available [address], [address], 08/20/2024 12:28:24 08/19/20 24 08/20/2024 BASIC METAB OLIC PANEL CO2 26 mmol/ L 21-32 Not Available [address], [address], 08/20/2024 12:28:24 08/19/2008/20/2024 BASIC METAB OLIC PANEL calcium 9.1 mg/dL 8.5-10 .3 Not Available [address], [address], 08/20/2024 12:28:24 08/19/2008/20/2024 LIPID PANEL cholesterol 172 mg/dL <200 mg/dl Nafisa able 200-2 39 mg/dl Borde rline High >240 mg/dl High Not Available [address], [address], 08/20/2024 12:28:25 08/19/20 24 08/20/2024 LIPID PANEL triglyceride s 60 mg/dL <150 mg/dL Deborah l 150-1 99 mg/dL Borde rline High 200-4 99 mg/dL High >500 mg/dL Very High Not Available [address], [address], 08/20/2024 12:28:25 08/19/20 24 08/20/2024 LIPID PANEL direct HDL 71 mg/dL <40 mg/dl - Major Risk for CHD >60 mg/dl - Negat tabitha Risk for CHD Not Available [address], [address], 08/20/2024 12:28:25 08/19/20 24 08/20/2024 LDL - [...] r is not neces adelia. Not Available [address], [address], 08/20/2024 12:28:26 08/19/20 24 08/22/2024 FREE T4 free T4 0.90 NG/dL 0.75-1 .54 Not Available [address], [address], 08/22/2024 15:53:20 08/19/20 24 08/22/2024 TSH TSH 4.30 uIU/m L 0.50-6 .00 The Ameri can Colle ge of Endoc rinol ogy and Ameri can Thyro id Assoc iatio n recom mend goal TSH value s lion en 0.4-4 .0 mIU/m L. Not Available [address], [address], 08/22/2024 16:25:03 10/23/1910/23/2024 CBC WBC 4.74 K/? ? ?L 3.98-1 0.04 Not Available [address], [address], 10/23/2024 12:15:54 10/23/1910/23/2024 CBC RBC 3.28 M/? ? ?L 3.93-5 .22 low Not Available [address], [address], 10/23/2024 12:15:54 10/23/1910/23/2024 CBC HGB 10.4 g/dL 11.2-1 5.7 low Not Available [address], [address], 10/23/2024 12:15:54 10/23/1910/23/2024 CBC HCT 30.5 % 34.1-4 4.9 low Not Available [address], [address], 10/23/2024 12:15:54 10/23/1910/23/2024 CBC MCV 93.0 fL 79.4-9 4.8 Not Available [address], [address], 10/23/2024 12:15:54 10/23/1910/23/2024 CBC MCH 31.7 pg 25.6-3 2.2 Not Available [address], [address], 10/23/2024 12:15:54 10/23/1910/23/2024 CBC MCHC 34.1 g/dL 32.2-3 5.5 Not Available [address], [address], 10/23/2024 12:15:54 10/23/19 25 10/23/2024 CBC plt 212 K/? ? ?L 182-36 9 Not Available [address], [address], 10/23/2024 12:15:54 10/23/19 25 10/23/2024 CBC MPV 10.5 fL 9.4-12 .3 Not Available [address], [address], 10/23/2024 12:15:54 10/23/1910/23/2024 CBC neut% 43.2 % 34.0-7 1.1 Not Available [address], [address], 10/23/2024 12:15:54 10/23/1910/23/2024 CBC neut# 2.05 1.56-6 .13 Not Available [address], [address], 10/23/2024 12:15:54 10/23/1910/23/2024 CBC lymph % 40.7 % 19.3-5 1.7 Not Available [address], [address], 10/23/2024 12:15:54 10/23/1910/23/2024 CBC lymph # 1.93 K/? ? ?L 1.18-3 .74 Not Available [address], [address], 10/23/2024 12:15:54 10/23/19 25 10/23/2024 CBC mono% 10.8 % 4.7-12 .5 Not Available [address], [address], 10/23/2024 12:15:54 10/23/19 25 10/23/2024 CBC mono# 0.51 0.24-0 .56 Not Available [address], [address], 10/23/2024 12:15:54 10/23/19 25 10/23/2024 CBC eo% 3.8 % 0.7-5. 8 Not Available [address], [address], 10/23/2024 12:15:54 10/23/19 25 10/23/2024 CBC eo# 0.18 0.04-0 .36 Not Available [address], [address], 10/23/2024 12:15:54 10/23/19 25 10/23/2024 CBC baso% 1.3 % 0.1-1. 2 high Not Available [address], [address], 10/23/2024 12:15:54 10/23/19 25 10/23/2024 CBC baso# 0.06 0.00-0 .08 Not Available [address], [address], 10/23/2024 12:15:54 10/23/19 25 10/23/2024 CBC RDW-CV 12.8 % 11.7-1 4.4 Not Available [address], [address], 10/23/2024 12:15:54 10/23/19 25 10/23/2024 CBC Ig% 0.200 % 0.000- 1.500 Ig % >0.5 Indic ates possi ble Left Shift Not Available [address], [address], 10/23/2024 12:15:54 10/23/19 25 10/23/2024 CBC Ig# 0.010 0.000- 0.093 Not Available [address], [address], 10/23/2024 12:15:54 10/23/19 25 10/23/2024 CBC NRBC% 0.0 % 0.0-0. 2 Not Available [address], [address], 10/23/2024 12:15:54 10/23/19 25 10/23/2024 CBC NRBC# 0.000 0.000- 0.012 Not Available [address], [address], 10/23/2024 12:15:54 10/23/1910/23/2024 FREE T4 free T4 0.99 NG/dL 0.75-1 .54 Not Available [address], [address], 10/23/2024 16:07:28 10/23/19 25 10/23/2024 TSH TSH 4.91 uIU/m L 0.50-6 .00 The Ameri can Colle ge of Endoc rinol ogy and Ameri can Thyro id Assoc iatio n recom mend goal TSH value s betwe en 0.4-4 .0 mIU/m L. Not Available [address], [address], 10/23/2024 16:33:57 10/23/19 25 10/24/2024 BASIC METAB OLIC PANEL glucose 90 mg/dL 70-100 Not Available [address], [address], 10/24/2024 15:13:12 10/23/19 25 10/24/2024 BASIC METAB OLIC PANEL BUN 9 mg/dL 7-18 Not Available [address], [address], 10/24/2024 15:13:12 10/23/19 25 10/24/2024 BASIC METAB OLIC PANEL creatinine 0.7 mg/dL 0.8-1. 3 low Not Available [address], [address], 10/24/2024 15:13:12 10/23/19 25 10/24/2024 BASIC METAB OLIC PANEL B/C 12.9 ratio Not Available [address], [address], 10/24/2024 15:13:12 10/23/19 25 10/24/2024 BASIC METAB [...] be used in pregn shannon. Not Available [address], [address], 10/24/2024 15:13:12 10/23/19 25 10/24/2024 BASIC METAB OLIC PANEL sodium 136 mmol/ L 136-14 5 Not Available [address], [address], 10/24/2024 15:13:12 10/23/19 25 10/24/2024 BASIC METAB OLIC PANEL potassium 3.4 mmol/ L 3.5-5. 1 low Not Available [address], [address], 10/24/2024 15:13:12 10/23/19 25 10/24/2024 BASIC METAB OLIC PANEL chloride 98 mmol/ L 96-107 Not Available [address], [address], 10/24/2024 15:13:12 10/23/1910/24/2024 BASIC METAB OLIC PANEL anion gap 12.6 5.0-15 .0 Not Available [address], [address], 10/24/2024 15:13:12 10/23/19 25 10/24/2024 BASIC METAB OLIC PANEL CO2 25 mmol/ L 21-32 Not Available [address], [address], 10/24/2024 15:13:12 10/23/19 25 10/24/2024 BASIC METAB OLIC PANEL calcium 9.4 mg/dL 8.5-10 .3 Not Available [address], [address], 10/24/2024 15:13:12 10/30/19 25 10/31/2024 BASIC METAB OLIC PANEL glucose 75 mg/dL 70-100 Not Available [address], [address], 10/31/2024 11:35:21 10/30/19 25 10/31/2024 BASIC METAB OLIC PANEL BUN 21 mg/dL 7-18 high Not Available [address], [address], 10/31/2024 11:35:21 10/30/19 25 10/31/2024 BASIC METAB OLIC PANEL creatinine 0.8 mg/dL 0.8-1. 3 Not Available [address], [address], 10/31/2024 11:35:21 10/30/19 25 10/31/2024 BASIC METAB OLIC PANEL B/C 26.3 ratio Not Available [address], [address]2671, 10/31/2024 11:35:21 10/30/19 25 10/31/2024 BASIC METAB [...] be used in pregn shannon. Not Available [address], [address], 10/31/2024 11:35:21 10/30/19 25 10/31/2024 BASIC METAB OLIC PANEL sodium 139 mmol/ L 136-14 5 Not Available [address], [address], 10/31/2024 11:35:21 10/30/19 25 10/31/2024 BASIC METAB OLIC PANEL potassium 4.7 mmol/ L 3.5-5. 1 Not Available [address], [address], 10/31/2024 11:35:21 10/30/19 25 10/31/2024 BASIC METAB OLIC PANEL chloride 104 mmol/ L 96-107 Not Available [address], 15751, 10/31/2024 11:35:21 10/30/19 25 10/31/2024 BASIC METAB OLIC PANEL anion gap 9.9 5.0-15 .0 Not Available [address], 13905, 10/31/2024 11:35:21 10/30/19 25 10/31/2024 BASIC METAB OLIC PANEL CO2 25 mmol/ L 21-32 Not Available [address], [address], 10/31/2024 11:35:21 10/30/19 25 10/31/2024 BASIC METAB OLIC PANEL calcium 9.1 mg/dL 8.5-10 .3 Not Available [address], [address], 10/31/2024 11:35:21 12/18/19 25 12/17/2024 COMP. METAB OLIC PANEL glucose 76 mg/dL 70-100 Not Available [address], [address], 12/17/2024 15:43:43 12/18/19 25 12/17/2024 COMP. METAB OLIC PANEL BUN 18 mg/dL 7-18 Not Available [address], [address], 12/17/2024 15:43:43 12/18/19 25 12/17/2024 COMP. METAB OLIC PANEL creatinine 0.7 mg/dL 0.8-1. 3 low Not Available [address], [address], 12/17/2024 15:43:43 12/18/19 25 12/17/2024 COMP. METAB OLIC PANEL B/C 25.7 ratio Not Available [address], [address], 12/17/2024 15:43:43 12/18/19 25 12/17/2024 COMP. METAB OLIC PANEL GFR >=60ML /MIN mL/mi [...] be used in pregn shannon. Not Available [address], [address], 12/17/2024 15:43:43 12/18/19 25 12/17/2024 COMP. METAB OLIC PANEL sodium 143 mmol/ L 136-14 5 Not Available [address], [address], 12/17/2024 15:43:43 12/18/19 25 12/17/2024 COMP. METAB OLIC PANEL potassium 4.5 mmol/ L 3.5-5. 1 Not Available [address], [address], 12/17/2024 15:43:43 12/18/19 25 12/17/2024 COMP. METAB OLIC PANEL chloride 107 mmol/ L 96-107 Not Available [address], [address], 12/17/2024 15:43:43 12/18/19 25 12/17/2024 COMP. METAB OLIC PANEL anion gap 11.0 5.0-15 .0 Not Available [address], [address], 12/17/2024 15:43:43 12/18/19 25 12/17/2024 COMP. METAB OLIC PANEL CO2 25 mmol/ L 21-32 Not Available [address], 93454, 12/17/2024 15:43:43 12/18/19 25 12/17/2024 COMP. METAB OLIC PANEL calcium 9.2 mg/dL 8.5-10 .3 Not Available [address], [address]66, 12/17/2024 15:43:43 12/18/19 25 12/17/2024 COMP. METAB OLIC PANEL total protein 7.3 g/dL 6.4-8. 2 Not Available [address], [address]709, 12/17/2024 15:43:43 12/18/19 25 12/17/2024 COMP. METAB OLIC PANEL albumin 4.0 g/dL 3.4-5. 0 Not Available [address], [address]14, 12/17/2024 15:43:43 12/18/19 25 12/17/2024 COMP. METAB OLIC PANEL globulin 3.3 g/dL Not Available [address], 23235, 12/17/2024 15:43:43 12/18/19 25 12/17/2024 COMP. METAB OLIC PANEL A/G 1.2 ratio 0.8-2. 0 Not Available [address], [address]54, 12/17/2024 15:43:43 12/18/19 25 12/17/2024 COMP. METAB OLIC PANEL total bilirubin 0.80 mg/dL 0.00-1 .00 Not Available [address], 6[address], 12/17/2024 15:43:43 12/18/19 25 12/17/2024 COMP. METAB OLIC PANEL AST 39 U/L 0-37 high Not Available [address], 32989, 12/17/2024 15:43:43 12/18/19 25 12/17/2024 COMP. METAB OLIC PANEL ALT 61 U/L 6-63 Not Available [address], 12974, 12/17/2024 15:43:43 12/18/19 25 12/17/2024 COMP. METAB OLIC PANEL alk. phos. 110 U/L 50-136 Not Available [address], [address], 12/17/2024 15:43:43 07/31/20 24 07/31/2024 XR, chest CLINIC AL [...] e. Readin g Physic kaylie: Cristian Mao [facility] (Imaging) [address], [place], [address], 07/31/2024 20:23:19 10/23/19 25 10/23/2024 elect rocar diogr am No observ ation record ed. [address], [address], 10/23/2024 10:22:39 10/23/19 elect rocar diogr am No observ ation record ed. [email or web address] Not Available 2024 11:01:44 10/23/19 25 10/23/2024 elect rocar diogr am No observ ation record ed. BARCODE Not Available 2024 12:09:09 10/23/19 25 10/23/2024 elect rocar diogr am No observ ation record ed. BARCODE Not Available 2024 12:11:01 12/14/19 25 12/18/2024 elect rocar diogr am No observ ation record ed. [address], [address], 12/18/2024 10:31:51 12/14/19 elect davdi beth am No observ ation record ed. CAMRON [...] No acute or focal bony abnorm ality. Readtrey alvarado Physic kaylie: Giancarlo Son ms [facility] (Imaging) [address] [place], [address], 12/17/2024 12:25:31 12/18/19 25 12/17/2024 US, splee [...] rkable left upper quadra nt ultras ound. Readtrey alvarado Physic kaylie: Cristian Mao [address] (Imaging) [address] [place], [address], 12/31/2024 10:05:44 Result Notes None recorded. Problems Name Problem SNOMED Code Status Onset Date Resolution Date Notes Provider Name and Address Organization Details Recorded Time Benign essential hypertensio n 9294515 Active Mina Orantes MD [address] [place] [address] [place], [address], [facility] 13:57:39 Atheroscler osis of aorta 63458531 Active Laurie vallejo MD [address] [place], [place] [address] [place], [address], [facility] 15:44:25 Anemia 148373320 Completed 201607/26/2019 MARQUES Espinoza [address] [place], [place] [address] [place], [address], [facility] 13:49:05 History of anemia 535298738 Completed 201807/20/2020 Laurie vallejo MD [address] [place], [place] [address] [place], [address], [facility] 0 15:50:41 Chronic anemia 728212901 Active 2020 Laurie vallejo MD [address] [place], [place] [address] [place], [address], [facility] 1 12:42:08 Hypothyroid ism 95399551 Active 2021 Laurie vallejo MD [address] [place], [place] [address] [place], [address], [facility] 13:12:02 Urinary incontinenc e 828841083 Active 2023 Laurie vallejo MD [address] [place], [place] [address] [place], [address], [facility] 15:11:02 Atrial fibrillatio n 46661214 Active 2024 OG MAXWELL DNP [address] [place], [place] [address] [place], [address], [facility] 5 13:59:34 Problem Notes None recorded. Procedures Surgical History Date Name Laterality Status Provider Name and Address Organization Details Recorded Time 02/09/20 86636: Manual Therapy completed Nakul Sin, PT, DPT, [address], [address], [facility] 02/08/2019 12:21:51 02/09/20 19 36005: Ultrasound (1:1) completed Nakul Sin PT, DPT, CSCS [address] [place] [address], [address], [facility] 02/08/2019 11:52:37 02/09/20 19 Neuromuscular re-education completed Nakul Sin, PT, DPT, CSCS [address] [place] [address], [address], [facility] 02/08/2019 12:21:52 02/02/20 19 23536: Manual Therapy completed Nakul Sin, PT, DPT, CSCS [address] [place] [address], [address], [facility] 02/01/2019 12:27:52 02/02/20 19 71605: Ultrasound (1:1) completed Nakul Sin, PT, DPT, CSCS [address] [place] [address], [address], [facility] 02/01/2019 12:28:03 01/26/20 19 Physical Activity Counselling completed Nakul Sin, PT, DPT, CSCS [address] [place] [address], [id number], [facility] [place] 01/25/2019 11:51:30 01/26/20 19 [id number]: PT Darren, Moderate Complexity completed Nakul Sin, PT, DPT, CSCS [address] [place] [address], [phone], [facility] [place] 01/25/2019 12:30:52 01/08/20 19 US Guided Knee Joint Injection completed Mina Orantes MD [address] [place] [address], [id number], [facility] [place] 01/07/2019 15:42:17 01/05/20 19 [id number]: Therapeutic Exercise completed Nakul Sin, PT, DPT, CSCS [address] [place] [address], [id number], [facility] [place] 01/04/2019 12:27:04 01/05/20 19 [id number]: Manual Therapy completed Nakul Sin, PT, DPT, CSCS [address] [place] [address], [id number], [facility] [place] 01/04/2019 12:26:55 01/05/20 19 [id number]: Ultrasound (1:1) completed Nakul Sin, PT, DPT, CSCS [address] [place] [address], [id number], [facility] [place] 01/04/2019 12:26:51 12/29/19 [id number]: Manual Therapy completed Nakul Sin, PT, DPT, CSCS [address] [place] [address], [id number], [facility] [place] 12/28/2018 12:30:25 12/29/19 19 [id number]: Therapeutic Activities - Direct 1:1 completed Nakul Sin, PT, DPT, CSCS [address] [place] [address], [id number], [facility] [place] 12/28/2018 12:30:31 12/21/19 [id number]: Manual Therapy completed Nakul Sin PT, DPT, CSCS [address] [place] [address], [id number], [facility] [place] 12/20/2018 12:46:05 12/21/19 [id number]: Therapeutic Activities - Direct 1:1 completed Nakul Sin, PT, DPT, CSCS [address] [place] [address], [id number], [facility] [place] 12/20/2018 12:46:31 12/15/19 [id number]: Manual Therapy completed Nakul Sin, PT, DPT, CSCS [address] [place] [address], [id number], [facility] [place] 12/14/2018 11:49:54 12/15/19 19 Neuromuscular re-education completed Nakul Sin, PT, DPT, CSCS [address] [place] [address], [phone], [facility] [place] 12/14/2018 13:46:02 12/08/19 19 [id number]: Therapeutic Exercise completed Nakul Sin, PT, DPT, CSCS [address] [place] [address], [phone], [facility] [facility] 12/07/2018 12:38:26 12/08/19 19 78757: Manual Therapy completed Nakul Sin, PT, DPT, CSCS [address] [place] [address], [phone], [facility] 12/07/2018 12:38:09 12/01/19 19 89332: Manual Therapy completed Nakul Sin, PT, DPT, CSCS [address] [place] [address], [phone], [facility] 11/30/2018 12:37:17 12/01/19 19 01124: Ultrasound (1:1) completed Nakul Sin, PT, DPT, CSCS [address] [place] [address], [phone], [facility] 11/30/2018 11:50:13 12/01/19 19 69301: Therapeutic Activities - Direct 1:1 completed Nakul Sin, PT, DPT, CSCS [address] [place] [address], [phone], [facility] 11/30/2018 13:14:39 11/23/19 19 89982: Manual Therapy completed Nakul Sin, PT, DPT, CSCS [address] [place] [address], [phone], [facility] 11/22/2018 15:22:45 11/23/19 19 86890: Ultrasound (1:1) completed Nakul Sin, PT, DPT, CSCS [address] [place] [address], [phone], [facility] 11/22/2018 15:18:21 11/17/19 19 53774: Manual Therapy completed Nakul Sin, PT, DPT, CSCS [address] [place] [address], [phone], [facility] 11/16/2018 11:08:12 11/17/19 19 67569: Ultrasound (1:1) completed Nakul Sin, PT, DPT, CSCS [address] [place] [address], [phone], [facility] 11/16/2018 11:08:03 11/17/19 19 Neuromuscular re-education completed Nakul Sin, PT, DPT, CSCS [address] [place] [address], [phone], [facility] 11/16/2018 11:08:15 11/05/19 19 Physical Activity Counselling completed Nakul Sin, PT, DPT, [address], [phone], [place] [facility] 11/05/2018 11:19:01 11/05/19 19 30078: PT Eval, Moderate Complexity completed Nakul Sin, PT, DPT, CSCS [address] [place] [address], [phone], [place] [facility] 11/05/2018 11:45:14 07/25/20 18 POC Urinalysis Testing completed Duane Aguayo CMA [facility] 07/25/2018 16:27:44 Imaging Results Imaging Date Name Status LastModified by Organization Details LastModified Time 07/31/2024 XR, chest completed [facility] (Imaging) [address] [place], [address], 07/31/2024 20:23:19 10/23/2024 electrocardiogram completed [address], [address], 10/23/2024 10:22:39 10/23/2024 electrocardiogram completed ppijar Informa tion not available 10/23/2024 11:01:44 10/23/2024 electrocardiogram completed [facility] Informa tion not available 10/23/2024 12:09:09 10/23/2024 electrocardiogram completed [facility] Informa tion not available 10/23/2024 12:11:01 12/18/2024 electrocardiogram completed [address], [address], 12/18/2024 10:31:51 12/13/2024 electrocardiogram completed [place] Informa tion not available 12/17/2024 12:25:31 12/13/2024 XR, ribs, unilateral completed [facility] (Imaging) [address] [place], [address], 12/17/2024 12:25:31 12/17/2024 US, spleen completed [address] [facility] (Imaging) [address] [place], [address], 12/31/2024 10:05:44 Procedure Notes None recorded. Medical Equipment None Reported. Allergies Allergen ID Allergen Name Allergen Category Reaction Reaction Severity Criticality Documentation Date Start Date Code Code System Note Provider Name and Address Organization Details Recorded Time 914430 lisinopri l medicatio n Not available Not available Not available 04/15/2015 01604 RxNorm Cough ing Honey Thee [facility] 8 15:08:16 Medications Name Sig [...] omeprazol e 20 mg capsule,d elayed release TAKE 1 CAPSULE BY MOUTH ONCE DAILY IN THE MORNING ON AN EMPTY STOMACH WITH WATER 30 MINUTES BEFORE EATING. TAKE THIS MEDICATI ON 2 HOURS BEFORE OTHER MEDICATI ONS active Not Available Not Available No t Available Pepcid 20 mg tablet Take 1 tablet [...] e 50 mcg/actua tion nasal spray,lakia pension Foster 1 spray every day by intranas al route. active Not Available Not Available No t Available naproxen 500 mg tablet TAKE 1 TABLET BY MOUTH TWICE DAILY WITH FOOD FOR PAIN RELIEF 2024 active Not Available Not Available Not Avai lable Pneumovax -23 25 mcg/0.5 mL injection syringe [...] Updated DateTime 4 144.78 cm 29.2 kg/m2 52216.9 7 g 88 /min 99 % 99 % 98.2 [degF] 105 mm[Hg] 62 mm[Hg] Rika [facility] 4 14:47:14 Date Recorded Body height Body mass index (BMI) Body weight Heart rate Oxygen saturation Oxygen saturation in Arterial blood by Pulse oximetry Systolic blood pressure Diastolic blood pressure Provider Name and Address Organization Details Last Updated DateTime 4 144.78 cm 28.3 kg/m2 50924.6 g 79 /min 99 % 99 % 100 mm[Hg] 60 mm[Hg] DOMENIC Hughes [facility] 4 08:42:56 Date Recorded Body height Body mass index (BMI) Body weight Heart rate Oxygen saturation Oxygen saturation in Arterial blood by Pulse oximetry Systolic blood pressure Diastolic blood pressure Provider Name and Address Organization Details Last Updated DateTime 5 144.78 cm 28.6 kg/m2 56727.1 9 g 77 /min 100 % 100 % 116 mm[Hg] 64 mm[Hg] Janice Cuevas [facility] 5 09:46:00 Date Recorded Body height Body mass index (BMI) Body weight Heart rate Oxygen saturation Oxygen saturation in Arterial blood by Pulse oximetry Systolic blood pressure Diastolic blood pressure Provider Name and Address Organization Details Last Updated DateTime 5 144.78 cm 29.2 kg/m2 40327.9 7 g 68 /min 98 % 98 % 118 mm[Hg] 68 mm[Hg] DOMENIC Martines [facility] 5 13:45:03 Date Recorded Body height Body mass index (BMI) Body weight Heart rate Oxygen saturation Oxygen saturation in Arterial blood by Pulse oximetry Systolic blood pressure Diastolic blood pressure Provider Name and Address Organization Details Last Updated DateTime 5 144.78 cm 29.4 kg/m2 73540.5 6 g 48 /min 99 % 99 % 122 mm[Hg] 54 mm[Hg] Carolina Delaney MA [facility] 10:27:33 Social History Question Answer Notes LastModified by Organizat ion Details LastModified Time Tobacco Smoking Status Never Smoker 10/23/24mm 12/13/24 [facility] 12/13/2024 10:23:53 What Is Your Level Of Alcohol Consumption? None Information not available 02/01/2022 Do You Wear A Helmet When Biking? Yes Information not available 11/16/2015 What Is Your Level Of Caffeine Consumption? Occasional Tea [email or web address] Information not available 02/01/2022 How Much Tobacco Do You Chew? None Information not available 11/16/2015 Are You Currently Employed? No [email or web address] Information not available 11/23/2015 What Type Of Diet Are You Following? REGULAR [email or web address] Information not available 10/01/2014 Do You Or Have You Ever Used E-cigarettes Or Vape? Never Used Electronic Cigarettes [email or web address] Information not available 02/01/2022 Education Less Than 8th Grade No Formal Schooling Information not available 09/16/2022 What Is The Highest Grade Or Level Of School You Have Completed Or The Highest Degree You Have Received? 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 No [email or web address] Information not available 02/01/2022 How Many Days In The Past Year Have You Had A Heavy Drinking Consumption (4+ Female, 5+ Male)? 0 [email or web address] Information not available 10/01/2014 Are There Any Guns Present In Your Home? No Information not available 11/16/2015 Do You Use Insect Repellent Routinely? Yes [email or web address] Information not available 02/01/2022 Live Alone Or With Others? With Others /[email or web address] Daughter's Family In Daughter's House Information not available 03/09/2023 Patient Has Health Care Proxy Signed And In Chart Yes Daughter- Rosette Cordero [email or web address] Information not available 03/10/2023 CCM Consent Discussion 03/12/2024 [email or web address] Information not available 03/13/2024 Marital Status Came Here Late 2012 From [facility] Information not available 03/09/2023 Mosquito Repellent Used Routinely No Information not available 09/16/2022 What Was The Date Of Your Most Recent Tobacco Screening? 12/13/2024 [email or web address] Information not available 12/13/2024 How Many Children Do You Have? 6 Daughters [email or web address] Information not available 10/01/2014 What Is Your Relationship Status? Male Spouse Information not available 02/01/2022 Do You Use Your Seat Belt Or Car Seat Routinely? Yes [email or web address] Information not available 02/01/2022 Seat Belts Used Routinely Yes Information not available 09/16/2022 Smoke Alarm In Home Yes Information not available 09/16/2022 Do You Have Smoke And Carbon Monoxide Detectors In Your Home? Yes [email or web address] Information not available 02/01/2022 Are You Passively Exposed To Smoke? No [email or web address] Information not available 02/01/2022 Do You Or Have You Ever Used Smokeless Tobacco? Never Used Smokeless Tobacco [email or web address] Information not available 02/01/2022 How Much Tobacco Do You Smoke? No [email or web address] Information not available 02/01/2022 General Stress Level [...] virus, quadrivalent, PF 5 completed Not Available [facility] 09/28/2019 02:19:21 Td (adult), 5 Lf tetanus toxoid, preservative free, adsorbed 5 completed Not Available [facility] 09/28/2019 02:19:45 zoster live 6 completed Not Available [facility] 09/28/2019 02:20:17 Influenza, split virus, quadrivalent, PF 6 completed Not Available [facility] 09/28/2019 02:20:16 Influenza, split virus, quadrivalent, PF 7 completed Not Available [facility] 09/28/2019 02:22:08 Influenza, split virus, quadrivalent, PF 9 completed Not Available [facility] 09/28/2019 02:31:12 Influenza, high-dose, quadrivalent, PF 0 completed Roxy Cisneros MA null, [facility] 07/11/2020 12:32:10 Pneumococcal conjugate PCV 13 1 completed Duane Aguayo CMA null, [facility] 01/29/2021 11:20:16 COVID-19, mRNA, LNP-S, PF, 100 mcg/0.5mL dose or 50 mcg/0.25mL dose 1 completed Marian Button null, [facility] 09/16/2022 14:04:06 Influenza, high-dose, quadrivalent, PF 2 completed RAFAT WILSON PA-C [address] [place] [address], [phone], [facility] 07/18/2022 15:12:33 COVID-19, mRNA, LNP-S, PF, 100 mcg/0.5mL dose or 50 mcg/0.25mL dose 1 completed Marian Button null, [facility] 09/16/2022 14:04:07 COVID-19, mRNA, LNP-S, PF, 100 mcg/0.5mL dose or 50 mcg/0.25mL dose 1 completed Marian Button null, [facility] 09/16/2022 14:04:06 Influenza, split virus, quadrivalent, preservative 1 completed [facility] 09/[facility]/2022 14:04:06 pneumococcal polysaccharide PPV23 0 completed [facility] 09/16/2022 14:04:06 COVID-19, mRNA, LNP-S, PF, 100 mcg/0.5mL dose or 50 mcg/0.25mL dose 2 completed Marian Button null, [facility] 09/16/2022 14:04:06 Influenza, high-dose, quadrivalent, PF 3 completed Nilmari RMEj veliz, [facility] 06/04/2023 15:47:53 RSV, recombinant, protein subunit RSVpreF, adjuvant reconstituted, 0.5 mL, PF 3 completed Nilmari RMA Toribioyun veliz, [facility] 06/04/2023 15:48:23 COVID-19, mRNA, LNP-S, PF, 50 mcg/0.5 mL 3 completed Nilmari RMA Toribio jose alfredo, [facility] 06/27/2023 14:38:15 Influenza, high-dose, trivalent, PF 4 completed Nilmari RMA Toribio null, [facility] 07/04/2024 07:58:35 zoster recombinant 4 completed Nilmari, RMA Toribio null, [facility] 07/04/2024 07:59:05 Past Encounters Encounter ID Performer Location Encounter Start Date Encounter Closed Date Diagnosis/Indication Diagnosis SNOMED-CT Code Diagnosis ICD10 Code Diagnosis Note [id number] Bob Saravia MD , [facility] [place] [address] [place] [address] 10/01/2014 13:54:52 10/01/2014 14:59:36 Adult health examination 983808580 see Risk Assessment and Lifestyle Change Counseling section above colo and mammo up to date pap unclear- daughter will check to see if she had a pap -- if not, she will call for a pap Influenza vaccine needed [id number] 106 Pain of sh oulder region 67523187 she prefers not to see PT. she has handouts on PT exercises to do at home. she has some ROM limitation . Benign ess ential hypertension 2707568 lipids and labs up to date 04/24. Continue current medication . Gastritis 4281860 has br eath test follow up pending after recent treatment for h. pylori. dietary precaution s reviewed. will restart a PPI for further treatment. only had PPI treatment for 10 days [id number] Nate Cabrera PA-C , [facility] [place] [address] [place] [address] 11/26/2014 10:24:47 11/26/2014 11:09:41 Gynecologic examination 95674746 possibly her first pap today. Pain of hip region 29390400 she will consider PT after x-ray. she will stick with tylenol for now but might consider nsaids for improved relief. Screening for malignant neoplasm of cervix 237981151 [id number] Louise Ervin PA-C , [facility] [place] [address] [place] [address] 01/05/2015 11:41:10 01/05/2015 12:42:08 Pre-surgery evaluation [id number] Pt is an appropriat e candidate for proposed procedure. EKG and labs will be faxed. Bradycardia 43922329 a l ook back through her previous records reveals this is a stable finding Systolic e jection sound 46567931 no previous documentat ion. will explore further with echo. likely associated with longstandi ng HTN. not a harsh murmur or with red flag characteri stics. Benign ess ential hypertension 3797135 well controlled on current meds. she is on herbals but cannot tell me what--and was advised to DC those at least 5 days prior to surgery. [id number] Louise Ervin PA-C , [facility] [place] [address] [place] [address] 04/03/2015 15:05:29 04/06/2015 09:13:40 Benign essential hypertension 7602221 Blood pressure at goal Today is an outlier. she stopped her herbal which she questions might contribute . ? pain as contributo r. will follow needs lipid panel done. Administra tion of diphtheria and tetanus vaccine 81953677 Pain of hip region 33027453 she will consider PT after x-ray. she will stick with tylenol for now but might consider nsaids for improved relief. Atheroscle rosis of aorta 55126208 needs lipid panel done. order in [id number] Jossy SHIN, [facility] [place] [address] [place] [address] 11/16/2015 10:23:44 11/16/2015 11:28:34 Adult health examination 679424668 Z00.00 see Risk Assessment and Lifestyle Change Counseling section above Benign ess ential hypertension 9160369 I10 Blood pressure at goal Active or passive immunization 610968358 Z23 Varicella vaccination 68 917986 Z23 Screening for disorder 581617178 Z11.59 Screening mammography 24 484079 Z12.31 Pain of hip region 93542 002 M25.559 x-ray left hip. has imaged right. both hips are painful. affecting her ability to mabulate. using nsaids and tylenol for pain. will refer to physical medicine and PT Gastritis 4113292 K29.70 she is not interested in medicine. she has had treatment for h pylori. [id number] Mina Orantes MD Sports Medicine, [facility] [place] [address] [place] [address] 11/23/2015 13:24:29 11/24/2015 13:19:41 Backache 825358128 M54.9 Shreya is a 60-year-ol d female [...] up in 8 weeks for reevaluati on. [id number] RAYMOND Borrego, [facility] [place] [address] [place] [address] 04/08/2016 09:25:32 04/08/2016 09:45:10 Contact dermatitis caused by urushiol from [facility] mynor 671598296 L25.5 PI rash on face, armsmild outbreak but given face involvemen t will tx with prednsione 40 mg 12 day taperGiven triamcinol one cream toodiscuss ed how transmitti ng and expected course of rash Benign ess ential hypertension 7723627 I10 Bp just a bit elevated todayhas been taking some (vidal) ARB from [facility].will switch to losartan 25 mgwill have neices (nurses) check her bp to make sure stay <140/90. [id number] Reinaldo Crowder MD , [facility] [place] [address] [place] [address] 01/18/2017 13:54:11 01/18/2017 14:43:50 Benign essential hypertension 2288178 I10 Blood pressure at goal Continue meds Adult heal th examination 748079732 Z00.00 Exam done Atheroscle rosis of aorta 49286579 I70.0 noted incidental ly on echo Screening mammography 24 336811 Z12.31 Anemia 650848985 D64.9 check labs [id number] Reinaldo Crowder MD , [facility] [place] [address] [place] [address] 07/24/2017 10:28:06 07/24/2017 11:15:13 Benign essential hypertension 9061032 I10 Blood pressure at goal Blood pressure NOT at goal. Active or passive immunization 692425393 Z23 Headache 28064830 R51 Exposure t o Hepatitis B virus 306806286 Z20.5 Family members w/ hep B. Check vaccinatio n status and core antigen. [id number] Jossy Gaston.OMary Lou , [facility] [place] [address] [place] [address] 10/04/2017 16:54:28 10/04/2017 17:43:37 Benign essential hypertension 5263008 I10 Anemia 228894036 D64.9 Sleep disorder 59214631 G47.9 [id number] Reinaldo Crowder MD , [facility] [place] [address] [place] [address] 10/19/2017 15:43:34 10/19/2017 16:17:28 Benign essential hypertension 4881406 I10 Still elevated on her ARB. Doesn't remember the 50mg she was on in the past. Will increase dose 25 to 50 and fu 3 wks, [id number] Reinaldo Crowder MD , [facility] [place] [address] [place] [address] 11/09/2017 14:55:57 11/09/2017 15:32:06 Benign essential hypertension 4035139 I10 Still elevated on her losarten 50. Will increase again an fu next month. With rapid increase, will check US to r/o RANDY [id number] Reinaldo Crowder MD , [facility] [place] [address] [place] [address] 11/30/2017 15:58:51 11/30/2017 16:33:00 Benign essential hypertension 4205301 I10 Not at goal (150 systollic for her pmh) with mostly 150s-160s at home. Would need a dift med if we chose to tx more aggressive ly. Will continue home monitoring at [facility] 100. Fu 2 mos and bring BP cuff with them to calibrate. If needs another med, consider low dose chlorthala done [id number] Reinaldo Crowder MD , [facility] [place] [address] [place] [address] 01/22/2018 15:06:26 01/22/2018 16:14:20 Adult health examination 945059660 Z00.00 Exam done. Depression screening 171 029924 Z13.89 depression screening tool administer ed, entered into emr, scored and discussed, time greater than 7.5 minutes Benign ess ential hypertension 1114781 I10 Blood pressure at goal. Continue meds. Seems labile at home Screening mammography 24 537554 Z12.31 Atheroscle rosis of aorta 49519083 I70.0 noted incidental ly on echo Anemia 386037054 D64.9 stable [id number] Damon Guerra MD , [facility] [place] [address] [place] [address] 07/25/2018 16:01:29 07/25/2018 16:34:07 Benign essential hypertension 2300236 I10 Blood pressure NOT at goal. Based on JNC 8 guidelines , BP should be below 140/90 for age 65 and younger. BP is elevated today. Added low dose HCTZ. Advised Pt to return in 1 week with PCP for BP check. All questions were addressed. Pt understand s and agrees with treatment plan Increased frequency of urination 596113714 R35.0 Informed Pt that there is no urinary tract infection. Urinary frequency is most likely incontinen kendra (urgency). Educated Pt on kegel exercises. Pt repeated back to Provider on how to do kegel exercise. Will follow-up with Pt in 1 week. All questions were addressed. Pt understand s and agrees with treatment plan [id number] Damon Guerra MD , [facility] [place] [address] [place] [address] 08/01/2018 14:55:12 08/01/2018 15:25:03 Benign essential hypertension 8304451 I10 Blood pressure at goalBased on JNC 8 guidelines , BP should be below 140/90 for age 65 and younger. BP is controlled today. Continue with HCTZ. Will follow-up with Pt in 3 months. All questions were addressed. Pt understand s and agrees with treatment plan [id number] Damon Guerra MD , [facility] [place] [address] [place] [address] 10/25/2018 13:40:05 10/25/2018 17:40:51 Benign essential hypertension 8729422 I10 Blood pressure at goalBased on JNC [...] agrees with treatment plan Shoulder joint pain 8320 [address]6438 M25.512 Left shoulder pain most likely due [...] understand s and agrees with treatment plan [id number] Nakul Sin, PT, DPT, CSCS Physical Therapy, [facility] [place] [address] [place] [address] 11/05/2018 11:17:49 11/05/2018 11:54:39 Pain of shoulder region 52162703 M25.512 M25.511 Pt is a 63 y.o [...] edema massage, manual therapy, ROM, patient education. [id number] Nakul Sin, PT, DPT, CSCS Physical Therapy, [address] [address] 11/16/2018 10:17:46 11/16/2018 11:29:03 Pain of shoulder region 15395112 M25.512 M25.511 Pt tolerated initiation of manual [...] as she is not able to speak Occitan to correctly assume posture with exercises but able to complete pain-free. Continue PT per POC [id number] Nakul Sin, PT, DPT, CSCS Physical Therapy, [address] [address] 11/22/2018 15:17:38 11/22/2018 16:00:43 Pain of shoulder region 16224956 M25.512 M25.511 Pt continues to tolerate manual techniques well and with no increased c/o pain. Pt demonstrat es increased soft tissue density at upper trap but this resolved with manual techniques with GH mobility improving slowly. At end of visit, pt demonstrat es 90% of pain-free movement with mild shoulder hiking at end range.Cont inue PT per POC [id number] Nakul Sin, PT, DPT, CSCS Physical Therapy, [address] [address] 11/30/2018 11:43:41 11/30/2018 13:40:32 Pain of shoulder region 35725298 M25.512 M25.511 Pt continues to tolerate combo of manual techniques and US well and pain-free that by end of visit, pt demonstrat ed full and equal BUE AROM only noting discomfort at end range. Pt with mild shoulder hiking, but minimal. Pt understood concepts discussed, though, seems skeptical in her capacity to make these changes.WI ll re-assess at next visit. [id number] Nakul Sin, PT, DPT, [facility] Physical Therapy, [address] [address] 12/07/2018 11:41:29 12/07/2018 13:42:30 Pain of shoulder region 52539855 M25.512 M25.511 Discontinu ed US today to assess if with change. Otherwise, pt tolerated manual techniques well demonstrat ing improved passive mobility of GH joint and with full PROM. Actively, pt still with significan t shoulder hiking and limitation s with less 15 degrees. Pt with correct demonstrat ion of therex pain-freeC ontinue PT per POC [id number] Nakul Sin, PT, DPT, CSCS Physical Therapy, [address] [address] 12/14/2018 11:47:32 12/14/2018 14:13:04 Pain of shoulder region 02613720 M25.512 M25.511 Pt continues to have mild soft tissue restrictio ns at bilateral L>R upper trap, but, with significan t improvemen t of GH mobility. Passively pt with WNL of ROM, actively, able to achieve 120. Pt required cues for proper posture with RTC specific areas, but then able to complete on own pain-free. Continue PT per POC [id number] Damon Guerra MD , [facility] [place] [address] [place] [address] 12/17/2018 14:45:07 12/17/2018 15:19:13 Chronic low back pain 298180066 M54.5 back pain most likely due to muscle strain since discomfort with lateral rotation to the right. Pt decline oral medication today and agreed to physical therapy A referral is sent. Advised Pt to take ibuprofen as needed, apply ice to area of discomfort . All questions were addressed. Pt understand s and agrees with treatment plan Pain in left knee 479466 2396 03395 M25.562 Informed Pt that right knee and left knee pain is most likely due to osteoarthr itis. Discussed options of voltaren gel, knee injection, and physical therapy. However, Pt reports she would like to get X-ray first before deciding. All questions were addressed. Pt understand s and agrees with treatment plan Pain in right knee 72686 00074 56818 M25.561 Informed Pt that right knee and left knee pain is most likely due to osteoarthr itis. Discussed options of voltaren gel, knee injection, and physical therapy. However, Pt reports she would like to get X-ray first before deciding. All questions were addressed. Pt understand s and agrees with treatment plan Pain of sh oulder region 22128894 M25.512 Discussed option of corticoste riod injection for pain since Pt reports no relief for physical therapy for her shoulder pain. Pt agreed. A referral is sent to sports medicine. All questions were addressed. Pt understand s and agrees with treatment plan Insomnia 327671997 G47.0 0 Discussed options of melatonin for the insomnia. Pt agreed. All questions were addressed. Pt understand s and agrees with treatment plan [id number] Nakul Sin, PT, DPT, CSCS Physical Therapy, [address] [address] 12/20/2018 12:15:55 12/20/2018 13:48:21 Pain of shoulder region 46447782 M25.512 M25.511 GH mobility nearing WNL and equal bilaterall y with PROM at 165 flexion, 145 abduction and full IR/ER. Actively, pt able to achieve the same with min discomfort at end range.Cont inue PT per POC, after appointmen t with sports medicine [id number] Mina Orantes MD Sports Medicine, [address] [address] 12/24/2018 14:25:31 12/24/2018 15:30:49 Pain of shoulder region 55665024 M25.512 Nettie is a 63-year-ol d female [...] me in 8 weeks for reevaluati on. [id number] Nakul Sin, PT, DPT, CSCS Physical Therapy, [address] [address] 12/28/2018 11:49:12 12/28/2018 12:32:57 Pain of shoulder region 42540232 M25.512 M25.511 At this point, pt with WFL of shoulder AROM bilaterall y and GH mobility WNL. Pt feels confident with ongoing management of HEP and will take better note of ongoing aggravatin g factors.Ot herwise, our plan will be to initiate treatment for R hip/knee pain. [id number] Nakul Sin, PT, DPT, CSCS Physical Therapy, [address] [address] 01/04/2019 11:16:43 01/04/2019 13:30:03 Pain of shoulder region 03823733 M25.512 M25.511 Pt with mild swelling at [...] Pt with follow up with Dr Orantes, eli weller PT per POC in 3 weeks secondary to provider vacation. Pain in right knee 30371 02098 00265 M25.561 Pain in left knee 232523 8778 48831 M25.079 [id number] Mina Orantes MD Sports Medicine, [address] [address] 01/07/2019 14:32:16 01/08/2019 07:53:30 Knee pain 68623574 M25.561 Shreya is a 63-year-ol d female [...] with me as needed for further care. [id number] Nakul Sin, PT, DPT, CSCS Physical Therapy, [address] [address] 01/25/2019 11:50:07 01/25/2019 12:56:01 Pain in right knee 5863745346 15213 M25.561 Pain in left knee 190616 1177 75928 M25.775 [id number] Bob Saravia MD , [facility] [place] [address] [place] [address] [place] [address] 01/25/2019 15:13:24 01/25/2019 16:06:18 Adult health examination 734282422 Z00.00 see Risk Assessment and Lifestyle Change Counseling section above. Will follow-up with Pt PRN or in 1 year for annual wellness visit. All questions were addressed. Pt understand s and agrees with treatment plan Depression screening 171 251695 Z13.89 depression screening tool administer ed, entered into emr, scored and discussed, time greater than 7.5 minutes Screening for malignant neoplasm of cervix 109431722 Z12.4 Superficia l ecchymosis 016986487 R58 superficia l ecchymosis noted on the right side of the abdomen. Pt reports she had this rash since she was 13yo. A referral is sent to dermatolog y for further evaluation and treatment. Pt denies any pruritus with the rash. Atheroscle rosis of aorta 04925144 I70.0 noted incidental ly on echo. BP is well controlled and Pt denies any abdominal pain Anemia 510392445 D64.9 Based on 11/08/18 CBC, Pt is not anemic Benign ess ential hypertension 7757007 I10 Blood pressure at goal [id number] Nakul Sin, PT, DPT, CSCS Physical Therapy, [address] [address] 02/01/2019 11:48:37 02/01/2019 12:34:53 Pain in right knee 0456889277 04281 M25.561 Pain in left knee 514794 4298 82442 M25.569 [id number] Nakul Sin, PT, DPT, CSCS Physical Therapy, [address] [address] 02/08/2019 11:48:19 02/08/2019 13:22:12 Pain in right knee 0796600910 71274 M25.561 Pain in left knee 805423 7390 06898 M25.093 [id number] Nakul Sin, PT, DPT, CSCS Physical Therapy, [address] [address] 02/13/2019 11:51:36 02/13/2019 12:49:02 Pain in right knee 1845728665 92138 M25.561 Pain in left knee 700109 9942 40879 M25.810 [id number] Nakul Sin, PT, DPT, CSCS Physical Therapy, [address] [address] 02/22/2019 12:54:00 02/22/2019 13:48:56 Pain in right knee 2312527162 59766 M25.561 Pain in left knee 437136 8116 04547 M25.380 [id number] Nakul Sin, PT, DPT, CSCS Physical Therapy, [address] [address] 03/22/2019 13:19:25 03/22/2019 14:24:27 Pain in right knee 5829205587 84477 M25.561 Pain in left knee 029376 1963 24011 M25.787 [id number] Nakul Sin, PT, DPT, CSCS Physical Therapy, [address] [address] 04/26/2019 13:16:26 04/26/2019 14:01:27 Pain in right knee 8780479441 33668 M25.561 Pain in left knee 646986 3952 76688 M25.985 [id number] Nakul Sin, PT, DPT, CSCS Physical Therapy, [address] [address] 05/24/2019 13:22:33 05/24/2019 15:46:47 Pain in right knee 4946237621 23921 M25.561 Pain in left knee 358626 0600 05823 M25.901 [id number] Nakul Sin PT, DPT, CSCS Physical Therapy, [address] [address] 07/19/2019 13:19:59 07/19/2019 13:55:56 Pain in right knee 8146615516 26208 M25.561 Pain in left knee 452821 3117 86646 M25.750 [id number] Bob Saravia MD , [facility] [place] [address] [place] [address] [place] [address] 07/26/2019 13:30:14 07/26/2019 14:05:43 Active or passive immunization 856793955 Z23 Benign ess ential hypertension 9848416 I10 Blood pressure at goal. Pt will follow-up with new provider in January for routine annual wellness visit. All questions were addressed. Pt understand s and agrees with treatment plan Pain of oulder region 59172420 M25.512 Pt reports physical therapy really helped her shoulder and knee pain and would like a referral to continue with physical therapy. A referral is sent. All questions were addressed. Pt understand s and agrees with treatment plan Pain in right knee 60816 24360 26997 M25.561 Pt reports physical therapy really helped her shoulder and knee pain and would like a referral to continue with physical therapy. A referral is sent. All questions were addressed. Pt understand s and agrees with treatment plan Pain in left knee 127891 7816 85308 M25.562 Pt reports physical therapy really helped her shoulder and knee pain and would like a referral to continue with physical therapy. A referral is sent. All questions were addressed. Pt understand s and agrees with treatment plan [id number] Stacie Chavez, OD [facility], [facility] [place] [address] [facility] [place] [address] 09/05/2019 13:19:16 09/05/2019 16:37:30 Presbyopia 34436363 H52.4 Bilateral cataracts 9572 2003 H26.9 Pterygium 54879945 H11.0 09 Pigmented skin lesion of uncertain nature 047864361 L81.9 palpebral conjunctiv a at lower lid OD [id number] Bob Saravia MD , [facility] [place] [address] [place] [address] 10/21/2019 11:52:22 10/21/2019 16:18:49 Aphthous ulcer of mouth 372220880 K12.0 experienci ng pain tyical for mucosal oral ulcersther e is one tyical ulcer top of palate on left abutting the pharyngeal pillar.thi s she noted through clean out driller helper is the most painful areapatche s of marked erythema over right palate w/o overt ulceration are present. I explained that this is common viral ,often untreatabl e , but self limited, from one of many viruses that affect the mouthwill rx valtrex in hopes of efficacy , but i explained efficacy is hit or miss.Rx topicals as well [id number] Kaylee Bowden , [facility], [address] [place] [address] 12/21/2019 12:15:13 12/21/2019 13:33:06 Urinary tract infectious disease 82197065 N39.0 Mostly dysuria, some frequency. Plan as below. [id number] Damon Guerra MD , [facility] [place] [address] [place] [address] 07/11/2020 08:56:27 07/11/2020 12:32:57 Active or passive immunization 853112965 Z23 [id number] Laurie Barreto MD , [facility] [place] [address] [place] [address] 07/20/2020 15:06:47 07/22/2020 12:09:57 Atherosclerosis of aorta 37153226 I70.0 Found on imaging. Patient is advised to start aspirin 81 mg daily. 10 year cardiovasc ular risk has not warranted statin therapy. check US to rule out AAA. Benign ess ential hypertension 7830087 I10 Patient control below 130/80. Continue same. Urinary tr act infectious disease 25517309 N39.0 Starting with symptoms of UTI again. Will empiricall y treat with Cipro. Postmenopausal state 764 69345 Z78.0 She is 64 screen for osteoporos is. Screening for malignant neoplasm of breast 132474879 Z12.39 Active or passive immunization 273340314 Z23 Pain of mu ltiple joints 67100304 M25.50 Uses Voltaren gel. I advised patient to not use ibuprofen since we are putting her on aspirin. [id number] Laurie Archibald . MD SHIN, [facility] [place] [address] [place] [address] 12/22/2020 09:40:38 12/24/2020 10:42:21 Atherosclerosis of aorta 90321180 I70.0 Found on imaging. continue aspirin 81 mg daily. 10 year cardiovasc ular risk has not warranted statin therapy. Pain of le ft hip joint 2734934506 14983 M25.552 ? SI joint dysfunctio n vs left hip lathology. will try celebrex not to interfere with am asa, check Xray, declined PT today. has follow up in January. Benign ess ential hypertension 5468290 I10 Patient control below 130/80 mostly, did not take her med today yet.. Continue same. [id number] Laurie Archibald . MD SHIN, [facility] [place] [address] [place] [address] 01/18/2021 15:18:45 01/19/2021 19:36:52 Benign essential hypertension 1156426 I10 Patient control below 130/80 mostly, elevated today. will bring in for nurse visit to check BP. May need to add low dose amlodipine . Atheroscle rosis of aorta 64590943 I70.0 Found on imaging. continue aspirin 81 mg daily. 10 year cardiovasc ular risk has not warranted statin therapy. Adult heal th examination 277635541 Z00.00 USPSTF guidelines reviewed and discussed with patient. Will mail her a health proxy form to fill out. colonoscop y 2013. mammo UTD. No Pap indicated. schedule nurse visit for Pneumovax. Counseling 703535087 Z71 .9 including cardiovasc ular risk reduction counseling , on asa. Depression screening 171 121794 Z13.31 depression screening tool administer ed, entered into emr, scored and discussed, time greater than 7.5 minutes, negative screen. Screening for alcohol abuse 019693834 Z13.39 negative screening. Intolerant of cold 82531 000 R68.89 rule out hypothyroi d. Pain of mu ltiple joints 47103746 M25.50 .Has started seeing a chiropract or. check labs to check for gout and Lyme as well as inflammato ry arthritis. Aphthous u lcer of mouth 850741939 K12.0 Try OTC Lysine. Advance di rective discussed with patient 712765078 Z71.89 counseled, will mail health proxy form to fill out. [id number] Laurie Archibald . , [facility] [place] [address] [place] [address] 01/29/2021 09:13:54 01/29/2021 10:36:18 Low back pain 908677172 M54.5 ? SI joint dysfunctio n, appears to may have some left knee issues too. Just had labs done for rheumatolo gic disease. Hip and pelvic Xray normal in December. No heavy lifting. topical heat. Active or passive immunization 829334640 Z23 pneumococc al vaccine due. Benign ess ential hypertension 6194972 I10 Patient control below 130/80 , at target, continue same meds. [id number] Laurie Archibald . MD SHIN, [facility] [place] [address] [place] [address] 05/10/2021 16:43:26 05/10/2021 17:43:29 Contact dermatitis caused by urushiol from [place] poison mynor 589266427 L25.5 Consistent with contact dermatitis from poison mynor. Patient to avoid the plant when gardening. Use gloves and long sleeve shirts when gardening. May use over-the-c ounter anti-itch cream topically, may use cold compresses or rubbing with an ice cube when itchy. Will give a course of prednisone . Left side sciatica 96928 60846 32863 M54.32 Had an epidural injection from [facility], [...] but wait 2 hours after taking aspirin. [id number] ALISTAIR CHACON DPT Physical Therapy, [address] [address] 07/08/2021 11:00:40 07/08/2021 12:14:13 Radicular pain 14819543 M54.10 Chronic low back pain 27 9393166 M54.50 [id number] ALISTAIR CHACON DPT Physical Therapy, [address] [address] 08/04/2021 11:37:46 08/04/2021 12:29:59 Radicular pain 49249196 M54.10 Chronic low back pain 27 9637937 M54.50 [id number] Laurie Archibald . , [facility] [place] [address] [place] [address] 08/10/2021 11:55:31 08/10/2021 12:44:54 Essential hypertension 99461513 I10 at target below 130/80, continue same. Atheroscle rosis of aorta 87298428 I70.0 Found on imaging. continue aspirin 81 mg daily. 10 year cardiovasc ular risk has not warranted statin therapy. LDL has been below 100 without statin. Pain of sh oulder region 57088200 M25.519 BL shoulder pain, will refer to PT. Aortic eje ction murmur 208018177 R01.1 echo in 2014 showed aortic sclerosis, recheck echo to make sure stenosis has not developed. Chronic anemia 957839920 D64.9 no deficienci es, H/H stable. [id number] ALISTAIR CHACON DPT Physical Therapy, [address] [place] [address] 08/11/2021 16:26:32 08/12/2021 14:21:19 Pain of right knee joint 3585665877 03719 M25.561 Pain of le ft knee joint 4154245383 85655 M25.098 [id number] Laurie Archibald . MD SHIN, [facility] [place] [address] [place] [address] 02/01/2022 14:05:14 02/01/2022 14:53:36 Adult health examination 372869063 Z00.00 USPSTF guidelines reviewed and discussed with patient. health care proxy in place colonoscop y 2013. mammo ordered No Pap indicated. will let us know date of second Covid booster shot, also look into Shingrix. Counseling 690354057 Z71 .9 including cardiovasc ular risk reduction counseling , LDL below 100 without statin, is on aspirin already. Depression screening 171 544793 Z13.31 depression screening tool administer ed, entered into emr, scored and discussed, time greater than 7.5 minutes, negative screening Screening for alcohol abuse 655195933 Z13.39 negative screening. Essential hypertension 73375828 I10 at target below 130/80, continue same. Screening for malignant neoplasm of breast 203040954 Z12.39 order mammo Intolerant of cold 44748 000 R68.89 rule out hypothyroi d. Chronic anemia 791074866 D64.9 no deficienci es, H/H stable. Aortic eje ction murmur 701634771 R01.1 echo in 2014 showed aortic sclerosis, recheck echo to make sure stenosis has not developed. Atheroscle rosis of aorta 27461610 I70.0 Found on imaging. continue aspirin 81 mg daily. 10 year cardiovasc ular risk has not warranted statin therapy. LDL has been below 100 without statin. Chronic low back pain 27 6178452 M54.50 diclofenac not helping much. may OTC ibuprofen sparingly if has pain, increase exercise. Obesity 904539108 E66.9 counseled today to increase exercise and cut back on portions and simple carbs, weight up 11 pounds in 1 year. [id number] MD KIP Ann, [facility], [address] [place] [address] 03/12/2022 15:37:14 03/15/2022 09:17:26 Pruritic rash 81380691 L28.2 facial rash, she says it feels like poison mynor but hsa been nowhere near garden.sug gested pepcid 20 mg and claritin 10 mg instead of benadryl for safety. try cool cloths on the face.start cream, not BELOW eyebrows or ABOVE cheekbones (keep it AWAY fro the eye and eyelids) if not improved have her seen, we are open in [facility] from - tomorrow and Monday. [id number] Laurie Archibald . , [facility] [place] [address] [place] [address] 07/13/2022 10:34:56 07/13/2022 13:57:28 Pre-surgery evaluation 562384215 Z01.818 R eye cataract surgery 07/28/22Pt denies new exertional symptomsPE w/ murmur- will attempt to complete echo prior to surgeryPt is low risk for low risk procedure. There is no contraindi cation to proceed. Chronic anemia 073279768 D64.9 H/H has been stable, will update CBC today Aortic eje ction murmur 384209406 R01.1 Audible on examStates unaware of previous echo apt.Pt case to referrals to reschedule Benign ess ential hypertension 4281935 I10 BP at goal, c/t same Right uppe r quadrant pain 864763558 R10.11 x3 months, intermitte nt, no injuryNo specific PE finding today or correlatio n to position or food intakeWill monitor Active or passive immunization 636343299 Z23 [id number] Laurie Archibald . MD SHIN, [facility] [place] [address] [place] [address] 08/01/2022 11:54:02 08/01/2022 13:43:34 Essential hypertension 97395404 I10 at target below 130/80, continue same. Chronic anemia 452456195 D64.9 no deficienci es, H/H stable. Atheroscle rosis of aorta 11175650 I70.0 Found on imaging. continue aspirin 81 mg daily. 10 year cardiovasc ular risk has not warranted statin therapy. LDL has been below 100 without statin. Aortic garry ve regurgitation 93354070 I35.1 Recent echo showed mild aortic valve regurgitat ion. Consider echocardio gram in 3 years.No symptoms. Mitral garry ve regurgitation 23695223 I34.0 Moderate mitral valve regurgitat ion on recent echo. Consider echocardio gram in 3 years. No symptoms. Tricuspid valve regurgitation 671677044 I07.1 Moderate tricuspid valve regurgitat ion on recent echo. Consider echocardio gram in 3 years. No symptoms. Chronic low back pain 27 0273679 M54.50 had MRI last June ( 2020) with multilevel joint disease, then saw [facility] and states had a shot which did not help, massage therapy once a month helps. Wears an SI support belt. advised to do home exercises daily. Pain of bi lateral knee regions 5903215450 60905 M25.561 uses a cane, disabled placard form completed as well as attestatio n for emergency aid given medical conditions .Check x-rays and refer to orthopedic s for considerat ion of steroid and or hyaluronic acid injections . Hypothyroidism 23730014 E03.9 Euthyroid on replacemen t therapy. Continue same. Check labs before next visit. [id number] Ольга Ga MD , [facility] [place] [address] [place] [address] 08/24/2022 16:26:23 08/25/2022 09:31:47 Acute upper respiratory infection 92702175 J06.9 Wet cough x few days, well-appea ring on exam.Suppo rtive care discussed. Can continue to use robitussin as needed for cough. [id number] Damon Guerra MD , [facility] [place] [address] [place] [address] 08/29/2022 14:48:41 08/29/2022 15:19:50 Benign essential hypertension 3487062 I10 Disorder o f rotator cuff 969742320 M75.80 [id number] Damon Guerra MD , [facility] [place] [address] [place] [address] 09/16/2022 14:03:53 09/16/2022 14:38:04 Benign essential hypertension 3063809 I10 Pain of ri ght shoulder joint 5884624644 0791526 M25.413 [id number] Nasreen [facility], [facility] [address] [facility] [place] [address] 10/06/2022 14:03:49 10/11/2022 14:24:51 Strain of rotator cuff of shoulder 079392869 S46.011D Pain of oulder region 67909562 M25.987 [id number] Nasreen [facility], [address] [place] [address] 10/12/2022 15:43:59 10/12/2022 16:25:45 Strain of rotator cuff of shoulder 534355656 S46.011D Pain of oulder region 06165195 M25.081 [id number] Laurie Archibald . MD SHIN, [facility] [place] [address] [place] [address] 10/18/2022 14:35:04 10/18/2022 15:23:57 Benign essential hypertension 6365663 I10 BP improved after adding amlodipine , continue all BP meds. Rib pain 909555763 R07.8 1 hurts when she moves a [...] has, diclofenac gel. Atheroscle rosis of aorta 18150566 I70.0 Found on imaging. continue aspirin 81 mg daily. 10 year cardiovasc ular risk has not warranted statin therapy. LDL has been below 100 without statin. [id number] Nasreen [facility], [address] [place] [address] 10/19/2022 14:32:21 10/21/2022 10:04:38 Strain of rotator cuff of shoulder 147323514 S46.011D Pain of ould region 48184752 M25.179 [id number] Laurie Archibald . MD SHIN, [facility] [place] [address] [place] [address] 03/09/2023 14:42:27 03/09/2023 17:08:04 Adult health examination 762716774 Z00.00 USPSTF guidelines reviewed and discussed with patient. health care proxy given to fill out. colonoscop y 2013. redo 9 Y mammo ordered No Pap indicated. look into Shingrix.C V counseling done. Depression screening 171 825516 Z13.31 depression screening tool administer ed, negative screen Screening for alcohol abuse 643233508 Z13.39 Alcohol use screening tool administer ed, negative screen Advance di rective discussed with patient 226408001 Z71.89 Advanced Care Planning1. Advanced care planning [...] to take home. 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 Does won ADLs. uses a cane when going for walks. no behavioral issues, short term memory problems. will monitor. form completed for patient not to take the exam but she understand s [employer] . Benign ess ential hypertension 3670207 I10 at target below 130/80, continue same. Chronic anemia 596623723 D64.9 worsening, no B12, folate or iron def, SPEP normal. liver US fatty liver, ESR 23, refer to heme. Hypothyroidism 97723284 E03.9 Euthyroid on replacemen t therapy. Continue same. Atheroscle rosis of aorta 20418319 I70.0 Found on imaging. continue aspirin 81 mg daily. 10 year cardiovasc ular risk has not warranted statin therapy. LDL has been below 100 without statin. no iron deficiency anemia, if FOB negative may continue aspirin. [id number] Ольга Ga MD , [facility] [place] [address] [place] [address] 07/06/2023 14:27:43 07/06/2023 16:25:01 Dysuria 38051927 R30.0 Patient with urinary symptoms.H istory and exam and urinalysis consistent with UTI.Will send urine for culture.Di scussed supportive and preventive measures.P atient instructed to follow up if not better or with new symptoms. Acute urin brittny tract infection 062684078 N39.0 After a discussion of treatment and [...] after 24-36 hours of antimicrob ial therapy. [id number] Laurie Archibald . , [facility] [place] [address] [place] [address] 09/21/2023 09:23:34 09/21/2023 17:16:55 Benign essential hypertension 2385589 I10 at target below 130/80, continue same. Chronic anemia 451970770 D64.9 nl B12, folate or iron def, SPEP normal. liver US fatty liver, saw hematologi st a [facility], no definite etiology. Hypothyroidism 57639195 E03.9 Euthyroid on replacemen t therapy. Continue same. Atheroscle rosis of aorta 12437749 I70.0 Found on imaging. continue aspirin 81 mg daily. 10 year cardiovasc ular risk has not warranted statin therapy. LDL has been below 100 without statin. Cough 20298466 R05.9 grand kids with flu, will check for it, lungs clear. no ST or fever. rapid flu positive for flu B, will treat with tamiflu. Influenza caused by Influenza B virus 63660838 J10.1 as above, sx since yesterday, will treat. Urge incon tinence of urine 22793854 N39.41 does not want meds, will give RX for incontinen ce pads and chucks for night time. Chronic low back pain 27 6421635 M54.50 had MRI last June ( 2020) with multilevel joint disease, then saw PS&S and states had a shot which did not help, massage therapy once a month helps. Wears an SI support belt. needs shower chair, grab bar for toilet, protection pad for tub, grab bar for shower. [id number] Laurie Archibald . [place], [facility] [place] [address] [place], [place] [address] 03/12/2024 15:02:36 03/12/2024 15:39:35 Adult health examination 592129738 Z00.00 USPSTF guidelines reviewed and discussed with patient. health care proxy in place. colonoscop y 2013. redo 10 Y mammo ordered No Pap indicated. look into Shingrix.C V counseling done. is on aspirin, no statin, LDL below 100. Depression screening 171 535277 Z13.31 depression screening tool administer ed, neg Screening for alcohol abuse 376402625 Z13.39 Alcohol use screening tool administer ed, neg Minimal co gnitive impairment 684766030 R41.89 short term memory problem, that along with low/no education and not writing or reading in her own language/T ibetan and no schooling. Does own ADLs. uses a cane when going for walks. no behavioral issues, short term memory problems. will monitor. Benign ess ential hypertension 6758965 I10 at target below 130/80, continue same. Chronic anemia 617355439 D64.9 no B12, folate or iron deficiency , SPEP normal. liver US fatty liver, ESR 23. monitor. Hypothyroidism 70760794 E03.9 Euthyroid on replacemen t therapy. Continue same. Atheroscle rosis of aorta 63708435 I70.0 Found on imaging. continue aspirin 81 mg daily. 10 year cardiovasc ular risk has not warranted statin therapy. LDL has been below 100 without statin. no iron deficiency anemia, FOB negative. continue aspirin. Screening mammography 24 898828 Z12.31 order mammo. Generalize d osteoarthritis 942865045 M15.9 has had in her knees and for her back. to take Tylenol 500 mg, 2 tabs twice a day, do home exercises. if see orthopedic s again, ? surgery, which joint first. [id number] Bob Saravia MD [place] [facility] [place] [address] [place] [address] 07/31/2024 14:35:49 08/02/2024 07:12:10 Cough 58084929 R05.9 Presents with a 5-day history of [...] worsening Erythema o f skin of nose 272560219 L53.9 Recurrent erythema + itching of the [...] cover medication s Benign ess ential hypertension 9878057 I10 Currently has hypertensi on and did not take blood pressure medication today. Blood pressure WNL today at the office. Discussed importance of regular medication adherence to prevent complicati ons. Advised to avoid ibuprofen. - Advise to continue taking blood pressure medication regularly - Instruct to avoid ibuprofen and use acetaminop hen for pain management [id number] Laurie Archibald . [place], [facility] [place] [address] [place] [address] 08/27/2024 08:33:05 08/27/2024 09:44:09 Benign essential hypertension 0925430 I10 at target below 130/80, continue same. LDL at target below 100. Hypothyroidism 26179451 E03.9 Euthyroid on replacemen t therapy. Continue same. Chronic anemia 553554835 D64.9 no B12, folate or iron deficiency , SPEP normal. liver US fatty liver, ESR 23. monitor. ? anemia of chronic disease. Atheroscle rosis of aorta 55341313 I70.0 Found on imaging. continue aspirin 81 mg daily. 10 year cardiovasc ular risk has not warranted statin therapy. LDL has been below 100 without statin. no iron deficiency anemia, FOB negative. continue aspirin. Screening for malignant neoplasm of colon 492700029 Z12.11 will do FIT kit for this year and refer for colonoscop y which likely take a few months to schedule. [id number] Bob Saravia MD , [facility] [place] [address] [place] [address] 10/23/2024 09:30:50 10/23/2024 11:11:41 Palpitations 48821395 R00.2 Atrial fibrillation 4943 6004 I48.91 Rate [...] develop. Screening for malignant neoplasm of colon 040636593 Z12.11 You were given a stool kit today for Colorectal Cancer screening. Please review the instructio ns and return the kit to our office within 7 days. The kits so check the date before submitting the sample. Contact our office with any questions or concerns. Benign ess ential hypertension 3068174 I10 BP 116/64, at goal. Continue current meds. [id number] Bob Saravia MD , [facility] [place] [address] [place] [address] 10/30/2024 13:34:51 10/30/2024 14:46:57 Pre-surgery evaluation 684908820 Z01.818 Pt having a tooth extraction on [...] cardiology recommenda tions Benign ess ential hypertension 3349046 I10 BP 118/68, at goal. Continue current meds. HCTZ on hold until BMP recheck today. Hypokalemia 59377757 E87 .6 3.4 potassium. Most likely due to volume loss from colonoscop y prep. pt and family instructed to hold HCTZ for 3 days. replenishe d with KCL 10 meq PO BID X 5 days. Recheck labs today Chronic anemia 141468024 D64.9 H&H 10.4/30.5 on 10-23-24. No acute signs and symptoms of anemia. No red flag signs and symptoms of abnormal bleeds. Will continue to monitor [id number] Bob Saravia MD , [facility] [place] [address] [place] [address] 12/13/2024 10:01:05 12/13/2024 16:33:39 Immunization due 316642953 Z23 shingles, advised receive at preferred pharmacy History of atrial fibrillation 274737639 Z86.79 S/p cardiovers ion approx week ago. EKG today with rate 53 and sinus bradycardi a. Unlikely cardiac cause for current symptoms Rib pain 663007902 R07.8 1 Musculoske letal chest pain likely from muscle strain or costochond ritis post-cardi oversion. Differenti al includes rib fracture. Will start naproxen in the setting of cardiac hx. xray to assess further. Can take acetaminop hen within daily recommende d doses in between naproxen doses for additional analgesia. Recommend icing affected area. Avoid activities that aggravate symptoms. Left upper quadrant pain 248956483 R10.12 Benign ess ential hypertension 1038398 I10 12/13/24: BP 122/54. Cont amlodipine 2.5 [...] [place] [employer] Shreya Gino [id number] Shreya Gino 08/27/2024 1 [place] [employer] Shreya Gino [id number] Shreya Gino 08/27/2024 2 [place] [facility] Shreya Gino [id number] Shreya Gino 10/23/2024 1 [place] [employer] Shreya Gino [id number] Shreya Gino 10/23/2024 2 [place] [facility] Shreya Gino [id number] Shreya Gino 10/30/2024 1 [place] [employer] Shreya Gino [id number] Shreya Gino 10/30/2024 2 [place] [facility] Shreya Gino [id number] Shreya Gino 12/13/2024 1 MEDICARE B-[place]: [facility] Shreya Gino [id number] Shreya Gino 12/13/2024 2 [place] [facility] Shreya Gino [id number] Shreya Gino Notes Date Note Type Note Provider Name and Address Organization Details Recorded Time 07/31/2024 text/html 68 year old german martin patient accompanied by daughter presents with cough, [...] regular blood pressure medication. Bob Saravia MD [address] [place] [address], [phone], [facility] [place] 08/01/2024 16:41:18 08/27/2024 text/html Patient with his [...] LDL 89, BMP normal Laurie Shoushtari. [address] [place], [address], [facility] [place] 08/27/2024 09:04:22 10/23/2024 text/html 69 year old german martin accompanied by her HCP/dtr presents for eval of afib. Pt was at [facility] for endoscopy at which point they [...] one tab daily. OG MAXWELL DNP [address] [place], [address], [facility] [place] 10/24/2024 10:58:11 10/30/2024 text/html 69 year old here with her daughter for pre op clearance Pt planning to have a tooth extractions on 10/31 and 11/07 w/ [facility]. Currently in no acute distress and offers no new medical complaints. Hx significant for HTN, recent afib and stable chronic anemia. OG MAXWELL DNP [address] [place], [address], [facility] [place] 10/30/2024 14:07:50 12/13/2024 text/html 69 year old [...] sweats, fevers or chills OG MAXWELL DNP [address] [place] [address], [phone], [facility] [place] 12/13/2024 11:34:40 OBGyn Episode No OBEpisode recorded.
--- OUTSIDE RECORDS SUMMARY | 2025-01-08 13:43 | XMS_ITS | Data Portability ---
Author Organization [place] - [facility], Allergy Address [address] [place] [address] Care Team Providers Care Quarryman Name Role Phone OG MAXWELL Primary Care [...] Address Organization Details Recorded Time Nasal congestion 23077054 Active 025 LISA ARANA PA-C [address], [place], [address], [place] - [facility] 5 14:27:10 Lesion of tongue 569385919 Active 025 LISA ARANA PA-C [address] [facility] [address], [place], [address], [facility] - [facility] 5 14:27:16 Deviated nasal septum 619227999 Active 025 LISA ARANA PA-C [address] [place] [address], [address], [facility] - [facility] 5 14:28:11 Problem Notes None recorded. Medical Equipment None Reported. Allergies Allergen ID Allergen Name Allergen Category Reaction Reaction Severity Criticality Documentation Date Start Date Code Code System Note Provider Name and Address Organization Details Recorded Time 254122 lisinopri l medicatio n Not available Not available Not available 12/06/2024 73584 RxNorm Lisa veliz [place] - [facility] 5 13:54:28 Medications Name Sig Start [...] Updated DateTime 12/06/2024 149.86 cm 28.3 kg/m2 24824.93 g Lisa Reeves [place] - [facility] 12/06/2024 13:54:19 Social History None recorded. Functional Status None recorded. Mental Status None recorded. Family History Nothing Reported. Medical History Condition Response Anemia Y Hypertension Y Gynecological HistoryNo gynecological history recorded. Obstetrics History GPAL:G 0 P 0 0 0 0 Past Encounters Encounter ID Performer Location Encounter Start Date Encounter Closed Date Diagnosis/Indication Diagnosis SNOMED-CT Code Diagnosis ICD10 Code Diagnosis Note [id number] LISA ARANA PA-C [facility] on [address] [place] [address] 12/06/2024 13:17:54 12/06/2024 15:50:26 Nasal congestion 17293393 R09.81 Lesion of tongue 3677144 05 K14.9 Deviated nasal septum 12 0991628 J34.2 Health Concerns Section Related Observation LastModified by Organization Detai ls LastModified Time None Recorded Concern Status LastModified by Organization Details LastModified Time None Recorded Advance Directives Directive None Recorded Payers Encounter Date Sequence Insurance Name Policy Number Policy Bradley Covered Member ID Bradley Member ID Guarantor Name 12/06/2024 1 [place] [employer] Shreya Gino [id number] Shreya Gino 12/06/2024 2 [place] [facility] Shreya Gino [id number] [facility] Gino Notes Date Note Type Note Provider [...] sides of the tongue. KEMI SANTOYO MD [address] [place] [address], [place], [address], [facility] - [facility] 12/09/2024 12:38:39 OBGyn Episode No OBEpisode recorded.
--- OUTSIDE RECORDS SUMMARY | 2025-01-08 13:43 | XMS_ITS | Clinical Summary ---
Author Organization [employer] Address [address] [place] [address] Care Team Providers Care Group Exercise Class Instructor Name Role Phone Unavailable Primary Care Provider [...] Description 10/31/2024 10:00 AM EST Office Visit [facility] [address] [place] [address] Mally Fisher DDS from Last 3 Months Social History Tobacco [...] Done Comments CT Colonography 1954 Colonoscopy 1954 Depression Screening 1954 FIT DNA/Cologuard 1954 Lipid Panel 1954 SDOH Screening 1954 Sigmoidoscopy 1954 Alcohol/Substance Use Screening 1966 Hepatitis C Screening 1972 DTaP/Tdap/Td Vaccines (1 - Tdap) 04/04/2015 04/03/2015 Dental Prophylaxis 08/14/2019 02/11/2019, 0 01/15/2018, 06/15/2017, Additional history exists Dental Oral Exam 10/03/2019 04/01/2019, 11/2017, 01/15/2018, Additional history exists Dental X-Ray: Bitewings 04/02/2020 04/01/20 19, 01/15/2018, 12/12/2016, Additional history exists Dental X-Ray: Full Mouth 01/16/2021 01/15/2018, 06/11 Colorectal Cancer Screening 04/14/2024 FIT 04/14/2024 04/14/2023 FOBT 04/14/2024 04/14/2023 COVID-19 Vaccine ( season) 2024 06/27/2023, 09/30/2022, [...] (ELEVATION/FORCEPS REMOVAL) Routine 10/31/2024 10:00 AM EST BITEWINGS - 4 RADIOGRAPHIC IMAGES Routine 04/01/2019 12:00 AM EDT PERIODIC ORAL EVALUATION - ESTABLISHED PATIENT Routine 04/01/2019 12:00 AM EDT PROPHYLAXIS - ADULT Routine 02/11/2019 1 2:00 AM EDT INTRAORAL - COMPLETE SERIES OF RADIOGRAPHIC IMAGES Routine 01/15/2018 12:00 AM EDT from Last 3 Months or Most Recently Relevant to Health Maintenance Insurance [facility] [place] [address] , [place] [address]
--- OUTSIDE RECORDS SUMMARY | 2025-01-08 13:43 | XMS_ITS | Encounter Summary ---
Author Organization [employer] Address [address] [facility] [address] [place] [address] Care Team Providers Care [place] Clerk Name Role Phone Unavailable Primary Care [...]
== END 2025-01-08 12:58 | disposition home or self-care (01) ==
LOC: HO.HCS 12:22
PROVIDERS: Visit Provider Internal Medicine Cardiovascular Disease
DX: I48.0 Paroxysmal atrial fibrillation (principal); R00.1 Bradycardia, unspecified
CPT/HCPCS: 93010; 99214; G2211

== ENCOUNTER → 2025-01-08 12:21 | Outpatient (BNVA) | payer MEDICARE, MEDICAID, SELFPAY | PROVIDERS: Visit Provider Internal Medicine Cardiovascular Disease | DX: I48.0 Paroxysmal atrial fibrillation (principal); R00.1 Bradycardia, unspecified | CPT/HCPCS: 93005; 99212 ==